=== PATIENT | female | born 1975 | race Caucasian/White ===

== ENCOUNTER → 2016-06-20 | Outpatient (CLI) | payer OTHER ==
[~2016-06-20] MED LIST: ASPI81TA28 PO; ATV/1 PO; CALC500C3 PO; CYCL5TAB PO; DICL75TA2 PO; DSY50 PO; FLUC150T PO; GABA-112 PO; IBUP-1050 PO; INSDGI SC; INSUINJ4 SQ; LEVO1TAB35 PO; LISI-729 PO; LPT/40 PO; METF1000 PO; NVLGI/PEN SQ; ONDA4TAB46 PO; OXYC-57 PO; PRLSR20 PO; PROM25TA16 PO; RANI300T2 PO; RIZA10TA18 PO; SERT25TA PO; TRAM-10 PO
[2016-06-20 12:23] LABS: BASO ABS # 0.09 K/uL (0-0.2); COMPLETE YES; EOS % 3.9 %; HEMATOCRIT 41.2 % (37-47); IG% 0.8 %; LYMPH % 35.3 %; LYMPH ABS # 3.16 K/uL (1.2-3.4); MEAN CELL VOLUME 90.5 fL (80-100); MEAN CORPUSCULAR HEMOGLOBIN 32.1 pg (25-34); MEAN CORPUSCULAR HGB CONC 35.4 g/dl (32-36); MEAN PLATELET VOLUME 10.2 fL (7.4-10.4); MONO % 6.9 %; NEUT % 52.1 %; PLATELET COUNT 310 K/uL (130-400); RED BLOOD COUNT 4.55 M/uL (4.2-5.4); WHITE BLOOD COUNT 8.94 K/uL (4.8-10.8)
[2016-06-20 12:56] LABS: BLOOD UREA NITROGEN 16 mg/dl (7-18); BUN/CREATININE RATIO 22.1 (10-20); CALCIUM 8.7 mg/dl (8.5-10.1); CARBON DIOXIDE 22 mmol/L (21-32); CHLORIDE 106 mmol/L (98-107); CREATININE 0.73 mg/dl (0.60-1.20); GLUCOSE 194 mg/dl (70-99); POTASSIUM 3.9 mmol/L (3.5-5.1); SODIUM 139 mmol/L (136-145)
== END | disposition home or self-care (01) ==
LOC: C.LAB 11:06
PROVIDERS: ATTEND Orthopaedic Surgery
DX: Z01.810 Encounter for preprocedural cardiovascular examination (principal); Z01.812 Encounter for preprocedural laboratory examination; M25.512 Pain in left shoulder

== ENCOUNTER 2016-10-12 16:57 | Emergency (ER) | payer OTHER ==
[~2016-10-12] VITALS: Ht 167.6 cm; Wt 124.5 kg
[~2016-10-12 16:57] MED LIST changes: -CALC500C3 PO; -FLUC150T PO; -IBUP-1050 PO; -INSDGI SC; -LEVO1TAB35 PO; -ONDA4TAB46 PO; -OXYC-57 PO
[2016-10-12] MEDS ORDERED: FENTANYL CITRATE INJ 50 MCG/1 ML 2 ML VIAL IV STA (17:19)
[2016-10-12 17:20] VITALS: TEMP 36.8; Ht 167.6 cm; Wt 124.5 kg
[2016-10-12 17:25] LABS: BASO % 0.5 %; BASO ABS # 0.05 K/uL (0-0.2); COMPLETE YES; HEMATOCRIT 40.4 % (37-47); IG% 0.5 %; LYMPH % 37.1 %; LYMPH ABS # 3.42 K/uL (1.2-3.4); MEAN CELL VOLUME 89.4 fL (80-100); MEAN CORPUSCULAR HEMOGLOBIN 32.3 pg (25-34); MEAN CORPUSCULAR HGB CONC 36.1 g/dl (32-36); MEAN PLATELET VOLUME 10.1 fL (7.4-10.4); MONO % 6.5 %; NEUT % 52.4 %; PLATELET COUNT 271 K/uL (130-400); RED BLOOD COUNT 4.52 M/uL (4.2-5.4); WHITE BLOOD COUNT 9.22 K/uL (4.8-10.8)
[2016-10-12] MEDS ORDERED: ONDANSETRON 8 MG/54 ML D5W IV ONE (17:30)
[2016-10-12 17:46] LABS: BUN/CREATININE RATIO 17.8 (10-20); CALCIUM 8.4 mg/dl (8.5-10.1); CREATININE 0.58 mg/dl (0.60-1.20); POTASSIUM 3.5 mmol/L (3.5-5.1)
[2016-10-12 17:51] LABS: CKMB/CK RATIO 1.5 (0-3.0)
[2016-10-12 17:57] VITALS: O2SAT 95
[2016-10-12] MEDS ORDERED: FLUC150T PO (18:06)
[2016-10-12] MEDS ORDERED: ONDA4TAB46 PO (18:06)
[2016-10-12] MEDS ORDERED: INSDGI SC (18:06)
[2016-10-12] MEDS ORDERED: CALC500C3 PO (18:07)
[2016-10-12] MEDS ORDERED: IBUP-1050 PO (18:07)
--- NOTE | 2016-10-12 18:08 | DIAGNOSTIC IMAGING REPORT ---
CHEST ONE VIEW PORTABLE HISTORY: Short of breath. Atypical CHEST PAIN COMPARISON: Chest 10/04/2013. FINDINGS: The lungs are clear. Cardiac silhouette is normal in size. No pleural effusions. No pneumothorax. IMPRESSION: No acute process. Electronically signed by: Yared Redman M.D. 10/12/2016 6:06 PM Dictated Date/Time: 10/12/2016 6:05 PM
[2016-10-12] MEDS ORDERED: ACETAMINOPHEN 500 MG TAB PO STA (18:42)
[2016-10-12] MEDS ORDERED: KETOROLAC TROMETHAMINE 30 MG/ML VIAL IV STA (20:05)
[2016-10-12] MEDS ORDERED: ALBUT/IPRATROP 3MG/0.5MG NEB 3 ML VIAL INH STA (20:05)
[2016-10-12] MEDS ORDERED: GI COCKTAIL PO STA (20:05)
[2016-10-12] MEDS ORDERED: ALUMINUM/MAGNESIUM SUSP 30 ML UDC ONE (20:14)
[2016-10-12] MEDS ORDERED: LIDOCAINE HCL 2% VISC SOLN 20 ML UDC ONE (20:14)
[2016-10-12] MEDS ORDERED: ALBUTEROL HFA 8 GM INHALER INH ONE (21:15)
[2016-10-12] MEDS ORDERED: PROMETHAZINE HCL 25 MG TAB PO ONE (21:15)
[2016-10-12] MEDS ORDERED: PHENERGAN 25MG HOMEPACK PO ONE (21:15)
--- NOTE | 2016-10-12 21:25 | EMERGENCY ROOM VISIT NOTE ---
History Report prepared by Александр: Minal Reyse Under the Supervision of: Dr. Maurilio Eduardo M.D. First contact with patient: 17:13 Stated Complaint: CHEST PAIN, SOB History of Present Illness The patient is a 41 year old female who presents to the Emergency Room with complaints of constant chest pain beginning last night. The patient states that the chest pains are stabbing in the center of her chest and radiate into her left arm. She reports that she has had chest pain in the past but it was not as severe as it is today. She notes a history of acid reflux and states that she has not had any reflux today. The patient complains of shortness of breath, lightheadedness, and nausea. She notes that she took a baby aspirin this morning and in the ambulance she recieved 3 nitroglycerin. She states that the second nitroglycerin relieved some of her chest pressure but it has returned back to its initial severity. Pt denies LOC, headache, fevers, chills, diaphoresis, visual changes, neck pain, tearing pain radiating to the back, personal history or family history of aneurysm or pulmonary embolism, uncontrolled hypertension, leg swelling, coagulation abnormalities, prolonged travel, recent surgery or immobilization, vomiting, abdominal pain, melena, hematochezia, urinary symptoms, numbness, weakness, lymphadenopathy, rash, or other complaints. She rates her pain as an 8/10 in severity. She reports a history of diabetes and Prothrombin mutation. The patient states that moving around and exertion worsen her chest pain and shortness of breath. Source of History: patient Onset: last night Position: chest Quality: pressure, stabbing Timing: constant Modifying Factors (Worsening): exertion, movement Review of Systems See HPI for pertinent positives and negatives. A total of ten systems were reviewed and were otherwise negative. Past Medical & Surgical Medical Problems: (1) DM (diabetes mellitus), type 2, uncontrolled (2) Dyslipidemia (3) Migraine (4) Necrobiosis diabeticorum (5) Prothrombin gene mutation (6) Tobacco use Surgical Problems: (1) Status post arthroscopic knee surgery Family History Diabetes mellitus FHx: prothrombin gene mutation Seizures Social History Smoking Status: Current Every Day Smoker Alcohol Use: occasionally Drug Use: none Marital Status: other Housing Status: lives with family Occupation Status: employed Current/Historical Medications Scheduled Aspirin (Aspirin Ec), 81 MG PO DAILY Atorvastatin (Lipitor), 40 MG PO DAILY Diclofenac Sodium (Voltaren), 75 MG PO BID Gabapentin (Neurontin), 200 MG PO TID Insulin Aspart (Novolog Flexpen), 60 UNITS SQ WM Insulin Glargine (Lantus), 70 UNITS SC DAILY Lisinopril (Zestril), 5 MG PO DAILY Metformin Hcl (Glucophage), 1,000 MG PO BIDM Omeprazole (Prilosec), 40 MG PO BID Ranitidine Hcl (Zantac), 300 MG PO HS Sertraline (Zoloft), 10 MG PO DAILY Scheduled PRN Calcium Carbonate (Tums), 500 MG PO UD PRN for PRN Fluconazole (Diflucan), 150 MG PO DAILY PRN for YEAST INFECTION Ibuprofen (Advil), 200-600 MG PO Q4H PRN for Pain Lorazepam (Ativan), 1 MG PO TID PRN for Anxiety Ondansetron Hcl (Zofran), 1 TAB PO UD PRN for Nausea Rizatriptan Benzoate (Maxalt), 10 MG PO UD PRN for Migraine Tramadol (Ultram), 50 MG PO Q6 PRN for Pain Allergies Coded Allergies: Meperidine (Verified Allergy, Mild, ITCHY, 12/23/15) Amoxicillin (Verified Allergy, Unknown, 0, 12/23/15) Bupropion (Verified Allergy, Unknown, PSYCHOTIC, 12/23/15) Oxycodone (Verified Allergy, Unknown, ITCHY, 12/23/15) Morphine (Verified Adverse Reaction, Intermediate, "GETS REALLY SICK", ) Uncoded Allergies: MUSCLE RELAXER (Allergy, Unknown, itching, n/v, 12/23/15) not flexeril Physical Exam Vital Signs Date Time Temp Pulse Resp B/P (MAP) Pulse Ox O2 Delivery O2 Flow Rate FiO2 10/12/16 20:15 74 115/81 97 Room Air 10/12/16 19:45 78 10/12/16 18:45 71 94 10/12/16 18:13 78 16 107/70 94 Nasal Cannula 2.0 10/12/16 17:57 95 Nasal Cannula 2.0 10/12/16 17:56 79 Room Air 10/12/16 17:20 96 Room Air 10/12/16 17:20 36.8 86 20 117/84 96 Room Air 10/12/16 17:20 96 Room Air 10/12/16 17:12 86 Physical Exam GENERAL: Awake, alert, well-appearing, in no distress HENT: Normocephalic, atraumatic. Oropharynx unremarkable. EYES: Normal conjunctiva. Sclera non-icteric. NECK: Supple. No nuchal rigidity. FROM. No JVD. RESPIRATORY: Clear to auscultation. CARDIAC: Regular rate, normal rhythm. Extremities warm and well perfused. Pulses equal. ABDOMEN: Soft, non-distended. No tenderness to palpation. No rebound or guarding. No masses. RECTAL: Deferred. MUSCULOSKELETAL: Sternal tenderness. The back is symmetrical on inspection without obvious abnormality. There is no CVA tenderness to palpation. No joint edema. LOWER EXTREMITIES: Calves are equal size bilaterally and non-tender. No edema. No discoloration. NEURO: Normal sensorium. No sensory or motor deficits noted. SKIN: No rash or jaundice noted. Medical Decision & Procedures ER Provider Diagnostic Interpretation: X-ray: Per my interpretation, radiologist review. CHEST ONE VIEW PORTABLE FINDINGS: The lungs are clear. Cardiac silhouette is normal in size. No pleural effusions. No pneumothorax. IMPRESSION: No acute process. Electronically signed by: Yared Redman M.D. 10/12/2016 6:06 PM Dictated Date/Time: 10/12/2016 6:05 PM Laboratory Results 10/12/16 17:10 Red Blood Count 4.52, Mean Corpuscular Volume 89.4, Mean Corpuscular Hemoglobin 32.3, Mean Corpuscular Hemoglobin Concent 36.1, Mean Platelet Volume 10.1, Neutrophils (%) (Auto) 52.4, Lymphocytes (%) (Auto) 37.1, Monocytes (%) (Auto) 6.5, Eosinophils (%) (Auto) 3.0, Basophils (%) (Auto) 0.5, Neutrophils # (Auto) 4.82, Lymphocytes # (Auto) 3.42, Monocytes # (Auto) 0.60, Eosinophils # (Auto) 0.28, Basophils # (Auto) 0.05 10/12/16 17:10 Test 10/12/16 17:10 10/12/16 17:36 10/12/16 20:29 White Blood Count 9.22 K/uL (4.8-10.8) Red Blood Count 4.52 M/uL (4.2-5.4) Hemoglobin 14.6 g/dL (12.0-16.0) Hematocrit 40.4 % (37-47) Mean Corpuscular Volume 89.4 fL (80-100) Mean Corpuscular Hemoglobin 32.3 pg (25-34) Mean Corpuscular Hemoglobin Concent 36.1 g/dl (32-36) Platelet Count 271 K/uL (130-400) Mean Platelet Volume 10.1 fL (7.4-10.4) Neutrophils (%) (Auto) 52.4 % Lymphocytes (%) (Auto) 37.1 % Monocytes (%) (Auto) 6.5 % Eosinophils (%) (Auto) 3.0 % Basophils (%) (Auto) 0.5 % Neutrophils # (Auto) 4.82 K/uL (1.4-6.5) Lymphocytes # (Auto) 3.42 K/uL (1.2-3.4) Monocytes # (Auto) 0.60 K/uL (0.11-0.59) Eosinophils # (Auto) 0.28 K/uL (0-0.5) Basophils # (Auto) 0.05 K/uL (0-0.2) RDW Standard Deviation 40.9 fL (36.4-46.3) RDW Coefficient of Variation 12.6 % (11.5-14.5) Immature Granulocyte % (Auto) 0.5 % Immature Granulocyte # (Auto) 0.05 K/uL (0.00-0.02) Anion Gap 7.0 mmol/L (3-11) Est Creatinine Clear Calc Drug Dose 173.7 ml/min Estimated GFR () 133.6 Estimated GFR (Non- 115.3 BUN/Creatinine Ratio 17.8 (10-20) Calcium Level 8.4 mg/dl (8.5-10.1) Total Bilirubin 0.6 mg/dl (0.2-1) Direct Bilirubin 0.1 mg/dl (0-0.2) Aspartate Amino Transf (AST/SGOT) 11 U/L (15-37) Alanine Aminotransferase (ALT/SGPT) 27 U/L (12-78) Alkaline Phosphatase 83 U/L (45-117) Total Creatine Kinase 176 U/L (26-192) Creatine Kinase MB 2.6 ng/ml (0.5-3.6) Creatine Kinase MB Ratio 1.5 (0-3.0) Total Protein 6.8 gm/dl (6.4-8.2) Albumin 3.4 gm/dl (3.4-5.0) Lipase 82 U/L (73-393) Bedside D-Dimer 225 ng/mlFEU (0-450) Bedside Troponin I 0.000 ng/ml (0-0.045) Bedside Glucose 129 mg/dl (70-90) Laboratory results reviewed by me Medications Administered Medications (Trade) Dose Ordered Sig/John Route Start Time Stop Time Status Last Admin Dose Admin Fentanyl Citrate (Fentanyl Inj) 100 mcg NOW STAT IV 10/12/16 17:19 10/12/16 17:21 DC 10/12/16 17:41 100 MCG Ondansetron HCl (Zofran 8mg Iv) 8 mg NOW ONCE IV 10/12/16 17:30 10/12/16 17:31 DC 10/12/16 17:42 8 MG Acetaminophen (Tylenol Tab) 1,000 mg NOW STAT PO 10/12/16 18:42 10/12/16 18:43 DC 10/12/16 19:00 1,000 MG Albuterol/ Ipratropium (Duoneb) 3 ml NOW STAT INH 10/12/16 20:05 10/12/16 20:07 DC 10/12/16 20:19 3 ML Ketorolac Tromethamine (Toradol Inj) 30 mg NOW STAT IV 10/12/16 20:05 10/12/16 20:07 DC 10/12/16 20:19 30 MG Lidocaine HCl (Viscous Lidocaine 2% Soln) 20 ml STK-MED ONCE .ROUTE 10/12/16 20:14 10/12/16 20:15 DC 10/12/16 20:20 20 ML Al Hydroxide/Mg Hydroxide (Maalox Susp) 30 ml STK-MED ONCE .ROUTE 10/12/16 20:14 10/12/16 20:15 DC 10/12/16 20:20 30 ML ECG Indication: chest pain Rate (beats per minute): 76 Rhythm: normal sinus Findings: nonspecific-ST abn, no acute ischemic change, no ectopy ED Course 1713: The patient was evaluated in room C11B. A complete history and physical exam was performed. 1718: Fentanyl Inj 100mcg IV. 1729: Zofran 8mg IV. 1839: I reevaluated the patient and she still has a slight headache from the nitroglycerin. 1841: Tylenol Tab 1000mg PO. 2004: GI Cocktail 24ml PO, Toradol Inj 30mg IV, Duoneb 3ml INH. 2007: I reevaluated the patient. She has a slight headache and feels like her food is getting stuck when it goes down. 2113: I reevaluated the patient. She is feeling a bit nauseated. She notes that the GI cocktail and breathing treatment have helped. 2114: Albuterol 2 puffs INH, Phenergan Tab 25mg PO, Promethazine HCl 1 homepack PO. 2123: I reevaluated the patient. Discussed results and discharge instructions: She verbalized understanding and agreement. The patient is ready for discharge. Medical Decision Medication Reconciliation: I attest that I have personally reviewed the patient' s current medication list Blood pressure screening: Patient was found to have normal blood pressure on screening and does not require follow-up. Triage Nursing notes reviewed. The patient's presentation and history were concerning for chest pain. Etiologies such as cardiac ischemia, aortic dissection, pulmonary embolism, pneumonia, pneumothorax, musculoskeletal, infections, gastrointestinal, as well as others were entertained. The patient had recurrence of chest pain since yesterday. Blood work was obtained. ECG did not reveal any acute ischemic change. She had an unremarkable chest x-ray. Her CBC, chemistry panel, LFTs, lipase and cardiac markers were unremarkable except for hypoglycemia. This was rechecked and verified. The patient was given orange juice and her hypoglycemia corrected. She was also given a diet. The patient received fentanyl and Zofran. The patient had a headache after receiving nitroglycerin. She was given Tylenol. She was observed. Given the fact that her pain has been present since yesterday a single set of cardiac markers were done and these were negative. A d-dimer was done and this was negative as well. The patient did have tenderness in her chest wall on examination. This seems to be most consistent with a musculoskeletal source or maybe esophageal. The patient still had some headache after the Tylenol. She felt a headache after the nitroglycerin. She was given a DuoNeb because her oxygen was slightly low. She was also given Toradol. The patient is a long-time smoker. After those medications in addition to a GI cocktail the patient felt much better. She was observed. Her sugar was corrected. She has some slight nausea prior to discharge and was given a dose of Phenergan. I will give her a Phenergan home pack. She will follow-up closely in the office. Conservative management was discussed. I gave my usual and customary discussion regarding this issue. By the evaluation outlined above other emergent etiologies such as those listed in the differential, as well as others, were deemed relatively unlikely. The patient was educated about the findings as listed above. All questions were answered and the patient was pleased with the treatment. Return instructions were outlined and the patient was discharged in stable condition. The patient was referred to her PCP for follow-up for a recheck of the current condition. Impression Primary Impression: Left sided chest pain Scribe Attestation The scribe's documentation has been prepared under my direction and personally reviewed by me in its entirety. I confirm that the note above accurately reflects all work, treatment, procedures, and medical decision making performed by me. Departure Information Referrals Brandi Dunne DO (PCP) Additional Instructions CHEST PAIN INSTRUCTIONS: DO NOT drive, drink alcohol, operate machinery, or perform dangerous activities today. You were given medications in the ER that can affect your ability to safely function or operate a vehicle. Phenergan 25mg tabs, one every six hours for nausea. Ibuprofen(Motrin, Advil) may be used for fever or pain. Use 600mg every six hours as needed. Take with food. Avoid using more than 2400mg in a 24 hour period. Do not use 2400mg per day for more than three consecutive days without physician direction. Prolonged inappropriate use can lead to stomach upset or ulcers. (AND/OR) Acetaminophen(Tylenol) may be used for fever or pain. Use 1000mg every six hours as needed. Avoid using more than 4000mg in a 24 hour period. Albuterol inhaler: Two puffs 4 times daily for seven days to improve breathing , then 2 puffs every 4-6 hours as needed. Rest and drink plenty of fluids as tolerated. Continue current medications. Avoid strenuous activities and anything that worsens your pain. Resume normal activities once your symptoms resolve. Return to the ER immediately for worsening or persistent chest pain, abdominal pain, vomiting, fevers, chest pains, difficulty breathing, worsening of your condition, or as needed. Follow up with your primary physician in 2-3 days for a recheck of your current condition.
[2016-10-12 21:29] VITALS: BP 128/86; PULSE 71; O2SAT 98
== END 2016-10-12 21:31 | disposition home or self-care (01) ==
LOC: EDBD 16:57 → C.EDC 17:02
DX: R07.9 Chest pain, unspecified (principal); E11.9 Type 2 diabetes mellitus without complications; E78.5 Hyperlipidemia, unspecified; R68.89 Other general symptoms and signs; Z83.3 Family history of diabetes mellitus; Z82.0 Family history of epilepsy and other diseases of the nervous system; F17.200 Nicotine dependence, unspecified, uncomplicated; Z79.82 Long term (current) use of aspirin; Z79.4 Long term (current) use of insulin

== ENCOUNTER 2016-11-14 23:27 | Emergency (ER) | payer OTHER ==
[~2016-11-14] VITALS: Ht 177.8 cm; Wt 123.0 kg
[~2016-11-14 23:27] MED LIST changes: +CALC500C3 PO; -CYCL5TAB PO; -DSY50 PO; +FLUC150T PO; +IBUP-1050 PO; +INSDGI SC; -INSUINJ4 SQ; +ONDA4TAB46 PO; -PROM25TA16 PO
[2016-11-14 23:30] VITALS: TEMP 37.1; Ht 177.8 cm; Wt 123.0 kg
[2016-11-14] MEDS ORDERED: SODIUM CHLORIDE 0.9% 1000ML 1,000 ML IV STA (23:52)
[2016-11-14] MEDS ORDERED: ALBUT/IPRATROP 3MG/0.5MG NEB 3 ML VIAL INH STA (23:59)
[2016-11-15] MEDS ORDERED: HYDROCODONE/HOMATROPINE SYRUP 5MG/1.5MG 5ML UDP PO STA (00:02)
--- NOTE | 2016-11-15 00:04 | EMERGENCY ROOM VISIT NOTE ---
History Report prepared by Александр: Avila Rodarte Under the Supervision of: Dr. Edi Sargent M.D. First contact with patient: 23:40 Chief Complaint: ILLNESS Stated Complaint: CAN'T BREATHE,TIGHT CHEST,COUGH,FEVER,DIZZY History of Present Illness The patient is a 41 year old female who presents to the Emergency Room with complaints of worsening shortness of breath that began 2 weeks ago. At this time , she began having productive cough. 1 week ago, it became a dry cough. Because of this, she has a sore throat as well. Earlier today, a nurse took her temperature, and it was 104.9 F, which was taken twice. She took Tylenol PO 5 hours ago. She experiences pain with breathing. She states that she has a clotting disorder. Secondary to this, she takes Aspirin 81 mg PO everyday. She has never had a blood clot before. She has a past medical history of diabetes. She denies any abdominal pain. She has had pneumonia twice in the past. She notes that she did a lot of traveling this weekend. Source of History: patient Onset: 2 weeks ago Position: other (Respiratory System) Symptom Intensity: moderate Quality: other (Shortness of breath) Timing: worsening Modifying Factors (Worsening): breathing (pain associated with) Associated Symptoms: + fevers, + sorethroat, + cough, No abdominal pain Review of Systems See HPI for pertinent positives & negatives. A total of 10 systems reviewed and were otherwise negative. Past Medical & Surgical Medical Problems: (1) DM (diabetes mellitus), type 2, uncontrolled (2) Dyslipidemia (3) Migraine (4) Necrobiosis diabeticorum (5) Prothrombin gene mutation (6) Tobacco use Surgical Problems: (1) Status post arthroscopic knee surgery Family History Diabetes mellitus FHx: prothrombin gene mutation Seizures Social History Smoking Status: Current Every Day Smoker Alcohol Use: occasionally Drug Use: none Marital Status: other Housing Status: lives with family Occupation Status: employed Current/Historical Medications Scheduled Aspirin (Aspirin Ec), 81 MG PO DAILY Atorvastatin (Lipitor), 40 MG PO DAILY Diclofenac Sodium (Voltaren), 75 MG PO BID Gabapentin (Neurontin), 200 MG PO TID Insulin Aspart (Novolog Flexpen), 60 UNITS SQ WM Insulin Glargine (Lantus), 70 UNITS SC DAILY Levofloxacin (Levaquin), 750 MG PO QD@08 Lisinopril (Zestril), 5 MG PO DAILY Metformin Hcl (Glucophage), 1,000 MG PO BIDM Omeprazole (Prilosec), 40 MG PO BID Ranitidine Hcl (Zantac), 300 MG PO HS Sertraline (Zoloft), 10 MG PO DAILY Scheduled PRN Calcium Carbonate (Tums), 500 MG PO UD PRN for PRN Fluconazole (Diflucan), 150 MG PO DAILY PRN for YEAST INFECTION Ibuprofen (Advil), 200-600 MG PO Q4H PRN for Pain Lorazepam (Ativan), 1 MG PO TID PRN for Anxiety Ondansetron Hcl (Zofran), 1 TAB PO UD PRN for Nausea Rizatriptan Benzoate (Maxalt), 10 MG PO UD PRN for Migraine Tramadol (Ultram), 50 MG PO Q6 PRN for Pain Allergies Coded Allergies: Meperidine (Verified Allergy, Mild, ITCHY, 10/29/16) Amoxicillin (Verified Allergy, Unknown, 0, 10/29/16) Bupropion (Verified Allergy, Unknown, PSYCHOTIC, 10/29/16) Oxycodone (Verified Allergy, Unknown, ITCHY, 10/29/16) Morphine (Verified Adverse Reaction, Intermediate, "GETS REALLY SICK", ) Uncoded Allergies: MUSCLE RELAXER (Allergy, Unknown, itching, n/v, 12/23/15) not flexeril Physical Exam Vital Signs Date Time Temp Pulse Resp B/P (MAP) Pulse Ox O2 Delivery O2 Flow Rate FiO2 11/15/16 02:19 92 16 118/70 93 Room Air 11/15/16 01:23 98 16 129/93 94 Room Air 11/15/16 00:11 105 24 100/82 95 Room Air 11/14/16 23:30 37.1 119 18 140/88 96 Room Air Physical Exam GENERAL: Patient is uncomfortable appearing and in mild acute distress. Diaphoretic. HEENT: No acute trauma, normocephalic atraumatic, mucous membranes dry, no nasal congestion, no scleral icterus. NECK: No stridor, no adenopathy, no meningismus, trachea is midline. LUNGS: Persistent hacking cough. Crackles bilaterally in lower lobes. HEART: Tachycardic rate and regular rhythm. No murmurs, rubs, gallops appreciated. ABDOMEN: Soft, nontender, bowel sounds positive, no masses appreciated, no peritonitis. BACK: No midline tenderness, no CVA tenderness EXTREMITIES: Normal motion all extremities, no cyanosis, no edema. NEUROLOGIC: Alert and oriented, no acute motor or sensory deficits, no focal weakness, cranial nerves grossly intact. SKIN: No rash, no jaundice, no diaphoresis. Medical Decision & Procedures ER Provider Diagnostic Interpretation: Radiology results and stated below per my review and radiologist interpretation: CTA CHEST: Compared with 10/04/2013 No acute pulmonary embolism. No thoracic aortic aneurysm or dissection. Low lung volumes with hypoventilatory changes. No acute parenchymal lung disease. No pleural or pericardial effusions. No pathologic adenopathy within the chest. Radiologist: Francois Rodney M.D. 1 VIEW CHEST X-RAY: No definitive infiltrate. Some scattered patchy densities of uncertain etiologies. No enlarged heart. No effusion. No pneumothorax. Per me. Laboratory Results 11/15/16 00:10 Red Blood Count 5.00, Mean Corpuscular Volume 88.2, Mean Corpuscular Hemoglobin 31.6, Mean Corpuscular Hemoglobin Concent 35.8, Mean Platelet Volume 9.8 11/15/16 00:10 Test 11/15/16 00:10 11/15/16 00:16 White Blood Count 14.88 K/uL (4.8-10.8) Red Blood Count 5.00 M/uL (4.2-5.4) Hemoglobin 15.8 g/dL (12.0-16.0) Hematocrit 44.1 % (37-47) Mean Corpuscular Volume 88.2 fL (80-100) Mean Corpuscular Hemoglobin 31.6 pg (25-34) Mean Corpuscular Hemoglobin Concent 35.8 g/dl (32-36) Platelet Count 313 K/uL (130-400) Mean Platelet Volume 9.8 fL (7.4-10.4) RDW Standard Deviation 40.0 fL (36.4-46.3) RDW Coefficient of Variation 12.6 % (11.5-14.5) Neutrophils % (Manual) 73.2 % Lymphocytes % (Manual) 22.3 % Monocytes % (Manual) 1.8 % Eosinophils % (Manual) 2.7 % Neutrophils # (Manual) 10.89 K/uL (1.4-6.5) Total Absolute Neutrophils 10.89 K/uL (1.4-6.5) Lymphocytes # (Manual) 3.32 K/uL (1.2-3.4) Total Absolute Lymphocytes 3.32 K/uL (1.2-3.4) Monocytes # (Manual) 0.27 K/uL (0.11-0.59) Eosinophils # (Manual) 0.40 K/uL (0-0.5) Red Blood Cell Morphology Unremarkable Anion Gap 8.0 mmol/L (3-11) Est Creatinine Clear Calc Drug Dose 106.6 ml/min Estimated GFR () 81.6 Estimated GFR (Non- 70.4 BUN/Creatinine Ratio 11.6 (10-20) Calcium Level 9.6 mg/dl (8.5-10.1) Total Creatine Kinase 155 U/L (26-192) Creatine Kinase MB 1.8 ng/ml (0.5-3.6) Creatine Kinase MB Ratio 1.2 (0-3.0) Troponin I < 0.015 ng/ml (0-0.045) Bedside Lactic Acid Venous 1.92 mmol/L (0.90-1.70) Laboratory results as reviewed by me. Medications Administered Medications (Trade) Dose Ordered Sig/John Route Start Time Stop Time Status Last Admin Dose Admin Sodium Chloride 1,000 ml @ 999 mls/hr Q1H1M STAT IV 11/14/16 23:52 11/15/16 00:52 DC 11/15/16 00:18 999 MLS/HR Albuterol/ Ipratropium (Duoneb) 3 ml NOW STAT INH 11/14/16 23:59 11/15/16 00:01 DC 11/15/16 00:18 3 ML Hydrocodone Bit/ Homatropine Methylb (Hycodan Syrup) 5 ml NOW STAT PO 11/15/16 00:02 11/15/16 00:03 DC 11/15/16 00:18 5 ML Sodium Chloride 1,000 ml @ 999 mls/hr Q1H1M STAT IV 11/15/16 00:30 11/15/16 01:30 DC 11/15/16 00:30 999 MLS/HR Ondansetron HCl (Zofran Inj) 4 mg NOW STAT IV 11/15/16 01:01 11/15/16 01:02 DC 11/15/16 01:47 4 MG Diphenhydramine HCl (Benadryl Inj) 25 mg NOW STAT IV 11/15/16 01:01 11/15/16 01:02 DC 11/15/16 01:46 25 MG Hydrocodone Bit/ Homatropine Methylb (Hycodan Elix Homepack 5/1.5MG/ 5ML) 1 homepack UD ONCE PO 11/15/16 02:30 11/15/16 02:31 DC 11/15/16 02:32 1 HOMEPACK Levofloxacin (Levaquin Tab) 750 mg NOW STAT PO 11/15/16 02:18 11/15/16 02:20 DC 11/15/16 02:33 750 MG ECG Indication: SOB/dyspnea Rate (beats per minute): 110 Rhythm: sinus tachycardia Findings: no acute ischemic change, no ectopy ED Course 2340: The patient was evaluated in room A2. A complete history and physical exam was performed. 2352: Ordered Sodium Chloride 1000 ml @ 999 mls/hr IV 2359: Ordered DuoNeb 3 ml INH 0002: Ordered Hycodan Syrup 5 ml PO 0030: Ordered Sodium Chloride 1000 ml @ 999 mls/hr IV 0101: Ordered Benadryl Inj 25 mg IV, Zofran Inj 4 mg IV 0218: Ordered Levofloxacin 750 mg PO 0230: Ordered Hydrocodone Bit/ Homatropine Methylb 1 homepack PO 0240: Reevaluated the patient. Discussed results and discharge instructions: She verbalized understanding and agreement. The patient is ready for discharge. Medical Decision Differential: Infectious, Reactive Airway Disease, Pneumonia, Pneumothorax, COPD , CHF, ACS, Pulmonary Embolism, MSK, GI, Dissection, amongst other etiologies entertained. Medication Reconciliation: I attest that I have personally reviewed the patient 's current medication list. Blood Pressure Screening: Patient was found to have a slightly elevated blood pressure due to circumstances. I do not believe that the patient requires hypertension monitoring. 41 yr old diabetic female with hacking cough, fevers, and fatigue. Bilateral lower lobe crackles. Moderate risk PE and thus with non-specific CXR I feel that dimer not indicated but rather straight to CT. Fortunately no PE. Bilateral atelectasis though I suspect this is infectious with her dehydration. Fluid resus with cough meds and she is feeling vastly improved. O2, HR, and BP improved. She is happy and in no distress. Seems reasonable treating with abx. She is diabetic and doesn't monitor sugars at home thus I feel steroids contraindicated. Reviewed symptoms requiring return. Stressed PCP follow up. Impression Primary Impression: Pneumonia of both lower lobes Scribe Attestation The scribe's documentation has been prepared under my direction and personally reviewed by me in its entirety. I confirm that the note above accurately reflects all work, treatment, procedures, and medical decision making performed by me. Departure Information Dispostion Home / Self-Care Prescriptions Levofloxacin (Levaquin) 750 Mg Tab 750 MG PO QD@08, #5 TAB Prov: Edi Sargent M.D. 11/15/16 Referrals Brandi Dunne, (PCP) Forms HOME CARE DOCUMENTATION FORM, IMPORTANT VISIT INFORMATION, WORK / SCHOOL INSTRUCTIONS Patient Instructions ED Pneumonia Adult, My [facility] Additional Instructions You must follow up with your primary care provider in the next few days for recheck. You have received a narcotic cough medication. These medications may cause drowsiness and should not be used with other sedative medications. Do not drive , drink alcohol, perform dangerous activities, nor make important decisions after taking these medications. assisted use or inappropriate use may lead to addiction.
[2016-11-15 00:30] LABS: HEMATOCRIT 44.1 % (37-47); MEAN CELL VOLUME 88.2 fL (80-100); MEAN CORPUSCULAR HEMOGLOBIN 31.6 pg (25-34); MEAN CORPUSCULAR HGB CONC 35.8 g/dl (32-36); MEAN PLATELET VOLUME 9.8 fL (7.4-10.4); PLATELET COUNT 313 K/uL (130-400); WHITE BLOOD COUNT 14.88 K/uL (4.8-10.8)
[2016-11-15] MEDS ORDERED: SODIUM CHLORIDE 0.9% 1000ML 1,000 ML IV STA (00:30)
[2016-11-15] MEDS ORDERED: DiphenhydrAMINE HCL 50 MG/ML VIAL IV STA (01:01)
[2016-11-15] MEDS ORDERED: ONDANSETRON INJ 2 MG/ML 2 ML VIAL IV STA (01:01)
[2016-11-15 01:05] LABS: BLOOD UREA NITROGEN 12 mg/dl (7-18); BUN/CREATININE RATIO 11.6 (10-20); CALCIUM 9.6 mg/dl (8.5-10.1); CARBON DIOXIDE 29 mmol/L (21-32); CHLORIDE 103 mmol/L (98-107); GLUCOSE 127 mg/dl (70-99)
[2016-11-15] MEDS ORDERED: OPTIRAY 320 IV PRN (01:15)
[2016-11-15 01:23] LABS: COMPLETE YES; EOSINOPHIL % 2.7 %; LYMPH ABS # 3.32 K/uL (1.2-3.4); LYMPHOCYTE % 22.3 %; NEUTROPHILS % 73.2 %
[2016-11-15 01:27] LABS: SODIUM 140 mmol/L (136-145)
[2016-11-15 01:32] LABS: CKMB/CK RATIO 1.2 (0-3.0)
[2016-11-15] MEDS ORDERED: LEVOFLOXACIN 250 MG TAB PO STA (02:18)
[2016-11-15 02:19] VITALS: BP 118/70; PULSE 92; O2SAT 93
[2016-11-15] MEDS ORDERED: LEVO1TAB35 PO (02:21)
[2016-11-15] MEDS ORDERED: HYCODAN 60ML BOTTLE HOMEPACK PO ONE (02:30)
--- NOTE | 2016-11-15 07:35 | DIAGNOSTIC IMAGING REPORT ---
CT ANGIOGRAM OF THE CHEST CLINICAL HISTORY: Atypical chest pain. COMPARISON STUDY: 10/04/2013 TECHNIQUE: Following the IV administration of 76 mL of Optiray-320, CT angiogram of the thorax was performed from the thoracic inlet to the lung bases utilizing the pulmonary embolus protocol. Images are reviewed in the axial, sagittal, and coronal planes. IV contrast was administered without complication. MIP imaging was performed. CT DOSE: 667.38 mGy.cm FINDINGS: There are mildly enlarged prevascular paratracheal and subcarinal lymph nodes. Hilar lymph nodes are the upper limits of normal in size. There is no pathologic axillary lymphadenopathy. There was no evidence of thoracic aortic dilatation. There were no pulmonary artery filling defects to indicate acute pulmonary embolism. No pleural effusions are visualized. There are low lung volumes. There are dependent airspace opacities. Also evident are scattered groundglass opacities within the upper lobes and right middle lobe. These are likely on a hypoventilatory basis. An infectious/inflammatory etiology however cannot be excluded with certainty. IMPRESSION: 1. No CT evidence of acute pulmonary embolism 2. Mild mediastinal lymphadenopathy 3. Bilateral dependent airspace opacities, and subtle groundglass upper lobe and right lower lobe airspace opacities. Although an infectious/inflammatory etiology cannot be excluded, a hypoventilatory atelectatic etiology is favored. Clinical follow-up is recommended. If the patient has signs or symptoms of pneumonia, then radiographic follow-up should also be considered Electronically signed by: Garret Pollock M.D. 11/15/2016 7:33 AM Dictated Date/Time: 11/15/2016 7:28 AM
--- NOTE | 2016-11-15 08:03 | DIAGNOSTIC IMAGING REPORT ---
CHEST ONE VIEW PORTABLE CLINICAL HISTORY: Difficult chest pain. Difficulty breathing. Cough, fever, dizziness. COMPARISON STUDY: 10/12/2016 FINDINGS: The cardiac and mediastinal contours are normal. There is no evidence of focal pulmonary consolidation. There is no evidence of failure. No pleural effusions are visualized.[ IMPRESSION: No active disease in the chest. Electronically signed by: Garret Pollock M.D. 11/15/2016 8:02 AM Dictated Date/Time: 11/15/2016 8:01 AM
== END 2016-11-15 02:44 | disposition home or self-care (01) ==
LOC: C.EDB 23:27 → C.EDA 11-15 02:44
DX: J18.1 Lobar pneumonia, unspecified organism (principal); E11.9 Type 2 diabetes mellitus without complications; E78.5 Hyperlipidemia, unspecified; G43.909 Migraine, unspecified, not intractable, without status migrainosus; D68.52 Prothrombin gene mutation; Z83.3 Family history of diabetes mellitus; F17.210 Nicotine dependence, cigarettes, uncomplicated; Z79.82 Long term (current) use of aspirin; Z79.4 Long term (current) use of insulin; Z79.899 Other long term (current) drug therapy

== ENCOUNTER 2017-04-16 08:49 | Emergency (ER) | payer OTHER ==
[~2017-04-16] VITALS: Ht 177.8 cm; Wt 123.0 kg
[2017-04-16 08:54] VITALS: Ht 177.8 cm; Wt 123.0 kg
[2017-04-16] MEDS ORDERED: LORA-741 PO (09:08)
--- NOTE | 2017-04-16 10:19 | EMERGENCY ROOM VISIT NOTE ---
History First contact with patient: 09:35 Chief Complaint: COUGH Stated Complaint: BRONCHITIS OR PNX Nursing Triage Summary: c/o productive cough over last week. History of Present Illness The patient is a 42 year old female who presents to the Emergency Room with complaints of worsening cough, congestion, chills, with wheezing and short of breath. She states that her symptoms started as more of a sinus infection, and this spread to her chest about 4 days ago. She states the cough is productive of brown mucus, she denies coughing up any blood. She has been wheezing more today, and states that she feels short of breath with coughing fits and exertion. She denies any chest pain, but states that her chest has been feeling tight since she started to have wheezing. She is a smoker. She reports pneumonia over the summer, states she had an albuterol inhaler for her wheezing but she thinks this is . She reports a history of a prothrombin gene mutation that makes her prone to blood clots, but states she has never had a blood clot and is not on blood thinners. She denies headache, vision changes, neck pain or stiffness, abdominal pain, vomiting, diarrhea, urinary symptoms, or rash. Review of Systems A complete 10 point review of systems was reviewed with the patient with pertinent positives and negatives as per history of present illness. All else were negative. Past Medical/Surgical History Medical Problems: (1) DM (diabetes mellitus), type 2, uncontrolled (2) Dyslipidemia (3) Migraine (4) Necrobiosis diabeticorum (5) Prothrombin gene mutation (6) Tobacco use Surgical Problems: (1) Status post arthroscopic knee surgery Family History Diabetes mellitus FHx: prothrombin gene mutation Seizures Social History Smoking Status: Current Every Day Smoker Alcohol Use: occasionally Drug Use: none Marital Status: other Housing Status: lives with family Occupation Status: employed Current/Historical Medications Scheduled Aspirin (Aspirin Ec), 81 MG PO DAILY Atorvastatin (Lipitor), 40 MG PO DAILY Azithromycin (Zithromax Z-Zachariah), 1 PKT PO UD Diclofenac Sodium (Voltaren), 75 MG PO BID Gabapentin (Neurontin), 200 MG PO TID Insulin Aspart (Novolog Flexpen), UNITS SQ WM Insulin Glargine (Lantus), 80 UNITS SC DAILY Lisinopril (Zestril), 5 MG PO DAILY Lorazepam (Ativan), 0.5 MG PO HS Metformin Hcl (Glucophage), 1,000 MG PO BIDM Omeprazole (Prilosec), 40 MG PO BID Ranitidine Hcl (Zantac), 300 MG PO HS Sertraline (Zoloft), 10 MG PO DAILY Scheduled PRN Calcium Carbonate (Tums), 500 MG PO UD PRN for PRN Fluconazole (Diflucan), 150 MG PO DAILY PRN for YEAST INFECTION Ibuprofen (Advil), 200-600 MG PO Q4H PRN for Pain Ondansetron Hcl (Zofran), 1 TAB PO UD PRN for Nausea Rizatriptan Benzoate (Maxalt), 10 MG PO UD PRN for Migraine Tramadol (Ultram), 50 MG PO Q6 PRN for Pain Physical Exam Vital Signs Date Time Temp Pulse Resp B/P (MAP) Pulse Ox O2 Delivery O2 Flow Rate FiO2 04/16/17 13:07 36.9 71 18 132/57 96 04/16/17 12:44 71 18 132/57 96 Room Air 04/16/17 10:56 78 04/16/17 10:52 94 Room Air 04/16/17 10:51 36.9 75 18 106/49 95 Room Air 04/16/17 09:03 98 Room Air 04/16/17 08:54 36.7 84 17 128/81 95 Room Air Physical Exam CONSTITUTIONAL: No acute distress, but appears uncomfortable. Mildly dehydrated. Alert and oriented X 4 with normal affect. HEENT: Normocephalic, atraumatic. Pupils equal, round and reactive to light, EOMI. TMs normal. Pharynx normal. Tacky mucous membranes. NECK: Supple, full active range of motion without discomfort. No cervical adenopathy. RESPIRATORY: Diminished bilaterally with diffuse expiratory wheezing, no crackles, rhonchi or stridor. Equal expansion bilaterally. CARDIOVASCULAR: Regular rate and rhythm with no murmurs, rubs or gallops. Normal peripheral perfusion. No edema. GASTROINTESTINAL: Soft, nontender, nondistended, obese. Bowel sounds present in all quadrants. MUSCULOSKELETAL: Full range of motion of all joints without discomfort. No calf tenderness or swelling. INTEGUMENTARY: No rash or other significant dermatologic conditions noted. NEUROLOGIC: Cranial nerves II-XII grossly intact. No focal neurologic deficits noted. Medical Decision & Procedures ER Provider Diagnostic Interpretation: CHEST 2 VIEWS ROUTINE CLINICAL HISTORY: Respiratory distress. COMPARISON STUDY: 11/15/2016 FINDINGS: The cardiac and mediastinal contours are normal. There is no evidence of focal pulmonary consolidation. There is no evidence of failure. No pleural effusions are visualized. IMPRESSION: No active disease in the chest. Laboratory Results 04/16/17 10:40 Red Blood Count 4.13, Mean Corpuscular Volume 91.0, Mean Corpuscular Hemoglobin 31.2, Mean Corpuscular Hemoglobin Concent 34.3, Mean Platelet Volume 10.2, Neutrophils (%) (Auto) 65.5, Lymphocytes (%) (Auto) 23.5, Monocytes (%) (Auto) 7.1, Eosinophils (%) (Auto) 3.1, Basophils (%) (Auto) 0.5, Neutrophils # (Auto) 6.19, Lymphocytes # (Auto) 2.22, Monocytes # (Auto) 0.67, Eosinophils # (Auto) 0.29, Basophils # (Auto) 0.05 04/16/17 10:40 Test 04/16/17 10:40 04/16/17 10:46 04/16/17 10:54 White Blood Count 9.45 K/uL (4.8-10.8) Red Blood Count 4.13 M/uL (4.2-5.4) Hemoglobin 12.9 g/dL (12.0-16.0) Hematocrit 37.6 % (37-47) Mean Corpuscular Volume 91.0 fL (80-100) Mean Corpuscular Hemoglobin 31.2 pg (25-34) Mean Corpuscular Hemoglobin Concent 34.3 g/dl (32-36) Platelet Count 256 K/uL (130-400) Mean Platelet Volume 10.2 fL (7.4-10.4) Neutrophils (%) (Auto) 65.5 % Lymphocytes (%) (Auto) 23.5 % Monocytes (%) (Auto) 7.1 % Eosinophils (%) (Auto) 3.1 % Basophils (%) (Auto) 0.5 % Neutrophils # (Auto) 6.19 K/uL (1.4-6.5) Lymphocytes # (Auto) 2.22 K/uL (1.2-3.4) Monocytes # (Auto) 0.67 K/uL (0.11-0.59) Eosinophils # (Auto) 0.29 K/uL (0-0.5) Basophils # (Auto) 0.05 K/uL (0-0.2) RDW Standard Deviation 42.5 fL (36.4-46.3) RDW Coefficient of Variation 12.8 % (11.5-14.5) Immature Granulocyte % (Auto) 0.3 % Immature Granulocyte # (Auto) 0.03 K/uL (0.00-0.02) Prothrombin Time 10.5 SECONDS (9.0-12.0) Prothromb Time International Ratio 1.0 (0.9-1.1) Activated Partial Thromboplast Time 27.0 SECONDS (21.0-31.0) Partial Thromboplastin Ratio 1.0 D-Dimer 240 ug/L FEU (0-500) Anion Gap 7.0 mmol/L (3-11) Est Creatinine Clear Calc Drug Dose 117.3 ml/min Estimated GFR () 92.0 Estimated GFR (Non- 79.4 BUN/Creatinine Ratio 10.5 (10-20) Calcium Level 8.3 mg/dl (8.5-10.1) Total Bilirubin 0.7 mg/dl (0.2-1) Aspartate Amino Transf (AST/SGOT) 12 U/L (15-37) Alanine Aminotransferase (ALT/SGPT) 25 U/L (12-78) Alkaline Phosphatase 78 U/L (45-117) Total Protein 7.0 gm/dl (6.4-8.2) Albumin 3.4 gm/dl (3.4-5.0) Globulin 3.6 gm/dl (2.5-4.0) Albumin/Globulin Ratio 0.9 (0.9-2) Beta-Hydroxybutyric Acid 1.03 mg/dL (0.2-2.81) Bedside Glucose 397 mg/dl (70-90) Urine Color YELLOW Urine Appearance CLEAR (CLEAR) Urine pH 5.0 (4.5-7.5) Urine Specific [place] 1.032 (1.000-1.030) Urine Protein NEG (NEG) Urine Glucose (UA) 3+ (NEG) Urine Ketones NEG (NEG) Urine Occult Blood NEG (NEG) Urine Nitrite NEG (NEG) Urine Bilirubin NEG (NEG) Urine Urobilinogen NEG (NEG) Urine Leukocyte Esterase NEG (NEG) Urine Test NEG (NEG) Medications Administered Medications (Trade) Dose Ordered Sig/John Route Start Time Stop Time Status Last Admin Dose Admin Albuterol/ Ipratropium (Duoneb) 3 ml NOW STAT INH 04/16/17 10:26 04/16/17 10:29 DC 04/16/17 11:05 3 ML Sodium Chloride 1,000 ml @ 999 mls/hr Q1H1M STAT IV 04/16/17 10:26 04/16/17 11:26 DC 04/16/17 11:05 999 MLS/HR Albuterol (Ventolin Hfa Inhaler) 2 puffs NOW ONCE INH 04/16/17 12:30 04/16/17 12:31 DC 04/16/17 12:30 2 PUFFS ECG Indication: SOB/dyspnea Rate (beats per minute): 74 Rhythm: normal sinus Findings: no acute ischemic change, no ectopy Change: no significant change (when compared to EKG from 11/15/16, rate is decreased, no other significant changes) Medical Decision CC: Patient presenting with complaint of cough, congestion, wheezing Interpretation of Labs: No leukocytosis, no anemia, hyperglycemia, no other significant electrolyte abnormalities, normal renal function, normal liver enzymes. Serum acetones negative. Negative d-dimer. UA shows glucosuria, no ketones and no infection. Differential Diagnosis: Includes, but not limited to viral URI, bronchitis, pneumonia, asthma exacerbation/COPD, PE, dehydration, electrolyte abnormality, among others. Medication Reconciliation: I attest that I have personally reviewed the patient' s current medication list. Vital signs review: I reviewed the patient's vital signs and interpret them as follows: T: Afebrile; BP: Normotensive; HR: Within normal limits; RR: Within normal limits; Pulse Ox: Within normal limits on room air. Blood pressure screening: The patient was found to have normal blood pressure on screening and does not require follow-up for repeat blood pressure check. Summary: Patient was evaluated at bedside, history and physical exam performed. Patient is alert and oriented, no acute distress, resting calmly in the stretcher. Patient smells strongly of cigarette smoke. Patient does have diminished bases with diffuse expiratory wheezing. No tachypnea, hypoxia, accessory muscle use, or other evidence of increased work of breathing. She does appear dehydrated with tacky mucous membranes, and states she has not been drinking well. She has no calf tenderness or swelling. She reports she has never had a blood clot. She does not take estrogen products. Patient's symptoms and exam seem consistent with bronchitis. Check a chest x- ray to evaluate for pneumonia. Given her history of a potential clotting disorder, will check a d-dimer to rule out PE. Orders were placed at bedside for labs, UA, IV fluids for hydration, EKG, DuoNeb. Patient discussed with Dr. Mantilla, who agrees with my assessment and plan. Labs reviewed as above, no significant abnormalities. D-dimer is negative. Patient was noted to be hyperglycemic, she states that she did not take her insulin last night or today. Serum ketones are negative. Patient states she will take her insulin when she gets home. EKG shows normal sinus rhythm with no acute ischemic changes. Chest x-ray does not show any evidence of pneumonia. Patient reassessed multiple times throughout ED stay, patient states she is feeling better after fluids and nebulizer treatments. On reassessment of her lungs, wheezing is improved and she is moving better air. Given her smoking status, will treat with antibiotics, Z-Zachariah prescribed. Patient was encouraged to quit smoking. Patient was also provided with an albuterol inhaler for use at home, instructed in proper use. Patient was updated on all results and plan for discharge, she was encouraged to follow closely with her PCP. Patient was also given strict return precautions should her symptoms worsen, she verbalized understanding. The patient was discharged home in stable condition and ambulatory. Head Trauma GCS Score: 15 Medication Reconcilliation Current Medication List: was personally reviewed by me Blood Pressure Screening Patient's blood pressure: Normal blood pressure Impression Primary Impression: Bronchitis Additional Impression: Hyperglycemia Departure Information Dispostion Home / Self-Care Condition GOOD Prescriptions Azithromycin (ZITHROMAX Z-ZACHARIAH) 250 Mg Tab 1 PKT PO UD for 5 Days, #6 TAB Prov: Hansa Castro CRNP 04/16/17 Referrals Brandi Dunne DO (PCP) Patient Instructions ED Bronchitis Asthmatic, ED Smoking Cessation, ED URI Viral, [facility] Additional Instructions You have been evaluated in the emergency department for your cough and chest pain. There is no evidence of pneumonia on your chest x-ray. You are being placed on antibiotics because you are a smoker and at higher risk for infection. You have been prescribed a Z-Zachariah, which is an antibiotic to be taken for the next 5 days, take as directed on the packaging. All antibiotics have the potential to cause diarrhea. Stop this medication and contact a medical provider if you were to develop any significant adverse side effects including: wheezing, shortness of breath, passing out, vomiting, or a diffuse rash. Always take antibiotics as directed and COMPLETE the ENTIRE course regardless of the improvement of your symptoms. Use the albuterol inhaler TWO puffs every 4 hours as needed for cough, wheezing , chest tightness. You should also use this before bed to help prevent coughing so that you can sleep better at night. For fevers or pain, you can use the following [id number] medicines (if > 12 yo): - Regular strength (325mg/tab) Tylenol (acetaminophen) 2 tabs every 4-6 hours as needed. Do not exceed 10 tablets in a 24 hour period. Avoid taking more than 3000 mg of Tylenol per day. This includes any other sources of acetaminophen you may take on a regular basis. - Regular strength (200 mg/tab) Advil (ibuprofen) 3 tabs every 6-8 hours as needed. Do not exceed a dose of 2400 mg per day. - For best results, alternate dosing of Tylenol and Advil. Drink plenty of fluids to stay well hydrated. Please follow-up with your PCP or at an urgent care in the next few days to be rechecked if your symptoms are not getting any better. Please return to the emergency department if your symptoms worsen over the next 2-3 days despite treatment course outlined above. Return to the emergency department if you develop the following symptoms of: inability to swallow solids , liquids, or drool; excessive wheezing or inability to catch your breath; chest pain, coughing up blood, severe dizziness or passing out; fever or pain that becomes unmanageable with [id number] medications; or any other concerns. Work Instructions Return To Work: 1 day Problem Qualifiers
[2017-04-16] MEDS ORDERED: ALBUT/IPRATROP 3MG/0.5MG NEB 3 ML VIAL INH STA (10:26)
[2017-04-16] MEDS ORDERED: SODIUM CHLORIDE 0.9% 1000ML 1,000 ML IV STA (10:26)
[2017-04-16 10:52] VITALS: O2SAT 94
[2017-04-16 11:07] LABS: URINE APPEARANCE CLEAR (CLEAR); URINE BILIRUBIN NEG (NEG); URINE COLOR YELLOW; URINE NITRITE NEG (NEG); URINE SPECIFIC GRAVITY 1.032 (1.000-1.030); UROBILINOGEN NEG (NEG)
[2017-04-16 11:08] LABS: BASO % 0.5 %; BASO ABS # 0.05 K/uL (0-0.2); COMPLETE YES; EOS % 3.1 %; HEMATOCRIT 37.6 % (37-47); IG% 0.3 %; LYMPH % 23.5 %; LYMPH ABS # 2.22 K/uL (1.2-3.4); MEAN CORPUSCULAR HEMOGLOBIN 31.2 pg (25-34); MEAN CORPUSCULAR HGB CONC 34.3 g/dl (32-36); MEAN PLATELET VOLUME 10.2 fL (7.4-10.4); MONO % 7.1 %; NEUT % 65.5 %; PLATELET COUNT 256 K/uL (130-400); RED BLOOD COUNT 4.13 M/uL (4.2-5.4); WHITE BLOOD COUNT 9.45 K/uL (4.8-10.8)
[2017-04-16 11:10] LABS: MANUAL MICROSCOPIC REQUIRED? NO; REVIEW REQ? NO
[2017-04-16 11:16] LABS: PROTHROMBIN TIME (PATIENT) 10.5 SECONDS (9.0-12.0)
[2017-04-16 11:33] LABS: ALB/GLOB RATIO 0.9 (0.9-2); BUN/CREATININE RATIO 10.5 (10-20); CALCIUM 8.3 mg/dl (8.5-10.1); CREATININE 0.9 mg/dl (0.60-1.20)
--- NOTE | 2017-04-16 11:33 | DIAGNOSTIC IMAGING REPORT ---
CHEST 2 VIEWS ROUTINE CLINICAL HISTORY: Respiratory distress. COMPARISON STUDY: 11/15/2016 FINDINGS: The cardiac and mediastinal contours are normal. There is no evidence of focal pulmonary consolidation. There is no evidence of failure. No pleural effusions are visualized.[ IMPRESSION: No active disease in the chest. Electronically signed by: Garret Pollock M.D. 04/16/2017 11:31 AM Dictated Date/Time: 04/16/2017 11:31 AM
[2017-04-16 11:47] LABS: BETA-HYDROXYBUTYRATE 1.03 mg/dL (0.2-2.81)
[2017-04-16] MEDS ORDERED: ALBUTEROL HFA 8 GM INHALER INH ONE (12:30)
[2017-04-16] MEDS ORDERED: AZITTAB PO (12:39)
[2017-04-16 13:07] VITALS: BP 132/57; PULSE 71; TEMP 36.9; O2SAT 96
== END 2017-04-16 13:08 | disposition home or self-care (01) ==
LOC: C.EDB 08:50
DX: J40 Bronchitis, not specified as acute or chronic (principal); R73.9 Hyperglycemia, unspecified; E11.9 Type 2 diabetes mellitus without complications; E78.5 Hyperlipidemia, unspecified; Z83.3 Family history of diabetes mellitus; Z82.0 Family history of epilepsy and other diseases of the nervous system; F17.200 Nicotine dependence, unspecified, uncomplicated; Z79.82 Long term (current) use of aspirin; Z79.4 Long term (current) use of insulin

== ENCOUNTER 2017-07-19 19:39 | Emergency (ER) | payer OTHER ==
[~2017-07-19] VITALS: Ht 177.8 cm; Wt 127.1 kg
[~2017-07-19 19:39] MED LIST changes: -ATV/1 PO; +LORA-741 PO
[2017-07-19 19:44] VITALS: TEMP 36.9; Ht 177.8 cm; Wt 127.1 kg
[2017-07-19] MEDS ORDERED: ONDANSETRON INJ 2 MG/ML 2 ML VIAL IV STA (20:10)
[2017-07-19] MEDS ORDERED: KETOROLAC TROMETHAMINE 30 MG/ML VIAL IV STA (20:10)
[2017-07-19] MEDS ORDERED: SODIUM CHLORIDE 0.9% 1000ML 1,000 ML IV STA (20:10)
[2017-07-19] MEDS ORDERED: DiphenhydrAMINE HCL 50 MG/ML VIAL IV STA (20:10)
[2017-07-19] MEDS ORDERED: PROCHLORPERAZINE 5 MG/ML 2 ML VIAL IV STA (20:10)
[2017-07-19] MEDS ORDERED: DEXAMETHASONE **PF** INJ 10 MG/ML VIAL IV ONE (20:15)
--- NOTE | 2017-07-19 21:09 | DIAGNOSTIC IMAGING REPORT ---
CT HEAD WITHOUT CONTRAST (CT) CLINICAL HISTORY: ATYPICAL MIGRAINE COMPARISON STUDY: 03/06/2015 TECHNIQUE: Axial CT of the brain is performed from the vertex to the skull base. IV contrast was not administered for this examination. A dose lowering technique was utilized adhering to the principles of ALARA. CT DOSE: 655.73 mGy.cm FINDINGS: No intra or extra-axial mass lesions are visualized. There is no CT evidence of acute cortical infarction. There is no evidence of midline shift. There is no acute hemorrhage. No calvarial fractures are visualized. There is no evidence of pathologic ventricular dilatation. There is no evidence of acute sinusitis IMPRESSION: No acute intracranial findings Electronically signed by: Garret Pollock M.D. 07/19/2017 9:07 PM Dictated Date/Time: 07/19/2017 9:06 PM
--- NOTE | 2017-07-19 21:57 | EMERGENCY ROOM VISIT NOTE ---
ED Visit Note First contact with patient: 19:46 CHIEF COMPLAINT: Migraine headache 6 days HISTORY OF PRESENT ILLNESS: Patient is a 42-year-old white female with past medical history significant for migraines, chronic low back pain, insulin requiring diabetes, dyslipidemia, GERD, depression and anxiety, among other medical problems, who presents emergency department for evaluation of a migraine that she has had since last Thursday. She states that the migraine was gradual in onset, and has been waxing and waning throughout the week. She relates that her typical migraine is felt on the top of her head that she gets an associated "stress migraine" in the occipital region. With this headache she has also had a sharp, stabbing, right retro-orbital pain. She notes the headache is throbbing in nature with associated blurry vision, photophobia and nausea. She has tried multiple medications including Aleve, Maxalt, Zofran, tramadol and an ice pack. She is on gabapentin prophylactically. She is under the care of neurology. She relates that this is not the worst headache of her life, but is 1 of the more severe. She rates her pain a 9/10. She has had prior imaging studies which have been normal. She is concerned however because she has a clotting disorder and the presentation of the duration of her headaches are atypical for her. She reports a prothrombin gene mutation, takes a baby aspirin daily, and has never actually had a clot. She denies any recent cold or upper respiratory symptoms, fever or chills. No posterior neck pain or stiffness. She has not vomited, but admits to poor oral intake. She denies any numbness, tingling or weakness in the extremities. No difficulty with balance, speech or coordination. She has been working with the [employer] this week. No recent trauma to the head. REVIEW OF SYSTEMS: Review of systems as per HPI. All other systems reviewed were negative. 10 systems reviewed. PMH: Electronic medical records are reviewed and summarized as above/below. See Problem List. SOCIAL HISTORY: Patient lives at home with her family. 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 Smoker. PHYSICAL EXAM: Vital Signs: Reviewed Nurse's notes. General Appearance: Patient is a morbidly obese 42-year-old female who is awake and alert and seated on the gurney in the darkened exam room wearing sunglasses in no acute distress. Eyes: Pupils equal round reactive to light extraocular muscles are intact, no proptosis, mild photophobia ENT: Oropharynx is clear, mucous membranes are moist, tympanic membranes are clear bilaterally, no sinus or dental tenderness Neck: Supple, no cervical lymphadenopathy, no meningismus Heart: Regular rate and rhythm, S1 and S2 Lungs: Clear to auscultation bilaterally, no wheezes Rales or rhonchi, no increased work of breathing Abdomen: Soft nontender nondistended. Normal active bowel sounds. No rebound. No guarding. Back: No midline tenderness to palpation. : No CVA tenderness to palpation. Skin: Warm, no diaphoresis, no rashes. Extremities: No cyanosis, clubbing, or edema Neurologic: Patient is awake alert, and oriented x 3. Cranial nerves 2-12 are grossly intact. Motor 5 out of 5 strength bilateral upper extremities and lower extremities. No gross sensory deficits. Reflexes are 2+ throughout. Negative Romberg and pronator drift. Normal gait. Finger to nose and finger to finger testing is within normal limits. Mini-Mental status exam is unremarkable. EMERGENCY DEPARTMENT COURSE: The patient was seen and assessed as above. Her old records were reviewed. Her last visit for a migraine was in the spring 2015. She has a long-standing history of migraines and while she states that this headache is somewhat like her normal migraine phenomenon, it has lasted her almost a week and has some features that are concerning to her. Treatment regimen was discussed with her. She prefers IV therapy as she reports that intramuscular therapy does not work for her. She would like to pursue CT scan today, head CT was performed and was unremarkable. IV lock was initiated. Patient was given a liter bolus of normal saline solution. She was medicated with Toradol 30 mg IV, Decadron 10 mg IV, Compazine 10 mg IV, Zofran 4 mg IV and Benadryl 50 mg IV. She was reassessed when she returned from head CT and made aware of the results of her imaging. She was sleeping comfortably and snoring in the darkened room. Her IV fluids were partway completed. She rated her headache a 6/10. She was reassessed again after her IV fluids were complete. She was again snoring and sleeping comfortably. Given this, it was not felt that any additional medications were needed. She previously had mentioned that Dilaudid works well for her migraines, however given her present state of sedation and apparent level of comfort, will hold on narcotics at this time. Supportive care measures were discussed. She was given a tramadol home pack to use for breakthrough. She was advised to follow-up with her primary care provider or her neurologist for recheck later this week. Differential includes: acute intracranial bleed, meningitis, encephalitis, mass or mass effect, sinusitis, infection, migraine, tumor, headache, temporal arteritis and carbon monoxide exposure. Medication reconciliation: I attest that I have personally reviewed the patient' s current medication list. Blood pressure screening : Patient was found to have normal blood pressure on screening and does not require follow-up. Patient was reviewed in the [facility] Prescription Drug Monitoring Program, she receives regular lorazepam and tramadol prescriptions from her primary care provider. DIAGNOSTIC IMAGING: CT HEAD WITHOUT CONTRAST (CT) CLINICAL HISTORY: ATYPICAL MIGRAINE COMPARISON STUDY: 03/06/2015 TECHNIQUE: Axial CT of the brain is performed from the vertex to the skull base. IV contrast was not administered for this examination. A dose lowering technique was utilized adhering to the principles of ALARA. CT DOSE: 655.73 mGy.cm FINDINGS: No intra or extra-axial mass lesions are visualized. There is no CT evidence of acute cortical infarction. There is no evidence of midline shift. There is no acute hemorrhage. No calvarial fractures are visualized. There is no evidence of pathologic ventricular dilatation. There is no evidence of acute sinusitis IMPRESSION: No acute intracranial findings Problem List Medical Problems: (1) Acute bronchitis Status: Resolved (2) Anxiety and depression Status: Chronic (3) Bronchitis Status: Resolved (4) Chest pain Status: Resolved (5) Chest pain Status: Resolved (6) Chronic back pain Status: Chronic (7) Closed head injury Status: Resolved (8) Concussion Status: Resolved (9) DM (diabetes mellitus), type 2, uncontrolled Status: Chronic (10) Dyslipidemia Status: Chronic (11) Fall Status: Resolved (12) Flank pain Status: Resolved (13) GERD (gastroesophageal reflux disease) Status: Chronic (14) Headache Status: Resolved (15) Headache Status: Resolved (16) Hyperglycemia Status: Resolved (17) Hypoglycemia Status: Resolved (18) Left sided chest pain Status: Resolved (19) Low back pain Status: Resolved (20) Migraine Status: Chronic (21) Migraine Status: Resolved (22) Necrobiosis diabeticorum Status: Chronic (23) Ovarian cyst Status: Resolved (24) Pneumonia of both lower lobes Status: Resolved (25) Prothrombin gene mutation Permanent Comment: heterozygous Status: Chronic (26) Symptoms of urinary tract infection Status: Resolved (27) Tobacco use Status: Chronic (28) Wheezing Status: Resolved Surgical Problems: (1) Status post arthroscopic knee surgery Status: Resolved Current/Historical Medications Scheduled Aspirin (Aspirin Ec), 81 MG PO DAILY Atorvastatin (Lipitor), 40 MG PO DAILY Diclofenac Sodium (Voltaren), 75 MG PO BID Gabapentin (Neurontin), 200 MG PO TID Insulin Aspart (Novolog Flexpen), UNITS SQ WM Insulin Glargine (Lantus), 80 UNITS SC DAILY Lisinopril (Zestril), 5 MG PO DAILY Lorazepam (Ativan), 0.5 MG PO HS Metformin Hcl (Glucophage), 1,000 MG PO BIDM Omeprazole (Prilosec), 40 MG PO BID Ranitidine Hcl (Zantac), 300 MG PO HS Sertraline (Zoloft), 10 MG PO DAILY Scheduled PRN Calcium Carbonate (Tums), 500 MG PO UD PRN for PRN Fluconazole (Diflucan), 150 MG PO DAILY PRN for YEAST INFECTION Ibuprofen (Advil), 200-600 MG PO Q4H PRN for Pain Ondansetron Hcl (Zofran), 1 TAB PO UD PRN for Nausea Rizatriptan Benzoate (Maxalt), 10 MG PO UD PRN for Migraine Tramadol (Ultram), 50 MG PO Q6 PRN for Pain Allergies Coded Allergies: Meperidine (Verified Allergy, Mild, ITCHY, 04/16/17) Amoxicillin (Verified Allergy, Unknown, 0, 04/16/17) Bupropion (Verified Allergy, Unknown, PSYCHOTIC, 04/16/17) Oxycodone (Verified Allergy, Unknown, ITCHY, 04/16/17) Morphine (Verified Adverse Reaction, Intermediate, "GETS REALLY SICK", 04/16/17) Uncoded Allergies: MUSCLE RELAXER (Allergy, Unknown, itching, n/v, 12/23/15) not flexeril Vital Signs Date Time Temp Pulse Resp B/P (MAP) Pulse Ox O2 Delivery O2 Flow Rate FiO2 07/19/17 19:44 36.9 84 18 121/70 95 Room Air Medications Administered Medications (Trade) Dose Ordered Sig/John Route Start Time Stop Time Status Last Admin Dose Admin Sodium Chloride 1,000 ml @ 999 mls/hr Q1H1M STAT IV 07/19/17 20:10 07/19/17 21:10 DC 07/19/17 20:39 999 MLS/HR Ketorolac Tromethamine (Toradol Inj) 30 mg NOW STAT IV 07/19/17 20:10 07/19/17 20:13 DC 07/19/17 20:40 30 MG Dexamethasone Sodium Phosphate (Dexamethasone Inj Pf) 10 mg NOW ONCE IV 07/19/17 20:15 07/19/17 20:16 DC 07/19/17 20:41 10 MG Prochlorperazine Edisylate (Compazine Inj) 10 mg NOW STAT IV 07/19/17 20:10 07/19/17 20:13 DC 07/19/17 20:40 10 MG Ondansetron HCl (Zofran Inj) 4 mg NOW STAT IV 07/19/17 20:10 07/19/17 20:13 DC 07/19/17 20:39 4 MG Diphenhydramine HCl (Benadryl Inj) 50 mg NOW STAT IV 07/19/17 20:10 07/19/17 20:13 DC 07/19/17 20:41 50 MG Departure Information Impression Primary Impression: Migraine Referrals Brandi Dunne DO (PCP) Patient Instructions My [facility] Additional Instructions DO NOT drive, drink alcohol, operate machinery, or perform dangerous activities today. You were given medications in the ER that can affect your ability to safely function or operate a vehicle. Rest today in a quiet, peaceful, dark environment and get a full 8-10 hrs of sleep tonight. Avoid loud noises, smoke/smoking, alcohol, bright lights, stress, or physical exertion today to minimize the chance the headache may return. Continue current medications. Monitor your blood sugars more frequently, and correct accordingly, as you received IV steroids as part of your treatment today. Follow up with your primary physician/neurologist this week for a recheck of your current condition.
[2017-07-19] MEDS ORDERED: TRAMADOL HCL 50 MG HOME PACK PO ONE (22:00)
[2017-07-19 22:20] VITALS: BP 118/62; PULSE 70; O2SAT 96
== END 2017-07-19 22:20 | disposition home or self-care (01) ==
LOC: C.EDB 19:39
DX: G43.909 Migraine, unspecified, not intractable, without status migrainosus (principal); E11.65 Type 2 diabetes mellitus with hyperglycemia; E11.649 Type 2 diabetes mellitus with hypoglycemia without coma; D68.52 Prothrombin gene mutation; E78.5 Hyperlipidemia, unspecified; F41.8 Other specified anxiety disorders; F17.200 Nicotine dependence, unspecified, uncomplicated; E66.01 Morbid (severe) obesity due to excess calories; K21.9 Gastro-esophageal reflux disease without esophagitis; G89.29 Other chronic pain; Z79.4 Long term (current) use of insulin; Z79.82 Long term (current) use of aspirin; Z98.890 Other specified postprocedural states; Z87.828 Personal history of other (healed) physical injury and trauma; Z87.01 Personal history of pneumonia (recurrent); Z91.81 History of falling; Z88.6 Allergy status to analgesic agent; Z88.1 Allergy status to other antibiotic agents; Z88.8 Allergy status to other drugs, medicaments and biological substances

== ENCOUNTER 2017-07-22 17:02 | Emergency (ER) | payer OTHER ==
[~2017-07-22] VITALS: Ht 177.8 cm; Wt 129.1 kg
[2017-07-22 17:33] VITALS: TEMP 36.8; Ht 177.8 cm; Wt 129.1 kg
[2017-07-22] MEDS ORDERED: PROCHLORPERAZINE 5 MG/ML 2 ML VIAL IV STA (18:43)
[2017-07-22] MEDS ORDERED: SODIUM CHLORIDE 0.9% 1000ML 1,000 ML IV STA (18:43)
[2017-07-22] MEDS ORDERED: KETOROLAC TROMETHAMINE 30 MG/ML VIAL IV STA (18:43)
[2017-07-22] MEDS ORDERED: DiphenhydrAMINE HCL 50 MG/ML VIAL IV STA (18:43)
[2017-07-22] MEDS ORDERED: DEXAMETHASONE INJ 10 MG in SYRINGE 0 ML IV SCH (18:45)
[2017-07-22] MEDS ORDERED: GABA-113 PO (19:34)
[2017-07-22 20:38] LABS: BASO % 0.6 %; BASO ABS # 0.07 K/uL (0-0.2); EOS % 2.1 %; EOS ABS # 0.23 K/uL (0-0.5); HEMATOCRIT 39.8 % (37-47); HEMOGLOBIN 13.4 g/dL (12.0-16.0); IG# 0.05 K/uL (0.00-0.02); LYMPH % 33.7 %; LYMPH ABS # 3.64 K/uL (1.2-3.4); MEAN CELL VOLUME 92.1 fL (80-100); MEAN CORPUSCULAR HGB CONC 33.7 g/dl (32-36); MEAN PLATELET VOLUME 9.8 fL (7.4-10.4); MONO % 6.4 %; MONO ABS # 0.69 K/uL (0.11-0.59); NEUT % 56.7 %; NEUT ABS # 6.12 K/uL (1.4-6.5); PLATELET COUNT 241 K/uL (130-400); RED CELL DISTRIBUTION WIDTH CV 13.3 % (11.5-14.5); RED CELL DISTRIBUTION WIDTH SD 44.8 fL (36.4-46.3)
[2017-07-22 20:53] LABS: CALCIUM 7.9 mg/dl (8.5-10.1); CREATININE 0.66 mg/dl (0.60-1.20); POTASSIUM 3.5 mmol/L (3.5-5.1)
[2017-07-22 21:40] VITALS: BP 130/72; PULSE 82; O2SAT 94
--- NOTE | 2017-07-23 00:23 | EMERGENCY ROOM VISIT NOTE ---
History Report prepared by Александр: Luís Wolff Under the Supervision of: Dr. Robert Bullard D.O. First contact with patient: 18:34 Chief Complaint: HEADACHE Stated Complaint: MIGRAINE History of Present Illness The patient is a 42 year old female who presents to the Emergency Room with complaints of a constant headache starting 0400 this morning, though she states that she has been having intermittent headaches for the past week. The patient states that this headache is similar to her usual migraines except that it has been recurring for the past week, and she no0tes that the headache came on gradually and got worse. She reports that she has been nauseous and vomiting, and she states that the light and sound make the headache worse. She denies any fever or weakness and numbness in her arms and legs. The patient states that she has a history of migraines since she was 14, and she states that she is now getting them 1-2 times per month. The patient notes that she takes gabapentin for her headaches. The patient was recently in the ED on the for a headache , and she had a negative CT of her head. Source of History: patient Onset: 0400 Position: head Quality: other (migraine) Timing: constant Modifying Factors (Worsening): other (light and sound) Associated Symptoms: + nausea, + vomiting, No weakness, No numbness Review of Systems See HPI for pertinent positives & negatives. A total of 10 systems reviewed and were otherwise negative. Past Medical & Surgical Medical Problems: (1) Acute bronchitis (2) Anxiety and depression (3) Bronchitis (4) Chest pain (5) Chest pain (6) Chronic back pain (7) Closed head injury (8) Concussion (9) DM (diabetes mellitus), type 2, uncontrolled (10) Dyslipidemia (11) Fall (12) Flank pain (13) GERD (gastroesophageal reflux disease) (14) Headache (15) Headache (16) Hyperglycemia (17) Hypoglycemia (18) Left sided chest pain (19) Low back pain (20) Migraine (21) Migraine (22) Necrobiosis diabeticorum (23) Ovarian cyst (24) Pneumonia of both lower lobes (25) Prothrombin gene mutation (26) Symptoms of urinary tract infection (27) Tobacco use (28) Wheezing Surgical Problems: (1) Status post arthroscopic knee surgery Family History Diabetes mellitus FHx: prothrombin gene mutation Seizures Social History Smoking Status: Current Every Day Smoker Alcohol Use: occasionally Drug Use: none Marital Status: other Housing Status: lives with family Occupation Status: employed Current/Historical Medications Scheduled Aspirin (Aspirin Ec), 81 MG PO DAILY Atorvastatin (Lipitor), 40 MG PO DAILY Diclofenac Sodium (Voltaren), 75 MG PO BID Gabapentin (Neurontin), 300 MG PO TID Insulin Aspart (Novolog Flexpen), UNITS SQ WM Insulin Glargine (Lantus), 80 UNITS SC DAILY Lisinopril (Zestril), 5 MG PO DAILY Lorazepam (Ativan), 0.5 MG PO HS Metformin Hcl (Glucophage), 1,000 MG PO BIDM Omeprazole (Prilosec), 40 MG PO BID Ranitidine Hcl (Zantac), 300 MG PO HS Sertraline (Zoloft), 1 TAB PO DAILY Scheduled PRN Calcium Carbonate (Tums), 500 MG PO UD PRN for PRN Fluconazole (Diflucan), 150 MG PO DAILY PRN for YEAST INFECTION Ibuprofen (Advil), 200-600 MG PO Q4H PRN for Pain Ondansetron Hcl (Zofran), 1 TAB PO UD PRN for Nausea Rizatriptan Benzoate (Maxalt), 10 MG PO UD PRN for Migraine Tramadol (Ultram), 50 MG PO Q6 PRN for Pain Allergies Coded Allergies: Meperidine (Verified Allergy, Mild, ITCHY, 04/16/17) Amoxicillin (Verified Allergy, Unknown, 0, 04/16/17) Bupropion (Verified Allergy, Unknown, PSYCHOTIC, 04/16/17) Oxycodone (Verified Allergy, Unknown, ITCHY, 04/16/17) Morphine (Verified Adverse Reaction, Intermediate, "GETS REALLY SICK", 04/16/17) Uncoded Allergies: MUSCLE RELAXER (Allergy, Unknown, itching, n/v, 12/23/15) not flexeril Physical Exam Vital Signs Date Time Temp Pulse Resp B/P (MAP) Pulse Ox O2 Delivery O2 Flow Rate FiO2 07/22/17 21:40 82 18 130/72 94 07/22/17 17:33 36.8 71 18 128/74 92 Room Air Physical Exam GENERAL: Sitting up in bed, alert, well appearing, well nourished, no distress, non-toxic EYE EXAM: normal conjunctiva. PERRL and EOM's intact. OROPHARYNX: no exudate, no erythema, lips, buccal mucosa, and tongue normal and mucous membranes are moist NECK: supple, no nuchal rigidity, no adenopathy, non-tender LUNGS: Clear to auscultation. Normal chest wall mechanics HEART: no murmurs, S1 normal and S2 normal ABDOMEN: abdomen soft, non-tender, normo-active bowel sounds, no masses, no rebound or guarding. BACK: Back is symmetrical on inspection and there is no deformity, no midline tenderness, no CVA tenderness. SKIN: no rashes and no bruising UPPER EXTREMITIES: upper extremities are grossly normal. LOWER EXTREMITIES: No pitting edema. NEURO EXAM: Normal sensorium, cranial nerves II-XII intact, normal speech, no weakness of arms, no weakness of legs. No drift. Finger to nose intact. Gross sensation intact. Rapid alternating movements of the upper extremities are intact. Normal ambulation throughout the ER. Medical Decision & Procedures Laboratory Results 07/22/17 20:20 Red Blood Count 4.32, Mean Corpuscular Volume 92.1, Mean Corpuscular Hemoglobin 31.0, Mean Corpuscular Hemoglobin Concent 33.7, Mean Platelet Volume 9.8, Neutrophils (%) (Auto) 56.7, Lymphocytes (%) (Auto) 33.7, Monocytes (%) (Auto) 6.4, Eosinophils (%) (Auto) 2.1, Basophils (%) (Auto) 0.6, Neutrophils # (Auto) 6.12, Lymphocytes # (Auto) 3.64, Monocytes # (Auto) 0.69, Eosinophils # (Auto) 0.23, Basophils # (Auto) 0.07 07/22/17 20:20 Test 07/22/17 20:20 White Blood Count 10.80 K/uL (4.8-10.8) Red Blood Count 4.32 M/uL (4.2-5.4) Hemoglobin 13.4 g/dL (12.0-16.0) Hematocrit 39.8 % (37-47) Mean Corpuscular Volume 92.1 fL (80-100) Mean Corpuscular Hemoglobin 31.0 pg (25-34) Mean Corpuscular Hemoglobin Concent 33.7 g/dl (32-36) Platelet Count 241 K/uL (130-400) Mean Platelet Volume 9.8 fL (7.4-10.4) Neutrophils (%) (Auto) 56.7 % Lymphocytes (%) (Auto) 33.7 % Monocytes (%) (Auto) 6.4 % Eosinophils (%) (Auto) 2.1 % Basophils (%) (Auto) 0.6 % Neutrophils # (Auto) 6.12 K/uL (1.4-6.5) Lymphocytes # (Auto) 3.64 K/uL (1.2-3.4) Monocytes # (Auto) 0.69 K/uL (0.11-0.59) Eosinophils # (Auto) 0.23 K/uL (0-0.5) Basophils # (Auto) 0.07 K/uL (0-0.2) RDW Standard Deviation 44.8 fL (36.4-46.3) RDW Coefficient of Variation 13.3 % (11.5-14.5) Immature Granulocyte % (Auto) 0.5 % Immature Granulocyte # (Auto) 0.05 K/uL (0.00-0.02) Anion Gap 6.0 mmol/L (3-11) Est Creatinine Clear Calc Drug Dose 164.2 ml/min Estimated GFR () 127.2 Estimated GFR (Non- 109.7 BUN/Creatinine Ratio 25.3 (10-20) Calcium Level 7.9 mg/dl (8.5-10.1) Laboratory results per my review. Medications Administered Medications (Trade) Dose Ordered Sig/John Route Start Time Stop Time Status Last Admin Dose Admin Ketorolac Tromethamine (Toradol Inj) 30 mg NOW STAT IV 07/22/17 18:43 07/22/17 18:45 DC 07/22/17 19:30 30 MG Diphenhydramine HCl (Benadryl Inj) 50 mg NOW STAT IV 07/22/17 18:43 07/22/17 18:46 DC 07/22/17 19:30 50 MG Prochlorperazine Edisylate (Compazine Inj) 10 mg NOW STAT IV 07/22/17 18:43 07/22/17 18:46 DC 07/22/17 19:30 10 MG Sodium Chloride 1,000 ml @ 999 mls/hr Q1H1M STAT IV 07/22/17 18:43 3/14/18 19:43 DC 07/22/17 19:31 999 MLS/HR ED Course ED COURSE: Vital signs were reviewed and showed normal vitals The patients medical record was reviewed The above diagnostic studies were performed and reviewed. ED treatments and interventions as stated above. 183: The patient was evaluated in room A3. A complete history and physical examination was performed. 1842: Sodium Chloride 1000 ml @ 999 mls/hr IV, Compazine 10mg IV, Benadryl 50mg IV, Toradol 30mg IV 1844: Dexamethasone Sodium Phosphate 10mg/ Syringe 2.5ml @ 1mls/min IV 2116: Upon reevaluation, the patient is sleeping, and I woke her up. Her headache has improved but is still slightly there. I discussed my findings with the patient and she understands and agrees with the treatment plan. Based on the patients age, coexisting illnesses, exam and lab findings the decision to treat as an outpatient was made. The patient remained stable while under my care. The patient appeared well at the time of discharge. Medical Decision Differential Diagnosis includes but is not limited to headache, tension headache , cluster headache, migraine, subarachnoid hemorrhage, meningitis, mass, central venous thrombus, concussion, trauma and epidural/subdural hemorrhage. Patient is a 42-year-old female who presents to ER for headache. Patient notes that this has been off and on for the past several days. Her migraine started this morning at 4 AM. Came on gradually gradually worsened. Does feel like her typical headache. Unchanged in any way with the exception that she has had several for the past couple days. Recent CT head for the same complaint was negative this week. CBC along with BMP was unremarkable. Patient was given IV Toradol, Benadryl and Compazine. She had significant improvement of her headache. She is discharged follow-up with PCP. Discussed with Pt concerning signs and symptoms to watch out for. Pt was instructed to follow up with their PCP and discussed with the patient their option to return to the ED at anytime for persistent or worsening symptoms. The appropriate anticipatory guidance and out-patient management, including indications for return to the emergency department, were explained at length to the patient and understood. Medication Reconcilliation Current Medication List: was personally reviewed by me Blood Pressure Screening Patient's blood pressure: Elevated blood pressure Blood pressure disposition: Elevated BP felt to be situational Impression Primary Impression: Headache Scribe Attestation The scribe's documentation has been prepared under my direction and personally reviewed by me in its entirety. I confirm that the note above accurately reflects all work, treatment, procedures, and medical decision making performed by me. Departure Information Dispostion Home / Self-Care Referrals Brandi Dunne DO (PCP) Forms HOME CARE DOCUMENTATION FORM, IMPORTANT VISIT INFORMATION Patient Instructions Headache Pain, My [facility] Additional Instructions Please follow up with your primary care doctor with in the next 24 hours. Any worsening of your symptoms, please return to the ED immediately. This includes any fevers greater than 100.4, worsening pain, chest pain, shortness breath, persistent nausea, vomiting, unable to eat or drink, or any other concerning signs or symptoms from your standpoint. You were given medications during this visit that will inhibit your ability to drive, operate machinery and work. Please do NOT drive, operate machinery, drink alcohol or work for the next 12hrs. Problem Qualifiers Primary Impression: Headache Headache type: unspecified Headache chronicity pattern: unspecified pattern Intractability: not intractable Qualified Codes: R51 - Headache
== END 2017-07-22 21:41 | disposition home or self-care (01) ==
LOC: C.EDB 17:03 → C.EDA 21:41
DX: R51 Headache (principal); R11.2 Nausea with vomiting, unspecified; E11.9 Type 2 diabetes mellitus without complications; F17.210 Nicotine dependence, cigarettes, uncomplicated; Z83.2 Family history of diseases of the blood and blood-forming organs and certain disorders involving the immune mechanism; Z79.899 Other long term (current) drug therapy

== ENCOUNTER 2017-12-08 21:16 | Emergency (ER) | payer OTHER ==
[~2017-12-08] VITALS: Ht 177.8 cm; Wt 125.4 kg
[~2017-12-08 21:16] MED LIST changes: -GABA-112 PO; +GABA-113 PO; +SULF800T23 PO; +TOPI50TA16 PO
[2017-12-08 21:38] VITALS: TEMP 36.9; Ht 177.8 cm; Wt 125.4 kg
[2017-12-08] MEDS ORDERED: HYDROmorphone INJ 1 MG/ML SYR IM STA (21:48)
--- NOTE | 2017-12-08 22:33 | EMERGENCY ROOM VISIT NOTE ---
History First contact with patient: 21:41 (Markie Garcias PA-C) First contact with patient: 21:41 (Otf Chaudhary M.D.) Chief Complaint: BACK PAIN Stated Complaint: BACK SPASMS History of Present Illness The patient is a 42 year old female who presents to the Emergency Room via private vehicle accompanied by male with complaints of "back spasms". The patient states that earlier today, about 1 hour prior to arrival she was at home helping bathe her [id number]. She states that while they were in the shower, the [id number] began to fall therefore the patient tried to catch her from falling and notes that she bent over. This subsequently caused pain in her right mid back region. She states she believes she pulled a muscle. Her pain is an 8/10. She denies taking any for the pain thus far. She notes that the pain is worse with movement and a deep breath. She notes that she did not strike the ground. No falls. (Markie Garcias PA-C) Review of Systems A complete 6-point Review of Systems was discussed with the patient, with pertinent positives and negatives listed in the History of Present Illness. All remaining Review of Systems questions can be considered negative unless otherwise specified. 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 (23) Ovarian cyst (24) Pneumonia of both lower lobes (25) Prothrombin gene mutation (26) Symptoms of urinary tract infection (27) Tobacco use (28) Wheezing Surgical Problems: (1) Status post arthroscopic knee surgery (Otf Chaudhary M.D.) Family History Diabetes mellitus FHx: prothrombin gene mutation Seizures (Markie Garcias PA-C) Diabetes mellitus FHx: prothrombin gene mutation Seizures (Otf Chaudhary M.D.) Social History Smoking Status: Current Every Day Smoker Alcohol Use: occasionally Drug Use: none Marital Status: other Housing Status: lives with family Occupation Status: employed (Markie Garcias, VALERY) Current/Historical Medications Scheduled Aspirin (Aspirin Ec), 81 MG PO DAILY Atorvastatin (Lipitor), 40 MG PO DAILY Diclofenac Sodium (Voltaren), 75 MG PO BID Gabapentin (Neurontin), 300 MG PO TID Insulin Aspart (Novolog Flexpen), UNITS SQ WM Insulin Glargine (Lantus), 80 UNITS SC DAILY Lisinopril (Zestril), 5 MG PO DAILY Lorazepam (Ativan), 0.5 MG PO HS Metformin Hcl (Glucophage), 1,000 MG PO BIDM Omeprazole (Prilosec), 40 MG PO BID Ranitidine Hcl (Zantac), 300 MG PO HS Sertraline (Zoloft), 1 TAB PO DAILY Sulfa/Trimethoprim (Bactrim Ds 800MG/160MG), 1 TAB PO BID Topiramate (Topamax), Unknown Dose PO DIRECTED Scheduled PRN Calcium Carbonate (Tums), 500 MG PO UD PRN for PRN Fluconazole (Diflucan), 150 MG PO DAILY PRN for YEAST INFECTION Ibuprofen (Advil), 200-600 MG PO Q4H PRN for Pain Ondansetron Hcl (Zofran), 1 TAB PO UD PRN for Nausea Rizatriptan Benzoate (Maxalt), 10 MG PO UD PRN for Migraine Tramadol (Ultram), 50 MG PO Q6 PRN for Pain Physical Exam Vital Signs Date Time Temp Pulse Resp B/P (MAP) Pulse Ox O2 Delivery O2 Flow Rate FiO2 12/08/17 22:41 69 18 160/94 94 12/08/17 21:38 36.9 77 20 151/80 95 Room Air (Otf Chaudhary M.D.) Physical Exam VITAL SIGNS - Vital signs and nursing notes were reviewed. Stable. Afebrile. GENERAL -42-year-old male appearing her stated age who is in no acute distress. Communicates well with provider and answers questions appropriately. SKIN - Without rashes. No meningeal or petechial rash. Skin overlying the back is unremarkable. HEAD - NC/AT. NECK - Neck with FROM. No C-spine tenderness. MUSCULOSKELETAL: There is no thoracic or lumbar spinous processes tenderness. There is tenderness in the paraspinous musculature of the thoracic region. It is reproducible and appears to be in spasm. No direct bony tenderness. LUNGS - Chest wall symmetric without accessory muscle use, intercostals retractions, or central cyanosis. Normal vesicular breath sounds CTA B/L. No wheezes, rales, or rhonchi appreciated. CARDIAC - RRR with S1/S2. No murmur, rubs, or gallops appreciated. EXTREMITIES -excellent shrimp header strength of the upper extremities. +5/5 strength noted in UE/LE bilaterally. NEUROLOGIC - Cranial nerves II through XII grossly intact. Sensory intact to light touch throughout. PSYCH - A&O, and cooperates fully with examiner. Pt is very pleasant and interacts well with examiner. (Markie Garcias, VALERY) Medical Decision & Procedures Medications Administered Medications (Trade) Dose Ordered Sig/John Route Start Time Stop Time Status Last Admin Dose Admin Hydromorphone HCl (Dilaudid Inj) 1 mg NOW STAT IM 12/08/17 21:48 12/08/17 21:51 DC 12/08/17 22:03 1 MG (Otf Chaudhary M.D.) Medical Decision Patient was seen and evaluated as above in room D4. Review was performed of nursing notes and vital signs. After obtaining a thorough history and physical examination the above work up was performed. She presents to us today with what appears to be a strain of the thoracic region. There is no bony tenderness. I do not believe that this time any imaging is warranted as there has been no trauma or fall. Again this is reproducible in the musculature of the right thoracic spinous region. I discussed benefit versus risk of imaging with the patient at this time we do not believe that this will yield any benefit. She was medicated here with IM Dilaudid. This provided secondary to allergies. She was reevaluated and feeling better. I believe she is stable to be discharged. Furthermore in regard to pain management at home, the [place] drug monitoring system yields that she has current prescription for tramadol and lorazepam. I believe this will be adequate in the management of her pain today. Patient is to call her family doctor tomorrow schedule follow-up or return with worsening. Patient seemed happy with plan of care. She verbalized understanding. The patient was educated upon management, had questions answered prior to discharge, and was discharged home in good condition. It is important note that patient's history nor physical examination is suggestive of any emergent process to include but not limited to AL, PE, dissection. History and physical were most consistent with that of musculoskeletal strain. In the evaluation and treatment of this patient the following differential diagnoses were entertained: Fracture, dislocation, strain, sprain, AL, PE, among others. (Markie Garcias, PAEliC) Impression Primary Impression: Strain of thoracic region Departure Information Dispostion Home / Self-Care Condition GOOD Referrals Brandi Dunne, (PCP) Patient Instructions My [facility] Additional Instructions You have been treated in the Emergency Department for Back Pain. You have received pain medicine in the emergency department which impairs your ability to operate a vehicle. It is illegal for you to drive after receiving these medicines. You may take your previously prescribed medication. If this is an acute injury, ice can be applied to the area of pain for the first 3 days to help decrease pain and inflammation. After the first 3 days, a heating pad can be used over the area for continued soothing relief. You should schedule a follow-up appointment in 2-3 days with your Primary Care Provider for further evaluation and treatment of your back pain. Return to the Emergency Department if your current symptoms worsen despite treatment course outlined above, or if you develop any of the following symptoms : intractable pain despite aforementioned treatment course, loss of control of your bowel or bladder, numbness or tingling in your groin, or development of a fever.
[2017-12-08 22:41] VITALS: BP 160/94; PULSE 69; O2SAT 94
== END 2017-12-08 22:42 | disposition home or self-care (01) ==
LOC: C.EDB 21:17 → C.EDD 22:42
DX: S29.012A Strain of muscle and tendon of back wall of thorax, initial encounter (principal); X50.0XXA Overexertion from strenuous movement or load, initial encounter; F41.8 Other specified anxiety disorders; E11.65 Type 2 diabetes mellitus with hyperglycemia; K21.9 Gastro-esophageal reflux disease without esophagitis; E78.5 Hyperlipidemia, unspecified; Z79.82 Long term (current) use of aspirin; Z79.4 Long term (current) use of insulin; Z79.84 Long term (current) use of oral hypoglycemic drugs; Z79.899 Other long term (current) drug therapy

== ENCOUNTER 2022-09-07 20:01 | Inpatient (IN) ==
[2022-09-07] MEDS ORDERED: VANCOMYCIN HCL 2,000 MG in SODIUM CHLORIDE 0.9% 500 ML IV ONE (20:18)
[2022-09-07] MEDS ORDERED: PIPERACILLIN/TAZOBACTAM 4.5 GM/120 ML BAG IV ONE ×2 (20:18→20:49)
[2022-09-07] MEDS ORDERED: VANCOMYCIN CONSULT ACTIVE PRN (20:18)
[2022-09-07] MEDS ORDERED: SODIUM CHLORIDE 0.9% 1000ML 1,000 ML IV SCH (20:30)
--- NOTE | 2022-09-07 20:34 | Emergency Department Note ---
Impression & Plan Infection of right foot, Failure of outpatient treatment ED Provider Note Name: DASHAWN MACK Age: 47 Sex: F Arrives Via: Walk-In Informant: Patient ED Provider: Edi Sargent MD Chief Complaint: foot infection Impression: As per impressions above Medical Decision Makin-year-old female with diabetes arrives for evaluation of right foot infection. She has an infection of the right great toe as well as the lateral right foot. She is having fevers and chills at home and is just completed a course of clindamycin with worsening infection regardless. She has some drainage at home though no current tract image or evidence of necrotizing fasciitis. X-rays are without clear evidence of osteomyelitis and labs actually quite well. Unfortunately she has failed outpatient management and reviewing her chart history it does seem that we will be reasonable to give a round of IV antibiotics and monitor in hospital. I discussed with the hospitalist and will bring her in for further management. At time of hospitalization patient is not septic. Prior Medical Record and Triage/Nursing Notes reviewed by Me External chart reviewed by me Differentials:Cellulitis, abscess, necrotizing fasciitis, osteomyelitis, sepsis amongst other pathologies considered Vital Signs: reviewed and remarkable for no significant abnormalities Interventions: Zosyn IV, vancomycin IV, normal saline bolus, Dilaudid IV Labs:Reviewed and remarkable for mildly elevated CRP elevated glucose, normal procalcitonin Imaging:Three-view right foot x-rays as per my interpretation no evidence of fracture, foreign body or osteomyelitis. There is some edema around the lateral and anterior foot. 1 view chest x-ray as per my interpretation. No infiltrate, effusion pneumothorax or other concerning findings at this time Cons[facility] for hospitalization Plan: Disposition:Hospitalization. Condition: Good History of Present Illness:47-year-old female arrives for evaluation of right foot pain. Patient with about 2 weeks of increasing pain in the great toe and lateral right foot. Associated with swelling, draining, oozing. Having fevers chills and sweats at home. Notes some erythema expanding over the bottom and top of foot. She does have a history of similar. She has been on clindamycin for the last 10 days without improvement. Previous hospitalizations for the same thing. Admits a history of diabetes but believes her sugars have been okay recently. Past History:See Below Home Medications:See Below Allergies:See Below Vitals:Blood Pressure: 137/79, Pulse 92, RR 20, T 36.7C, O2 94% on RA Physical Exam: GENERAL: Patient is unwell appearing and in moderate distress. EYES: No scleral icterus, unremarkable pupils. ENT: Mucous membranes moist, no nasal congestion. NECK: No masses appreciated, nomeningismus, trachea is midline. RESPIRATORY: No dyspnea. Clear to auscultation and equal bilaterally. No wheeze, no rhonchi. CARDIOVASCULAR: Regular rate and rhythm.No murmurs, rubs, gallops appreciated. GASTROINTESTINAL: Abdomen soft, non-tender, no peritonitis. EXTREMITIES: Patient with swelling of the right foot and edema of the right great toe and lateral right foot there are abrasions over the anterior great toe and lateral distal foot. Significant tenderness palpation entire foot. Erythema expanding over top of foot and throughout the bottom of the foot. NEUROLOGIC: Alert and oriented, no focal neurologic deficit appreciated SKIN: No rash, no jaundice, no diaphoresis. PSYCH: Appropriate GCS: 15 Edi Sargent MD Past Med/Surg History Medical History Degenerative disc disease Depression Diabetes IDDM Gastroparesis GERD (gastroesophageal reflux disease) History of gastric ulcer History of migraine with aura Osteoarthritis Prothrombin [id number] mutation Surgical History History of ankle surgery Rt History of colonoscopy History of esophagogastroduodenoscopy (EGD) History of knee surgery BL History of shoulder surgery Lt History of tonsillectomy History of tooth extraction History of tubal ligation Status post hysteroscopic ablation of endometrium Family History Mother Diabetes Denies family history of Colon cancer Ovarian cancer Breast cancer Social History Smoking Status: Never smoker Cigarettes Per Day: 1/2 ppd; Second Hand Exposure: Yes; Do You Dip or Chew Tobacco: No; Hx Alcohol Use: Yes Hx Substance Use: No Preferred Language: Greek Communication Ability: Effective Fruit Bar Maker Required: No Beliefs That Will Affect Care: None marital status: Current Living Situation: Significant Other Current Living Situation Comment: mathieu Feels Safe at Home: Yes Assistive Devices: None Allergies Allergies Allergy/AdvReac Type Severity Reaction Status Date / Time baclofen Allergy Intermediate ITCHING, Verified 09/07/22 23:28 NAUSEA/VOMITING cyclobenzaprine Allergy Intermediate itching Verified 09/07/22 23:28 [From Flexeril] amoxicillin AdvReac Intermediate Vomiting Verified 09/07/22 23:28 bupropion AdvReac Intermediate PSYCHOTIC-P Verified 09/07/22 23:28 ARANOID morphine AdvReac Intermediate "GETS Verified 09/07/22 23:28 REALLY SICK" zolpidem [From Ambien] AdvReac Intermediate NIGHTMARES Verified 09/07/22 23:28 meperidine AdvReac Mild ITCHY Verified 09/07/22 23:28 Home Meds Home Medications Medication Instructions Recorded Confirmed albuterol sulfate 90 mcg/actuation 2 puff inhalation QID PRN 03/29/19 09/07/22 aerosol inhaler Shortness Of Breath Or Wheezing atorvastatin 40 mg tablet 40 mg PO HS 03/29/19 09/07/22 lisinopril 5 mg tablet 5 mg PO HS 03/29/19 09/07/22 rizatriptan 10 mg tablet 10 mg PO DIRECTED PRN Migraine 03/29/19 09/07/22 Headache trazodone 50 mg tablet 50 mg PO HS 03/29/19 09/07/22 aspirin 81 mg tablet,delayed 81 mg PO HS 05/25/19 09/07/22 release insulin glargine 100 unit/mL (3 80 unit subcut HS 05/25/19 09/07/22 mL) subcutaneous pen (Lantus Solostar U-100 Insulin) insulin aspart U-100 100 unit/mL 1 sliding scale dose subcut 06/15/20 09/07/22 subcutaneous cartridge (Novolog USEASDIRECTD PenFill U-100 Insulin aspart) pantoprazole 40 mg tablet,delayed 40 mg PO HS 06/15/20 09/07/22 release dulaglutide 1.5 mg/0.5 mL 1.5 mg subcut WK 06/22/22 09/07/22 subcutaneous pen injector (Trulicity) empagliflozin 25 mg tablet 25 mg PO HS 06/22/22 09/07/22 (Jardiance) famotidine 20 mg tablet 20 mg PO HS 06/22/22 09/07/22 fexofenadine 180 mg tablet 180 mg PO DAILY PRN 06/22/22 09/07/22 CONGESTION/ALLERGIES lidocaine 5 % topical patch 1 patch topical DAILY PRN Pain 06/22/22 09/07/22 metformin 500 mg tablet,extended 2,000 mg PO HS 06/22/22 09/07/22 release 24 hr sertraline 100 mg tablet 100 mg PO HS 06/22/22 09/07/22 Results & Data (ED) Vital Signs Vital Signs - 24 hr 09/07/22 20:05 09/07/22 21:10 09/07/22 21:30 Temperature 36.7 C Temperature Source Temporal Artery Scan Pulse Rate 92 H 75 Pulse Rate [Apical] 77 Pulse Rhythm [Apical] Regular Respiratory Rate 20 18 Respiratory Effort / Characteristics Non-Labored Spontaneous Respiratory Depth Normal Respiratory Pattern Regular Blood Pressure 137/79 Blood Pressure [Right Arm] 134/68 Blood Pressure Mean 98 Blood Pressure Mean [Right Arm] 90 Blood Pressure Position [Right Arm] Lying Pulse Oximetry 94 93 Oxygen Delivery Method Room Air Room Air Sepsis Recent Fever Within 48 Hours No Sepsis New/Unexplained Change in Mental Status N/A Sepsis Action Taken by Nursing No Action Required Laboratory Data 09/07/22 20:52 09/07/22 20:52 Lab Results 09/07/22 09/07/22 09/07/22 Range/Units 20:52 20:52 20:52 WBC 11.38 H (4.8-10.8) K/ul RBC 4.86 (4.20-5.40) M/uL Hgb 15.0 (12.0-16.0) g/dl Hct 43.2 (37.0-47.0) % MCV 88.9 (80.0-100.0) fL MCH 30.9 (25.0-34.0) pg MCHC 34.7 (32.0-36.0) g/dL RDW Std Deviation 42.1 (36.4-46.3) fL RDW Coeff of Shira 12.9 (11.5-14.5) % Plt Count 331 (130-400) K/uL MPV 10.1 (9.4-12.4) fL Immature Gran % (Auto) 0.4 % Neut % (Auto) 61.0 % Lymph % (Auto) 29.3 % Sierra % (Auto) 6.6 % Eos % (Auto) 1.8 % Baso % (Auto) 0.9 % Neut # (Auto) 6.95 H (1.40-6.50) K/uL Lymph # (Auto) 3.33 (1.2-3.4) K/uL Sierra # (Auto) 0.75 H (0.11-0.59) K/uL Eos # (Auto) 0.21 (0-0.50) K/uL Baso # (Auto) 0.10 (0-0.2) K/uL Immature Gran # (Auto) 0.04 (0.01-0.20) K/uL Sodium 137 (136-145) mmol/L Potassium 4.1 (3.5-5.1) mmol/L Chloride 102 (98-107) mmol/L Carbon Dioxide 28 (21-32) mmol/L Anion Gap 7 (3-11) BUN 16 (6-23) mg/dl Creatinine 0.78 (0.6-1.2) mg/dl Est Cr Clr Drug Dosing 124.3 ml/min Est GFR ( Amer) 105.7 ml/min Est GFR (Non-Af Amer) 91.2 ml/min BUN/Creatinine Ratio 20.5 H (10-20) Glucose 214 H (70-99(Fasting)) mg/dl Lactate 1.4 (0.4-2.0) mmol/L Calcium 9.5 (8.6-10.3) mg/dl Magnesium 1.9 (1.7-2.4) mg/dl Total Bilirubin 0.7 (0.2-1.0) mg/dl Direct Bilirubin 0.1 (0-0.2) mg/dl AST 13 (13-39) U/L ALT 15 (7-52) U/L Alkaline Phosphatase 72 (34-104) U/L Troponin I High Sens 5.6 (0-14) pg/ml C-Reactive Protein 0.86 H (0-0.5) mg/dl Total Protein 7.3 (6.0-8.3) gm/dl Albumin 4.0 (3.4-5.0) gm/dl Procalcitonin (0-0.5) ng/ml Urine Color Urine Appearance (Clear) Urine pH (4.5-7.5) Ur Specific Parlier (1.000-1.030) Urine Protein (Negative) Urine Glucose (UA) (Negative) Urine Ketones (Negative) Urine Blood (Negative) Urine Nitrite (Negative) Urine Bilirubin (Negative) Urine Urobilinogen (Negative) Ur Leukocyte Esterase (Negative) SARS-CoV-2, RNA, NAAT (NEGATIVE) 09/07/22 09/07/22 09/07/22 Range/Units 20:52 21:03 21:05 WBC (4.8-10.8) K/ul RBC (4.20-5.40) M/uL Hgb (12.0-16.0) g/dl Hct (37.0-47.0) % MCV (80.0-100.0) fL MCH (25.0-34.0) pg MCHC (32.0-36.0) g/dL RDW Std Deviation (36.4-46.3) fL RDW Coeff of Shira (11.5-14.5) % Plt Count (130-400) K/uL MPV (9.4-12.4) fL Immature Gran % (Auto) % Neut % (Auto) % Lymph % (Auto) % Sierra % (Auto) % Eos % (Auto) % Baso % (Auto) % Neut # (Auto) (1.40-6.50) K/uL Lymph # (Auto) (1.2-3.4) K/uL Sierra # (Auto) (0.11-0.59) K/uL Eos # (Auto) (0-0.50) K/uL Baso # (Auto) (0-0.2) K/uL Immature Gran # (Auto) (0.01-0.20) K/uL Sodium (136-145) mmol/L Potassium (3.5-5.1) mmol/L Chloride (98-107) mmol/L Carbon Dioxide (21-32) mmol/L Anion Gap (3-11) BUN (6-23) mg/dl Creatinine (0.6-1.2) mg/dl Est Cr Clr Drug Dosing ml/min Est GFR ( Amer) ml/min Est GFR (Non-Af Amer) ml/min BUN/Creatinine Ratio (10-20) Glucose (70-99(Fasting)) mg/dl Lactate (0.4-2.0) mmol/L Calcium (8.6-10.3) mg/dl Magnesium (1.7-2.4) mg/dl Total Bilirubin (0.2-1.0) mg/dl Direct Bilirubin (0-0.2) mg/dl AST (13-39) U/L ALT (7-52) U/L Alkaline Phosphatase (34-104) U/L Troponin I High Sens (0-14) pg/ml C-Reactive Protein (0-0.5) mg/dl Total Protein (6.0-8.3) gm/dl Albumin (3.4-5.0) gm/dl Procalcitonin < 0.05 (0-0.5) ng/ml Urine Color Yellow Urine Appearance Clear (Clear) Urine pH 7.0 (4.5-7.5) Ur Specific Par[place] 1.040 H (1.000-1.030) Urine Protein Negative (Negative) Urine Glucose (UA) 3+ H (Negative) Urine Ketones Negative (Negative) Urine Blood Negative (Negative) Urine Nitrite Negative (Negative) Urine Bilirubin Negative (Negative) Urine Urobilinogen Negative (Negative) Ur Leukocyte Esterase Negative (Negative) SARS-CoV-2, RNA, NAAT NEGATIVE (NEGATIVE) Administered Medications Nicotine (Nicotine 14 Mg/24 Hr Patch) 14 mg TD DAILY ZACK Stop: 10/07/22 23:09 Last Admin: 09/07/22 23:27 Dose: 14 mg Documented By: REENA Discontinued Medications Hydromorphone HCl (Hydromorphone Inj 1 Mg/Ml Syringe) 1 mg IV NOW STA Stop: 09/07/22 21:42 Last Admin: 09/07/22 21:52 Dose: 1 mg Documented By: GUERA Piperacillin Sod/Tazobactam Sod (Zosyn) 4.5 gm in 120 mls @ 240 mls/hr IV NOW ONE Stop: 09/07/22 20:47 Last Infusion: 09/07/22 21:18 Dose: 0 mls/hr Documented By: Admin: 09/07/22 20:45 Dose: 240 mls/hr Documented By: GUERA Vancomycin HCl 2,000 mg/ (Sodium Chloride) 540 mls @ 200 mls/hr IV NOW ONE Stop: 09/07/22 22:59 Last Admin: 09/07/22 21:38 Dose: 200 mls/hr Documented By: GUERA Sodium Chloride (Nss 1000ml) 1,000 mls @ 999 mls/hr IV .Q1H1M ZACK Stop: 09/07/22 21:30 Last Infusion: 09/07/22 21:55 Dose: 0 mls/hr Documented By: Admin: 09/07/22 20:44 Dose: 999 mls/hr Documented By: GUERA Cefepime HCl (Maxipime) 2,000 mg in 20 mls @ 5 mls/min IV NOW STA Stop: 09/07/22 20:50 Last Admin: 09/07/22 21:20 Dose: Not Given Documented By: GUERA Piperacillin Sod/Tazobactam Sod (Zosyn) 4.5 gm in 120 mls @ 240 mls/hr IV NOW ONE Stop: 09/07/22 21:18 Last Admin: 09/07/22 20:57 Dose: Not Given Documented By: GUERA Oxycodone HCl (Oxycodone Hcl Ir 5 Mg Tab (Immediate Release)) Confirm Administered Dose 5 mg .ROUTE .STK-MED ONE Stop: 09/07/22 23:27 Last Admin: 09/07/22 23:28 Dose: 5 mg Documented By: REENA Discharge Plan Visit Data Chief Complaint: Infection Stated Complaint: 2 INFECTIONS IN FOOT,FEVER,CHILLS,NAUSEA,PAIN ED Provider: Edi Sargent Discharge Problem: Infection of right foot, Failure of outpatient treatment Forms Stand Alone Forms: [facility] Prescriptions Prescriptions: No Action pantoprazole 40 mg Tablet,Delayed Release (Dr/Ec) 40 mg PO HS insulin aspart U-100 [Novolog PenFill U-100 Insulin] 100 unit/mL Cartridge 1 sliding scale dose SUBCUT USEASDIRECTD Rx Instructions: PER GMG 50-60 UNITS WITH MEALS. atorvastatin 40 mg Tablet 40 mg PO HS trazodone 50 mg Tablet 50 mg PO HS rizatriptan 10 mg Tablet 10 mg PO DIRECTED PRN (Reason: Migraine Headache) Rx Instructions: TAKE AT ONSET OF SIMPSON, MAY REPEAT IN 2 HRS IF NEEDED. lisinopril 5 mg Tablet 5 mg PO HS albuterol sulfate 90 mcg/actuation Hfa Aerosol Inhaler 2 puff INHALATION QID PRN (Reason: Shortness Of Breath Or Wheezing) aspirin 81 mg Tablet,Delayed Release (Dr/Ec) 81 mg PO HS insulin glargine [Lantus Solostar U-100 Insulin] 100 unit/mL (3 mL) insulin pen 80 unit SUBCUT HS sertraline 100 mg tablet 100 mg PO HS fexofenadine [[place]] 180 mg Tablet 180 mg PO DAILY PRN (Reason: CONGESTION/ALLERGIES) famotidine 20 mg Tablet 20 mg PO HS lidocaine 5 % Adhesive Patch,Medicated 1 patch TOPICAL DAILY PRN (Reason: Pain) Rx Instructions: leave on most painful area for up to 12 hrs metformin 500 mg tablet extended release 24 hr 2,000 mg PO HS Jardiance 25 mg tablet 25 mg PO HS Trulicity 1.5 mg/0.5 mL pen injector 1.5 mg SUBCUT WK Rx Instructions: MONDAYS Referrals Referrals: Brandi Dunne DO [Primary Care Provider] -
[2022-09-07] MEDS ORDERED: CEFEPIME 2,000 MG/20 ML VIAL IV STA (20:47)
[2022-09-07 21:20] LABS: Appearance Urine Clear (Clear); Bilirubin Urine Negative (Negative); Blood Urine Negative (Negative); Color Urine Yellow; Glucose Urine UA 3+ (Negative); Ketones Urine Negative (Negative); Leukocyte Esterase Urine Negative (Negative); Nitrite Urine Negative (Negative); Protein Urine Negative (Negative); Urobilinogen Urine Negative (Negative)
[2022-09-07 21:37] LABS: Basophils % (auto) 0.9 %; Eosinophils # (auto) 0.21 K/uL (0-0.50); Eosinophils % (auto) 1.8 %; Hematocrit (blood only) 43.2 % (37.0-47.0); Immature Granulocytes # (auto) 0.04 K/uL (0.01-0.20); Immature Granulocytes % (auto) 0.4 %; Lymphocytes # (auto) 3.33 K/uL (1.2-3.4); Lymphocytes % (auto) 29.3 %; Mean Corpuscular Hemoglobin 30.9 pg (25.0-34.0); Mean Corpuscular Hgb Conc 34.7 g/dL (32.0-36.0); Mean Corpuscular Volume 88.9 fL (80.0-100.0); Mean Platelet Volume 10.1 fL (9.4-12.4); Monocytes # (auto) 0.75 K/uL (0.11-0.59); Monocytes % (auto) 6.6 %; Neutrophils # (auto) 6.95 K/uL (1.40-6.50); Platelet Count 331 K/uL (130-400); RDW Coefficient of Variation 12.9 % (11.5-14.5); RDW Standard Deviation 42.1 fL (36.4-46.3); Red Blood Count 4.86 M/uL (4.20-5.40); White Blood Count 11.38 K/ul (4.8-10.8)
[2022-09-07 21:39] LABS: BUN Creatinine Ratio 20.5 (10-20); Bilirubin Direct 0.1 mg/dl (0-0.2); Bilirubin,Total 0.7 mg/dl (0.2-1.0); C Reactive Protein 0.86 mg/dl (0-0.5); Calcium 9.5 mg/dl (8.6-10.3); Creatinine Clr Calc Pharmacy 124.3 ml/min; Est GFR (African American) 105.7 ml/min; Est GFR (Non-African American) 91.2 ml/min; Magnesium 1.9 mg/dl (1.7-2.4); Potassium 4.1 mmol/L (3.5-5.1); Total Protein 7.3 gm/dl (6.0-8.3)
[2022-09-07] MEDS ORDERED: HYDROmorphone INJ 1 MG/ML SYRINGE IV STA (21:41)
[2022-09-07 21:44] LABS: Troponin I High Sensitivity 5.6 pg/ml (0-14)
[2022-09-07] MEDS ORDERED: oxyCODONE HCL IR 5 MG TAB (IMMEDIATE RELEASE) ONE (23:26)
[2022-09-07] MEDS: NICOTINE 14 MG/24 HR PATCH TD SCH (23:27)
[2022-09-08] MEDS ORDERED: SODIUM CHLORIDE 0.9% 1000ML 1,000 ML IV SCH (00:36)
[2022-09-08] MEDS ORDERED: FEXOFENADINE HCL 180 MG TAB PO PRN (00:36)
[2022-09-08] MEDS ORDERED: GLUCOSE 10 TAB/TUBE PO PRN (00:36)
[2022-09-08] MEDS ORDERED: GLUCAGON FOR INJ 1 MG VIAL SQ PRN (00:36)
[2022-09-08] MEDS ORDERED: RIZATRIPTAN BENZOATE 10 MG TAB PO PRN (00:36)
[2022-09-08] MEDS ORDERED: POLYETHYLENE (MIRALAX) 17 GM PACK PO PRN (00:36)
[2022-09-08] MEDS ORDERED: GLUCOSE 40% GEL 15 GM TUBE PO PRN (00:36)
[2022-09-08] MEDS ORDERED: DEXTROSE 50% 50 ML SYRINGE IV PRN (00:36)
[2022-09-08] MEDS ORDERED: PHARMACY GLYCEMIC MGMT CONSULT PRN (00:36)
[2022-09-08] MEDS ORDERED: ALBUTEROL HFA 8 GM INHALER INH PRN (00:36)
[2022-09-08] MEDS ORDERED: CARBOHYDRATES FOR HYPOGLYCEMIA PO PRN (00:36)
[2022-09-08] MEDS ORDERED: LIDOCAINE 5% 1 PATCH TD PRN (00:36)
[2022-09-08] MEDS ORDERED: oxyCODONE HCL IR 5 MG TAB (IMMEDIATE RELEASE) PO PRN (00:36)
[2022-09-08] MEDS ORDERED: LANTUS PER UNIT CHARGE SQ SCH ×2 (02:00→21:00)
[2022-09-08] MEDS: INSULIN ASPART PER UNIT CHARGE SC SCH ×5 (03:06→20:52)
--- NOTE | 2022-09-08 04:42 | History and Physical Report ---
DATE OF ADMISSION: 09/07/2022. CHIEF COMPLAINT: Right foot infection. HISTORY OF PRESENT ILLNESS: A 47-year-old female with past medical history significant for type 2 diabetes, hyperlipidemia, chronic kidney disease stage III, nocturnal hypoxemia, hypertension, reflux esophagitis, irritable bowel syndrome, urinary incontinence, nocturnal enuresis, history of necrobiosis lipoidica diabeticorum, degenerative disk disease, history of plantar warts, chronic bilateral low back pain, osteoarthritis, migraine, cervicalgia, prothrombin gene mutation -heterozygote, depression with anxiety, presents with right foot infection. The patient says right great toe was infected for the past 2-1/2 weeks, and she does not know how it started and about a week ago she also noticed wound in the left lateral aspect of the right foot from her shoes. She was treated with clindamycin for the last 10 days, was not getting better, has a lot of pain in the foot, has had fevers and chills at home. Currently, denies any chest pain, no shortness of breath, has cough from smoking, smokes half pack of cigarettes daily. No nausea, no vomiting, no abdominal pain. Normal bowel and bladder movements. No rash. No headache, no blurred visions, no earache, no runny nose, no sore throat. Currently, resting comfortably and hemodynamically stable. ALLERGIES: TO BACLOFEN, CYCLOBENZAPRINE, AMOXICILLIN, BUPROPION, MORPHINE, AMBIEN, MEPERIDINE. PAST MEDICAL HISTORY: As mentioned above. PAST SURGICAL HISTORY: Positive for knee surgeries bilateral knees, colonoscopy with EGD, endometrial thermal ablation, IUD placement, ligation of oviducts, tumors removed from back, which were benign, tonsillectomy, left side resection and transplant of the long tendon of biceps, left shoulder arthroscopy. MEDICATIONS: The patient is on albuterol 2 puffs inhalation q.i.d. p.r.n., aspirin 81 mg p.o. at bedtime, atorvastatin 40 mg p.o. at bedtime, Trulicity 1.5 mg subcutaneous weekly, Jardiance 25 mg p.o. at bedtime, famotidine 20 mg p.o. at bedtime, Edda 180 mg p.o. daily p.r.n., NovoLog sliding scale, insulin glargine 8 units subcutaneous at bedtime, lidocaine patch daily, lisinopril 5 mg p.o. at bedtime, metformin 2000 mg p.o. at bedtime, Protonix 40 mg p.o. at bedtime, rizatriptan 10 mg p.r.n., sertraline 100 mg p.o. at bedtime, trazodone 50 mg p.o. at bedtime. FAMILY HISTORY: Significant for mother has allergies, prothrombin gene, breast cancer, daughter has muscular dystrophy, son has muscular dystrophy. Aunt has diabetes; paternal grandfather had diabetes. SOCIAL HISTORY: Smokes half pack a day. Alcohol occasional. No drug use. REVIEW OF SYSTEMS: As per HPI. Rest of review of systems is negative. PHYSICAL EXAMINATION: GENERAL: The patient is obese, not in acute distress. VITAL SIGNS: Temperature 36.7, pulse 75, respiratory rate 18, blood pressure 134/68, oxygen 93% on room air. HEENT: Pupils equal, round and reactive to light. Oral mucosa moist. NECK: No JVD, no neck masses. CARDIOVASCULAR: S1 and S2 heard. Regular rate and rhythm. No murmur, no gallop. RESPIRATORY SYSTEM: Normal AP diameter. No accessory muscle use. No wheezing, no crackles. ABDOMEN: Soft, bowel sounds present, nontender, no distention. CENTRAL NERVOUS SYSTEM: Alert and oriented. Speech is clear. No facial droop. Obeys simple commands. Moves extremities. EXTREMITIES: Wound seen on the right great toe and also lateral aspect of the left foot, which is tender to palpation. No obvious drainage seen. LABORATORY DATA: WBC 11.3, hemoglobin 15, hematocrit 43.2, platelets 331. Sodium 137, potassium 4.1, chloride 102, bicarbonate 28, BUN 16, creatinine 0.7, serum glucose 214. Lactate 1.4, calcium 9.5, magnesium 1.9, total bilirubin 0.7, direct bilirubin 0.1, AST 13, ALT 15, alkaline phosphatase 72. Troponin I high sensitivity 5.6. C-reactive protein 0.8. Procalcitonin less than 0.05. Urinalysis negative. SARS-CoV-2 rapid test negative. IMAGING DATA: Chest x-ray, no acute findings. ASSESSMENT AND PLAN: This 47-year-old female with history of diabetes, obesity, presents with nonhealing diabetic foot ulcers. 1. Nonhealing diabetic foot ulcers: Failed outpatient treatment with clindamycin. Empirically started on meropenem and vancomycin. Follow the response. Wound care and podiatry consult. Monitor in the hospital. 2. Diabetes: Continue home Lantus insulin sliding scale. Glycemic pharmacy consult home. Hold metformin, Jardiance and Trulicity. Follow the blood sugars, follow HbA1c levels. 3. Hyperlipidemia: Continue statin. 4. Hypertension: Continue lisinopril. We will monitor the blood pressure. 5. Gastroesophageal reflux disease: Continue Protonix. 6. Migraine: Continue rizatriptan p.r.n. 7. Depression: Continue Zoloft and trazodone. 8. Deep venous thrombosis prophylaxis: Lovenox. DISPOSITION: Closely monitor in the medical floor. PT, OT prior to discharge. Social service to help with discharge planning. Expect to discharge home and follow with family doctor. Job ID: [id number]
[2022-09-08] MEDS: VANCOMYCIN HCL 1,500 MG in SODIUM CHLORIDE 0.9% 500 ML IV SCH ×2 (05:47→17:23)
[2022-09-08 06:39] LABS: BUN Creatinine Ratio 16.9 (10-20); Basophils # (auto) 0.07 K/uL (0-0.2); Basophils % (auto) 0.8 %; Calcium 8.3 mg/dl (8.6-10.3); Creatinine Clr Calc Pharmacy 133.8 ml/min; Eosinophils # (auto) 0.24 K/uL (0-0.50); Eosinophils % (auto) 2.6 %; Est GFR (African American) 118.4 ml/min; Est GFR (Non-African American) 102.1 ml/min; Hematocrit (blood only) 41.5 % (37.0-47.0); Hemoglobin 13.5 g/dl (12.0-16.0); Immature Granulocytes # (auto) 0.05 K/uL (0.01-0.20); Immature Granulocytes % (auto) 0.5 %; Lymphocytes # (auto) 3.03 K/uL (1.2-3.4); Lymphocytes % (auto) 32.6 %; Mean Corpuscular Hgb Conc 32.5 g/dL (32.0-36.0); Mean Corpuscular Volume 92.2 fL (80.0-100.0); Mean Platelet Volume 9.8 fL (9.4-12.4); Monocytes # (auto) 0.85 K/uL (0.11-0.59); Monocytes % (auto) 9.1 %; Neutrophils # (auto) 5.05 K/uL (1.40-6.50); Neutrophils % (auto) 54.4 %; Platelet Count 264 K/uL (130-400); RDW Coefficient of Variation 12.8 % (11.5-14.5); RDW Standard Deviation 43.7 fL (36.4-46.3); White Blood Count 9.29 K/ul (4.8-10.8)
--- NOTE | 2022-09-08 07:09 | XRay Report ---
RIGHT FOOT 3 VIEWS CLINICAL HISTORY: First toe infection. FINDINGS: 3 views of the right foot are compared to study dated 10/26/2017. The skeletal structures ar e well mineralized. No fracture is seen. There is no bony erosion or periostitis. The joint spaces of the foot are maintained. There are small dorsal and plantar calcaneal enthesophytes. Soft tissue swe lling is noted in the first toe and overlying the fifth metatarsophalangeal joint. No soft tissue gas or radiodense foreign body is seen. IMPRESSION: Foci of soft tissue swelling with no acute bony abnormality identified. Electronically signed by: Juan David Veras M.D. 09/08/2022 7:07 AM
[2022-09-08 07:38] LABS: Estimated Average Glucose 200 mg/dl; Hemoglobin A1C 8.6 % (4.5-5.6)
--- NOTE | 2022-09-08 07:38 | XRay Report ---
SINGLE VIEW CHEST CLINICAL HISTORY: Sepsis. FINDINGS: An AP, portable, upright chest radiograph is compared to study dated 06/22/2022 and correlat ed with chest CT dated 06/23/2022. The heart is top normal for projection. The lungs and pleural space s are clear noting dependent atelectasis. No pneumothorax is seen. The bony thorax is grossly intact. IMPRESSION: No active disease in the chest. ACT 112: Negative or not required by law. Electronically signed by: Juan David Veras M.D. 09/08/2022 7:37 AM
[2022-09-08] MEDS: ENOXAPARIN INJ 40 MG/0.4 ML SYR SQ SCH (08:51)
[2022-09-08] MEDS: ACETAMINOPHEN 325 MG TAB PO PRN (08:59)
[2022-09-08] MEDS: MEROPENEM 500 MG in SYRINGE 0 ML IV SCH ×3 (08:59→20:00)
--- NOTE | 2022-09-08 09:59 | Pharmacy Report ---
Pharmacy Glycemic Short Note 2 - Date of Service September 08, 2022 - Glycemic Short BSG Results (Last 24 hours): 09/07/22 09/08/22 09/08/22 20:52 02:04 05:37 Glucose 214 H 149 H POC Glucose 184 H 09/08/22 08:04 Glucose POC Glucose 122 H OUTPATIENT ANTIDIABETIC REGIMEN: * Jardiance 25 mg PO daily * Metformin ER 2000 mg PO HS * Lantus 80 units SC HS * Novolog SSI SC AC (50-60 units w/ meals) * HbA1c: 8.6% (09/08/22) ASSESSMENT: * 47 yo F admitted on 09/08/22 secondary to right foot infection. Pharmacy has been consulted to assist with inpatient glycemic management. Patient is an uncontrolled Type 2 diabetic as an outpatient. Please refer to outpatient regimen and most recent HbA1c above. * BSG in ED was 214 mg/dL. Upon transfer to the floor, BSG was 184 mg/dL. Patient was ordered 80 units of Lantus (home dose) which was given around 0200. Fasting BSG this AM is 122 mg/dL. * Currently ordered and tolerating a T2DM diet. On vancomycin and meropenem for right foot infection. * Will empirically loosen Lantus dose this evening by ~20% given home diet is likely different than inpatient diet. Will also empirically tighten correction factor and carb ratio given large mealtime doses patient receives at home. PLAN FOR INPATIENT GLYCEMIC CONTROL: * Hold outpatient oral diabetes medications * Basal insulin * Lantus 65 units SC HS * Bolus insulin * NovoLog per scale ACHS or Q6hrs while NPO * Goal Range: Low 110 mg/dL - High 140 mg/dL * Correction Factor: 15 mg/dL/unit * Nutritional / Prandial insulin per carb ratio of 1 unit per 5 grams CHO consumed
--- NOTE | 2022-09-08 10:22 | Pharmacy Report ---
Pharmacy PK ABX Note - Date of Service September 08, 2022 - Assessment and Plan Assessment 47 year old F receiving Vancomycin and Meropenem for treatment of right foot infection. * Day #1 of antimicrobial therapy. * PMHx significant for T2DM and current everyday smoker. * HPI: Patient reports R great toe infection for last 2.5 weeks and now noticed a wound in her R foot. Failed outpatient clindamycin. * Labs/Vitals: Afebrile. Hemodynamically stable. Mild leukocytosis of 11.4k upon admission, down to 9.3k today. Renal fxn stable with CrCl > 120 mL/min. Lactate 1.4 and procalcitonin < 0.05. * Imaging: R foot XR shows: "Foci of soft tissue swelling with no acute bony abnormality identified" per radiologist read. * Micro: Blood cultures pending. * Recommendations: Do not believe this patient requires ESBL coverage with a carbapenem. Amoxicillin "allergy" listed is vomiting which is an adverse effect, not a true allergy. Patient has tolerated Keflex in our facility as well as a dose of Zosyn in the ED last evening. Therefore, recommended to hospitalist (Dr. Blevins), that Meropenem be discontinued and patient be started on either Zosyn or Cefepime+Flagyl. Dr. Blevins to review. Plan Vancomycin * Loading dose: 2000 mg IV x 1 * Maintenance dose: 1500 mg IV every 12 hours * Regimen is predicted to achieve target AUC/LAILA of 400-600 mg/L.hr * Random level ordered for: 09/09/22 Pharmacy will continue to follow and will adjust dose/frequency as necessary. Thank you. Pharmacy has transitioned to AUC monitoring for vancomycin. AUC/LAILA is the preferred PK/PD target and is associated with decreased risk of nephrotoxicity compared to traditional trough targets.
[2022-09-08] MEDS: NICOTINE 14 MG/24 HR PATCH TD SCH (10:40)
--- NOTE | 2022-09-08 11:22 | Hospitalist Progress Note ---
Date of Service September 08, 2022 Assessment & Plan (1) Infection of right foot: (2) Failure of outpatient treatment: Plan: This 47-year-old female with history of diabetes, obesity, presents with nonhealing diabetic foot ulcers. 1. Nonhealing diabetic foot ulcers: Failed outpatient treatment with clindamycin. Foot XR obtained Foci of soft tissue swelling with no acute bony abnormality identified. Empirically started on meropenem and vancomycin. Follow the response.Pt reports erythema and pain improved. Wound care and podiatry consult. Monitor in the hospital. 2. Diabetes: Continue home Lantus insulin sliding scale. Glycemic pharmacy consulted Hold metformin, Jardiance and Trulicity. Follow the blood sugars, follow HbA1c levels. 3. Hyperlipidemia: Continue statin. 4. Hypertension: Continue lisinopril. We will monitor the blood pressure. 5. Gastroesophageal reflux disease: Continue Protonix. 6. Migraine: Continue rizatriptan p.r.n. 7. Depression: Continue Zoloft and trazodone. DVT ppx Lovenox on hold pending podiatry eval. Admission and Anticipated Discharge Date Admission Date: September 07, 2022 Subjective Pt seen in follow up of foot infection Currently laying in bed, in no acute distress Says she has been having foot infection problem for some time, and she also has history of MRSA infection of right foot Most recently she was treated as outpatient, however without success She reports pus from right toe/toenail, chills Says that since she came to the hospital, erythema of her right toe has improved and she feels a lot better, less pain No chest pain or shortness of breath, no abdominal pain Podiatry also consulted Review of Systems Review of Systems: All systems reviewed & are unremarkable except as noted in Subjective Physical Exam Physical Exam: GENERAL: obese F, not in acute distress. HEENT: NC/AT. EOMI. Pupils equal, round and reactive to light. Oral mucosa moist. NECK: No JVD, no neck masses. CARDIOVASCULAR: S1 and S2 heard. Regular rate and rhythm. No murmur, no gallop. RESPIRATORY: Normal AP diameter. No accessory muscle use. No wheezing, no crackles. ABDOMEN: Soft, bowel sounds present, nontender, no distention. NEURO: Alert and oriented. Speech is clear. No facial droop. Obeys simple commands. Moves extremities. EXTREMITIES: Wound seen on the right great toe and also lateral aspect of the foot, which is tender to palpation. No obvious drainage seen. Results & Data Results & Data Vital Signs (Past 12 Hours) Vital Signs Temp Pulse Resp BP Pulse Ox O2 Del Method 09/08/22 07:56 36.6 C 72 16 113/69 91 Room Air 09/08/22 00:30 36.0 C L 80 18 122/78 95 Room Air Laboratory Results 09/08/22 09/08/22 09/08/22 Range/Units 08:04 05:37 05:37 WBC (4.8-10.8) K/ul RBC (4.20-5.40) M/uL Hgb (12.0-16.0) g/dl Hct (37.0-47.0) % MCV (80.0-100.0) fL MCH (25.0-34.0) pg MCHC (32.0-36.0) g/dL RDW Std Deviation (36.4-46.3) fL RDW Coeff of Shira (11.5-14.5) % Plt Count (130-400) K/uL MPV (9.4-12.4) fL Immature Gran % (Auto) % Neut % (Auto) % Lymph % (Auto) % [place] % (Auto) % Eos % (Auto) % Baso % (Auto) % Neut # (Auto) (1.40-6.50) K/uL Lymph # (Auto) (1.2-3.4) K/uL [place] # (Auto) (0.11-0.59) K/uL Eos # (Auto) (0-0.50) K/uL Baso # (Auto) (0-0.2) K/uL Immature Gran # (Auto) (0.01-0.20) K/uL Sodium 140 (136-145) mmol/L Potassium 4.0 (3.5-5.1) mmol/L Chloride 106 (98-107) mmol/L Carbon Dioxide 29 (21-32) mmol/L Anion Gap 5 (3-11) BUN 12 (6-23) mg/dl Creatinine 0.71 (0.6-1.2) mg/dl Est Cr Clr Drug Dosing 133.8 ml/min Est GFR ( Amer) 118.4 ml/min Est GFR (Non-Af Amer) 102.1 ml/min BUN/Creatinine Ratio 16.9 (10-20) Glucose 149 H (70-99(Fasting)) mg/dl POC Glucose 122 H (70-99) mg/dl Estimat Average Glucose 200 mg/dl Hemoglobin A1c 8.6 H (4.5-5.6) % Lactate (0.4-2.0) mmol/L Calcium 8.3 L (8.6-10.3) mg/dl Magnesium 2.0 (1.7-2.4) mg/dl Total Bilirubin (0.2-1.0) mg/dl Direct Bilirubin (0-0.2) mg/dl AST (13-39) U/L ALT (7-52) U/L Alkaline Phosphatase (34-104) U/L Troponin I High Sens (0-14) pg/ml C-Reactive Protein (0-0.5) mg/dl Total Protein (6.0-8.3) gm/dl Albumin (3.4-5.0) gm/dl Procalcitonin (0-0.5) ng/ml Urine Color Urine Appearance (Clear) Urine pH (4.5-7.5) Ur Specific Campus (1.000-1.030) Urine Protein (Negative) Urine Glucose (UA) (Negative) Urine Ketones (Negative) Urine Blood (Negative) Urine Nitrite (Negative) Urine Bilirubin (Negative) Urine Urobilinogen (Negative) Ur Leukocyte Esterase (Negative) SARS-CoV-2, RNA, NAAT (NEGATIVE) 09/08/22 09/08/22 09/07/22 Range/Units 05:37 02:04 21:05 WBC 9.29 (4.8-10.8) K/ul RBC 4.50 (4.20-5.40) M/uL Hgb 13.5 (12.0-16.0) g/dl Hct 41.5 (37.0-47.0) % MCV 92.2 (80.0-100.0) fL MCH 30.0 (25.0-34.0) pg MCHC 32.5 (32.0-36.0) g/dL RDW Std Deviation 43.7 (36.4-46.3) fL RDW Coeff of Shira 12.8 (11.5-14.5) % Plt Count 264 (130-400) K/uL MPV 9.8 (9.4-12.4) fL Immature Gran % (Auto) 0.5 % Neut % (Auto) 54.4 % Lymph % (Auto) 32.6 % [place] % (Auto) 9.1 % Eos % (Auto) 2.6 % Baso % (Auto) 0.8 % Neut # (Auto) 5.05 (1.40-6.50) K/uL Lymph # (Auto) 3.03 (1.2-3.4) K/uL [place] # (Auto) 0.85 H (0.11-0.59) K/uL Eos # (Auto) 0.24 (0-0.50) K/uL Baso # (Auto) 0.07 (0-0.2) K/uL Immature Gran # (Auto) 0.05 (0.01-0.20) K/uL Sodium (136-145) mmol/L Potassium (3.5-5.1) mmol/L Chloride (98-107) mmol/L Carbon Dioxide (21-32) mmol/L Anion Gap (3-11) BUN (6-23) mg/dl Creatinine (0.6-1.2) mg/dl Est Cr Clr Drug Dosing ml/min Est GFR ( Amer) ml/min Est GFR (Non-Af Amer) ml/min BUN/Creatinine Ratio (10-20) Glucose (70-99(Fasting)) mg/dl POC Glucose 184 H (70-99) mg/dl Estimat Average Glucose mg/dl Hemoglobin A1c (4.5-5.6) % Lactate (0.4-2.0) mmol/L Calcium (8.6-10.3) mg/dl Magnesium (1.7-2.4) mg/dl Total Bilirubin (0.2-1.0) mg/dl Direct Bilirubin (0-0.2) mg/dl AST (13-39) U/L ALT (7-52) U/L Alkaline Phosphatase (34-104) U/L Troponin I High Sens (0-14) pg/ml C-Reactive Protein (0-0.5) mg/dl Total Protein (6.0-8.3) gm/dl Albumin (3.4-5.0) gm/dl Procalcitonin (0-0.5) ng/ml Urine Color Urine Appearance (Clear) Urine pH (4.5-7.5) Ur Specific Campus (1.000-1.030) Urine Protein (Negative) Urine Glucose (UA) (Negative) Urine Ketones (Negative) Urine Blood (Negative) Urine Nitrite (Negative) Urine Bilirubin (Negative) Urine Urobilinogen (Negative) Ur Leukocyte Esterase (Negative) SARS-CoV-2, RNA, NAAT NEGATIVE (NEGATIVE) 09/07/22 09/07/22 09/07/22 Range/Units 21:03 20:52 20:52 WBC (4.8-10.8) K/ul RBC (4.20-5.40) M/uL Hgb (12.0-16.0) g/dl Hct (37.0-47.0) % MCV (80.0-100.0) fL MCH (25.0-34.0) pg MCHC (32.0-36.0) g/dL RDW Std Deviation (36.4-46.3) fL RDW Coeff of Shira (11.5-14.5) % Plt Count (130-400) K/uL MPV (9.4-12.4) fL Immature Gran % (Auto) % Neut % (Auto) % Lymph % (Auto) % [place] % (Auto) % Eos % (Auto) % Baso % (Auto) % Neut # (Auto) (1.40-6.50) K/uL Lymph # (Auto) (1.2-3.4) K/uL [place] # (Auto) (0.11-0.59) K/uL Eos # (Auto) (0-0.50) K/uL Baso # (Auto) (0-0.2) K/uL Immature Gran # (Auto) (0.01-0.20) K/uL Sodium (136-145) mmol/L Potassium (3.5-5.1) mmol/L Chloride (98-107) mmol/L Carbon Dioxide (21-32) mmol/L Anion Gap (3-11) BUN (6-23) mg/dl Creatinine (0.6-1.2) mg/dl Est Cr Clr Drug Dosing ml/min Est GFR ( Amer) ml/min Est GFR (Non-Af Amer) ml/min BUN/Creatinine Ratio (10-20) Glucose (70-99(Fasting)) mg/dl POC Glucose (70-99) mg/dl Estimat Average Glucose mg/dl Hemoglobin A1c (4.5-5.6) % Lactate 1.4 (0.4-2.0) mmol/L Calcium (8.6-10.3) mg/dl Magnesium (1.7-2.4) mg/dl Total Bilirubin (0.2-1.0) mg/dl Direct Bilirubin (0-0.2) mg/dl AST (13-39) U/L ALT (7-52) U/L Alkaline Phosphatase (34-104) U/L Troponin I High Sens (0-14) pg/ml C-Reactive Protein (0-0.5) mg/dl Total Protein (6.0-8.3) gm/dl Albumin (3.4-5.0) gm/dl Procalcitonin < 0.05 (0-0.5) ng/ml Urine Color Yellow Urine Appearance Clear (Clear) Urine pH 7.0 (4.5-7.5) Ur Specific Campus 1.040 H (1.000-1.030) Urine Protein Negative (Negative) Urine Glucose (UA) 3+ H (Negative) Urine Ketones Negative (Negative) Urine Blood Negative (Negative) Urine Nitrite Negative (Negative) Urine Bilirubin Negative (Negative) Urine Urobilinogen Negative (Negative) Ur Leukocyte Esterase Negative (Negative) SARS-CoV-2, RNA, NAAT (NEGATIVE) 09/07/22 09/07/22 Range/Units 20:52 20:52 WBC 11.38 H (4.8-10.8) K/ul RBC 4.86 (4.20-5.40) M/uL Hgb 15.0 (12.0-16.0) g/dl Hct 43.2 (37.0-47.0) % MCV 88.9 (80.0-100.0) fL MCH 30.9 (25.0-34.0) pg MCHC 34.7 (32.0-36.0) g/dL RDW Std Deviation 42.1 (36.4-46.3) fL RDW Coeff of Shira 12.9 (11.5-14.5) % Plt Count 331 (130-400) K/uL MPV 10.1 (9.4-12.4) fL Immature Gran % (Auto) 0.4 % Neut % (Auto) 61.0 % Lymph % (Auto) 29.3 % [place] % (Auto) 6.6 % Eos % (Auto) 1.8 % Baso % (Auto) 0.9 % Neut # (Auto) 6.95 H (1.40-6.50) K/uL Lymph # (Auto) 3.33 (1.2-3.4) K/uL [place] # (Auto) 0.75 H (0.11-0.59) K/uL Eos # (Auto) 0.21 (0-0.50) K/uL Baso # (Auto) 0.10 (0-0.2) K/uL Immature Gran # (Auto) 0.04 (0.01-0.20) K/uL Sodium 137 (136-145) mmol/L Potassium 4.1 (3.5-5.1) mmol/L Chloride 102 (98-107) mmol/L Carbon Dioxide 28 (21-32) mmol/L Anion Gap 7 (3-11) BUN 16 (6-23) mg/dl Creatinine 0.78 (0.6-1.2) mg/dl Est Cr Clr Drug Dosing 124.3 ml/min Est GFR ( Amer) 105.7 ml/min Est GFR (Non-Af Amer) 91.2 ml/min BUN/Creatinine Ratio 20.5 H (10-20) Glucose 214 H (70-99(Fasting)) mg/dl POC Glucose (70-99) mg/dl Estimat Average Glucose mg/dl Hemoglobin A1c (4.5-5.6) % Lactate (0.4-2.0) mmol/L Calcium 9.5 (8.6-10.3) mg/dl Magnesium 1.9 (1.7-2.4) mg/dl Total Bilirubin 0.7 (0.2-1.0) mg/dl Direct Bilirubin 0.1 (0-0.2) mg/dl AST 13 (13-39) U/L ALT 15 (7-52) U/L Alkaline Phosphatase 72 (34-104) U/L Troponin I High Sens 5.6 (0-14) pg/ml C-Reactive Protein 0.86 H (0-0.5) mg/dl Total Protein 7.3 (6.0-8.3) gm/dl Albumin 4.0 (3.4-5.0) gm/dl Procalcitonin (0-0.5) ng/ml Urine Color Urine Appearance (Clear) Urine pH (4.5-7.5) Ur Specific Campus (1.000-1.030) Urine Protein (Negative) Urine Glucose (UA) (Negative) Urine Ketones (Negative) Urine Blood (Negative) Urine Nitrite (Negative) Urine Bilirubin (Negative) Urine Urobilinogen (Negative) Ur Leukocyte Esterase (Negative) SARS-CoV-2, RNA, NAAT (NEGATIVE) Medications Administered Current Inpatient Medications Acetaminophen (Acetaminophen 325 Mg Tab) 650 mg PO Q4H PRN PRN Reason: pain/fever Stop: 10/08/22 00:35 Last Admin: 09/08/22 08:59 Dose: 650 mg Albuterol (Albuterol Hfa 8 Gm Inhaler) 2 puffs INH QID PRN PRN Reason: Shortness Of Breath Or Wheezin Stop: 10/08/22 00:35 Aspirin (Aspirin 81 Mg Ectab) 81 mg PO HS ZACK Stop: 10/08/22 20:59 Atorvastatin Calcium (Atorvastatin 40 Mg Tab) 40 mg PO HS ZACK Stop: 10/08/22 20:59 Dextrose (Dextrose 50% 50 Ml Syringe) 25 - 50 ml IV UD PRN; Protocol PRN Reason: Hypoglycemia Protocol Stop: 10/08/22 00:35 Enoxaparin Sodium (Enoxaparin Inj 40 Mg/0.4 Ml Syr) 40 mg SQ Q24H ZACK Stop: 10/08/22 08:59 Last Admin: 09/08/22 08:51 Dose: Not Given Famotidine (Famotidine 20 Mg Tab) 20 mg PO HS ZACK Stop: 10/08/22 20:59 Fexofenadine HCl (Fexofenadine Hcl 180 Mg Tab) 180 mg PO DAILY PRN PRN Reason: CONGESTION/ALLERGIES Stop: 10/08/22 00:35 Glucagon (Glucagon For Inj 1 Mg Vial) 1 mg SQ UD PRN; Protocol PRN Reason: Hypoglycemia Protocol Stop: 10/08/22 00:35 Glucose (Glucose 10 Tab/Tube) 4 - 8 tab PO UD PRN; Protocol PRN Reason: Hypoglycemia Treatment Stop: 10/08/22 00:35 Glucose (Glucose 40% Gel 15 Gm Tube) 15 - 30 gm PO UD PRN; Protocol PRN Reason: Hypoglycemia Protocol Stop: 10/08/22 00:35 Meropenem 500 mg/ Syringe 10 mls @ 2 mls/min IV Q6H [facility]; Protocol Stop: 09/15/22 07:59 Last Admin: 09/08/22 08:59 Dose: 2 mls/min Sodium Chloride (Nss 1000ml) 1,000 mls @ 80 mls/hr IV .[id number] [facility] Stop: 09/08/22 13:05 Last Admin: 09/08/22 02:06 Dose: 80 mls/hr Vancomycin HCl 1,500 mg/ (Sodium Chloride) 530 mls @ 200 mls/hr IV Q12H [facility]; Protocol Stop: 09/15/22 05:59 Last Infusion: 09/08/22 09:15 Dose: Infused Insulin Aspart (Insulin Aspart Per Unit Charge) 0 units SC [facility]; Protocol Stop: 10/08/22 02:59 Last Admin: 09/08/22 08:58 Dose: 7 units Insulin Glargine (Lantus Per Unit Charge) 65 units SQ [facility]; Protocol Stop: 10/08/22 01:59 Lidocaine (Lidocaine 5% 1 Patch) 1 patch TD DAILY PRN PRN Reason: Pain Stop: 10/08/22 00:35 Lisinopril (Lisinopril 5 Mg Tab) 5 mg PO [facility] Stop: 10/08/22 20:59 Miscellaneous (Remove Nicoderm Patch) 1 each N/A DAILY@0859 [facility] Stop: 10/08/22 08:58 Last Admin: 09/08/22 08:59 Dose: 1 each Miscellaneous (Carbohydrates For Hypoglycemia ) 15 - 30 gm PO UD PRN PRN Reason: Hypoglycemia Protocol Stop: 10/08/22 00:35 Miscellaneous (Remove Lidoderm Patch) 1 each N/A DAILY@2100 [facility] Stop: 10/08/22 20:59 Miscellaneous Information (Vancomycin Consult Active) 1 each N/A UD PRN PRN Reason: Consult Stop: 10/07/22 20:17 Miscellaneous Information (Pharmacy Glycemic Mgmt Consult) 1 each N/A UD PRN PRN Reason: Consult Stop: 10/08/22 00:35 Nicotine (Nicotine 14 Mg/24 Hr Patch) 14 mg TD DAILY [facility]ACK Stop: 10/07/22 23:09 Last Admin: 09/08/22 10:40 Dose: 14 mg Oxycodone HCl (Oxycodone Hcl Ir 5 Mg Tab (Immediate Release)) 5 mg PO Q6H PRN PRN Reason: Pain Stop: 09/22/22 00:35 Last Admin: 09/08/22 05:50 Dose: 5 mg Pantoprazole Sodium (Pantoprazole 40 Mg Tab) 40 mg PO HS ZACK Stop: 10/08/22 20:59 Polyethylene Glycol (Polyethylene (Miralax) 17 Gm Pack) 17 gm PO DAILY PRN PRN Reason: Constipation Stop: 10/08/22 00:35 Rizatriptan Benzoate (Rizatriptan Benzoate 10 Mg Tab) 10 mg PO DAILY PRN PRN Reason: Migraine Headache Stop: 10/08/22 00:35 Sertraline HCl (Sertraline Hcl 100 Mg Tablet) 100 mg PO HS ZACK Stop: 10/08/22 20:59 Tramadol HCl (Tramadol Hcl 50 Mg Tablet) 25 mg PO Q4H PRN PRN Reason: Pain Stop: 10/08/22 11:17 Trazodone HCl (Trazodone Hcl 50 Mg Tab) 50 mg PO HS ZACK Stop: 10/08/22 20:59
--- NOTE | 2022-09-08 15:19 | Orthopedic Consultation ---
Date of Consultation September 08, 2022 Assessment & Plan (1) Infection of right foot: Patient seen, evaluated, and treated. Reviewed x-rays and x-ray findings. I examined the patient for diabetic foot wounds that have been resistant to healing. We discussed underlying characteristics that may impede healing. A thorough evaluation of the wound was done in detail. Patient responding well to IV abx therapy. Manners in which pressure reduction could be achieved were investigated and initiated. Off-loading is a critical part of this patient's management. Factors which likely contribute to non-healing include: lack of adequate off- loading when supine, inadequately controlled infection, lack of adequate off- loading when ambulating, continued use of tobacco products, lack of adherence to diabetic footwear. To offload or remove pressure to the wound is essential. Patient will follow up on use of Diabetic shoes with CMOs upon discharge. Thank you for allowing me to participate in the care of this Patient. Will continue to follow while house. (2) Failure of outpatient treatment: History of Present Illness Attending Physician: Zackary Blevins MD History of Present Illness Patient is a type II diabetic, 47-year-old female who is seen at bedside resting comfortably. Patient seen for right foot diabetic foot infection. Patient has a past medical history significant for type 2 diabetes, hyperlipidemia, chronic kidney disease stage III, nocturnal hypoxemia, hypertension, reflux esophagitis, irritable bowel syndrome, urinary incontinence, nocturnal enuresis, history of necrobiosis lipoidica diabeticorum, degenerative disk disease, history of plantar warts, chronic bilateral low back pain, osteoarthritis, migraine, cervicalgia, prothrombin gene mutation -heterozygote, and depression with anxiety.Patient smokes half pack of cigarettes daily. Patient has a history of diabetic foot ulcers and has been treated in past at [facility] wound healing center. Patient has not utilized diabetic shoes or custom molded off loading orthotics in past. Patient was treated with out patient oral clindamycin for 10 days but did not see reduction in symptoms.. She notes wound and infection was not getting better. She presented to [facility] ED on 09/07/22 complaining of pain in the foot, fevers and chills at home. Allergies Allergy/AdvReac Type Severity Reaction Status Date / Time baclofen Allergy Intermediate ITCHING, Verified 09/07/22 23:28 NAUSEA/VOMITING cyclobenzaprine Allergy Intermediate itching Verified 09/07/22 23:28 [From Flexeril] amoxicillin AdvReac Intermediate Vomiting Verified 09/07/22 23:28 bupropion AdvReac Intermediate PSYCHOTIC-P Verified 09/07/22 23:28 ARANOID morphine AdvReac Intermediate "GETS Verified 09/07/22 23:28 REALLY SICK" zolpidem [From Ambien] AdvReac Intermediate NIGHTMARES Verified 09/07/22 23:28 meperidine AdvReac Mild ITCHY Verified 09/07/22 23:28 lactose AdvReac Verified 09/08/22 12:57 Home Medications Medication Instructions Recorded Confirmed Type albuterol sulfate 90 mcg/actuation 2 puff inhalation QID PRN 03/29/19 09/07/22 History aerosol inhaler Shortness Of Breath Or Wheezing atorvastatin 40 mg tablet 40 mg PO HS 03/29/19 09/07/22 History lisinopril 5 mg tablet 5 mg PO HS 03/29/19 09/07/22 History rizatriptan 10 mg tablet 10 mg PO DIRECTED PRN Migraine 03/29/19 09/07/22 History Headache trazodone 50 mg tablet 50 mg PO HS 03/29/19 09/07/22 History aspirin 81 mg tablet,delayed 81 mg PO HS 05/25/19 09/07/22 History release insulin glargine 100 unit/mL (3 80 unit subcut HS 05/25/19 09/07/22 History mL) subcutaneous pen (Lantus Solostar U-100 Insulin) insulin aspart U-100 100 unit/mL 1 sliding scale dose subcut 06/15/20 09/07/22 History subcutaneous cartridge (Novolog USEASDIRECTD PenFill U-100 Insulin aspart) pantoprazole 40 mg tablet,delayed 40 mg PO HS 06/15/20 09/07/22 History release dulaglutide 1.5 mg/0.5 mL 1.5 mg subcut WK 06/22/22 09/07/22 History subcutaneous pen injector (Trulicity) empagliflozin 25 mg tablet 25 mg PO HS 06/22/22 09/07/22 History (Jardiance) famotidine 20 mg tablet 20 mg PO HS 06/22/22 09/07/22 History fexofenadine 180 mg tablet 180 mg PO DAILY PRN 06/22/22 09/07/22 History CONGESTION/ALLERGIES lidocaine 5 % topical patch 1 patch topical DAILY PRN Pain 06/22/22 09/07/22 History metformin 500 mg tablet,extended 2,000 mg PO HS 06/22/22 09/07/22 History release 24 hr sertraline 100 mg tablet 100 mg PO HS 06/22/22 09/07/22 History Patient History Medical History Degenerative disc disease Depression Diabetes IDDM Gastroparesis GERD (gastroesophageal reflux disease) History of gastric ulcer History of migraine with aura Osteoarthritis Prothrombin [id number] mutation Surgical History History of ankle surgery Rt History of colonoscopy History of esophagogastroduodenoscopy (EGD) History of knee surgery BL History of shoulder surgery Lt History of tonsillectomy History of tooth extraction History of tubal ligation Status post hysteroscopic ablation of endometrium Family History Mother Diabetes Denies family history of Colon cancer Ovarian cancer Breast cancer Social History Smoking Status: Current every day smoker Cigarettes Per Day: 1/2 ppd; Second Hand Exposure: Yes; Do You Dip or Chew Tobacco: No; Hx Alcohol Use: Yes Hx Substance Use: No Preferred Language: Slovenian Communication Ability: Effective 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 Required: No Beliefs That Will Affect Care: None marital status: Current Living Situation: Significant Other Current Living Situation Comment: fiance Feels Safe at Home: Yes Safety Concerns: Feels Safe At This Time Assistive Devices: None Review of Systems Review of Systems: All systems reviewed & are unremarkable except as noted in HPI & below Physical Exam Constitutional: cooperative and comfortable Eyes: normal visual hirsch by confrontation Neck: trachea midline Respiratory: normal respiratory effort Cardiovascular: Rate/Rhythm: regular rate and regular rhythm Pedal pulses palpable Skin: Minimal erythema expanding over top of foot and throughout the bottom of the foot.Lateral fifth metatarsal partial thickness wound. Nails are thickened, hypertrophic. Mild edema of the right great toe and lateral right foot. Neurologic: Absent epicritic sensation. Psychiatric: Orientation: alert and oriented x 3 Results & Data Vital Signs (Past 12 Hours) Vital Signs Temp Pulse Resp BP Pulse Ox O2 Del Method 09/08/22 07:56 36.6 C 72 16 113/69 91 Room Air Diagnostic Findings RIGHT FOOT 3 VIEWS CLINICAL HISTORY: First toe infection. FINDINGS: 3 views of the right foot are compared to study dated 10/26/2017. The skeletal structures are well mineralized. No fracture is seen. There is no bony erosion or periostitis. The joint spaces of the foot are maintained. There are small dorsal and plantar calcaneal enthesophytes. Soft tissue swelling is noted in the first toe and overlying the fifth metatarsophalangeal joint. No soft tis massiel gas or radiodense foreign body is seen. IMPRESSION: Foci of soft tissue swelling with no acute bony abnormality identified. Electronically signed by: Juan David Veras M.D. 09/08/2022 7:07 AM
[2022-09-08] MEDS: ASPIRIN 81 MG ECTAB PO SCH (20:00)
[2022-09-08] MEDS: ATORVASTATIN 40 MG TAB PO SCH (20:01)
[2022-09-08] MEDS: SERTRALINE HCL 100 MG TABLET PO SCH (20:01)
[2022-09-08] MEDS: PANTOprazole 40 MG TAB PO SCH (20:01)
[2022-09-08] MEDS: FAMOTIDINE 20 MG TAB PO SCH (20:01)
[2022-09-08] MEDS: lisinopril 5 MG TAB PO SCH (20:03)
[2022-09-09] MEDS: traZODone HCL 50 MG TAB PO SCH ×2 (00:43→21:09)
[2022-09-09] MEDS: MEROPENEM 500 MG in SYRINGE 0 ML IV SCH ×2 (02:06→09:17)
[2022-09-09] MEDS ORDERED: VANCOMYCIN LEVEL ONE (05:30)
[2022-09-09] MEDS: VANCOMYCIN HCL 1,500 MG in SODIUM CHLORIDE 0.9% 500 ML IV SCH (05:57)
[2022-09-09 06:08] LABS: Calcium 8.7 mg/dl (8.6-10.3); Creatinine Clr Calc Pharmacy 139.7 ml/min; Est GFR (African American) 121.6 ml/min; Est GFR (Non-African American) 104.9 ml/min; Magnesium 1.9 mg/dl (1.7-2.4); Phosphorus 3.1 mg/dl (2.5-4.9); Potassium 4.4 mmol/L (3.5-5.1)
[2022-09-09 06:26] LABS: Basophils % (auto) 0.9 %; Eosinophils # (auto) 0.26 K/uL (0-0.50); Eosinophils % (auto) 2.3 %; Hematocrit (blood only) 43.4 % (37.0-47.0); Hemoglobin 14.6 g/dl (12.0-16.0); Immature Granulocytes # (auto) 0.05 K/uL (0.01-0.20); Immature Granulocytes % (auto) 0.4 %; Lymphocytes # (auto) 2.65 K/uL (1.2-3.4); Lymphocytes % (auto) 23.1 %; Mean Corpuscular Hemoglobin 30.4 pg (25.0-34.0); Mean Corpuscular Hgb Conc 33.6 g/dL (32.0-36.0); Mean Corpuscular Volume 90.4 fL (80.0-100.0); Mean Platelet Volume 9.8 fL (9.4-12.4); Monocytes # (auto) 0.75 K/uL (0.11-0.59); Monocytes % (auto) 6.5 %; Neutrophils # (auto) 7.66 K/uL (1.40-6.50); Neutrophils % (auto) 66.8 %; Platelet Count 299 K/uL (130-400); RDW Coefficient of Variation 12.5 % (11.5-14.5); RDW Standard Deviation 41.7 fL (36.4-46.3); White Blood Count 11.47 K/ul (4.8-10.8)
--- NOTE | 2022-09-09 07:59 | Pharmacy Report ---
Pharmacy PK ABX Note - Date of Service September 09, 2022 - Assessment and Plan Assessment 47 year old F receiving Vancomycin and Meropenem for treatment of right foot infection. 09/09: * Day #2 of antimicrobial therapy. * Slight increase in WBC to 11.5k today. Renal fxn stable. Remains afebrile and hemodynamically stable. * Podiatry consulted and appears medical management with abx is the plan of action per their note. No surgery for now. * Blood cultures with no growth to date. 09/08: * Day #1 of antimicrobial therapy. * PMHx significant for T2DM and current everyday smoker. * HPI: Patient reports R great toe infection for last 2.5 weeks and now noticed a wound in her R foot. Failed outpatient clindamycin. * Labs/Vitals: Afebrile. Hemodynamically stable. Mild leukocytosis of 11.4k upon admission, down to 9.3k today. Renal fxn stable with CrCl > 120 mL/min. Lactate 1.4 and procalcitonin < 0.05. * Imaging: R foot XR shows: "Foci of soft tissue swelling with no acute bony abnormality identified" per radiologist read. * Micro: Blood cultures pending. * Recommendations: Do not believe this patient requires ESBL coverage with a carbapenem. Amoxicillin "allergy" listed is vomiting which is an adverse effect, not a true allergy. Patient has tolerated Keflex in our facility as well as a dose of Zosyn in the ED last evening. Therefore, recommended to hospitalist (Dr. Blevins), that Meropenem be discontinued and patient be started on either Zosyn or Cefepime+Flagyl. Dr. Blevins to review. Plan Vancomycin * Current regimen: 1500 mg IV every 12 hours * Trough level obtained 09/09/22 resulted as 8.8 mcg/mL. This is subtherapeutic. * Change to 1250 mg IV every 8 hours. Predicted AUC at steady state: 527 mg/L.hr * Repeat trough level ordered for: 09/10/22 Pharmacy will continue to follow and will adjust dose/frequency as necessary. Thank you. Pharmacy has transitioned to AUC monitoring for vancomycin. AUC/LAILA is the preferred PK/PD target and is associated with decreased risk of nephrotoxicity compared to traditional trough targets.
[2022-09-09] MEDS: INSULIN ASPART PER UNIT CHARGE SC SCH ×4 (09:00→21:25)
[2022-09-09] MEDS ORDERED: LANTUS PER UNIT CHARGE SC SCH ×2 (09:00→21:00)
[2022-09-09] MEDS: NICOTINE 14 MG/24 HR PATCH TD SCH (09:09)
--- NOTE | 2022-09-09 11:20 | Hospitalist Progress Note ---
Date of Service September 09, 2022 Assessment & Plan (1) Infection of right foot: (2) Failure of outpatient treatment: (3) Diabetes mellitus: Plan This is a 47-year-old female who has significant past medical history of insulin-dependent T2DM, HTN, HLD, nocturnal hypoxemia, GERD, necrobiosis lipifica diabeticorum, migraine, prothrombin gene mutation heterozygote, depression with anxiety and insomnia who presented to ER secondary to worsening redness to right foot with right diabetic foot wound who failed outpatient clindamycin therapy. Right diabetic foot ulcer to base and lateral aspect of fifth toe Cellulitis History of MRSA Symptoms improving currently on IV vancomycin and meropenem Failed clindamycin therapy Discussed with pharmacy will de-escalate to vancomycin and Zosyn today We will continue antibiotics for additional 24 hours Discharge plan is for cefuroxime 500 mg twice daily, Flagyl 500 mg 3 times daily and Bactrim DS 1 tab twice daily at discharge She was seen and evaluated by podiatry who does not feel any further imaging is warranted She will need outpatient establishment with podiatry She will need to inspect feet daily Currently Optifoam placed over wound, and will need proper offloading diabetic footwear and need to avoid barefoot walking and proper footwear at all time Consult orthotics for evaluation for temporary footwear - will need to see medical supply for appropriate footwear, PCP can help with this IDDM T2 uncontrolled, a1c 8.6 Home regimen of Trulicity, Jardiance, metformin, Lantus/NovoLog Optimal blood sugar control is important for wound healing Discussed with patient Seen by dyno technician, glucose 227 and 208 Glycemic pharmacy on board HTN Continue lisinopril HLD Continue statin Morbid obesity, BMI 35.2 Diet and lifestyle modification Tobacco abuse nicotine patch encourage cessation DVT ppx: Lovenox currently on hold Dispo: med/surg, likely d/c tomorrow after another day of IV antibiotics on oral regimen, will need PCP, podiatry referral PCP: Uzair FULL CODE A total of 55 minutes was spent with greater than 50% of that time personally viewing all current laboratory work and diagnostic imaging studies obtained in the ED. Additionally, I was able to view the patients past medication reconciliation and history with direct visualization in the patients chart. Included in the time above, a portion of that time was spent assessing the patient while discussing and collaborating with specialists, if necessary, and making medical decision making on treatment plan. All of the above was collaborated with Dr. Blevins. Please see addendum for further details. Admission and Anticipated Discharge Date Admission Date: September 07, 2022 Supervising Physician Co-Signing Physician Notes Pt seen and examined by me, care coordinated w/B. VALERY Burciaga, pls refer to her note above for further detail. Patient is improving on current antibiotic treatment. Erythema improved, pain also improved. Patient is awake alert oriented answering questions appropriately. Lungs are clear to auscultation. Heart sounds regular. Abdomen soft nontender nondistended. She was seen by business architect last evening, recommend to cont. antibiotic treatment, no further imaging necessary at this time. She will need podiatry referral as outpatient, diabetic foot wear. MD Felicity Subjective Patient was seen and examined in room 305-1. F/U diabetic foot infection. Feels redness significantly improved. Continues to have pain around wound site. Denies f/c/s, chest pain, sob, n/v/d, abd pain. Tolerating diet. Review of Systems Review of Systems: All systems reviewed & are unremarkable except as noted in HPI & below Physical Exam Physical Exam: Gen: WD/WN, F, obese, NAD, A&O x3 HEENT: Normocephalic, atraumatic, conjunctivae moist, sclerae anicteric, mucous membranes moist. Lung: Clear to Auscultation bilaterally, no wheezes/rales/rhonchi Heart: Regular rate, regular rhythm, no murmurs, rubs, or gallops Abdomen: Soft, NT, ND +BS x 4 obese abd Extremities: No edema, Wound to base of R 5th toe, mild surround erythema, R big toe with minimal erythema, pain to palp on lateral aspect of R foot Skin: Warm, no rash, negative turgor. Results & Data Results & Data Vital Signs (Past 12 Hours) Vital Signs Temp Pulse Resp BP Pulse Ox O2 Del Method 09/09/22 07:30 36.4 C L 63 16 117/65 95 Room Air Medications Administered Current Inpatient Medications Acetaminophen (Acetaminophen 325 Mg Tab) 650 mg PO Q4H PRN PRN Reason: pain/fever Stop: 10/08/22 00:35 Last Admin: 09/08/22 08:59 Dose: 650 mg Albuterol (Albuterol Hfa 8 Gm Inhaler) 2 puffs INH QID PRN PRN Reason: Shortness Of Breath Or Wheezin Stop: 10/08/22 00:35 Aspirin (Aspirin 81 Mg Ectab) 81 mg PO HS [facility] Stop: 10/08/22 20:59 Last Admin: 09/08/22 20:00 Dose: 81 mg Atorvastatin Calcium (Atorvastatin 40 Mg Tab) 40 mg PO HS [facility] Stop: 10/08/22 20:59 Last Admin: 09/08/22 20:01 Dose: 40 mg Dextrose (Dextrose 50% 50 Ml Syringe) 25 - 50 ml IV UD PRN; Protocol PRN Reason: Hypoglycemia Protocol Stop: 10/08/22 00:35 Enoxaparin Sodium (Enoxaparin Inj 40 Mg/0.4 Ml Syr) 40 mg SQ Q24H [facility] Stop: 10/08/22 08:59 Last Admin: 09/08/22 08:51 Dose: Not Given Famotidine (Famotidine 20 Mg Tab) 20 mg PO [facility] Stop: 10/08/22 20:59 Last Admin: 09/08/22 20:01 Dose: 20 mg Fexofenadine HCl (Fexofenadine Hcl 180 Mg Tab) 180 mg PO DAILY PRN PRN Reason: CONGESTION/ALLERGIES Stop: 10/08/22 00:35 Glucagon (Glucagon For Inj 1 Mg Vial) 1 mg SQ UD PRN; Protocol PRN Reason: Hypoglycemia Protocol Stop: 10/08/22 00:35 Glucose (Glucose 10 Tab/Tube) 4 - 8 tab PO UD PRN; Protocol PRN Reason: Hypoglycemia Treatment Stop: 10/08/22 00:35 Glucose (Glucose 40% Gel 15 Gm Tube) 15 - 30 gm PO UD PRN; Protocol PRN Reason: Hypoglycemia Protocol Stop: 10/08/22 00:35 Vancomycin HCl 1,250 mg/ (Sodium Chloride) 275 mls @ 200 mls/hr IV Q8H [facility]; Protocol Stop: 09/16/22 13:59 Piperacillin Sod/Tazobactam (Sod 4.5 gm/ Dextrose) 120 mls @ 30 mls/hr IV Q8H [facility]; Protocol Stop: 09/16/22 13:59 Insulin Aspart (Insulin Aspart Per Unit Charge) 0 units SC ACHS [facility]; Protocol Stop: 10/08/22 02:59 Last Admin: 09/09/22 09:00 Dose: 20 units Insulin Glargine (Lantus Per Unit Charge) 45 units SC DAILY [facility]; Protocol Stop: 10/09/22 08:59 Last Admin: 09/09/22 09:00 Dose: 45 units Lidocaine (Lidocaine 5% 1 Patch) 1 patch TD DAILY PRN PRN Reason: Pain Stop: 10/08/22 00:35 Lisinopril (Lisinopril 5 Mg Tab) 5 mg PO HS [facility] Stop: 10/08/22 20:59 Last Admin: 09/08/22 20:03 Dose: 5 mg Miscellaneous (Remove Nicoderm Patch) 1 each N/A DAILY@0859 [facility] Stop: 10/08/22 08:58 Last Admin: 09/09/22 09:02 Dose: 1 each Miscellaneous (Carbohydrates For Hypoglycemia ) 15 - 30 gm PO UD PRN PRN Reason: Hypoglycemia Protocol Stop: 10/08/22 00:35 Miscellaneous (Remove Lidoderm Patch) 1 each N/A DAILY@2100 [facility] Stop: 10/08/22 20:59 Last Admin: 09/08/22 20:04 Dose: Not Given Miscellaneous Information (Vancomycin Consult Active) 1 each N/A UD PRN PRN Reason: Consult Stop: 10/07/22 20:17 Miscellaneous Information (Pharmacy Glycemic Mgmt Consult) 1 each N/A UD PRN PRN Reason: Consult Stop: 10/08/22 00:35 Nicotine (Nicotine 14 Mg/24 Hr Patch) 14 mg TD DAILY [facility] Stop: 10/07/22 23:09 Last Admin: 09/09/22 09:09 Dose: 14 mg Oxycodone HCl (Oxycodone Hcl Ir 5 Mg Tab (Immediate Release)) 5 mg PO Q6H PRN PRN Reason: Pain Stop: 09/22/22 00:35 Last Admin: 09/08/22 05:50 Dose: 5 mg Pantoprazole Sodium (Pantoprazole 40 Mg Tab) 40 mg PO HS [facility] Stop: 10/08/22 20:59 Last Admin: 09/08/22 20:01 Dose: 40 mg Polyethylene Glycol (Polyethylene (Miralax) 17 Gm Pack) 17 gm PO DAILY PRN PRN Reason: Constipation Stop: 10/08/22 00:35 Rizatriptan Benzoate (Rizatriptan Benzoate 10 Mg Tab) 10 mg PO DAILY PRN PRN Reason: Migraine Headache Stop: 10/08/22 00:35 Sertraline HCl (Sertraline Hcl 100 Mg Tablet) 100 mg PO HS [facility] Stop: 10/08/22 20:59 Last Admin: 09/08/22 20:01 Dose: 100 mg Tramadol HCl (Tramadol Hcl 50 Mg Tablet) 25 mg PO Q4H PRN PRN Reason: Pain Stop: 10/08/22 11:17 Trazodone HCl (Trazodone Hcl 50 Mg Tab) 50 mg PO HS [facility] Stop: 10/08/22 20:59 Last Admin: 09/09/22 00:43 Dose: Not Given COVID-19 Results Results COVID-19 Adm Lab Results: RBC 4.80 M/uL (4.20-5.40) 09/09/22 WBC 11.47 K/ul (4.8-10.8) H 09/09/22 Hgb 14.6 g/dl (12.0-16.0) 09/09/22 Hct 43.4 % (37.0-47.0) 09/09/22 Plt Count 299 K/uL (130-400) 09/09/22 Neutrophils (%) (Auto) 66.8 % 09/09/22 Lymphocytes (%) (Auto) 23.1 % 09/09/22 Monocytes # (Auto) 0.75 K/uL (0.11-0.59) H 09/09/22 Eosinophils # (Auto) 0.26 K/uL (0-0.50) 09/09/22 Immature Granulocyte % (Auto) 0.4 % 09/09/22 Neutrophils # (Auto) 7.66 K/uL (1.40-6.50) H 09/09/22 Lymphocytes # (Auto) 2.65 K/uL (1.2-3.4) 09/09/22 Monocytes # (Auto) 0.75 K/uL (0.11-0.59) H 09/09/22 Eosinophils # (Auto) 0.26 K/uL (0-0.50) 09/09/22 Basophils # (Auto) 0.10 K/uL (0-0.2) 09/09/22 Immature Granulocyte # (Auto) 0.05 K/uL (0.01-0.20) 3 Na 134 mmol/L (136-145) L 09/09/22 K 4.4 mmol/L (3.5-5.1) 09/09/22 Cl 106 mmol/L (98-107) 09/09/22 CO2 24 mmol/L (21-32) 09/09/22 Anion Gap 4 (3-11) 09/09/22 BUN 17 mg/dl (6-23) 09/09/22 Creatinine 0.68 mg/dl (0.6-1.2) 09/09/22 BUN/Creatinine Ratio 25.0 (10-20) H 09/09/22 Glucose Level 234 mg/dl (70-99(Fasting)) H 09/09/22 Ca 8.7 mg/dl (8.6-10.3) 09/09/22 Phosphorus Level 3.1 mg/dl (2.5-4.9) 09/09/22 Total Bilirubin 0.7 mg/dl (0.2-1.0) 09/07/22 Direct Bilirubin 0.1 mg/dl (0-0.2) 09/07/22 AST/SGOT 13 U/L (13-39) 09/07/22 ALT/SGPT 15 U/L (7-52) 09/07/22 Alkaline Phosphatase 72 U/L (34-104) 09/07/22 Total Protein 7.3 gm/dl (6.0-8.3) 09/07/22 Albumin 4.0 gm/dl (3.4-5.0) 09/07/22 CRP 0.86 mg/dl (0-0.5) H 09/07/22 Procalcitonin < 0.05 ng/ml (0-0.5) 09/07/22 SARS-CoV-2, RNA, NAAT NEGATIVE (NEGATIVE) 09/07/22 Chest X-Ray 09/07/22
[2022-09-09] MEDS: VANCOMYCIN HCL 1,250 MG in SODIUM CHLORIDE 0.9% 250 ML IV SCH ×2 (13:09→21:12)
--- NOTE | 2022-09-09 13:41 | Pharmacy Report ---
Pharmacy Glycemic Short Note 2 - Date of Service September 09, 2022 - Glycemic Short BSG Results (Last 24 hours): 09/08/22 09/08/22 09/09/22 17:00 20:43 05:33 Glucose 234 H POC Glucose 219 H 208 H 09/09/22 09/09/22 07:54 11:50 Glucose POC Glucose 227 H 126 H OUTPATIENT ANTIDIABETIC REGIMEN: * Jardiance 25 mg PO daily * Metformin ER 2000 mg PO HS * Lantus 80 units SC HS * Novolog SSI SC AC (50-60 units w/ meals) * HbA1c: 8.6% (09/08/22) ASSESSMENT: 09/09: * Ynes received 101 units of insulin yesterday, 65 units basal + 36 units bolus. BSGs were: [phone] mg/dL. * Fasting BSG this AM was significantly elevated at 227 mg/dL. RN states patient did not have any snacks/eat anything prior to AM BSG check to her knowledge. 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 * Believe patient requires more than 80 units of basal per day based on outpatient A1c and inpatient trends so far. Therefore, will split basal into BID dosing. AM dose will be set at 45 units while PM dose will be a scale to provide a total daily dose anywhere from 65-85 units. * Initially had tightened bolus regimen based on postprandial hyperglycemia yesterday evening. However, given lunch BSG today, will return bolus regimen to previously ordered parameters. Want to avoid hypoglycemia while titrating up basal insulin. 09/08: * 47 yo F admitted on 09/08/22 secondary to right foot infection. Pharmacy has been consulted to assist with inpatient glycemic management. Patient is an uncontrolled Type 2 diabetic as an outpatient. Please refer to outpatient regimen and most recent HbA1c above. * BSG in ED was 214 mg/dL. Upon transfer to the floor, BSG was 184 mg/dL. Patient was ordered 80 units of Lantus (home dose) which was given around 0 200. Fasting BSG this AM is 122 mg/dL. * Currently ordered and tolerating a T2DM diet. On vancomycin and meropenem for right foot infection. * Will empirically loosen Lantus dose this evening by ~20% given home diet is likely different than inpatient diet. Will also empirically tighten correction factor and carb ratio given large mealtime doses patient receives at home. PLAN FOR INPATIENT GLYCEMIC CONTROL: * Hold outpatient oral diabetes medications * Basal insulin * Lantus 45 units SC AM * Lantus 20-40 units SC PM (see eMAR for more details) * Bolus insulin * NovoLog per scale ACHS or Q6hrs while NPO * Goal Range: Low 110 mg/dL - High 140 mg/dL * Correction Factor: 15 mg/dL/unit * Nutritional / Prandial insulin per carb ratio of 1 unit per 5 grams CHO consumed
[2022-09-09] MEDS: PIPERACILLIN/TAZOBACTAM 4.5 GM CI (over 4 hours) IV SCH ×2 (14:38→22:54)
[2022-09-09] MEDS: ASPIRIN 81 MG ECTAB PO SCH (21:09)
[2022-09-09] MEDS: SERTRALINE HCL 100 MG TABLET PO SCH (21:10)
[2022-09-09] MEDS: ATORVASTATIN 40 MG TAB PO SCH (21:10)
[2022-09-09] MEDS: PANTOprazole 40 MG TAB PO SCH (21:11)
[2022-09-09] MEDS: FAMOTIDINE 20 MG TAB PO SCH (21:11)
[2022-09-09] MEDS: lisinopril 5 MG TAB PO SCH (21:11)
--- NOTE | 2022-09-09 22:43 | Orthopedic Progress Note ---
Date of Service September 09, 2022 Assessment & Plan (1) Infection of right foot: Plan: Patient seen, evaluated, and treated. Reviewed continued pain and swelling. MRI ordered right foot rule out abscess. A thorough evaluation of the wound was done in detail. After evaluation it decided wound would be debrided. See note below. To offload or remove pressure to the wound is essential. Patient will follow up on use of Diabetic shoes with CMOs upon discharge. Thank you for allowing me to participate in the care of this Patient. Will continue to follow while house. Today's procedure is an excisional debridement of deep tissue. There is a minimal amount of serosanguineous exudate draining from the fifth lateral right foot ulcer. The ulcer base is described as containing has pink granulation. Necrotic or devitalized tissue is estimated to be present in approximately 60% of the pressure ulcer bed. The ulcer has been exposed full-thickness tissue. I have informed the patient of the risks and benefit of this procedure and they have had the opportunity to ask questions. Appropriate consent has been obtained. The patient refused site marking. The area was prepped and draped in usual aseptic manner. The procedure was performed and a clean field. I d ebrided the wound sharply with a sterile #15 blade and necrotic tissue was excised down to and including subcutaneous tissue . Bleeding was minimal and hemostasis was achieved using pressure. The patient tolerated procedure and anesthesia well. Postprocedure no increased pain. (2) Failure of outpatient treatment: Admission and Anticipated Discharge Date Admission Date: September 07, 2022 Subjective Patient seen at bedside. She does note continued pain at diabetic foot wound. Patient has no other complaints. Review of Systems Review of Systems: All systems reviewed & are unremarkable except as noted in Subjective Physical Exam Constitutional: cooperative and comfortable Eyes: normal visual hirsch by confrontation Neck: trachea midline Respiratory: normal respiratory effort Cardiovascular: Rate/Rhythm: regular rate and regular rhythm Skin: Nails are thickened dystrophic, hypertrophic bilateral. Mild erythema over right fifth lateral metatarsal with some fluctuance and pain on palpation. Focused Exam: Wound location: Right lateral fifth metatarsal head Wound base color and depth: full thickness into subcutaneous tissue Wound size (cm): 0.5 x 0.6 x 0.3cm Odor: No malodor Drainage: mild serous Undermining: none Borders: necrotic Neurologic: moves all extremities Absent epicritic sensation. Psychiatric: Orientation: alert and oriented x 3 Results & Data Vital Signs (Past 12 Hours) Vital Signs Temp Pulse Resp BP Pulse Ox O2 Del Method 09/09/22 19:43 36.6 C 68 18 146/85 H 98 Room Air 09/09/22 15:35 36.7 C 70 16 123/81 96 Room Air
[2022-09-10] MEDS ORDERED: GADOBUTROL 65ML VIAL IV ONE (00:43)
--- NOTE | 2022-09-10 01:00 | Magnetic Resonance Report ---
Exam(s): MRI RIGHT FOOT W/WO Contrast IV Amt: 10cc gadavist EXAM: MR Right Lower Extremity Without and With Intravenous Contrast, Foot CLINICAL HISTORY: Reason for exam: diabetic foot ulcer. TECHNIQUE: Multiplanar magnetic resonance images of the right foot without and with intravenous contrast. CONTRAST: Patient received 10cc gadavist of IV contrast COMPARISON: No relevant prior studies available. FINDINGS: LIGAMENTS: Medial collateral: Unremarkable. Lateral collateral: Unremarkable. Lisfranc: Unremarkable. TENDONS: Flexor: Unremarkable. Extensor: Unremarkable. Peroneal: Unremarkable. Tibialis anterior: Unremarkable. Tibialis posterior: Unremarkable. Muscles: Unremarkable. Fluid: Unremarkable. No joint effusion. Sinus tarsi: Unremarkable as visualized. Tarsal tunnel: Unremarkable. Plantar fascia: Unremarkable. Cartilage: Unremarkable. Bones/joints: There is increased T2 first distal phalanx with overlying skin irregularity. Findings are concerning for underlying osteomyelitis. There is degenerative change of the tarsus. Soft tissues: There is mild soft tissue edema about the foot. IMPRESSION: Findings concerning for osteomyelitis of the first distal phalanx. Electronically signed by: Ady Kaminski MD 09/10/22 01:00 AM
[2022-09-10] MEDS ORDERED: VANCOMYCIN LEVEL ONE (05:30)
[2022-09-10] MEDS ORDERED: Nursing to Pharmacy Communication SCH ×2 (05:45→22:45)
[2022-09-10 05:59] LABS: Basophils # (auto) 0.12 K/uL (0-0.2); Basophils % (auto) 1.3 %; Eosinophils # (auto) 0.28 K/uL (0-0.50); Eosinophils % (auto) 3.1 %; Hematocrit (blood only) 41.9 % (37.0-47.0); Hemoglobin 14.1 g/dl (12.0-16.0); Immature Granulocytes # (auto) 0.04 K/uL (0.01-0.20); Immature Granulocytes % (auto) 0.4 %; Lymphocytes # (auto) 2.68 K/uL (1.2-3.4); Lymphocytes % (auto) 29.4 %; Mean Corpuscular Hemoglobin 30.3 pg (25.0-34.0); Mean Corpuscular Hgb Conc 33.7 g/dL (32.0-36.0); Mean Corpuscular Volume 89.9 fL (80.0-100.0); Mean Platelet Volume 9.7 fL (9.4-12.4); Monocytes # (auto) 0.76 K/uL (0.11-0.59); Monocytes % (auto) 8.3 %; Neutrophils # (auto) 5.23 K/uL (1.40-6.50); Neutrophils % (auto) 57.5 %; Platelet Count 285 K/uL (130-400); RDW Coefficient of Variation 12.5 % (11.5-14.5); RDW Standard Deviation 41.1 fL (36.4-46.3); Red Blood Count 4.66 M/uL (4.20-5.40); White Blood Count 9.11 K/ul (4.8-10.8)
[2022-09-10] MEDS: PIPERACILLIN/TAZOBACTAM 4.5 GM CI (over 4 hours) IV SCH ×3 (06:00→22:43)
[2022-09-10] MEDS: VANCOMYCIN HCL 1,250 MG in SODIUM CHLORIDE 0.9% 250 ML IV SCH ×3 (06:00→21:41)
[2022-09-10 06:05] LABS: Anion Gap 7 (3-11); BUN Creatinine Ratio 22.1 (10-20); Blood Urea Nitrogen 19 mg/dl (6-23); Calcium 8.5 mg/dl (8.6-10.3); Carbon Dioxide 25 mmol/L (21-32); Chloride 106 mmol/L (98-107); Creatinine Clr Calc Pharmacy 110.5 ml/min; Est GFR (African American) 93.9 ml/min; Glucose 245 mg/dl (70-99(Fasting)); Magnesium 1.8 mg/dl (1.7-2.4); Phosphorus 2.9 mg/dl (2.5-4.9); Potassium 4.3 mmol/L (3.5-5.1); Sodium 138 mmol/L (136-145)
[2022-09-10 07:48] LABS: C Reactive Protein < 0.50 mg/dl (0-0.5)
[2022-09-10] MEDS: LANTUS PER UNIT CHARGE SC SCH ×2 (08:27→21:40)
[2022-09-10] MEDS: INSULIN ASPART PER UNIT CHARGE SC SCH ×4 (08:27→21:39)
[2022-09-10] MEDS: NICOTINE 14 MG/24 HR PATCH TD SCH (08:27)
[2022-09-10] MEDS ORDERED: LANTUS PER UNIT CHARGE SC ONE (09:00)
--- NOTE | 2022-09-10 09:55 | Pharmacy Report ---
Pharmacy PK ABX Note - Date of Service September 10, 2022 - Assessment and Plan Assessment 47 year old F receiving Vancomycin and Zosyn for treatment of right foot infection. 09/10: * Day #3 of antimicrobial therapy. Meropenem was discontinued yesterday and changed to Zosyn. * Patient underwent excisional debridement of infected tissue yesterday. MRI of R foot obtained, concerning for osteomyelitis. * Blood cultures show no growth. 09/09: * Day #2 of antimicrobial therapy. * Slight increase in WBC to 11.5k today. Renal fxn stable. Remains afebrile and hemodynamically stable. * Podiatry consulted and appears medical management with abx is the plan of action per their note. No surgery for now. * Blood cultures with no growth to date. 09/08: * Day #1 of antimicrobial therapy. * PMHx significant for T2DM and current everyday smoker. * HPI: Patient reports R great toe infection for last 2.5 weeks and now noticed a wound in her R foot. Failed outpatient clindamycin. * Labs/Vitals: Afebrile. Hemodynamically stable. Mild leukocytosis of 11.4k upon admission, down to 9.3k today. Renal fxn stable with CrCl > 120 mL/min. Lactate 1.4 and procalcitonin < 0.05. * Imaging: R foot XR shows: "Foci of soft tissue swelling with no acute bony abnormality identified" per radiologist read. * Micro: Blood cultures pending. * Recommendations: Do not believe this patient requires ESBL coverage with a carbapenem. Amoxicillin "allergy" listed is vomiting which is an adverse effect, not a true allergy. Patient has tolerated Keflex in our facility as well as a dose of Zosyn in the ED last evening. Therefore, recommended to hospitalist (Dr. Blevins), that Meropenem be discontinued and patient be started on either Zosyn or Cefepime+Flagyl. Dr. Blevins to review. Plan Vancomycin * Current regimen: 1250 mg IV every 8 hours * A trough Vancomycin level was obtained this morning. Vanco trough @ 05:29 = 12.1 mcg/ml. At steady state, Vanco trough = 14.6 mcg/ml. * Predicted AUC at steady state: 504 mg/L.hr. * Continued Vancomycin at same dosing. * Re-check Vanco trough tomorrow morning @05:30 am to ensure adequate dosing Pharmacy will continue to follow and will adjust dose/frequency as necessary. Thank you. Pharmacy has transitioned to AUC monitoring for vancomycin. AUC/LAILA is the preferred PK/PD target and is associated with decreased risk of nephrotoxicity compared to traditional trough targets.
--- NOTE | 2022-09-10 10:22 | Hospitalist Progress Note ---
Date of Service September 10, 2022 Assessment & Plan (1) Infection of right foot: (2) Failure of outpatient treatment: (3) Diabetes mellitus: Plan This is a 47-year-old female who has significant past medical history of insulin-dependent T2DM, HTN, HLD, nocturnal hypoxemia, GERD, necrobiosis lipifica diabeticorum, migraine, prothrombin gene mutation heterozygote, depression with anxiety and insomnia who presented to ER secondary to worsening redness to right foot with right diabetic foot wound who failed outpatient clindamycin therapy. Right diabetic foot ulcer to base and lateral aspect of fifth toe Cellulitis History of MRSA Symptoms improving, antibiotics de escalated a bit to IV Vanco and zosyn Failed outpatient clindamycin therapy Seen again late last night by podiatry, R lateral 5th toe wound debrided Podiatry opted to order MRI to r/o abscess and revealed distal R 1st phalanx osteomyelitis ESR 23, CRP normal Discussed with Dr. Jaramillo - pt will need bone biopsy, will make NPO after midnight She will need outpatient establishment with podiatry She will need to inspect feet daily Currently Optifoam placed over wound, and will need proper offloading diabetic footwear and need to avoid barefoot walking and proper footwear at all time Consult orthotics for evaluation for temporary footwear -surgical shoe, she will need to get proper footwear as outpatient IDDM T2 uncontrolled, a1c 8.6 Home regimen of Trulicity, Jardiance, metformin, Lantus/NovoLog Optimal blood sugar control is important for wound healing Discussed with patient Seen by drivability technician, glucose 158, 223 Glycemic pharmacy on board, appreciate their management discussed with pt regarding strict blood sugar control for infection management, discussed referral to [place] pharmacy HTN Continue lisinopril HLD Continue statin Morbid obesity, BMI 35.2 Diet and lifestyle modification Tobacco abuse nicotine patch discussed smoking cessation DVT ppx: Lovenox currently on hold due to possible bone bx Dispo: med/surg, will need to remain admitted, Podiatry to re eval patient for likely bone biopsy, will then need to await culture results, likely to remain hospitalized another couple days, unsure of needs at this time, Will need ID at some point PCP: [facility] FULL CODE A total of 60 minutes was spent with greater than 50% of that time personally viewing all current laboratory work and diagnostic imaging studies obtained in the ED. Additionally, I was able to view the patients past medication reconciliation and history with direct visualization in the patients chart. Included in the time above, a portion of that time was spent assessing the patient while discussing and collaborating with specialists, if necessary, and making medical decision making on treatment plan. All of the above was collaborated with Dr. Blevins. Please see addendum for further details. Admission and Anticipated Discharge Date Admission Date: September 07, 2022 Supervising Physician Co-Signing Physician Notes Pt seen and examined by me, care coordinated with Jessica Burciaga PA-C, please refer to her note above for full detail. Patient is currently resting, in no acute distress. She is awake alert oriented answering appropriately. No fevers chills chest pain shortness of breath, no abdominal pain. Foot erythema much improved, pain also improved. lungs are clear to auscultation, heart sounds regular, abdomen soft nontender nondistended. Last evening underwent debridement by Dr. Jaramillo, and MRI of foot obtained this morning, concerning for possible first distal phalanx o steomyelitis. Plan for bone biopsy tomorrow, n.p.o. at midnight. Patient aware of the plan, continue IV antibiotics. MD Felicity Subjective Patient was seen and examined in room 305. Follow-up right great toe distal phalanx osteomyelitis. She states she has little bit increased drainage from that right lateral wound. Dr. Jaramillo was in late last night and it debride it. She feels big toe is less swollen today. She feels redness is significantly improved and is hoping to be discharged home. She denies fever, chills, sweats, lightheadedness, dizziness, chest pain, shortness of breath, nausea, vomiting, abdominal pain. Review of Systems Review of Systems: All systems reviewed & are unremarkable except as noted in HPI & below Physical Exam Physical Exam: Gen: WD/WN, F, obese, NAD, A&O x3, sitting at bedside HEENT: Normocephalic, atraumatic, conjunctivae moist, sclerae anicteric, mucous membranes moist. Lung: Clear to Auscultation bilaterally, no wheezes/rales/rhonchi Heart: Regular rate, regular rhythm, no murmurs, rubs, or gallops Abdomen: Soft, NT, ND +BS x 4 obese abd Extremities: No edema, Wound to base of R lateral 5th toe, no surrounding erythema, minimal drainage, R big toe with minimal erythema +edematous great toe, no drainage appreciated, pain to palp on lateral aspect of R foot, poor toenail care Skin: Warm, no rash, negative turgor. Results & Data Results & Data Vital Signs (Past 12 Hours) Vital Signs Temp Pulse Resp BP Pulse Ox O2 Del Method 09/10/22 08:15 36.7 C 60 16 123/76 97 Room Air Laboratory Results Short CBC 09/10/22 Range/Units 05:29 WBC 9.11 (4.8-10.8) K/ul Hgb 14.1 (12.0-16.0) g/dl Hct 41.9 (37.0-47.0) % Plt Count 285 (130-400) K/uL BMP 09/10/22 05:29 Sodium 138 Potassium 4.3 Chloride 106 Carbon Dioxide 25 BUN 19 Creatinine 0.86 Glucose 245 H Calcium 8.5 L Diagnostic Findings Foot MRI 09/10/22 00:09 Exam(s): MRI RIGHT FOOT W/WO Contrast IV Amt: 10cc gadavist EXAM: MR Right Lower Extremity Without and With Intravenous Contrast, Foot CLINICAL HISTORY: Reason for exam: diabetic foot ulcer. TECHNIQUE: Multiplanar magnetic resonance images of the right foot without and with intravenous contrast. CONTRAST: Patient received 10cc gadavist of IV contrast COMPARISON: No relevant prior studies available. FINDINGS: LIGAMENTS: Medial collateral: Unremarkable. Lateral collateral: Unremarkable. Lisfranc: Unremarkable. TENDONS: Flexor: Unremarkable. Extensor: Unremarkable. Peroneal: Unremarkable. Tibialis anterior: Unremarkable. Tibialis posterior: Unremarkable. Muscles: Unremarkable. Fluid: Unremarkable. No joint effusion. Sinus tarsi: Unremarkable as visualized. Tarsal tunnel: Unremarkable. Plantar fascia: Unremarkable. Cartilage: Unremarkable. Bones/joints: There is increased T2 first distal phalanx with overlying skin irregularity. Findings are concerning for underlying osteomyelitis. There is degenerative change of the tarsus. Soft tissues: There is mild soft tissue edema about the foot. IMPRESSION: Findings concerning for osteomyelitis of the first distal phalanx. Electronically signed by: Ady Kaminski MD 09/10/22 01:00 AM Medications Administered Current Inpatient Medications Acetaminophen (Acetaminophen 325 Mg Tab) 650 mg PO Q4H PRN PRN Reason: pain/fever Stop: 10/08/22 00:35 Last Admin: 09/08/22 08:59 Dose: 650 mg Albuterol (Albuterol Hfa 8 Gm Inhaler) 2 puffs INH QID PRN PRN Reason: Shortness Of Breath Or Wheezin Stop: 10/08/22 00:35 Aspirin (Aspirin 81 Mg Ectab) 81 mg PO HS ZACK Stop: 10/08/22 20:59 Last Admin: 09/09/22 21:09 Dose: 81 mg Atorvastatin Calcium (Atorvastatin 40 Mg Tab) 40 mg PO HS ZACK Stop: 10/08/22 20:59 Last Admin: 09/09/22 21:10 Dose: 40 mg Dextrose (Dextrose 50% 50 Ml Syringe) 25 - 50 ml IV UD PRN; Protocol PRN Reason: Hypoglycemia Protocol Stop: 10/08/22 00:35 Enoxaparin Sodium (Enoxaparin Inj 40 Mg/0.4 Ml Syr) 40 mg SQ Q24H ZACK Stop: 10/08/22 08:59 Last Admin: 09/08/22 08:51 Dose: Not Given Famotidine (Famotidine 20 Mg Tab) 20 mg PO ZACK Stop: 10/08/22 20:59 Last Admin: 09/09/22 21:11 Dose: 20 mg Fexofenadine HCl (Fexofenadine Hcl 180 Mg Tab) 180 mg PO DAILY PRN PRN Reason: CONGESTION/ALLERGIES Stop: 10/08/22 00:35 Glucagon (Glucagon For Inj 1 Mg Vial) 1 mg SQ UD PRN; Protocol PRN Reason: Hypoglycemia Protocol Stop: 10/08/22 00:35 Glucose (Glucose 10 Tab/Tube) 4 - 8 tab PO UD PRN; Protocol PRN Reason: Hypoglycemia Treatment Stop: 10/08/22 00:35 Glucose (Glucose 40% Gel 15 Gm Tube) 15 - 30 gm PO UD PRN; Protocol PRN Reason: Hypoglycemia Protocol Stop: 10/08/22 00:35 Vancomycin HCl 1,250 mg/ (Sodium Chloride) 275 mls @ 200 mls/hr IV Q8H ZACK; Protocol Stop: 09/16/22 13:59 Last Infusion: 09/10/22 07:37 Dose: Infused Piperacillin Sod/Tazobactam (Sod 4.5 gm/ Dextrose) 120 mls @ 30 mls/hr IV Q8H ZACK; Protocol Stop: 09/16/22 13:59 Last Infusion: 09/10/22 10:01 Dose: Infused Insulin Aspart (Insulin Aspart Per Unit Charge) 0 units SC ACHS [facility]; Protocol Stop: 10/08/22 02:59 Last Admin: 09/10/22 08:27 Dose: 14 units Insulin Glargine (Lantus Per Unit Charge) 45 units SC BID [facility]; Protocol Stop: 10/10/22 08:59 Last Admin: 09/10/22 08:27 Dose: 45 units Lidocaine (Lidocaine 5% 1 Patch) 1 patch TD DAILY PRN PRN Reason: Pain Stop: 10/08/22 00:35 Lisinopril (Lisinopril 5 Mg Tab) 5 mg PO [facility] Stop: 10/08/22 20:59 Last Admin: 09/09/22 21:11 Dose: 5 mg Miscellaneous (Remove Nicoderm Patch) 1 each N/A DAILY@0859 [facility] Stop: 10/08/22 08:58 Last Admin: 09/10/22 08:27 Dose: 1 each Miscellaneous (Carbohydrates For Hypoglycemia ) 15 - 30 gm PO UD PRN PRN Reason: Hypoglycemia Protocol Stop: 10/08/22 00:35 Miscellaneous (Remove Lidoderm Patch) 1 each N/A DAILY@2100 [facility] Stop: 10/08/22 20:59 Last Admin: 09/09/22 21:12 Dose: 1 each Miscellaneous Information (Vancomycin Consult Active) 1 each N/A UD PRN PRN Reason: Consult Stop: 10/07/22 20:17 Miscellaneous Information (Pharmacy Glycemic Mgmt Consult) 1 each N/A UD PRN PRN Reason: Consult Stop: 10/08/22 00:35 Nicotine (Nicotine 14 Mg/24 Hr Patch) 14 mg TD DAILY [facility] Stop: 10/07/22 23:09 Last Admin: 09/10/22 08:27 Dose: 14 mg Oxycodone HCl (Oxycodone Hcl Ir 5 Mg Tab (Immediate Release)) 5 mg PO Q6H PRN PRN Reason: Pain Stop: 09/22/22 00:35 Last Admin: 09/08/22 05:50 Dose: 5 mg Pantoprazole Sodium (Pantoprazole 40 Mg Tab) 40 mg PO HS [facility] Stop: 10/08/22 20:59 Last Admin: 09/09/22 21:11 Dose: 40 mg Polyethylene Glycol (Polyethylene (Miralax) 17 Gm Pack) 17 gm PO DAILY PRN PRN Reason: Constipation Stop: 10/08/22 00:35 Rizatriptan Benzoate (Rizatriptan Benzoate 10 Mg Tab) 10 mg PO DAILY PRN PRN Reason: Migraine Headache Stop: 10/08/22 00:35 Sertraline HCl (Sertraline Hcl 100 Mg Tablet) 100 mg PO HS ZACK Stop: 10/08/22 20:59 Last Admin: 09/09/22 21:10 Dose: 100 mg Tramadol HCl (Tramadol Hcl 50 Mg Tablet) 25 mg PO Q4H PRN PRN Reason: Pain Stop: 10/08/22 11:17 Trazodone HCl (Trazodone Hcl 50 Mg Tab) 50 mg PO HS ZACK Stop: 10/08/22 20:59 Last Admin: 09/09/22 21:09 Dose: 50 mg
--- NOTE | 2022-09-10 10:51 | Pharmacy Report ---
Pharmacy Glycemic Short Note 2 - Date of Service September 10, 2022 - Glycemic Short BSG Results (Last 24 hours): 09/09/22 09/09/22 09/09/22 11:50 17:15 20:46 Glucose POC Glucose 126 H 221 H 158 H 09/10/22 09/10/22 05:29 07:52 Glucose 245 H POC Glucose 223 H OUTPATIENT ANTIDIABETIC REGIMEN: * Jardiance 25 mg PO daily * Metformin ER 2000 mg PO HS * Lantus 80 units SC HS * Novolog SSI SC AC (50-60 units w/ meals) * HbA1c: 8.6% (09/08/22) ASSESSMENT: 09/10: * Total 122 units of insulin received yesterday: 75 units basal + 47 units bolus. * BSGs yesterday were [phone] mg/dl. Fasting BSG today was 223 mg/dl. * To improve fasting BSG, total basal dose increased by 20% today; dosing is equally split between AM and HS. Also patient may need higher dose of basal insulin than her current home dose of 80 units once daily. The insulin pen can only give a max dose of 80 units per shot. * Novolog parameters tightened this AM. Since pre-lunch BSG trended down to 116, loosened carb ratio at lunch. 09/09: * Ynes received 101 units of insulin yesterday, 65 units basal + 36 units bolus. BSGs were: [phone] mg/dL. * Fasting BSG this AM was significantly elevated at 227 mg/dL. RN states patient did not have any snacks/eat anything prior to AM BSG check to her knowledge. Does report overnight RN saying patient had uncovered [place] last night which is unlikely to have led to this fasting BSG. * Believe patient requires more than 80 units of basal per day based on outpatient A1c and inpatient trends so far. Therefore, will split basal into BID dosing. AM dose will be set at 45 units while PM dose will be a scale to provide a total daily dose anywhere from 65-85 units. * Initially had tightened bolus regimen based on postprandial hyperglycemia yesterday evening. However, given lunch BSG today, will return bolus regimen to previously ordered parameters. Want to avoid hypoglycemia while titrating up basal insulin. 09/08: * 47 yo F admitted on 09/08/22 secondary to right foot infection. Pharmacy has been consulted to assist with inpatient glycemic management. Patient is an uncontrolled Type 2 diabetic as an outpatient. Please refer to outpatient regimen and most recent HbA1c above. * BSG in ED was 214 mg/dL. Upon transfer to the floor, BSG was 184 mg/dL. Patient was ordered 80 units of Lantus (home dose) which was given around 0200. Fasting BSG this AM is 122 mg/dL. * Currently ordered and tolerating a T2DM diet. On vancomycin and meropenem for right foot infection. * Will empirically loosen Lantus dose this evening by ~20% given home diet is likely different than inpatient diet. Will also empirically tighten correction factor and carb ratio given large mealtime doses patient receives at home. PLAN FOR INPATIENT GLYCEMIC CONTROL: * Hold outpatient oral diabetes medications * Basal insulin * Lantus 45 units SC BID * Bolus insulin * NovoLog per scale ACHS or Q6hrs while NPO * Goal Range: Low 110 mg/dL - High 140 mg/dL * Correction Factor: 12 mg/dL/unit * Nutritional / Prandial insulin per carb ratio of 1 unit per 5 grams CHO consumed
[2022-09-10] MEDS: ACETAMINOPHEN 325 MG TAB PO PRN (17:35)
[2022-09-10] MEDS ORDERED: LANTUS PER UNIT CHARGE SC SCH (21:00)
[2022-09-10] MEDS: traMADol HCL 50 MG TABLET PO PRN (21:43)
[2022-09-10] MEDS: FAMOTIDINE 20 MG TAB PO SCH (21:44)
[2022-09-10] MEDS: traZODone HCL 50 MG TAB PO SCH (21:44)
[2022-09-10] MEDS: SERTRALINE HCL 100 MG TABLET PO SCH (21:45)
[2022-09-10] MEDS: PANTOprazole 40 MG TAB PO SCH (21:45)
[2022-09-10] MEDS: ASPIRIN 81 MG ECTAB PO SCH (21:45)
[2022-09-10] MEDS: ATORVASTATIN 40 MG TAB PO SCH (21:45)
[2022-09-10] MEDS: lisinopril 5 MG TAB PO SCH (21:46)
[2022-09-11] MEDS ORDERED: VANCOMYCIN LEVEL SCH (05:30)
[2022-09-11] MEDS: PIPERACILLIN/TAZOBACTAM 4.5 GM CI (over 4 hours) IV SCH ×3 (05:52→21:13)
[2022-09-11] MEDS: VANCOMYCIN HCL 1,250 MG in SODIUM CHLORIDE 0.9% 250 ML IV SCH (05:53)
[2022-09-11] MEDS: INSULIN ASPART PER UNIT CHARGE SC SCH ×4 (05:58→21:04)
--- NOTE | 2022-09-11 08:59 | Pharmacy Report ---
Pharmacy PK ABX Note - Date of Service September 11, 2022 - Assessment and Plan Assessment 47 year old F receiving Vancomycin and Zosyn for treatment of right foot infection. 09/11: * Day 4 of antimicrobial therapy for right foot infection, osteo. * s/p surgical debridement on 09/09. Scheduled for bone biopsy today. * Current regimen produced an AUC of 472, which is slightly lower than what would be preferred based on source of infection. Will increase vanco dose. 09/10: * Day #3 of antimicrobial therapy. Meropenem was discontinued yesterday and changed to Zosyn. * Patient underwent excisional debridement of infected tissue yesterday. MRI of R foot obtained, concerning for osteomyelitis. * Blood cultures show no growth. 09/09: * Day #2 of antimicrobial therapy. * Slight increase in WBC to 11.5k today. Renal fxn stable. Remains afebrile and hemodynamically stable. * Podiatry consulted and appears medical management with abx is the plan of action per their note. No surgery for now. * Blood cultures with no growth to date. 09/08: * Day #1 of antimicrobial therapy. * PMHx significant for T2DM and current everyday smoker. * HPI: Patient reports R great toe infection for last 2.5 weeks and now noticed a wound in her R foot. Failed outpatient clindamycin. * Labs/Vitals: Afebrile. Hemodynamically stable. Mild leukocytosis of 11.4k upon admission, down to 9.3k today. Renal fxn stable with CrCl > 120 mL/min. Lactate 1.4 and procalcitonin < 0.05. * Imaging: R foot XR shows: "Foci of soft tissue swelling with no acute bony abnormality identified" per radiologist read. * Micro: Blood cultures pending. * Recommendations: Do not believe this patient requires ESBL coverage with a carbapenem. Amoxicillin "allergy" listed is vomiting which is an adverse effect, not a true allergy. Patient has tolerated Keflex in our facility as well as a dose of Zosyn in the ED last evening. Therefore, recommended to hospitalist (Dr. Blevins), that Meropenem be discontinued and patient be started on either Zosyn or Cefepime+Flagyl. Dr. Blevins to review. Plan Vancomycin * Current regimen: 1250 mg IV every 8 hours * Trough level of 10.4 mcg/mL obtained this morning, AUC = 472 * Increase to vanco 1500 mg IV q8h * Predicted AUC at steady state: 566 mg/L.hr, trough: 16.4 mcg/mL * Re-check vanco level in the next 48 hours Pharmacy will continue to follow and will adjust dose/frequency as necessary. Thank you.
[2022-09-11] MEDS: NICOTINE 14 MG/24 HR PATCH TD SCH (09:11)
[2022-09-11] MEDS: LANTUS PER UNIT CHARGE SC SCH ×2 (09:22→21:11)
--- NOTE | 2022-09-11 09:43 | Pharmacy Report ---
Pharmacy Glycemic Short Note 2 - Date of Service September 11, 2022 - Glycemic Short BSG Results (Last 24 hours): 09/10/22 09/10/22 09/10/22 12:09 16:58 20:59 POC Glucose 116 H 214 H 234 H 09/11/22 05:54 POC Glucose 270 H OUTPATIENT ANTIDIABETIC REGIMEN: * Jardiance 25 mg PO daily * Metformin ER 2000 mg PO HS * Lantus 80 units SC HS * Novolog SSI SC AC (50-60 units w/ meals) * HbA1c: 8.6% (09/08/22) ASSESSMENT: 09/11: * Ynes received 143 units of insulin yesterday * 90 units basal + 53 units bolus * BSGs: 223, 116, 214, 234 mg/dL * Fasting BSG of 270 mg/dL. Fasting did not improve despite increase in basal insulin last evening. Will slightly increase again today. * Dinner and HS BSGs are elevated. Will tighten carb coverage. * Patient NPO for bone biopsy today. 09/10: * Total 122 units of insulin received yesterday: 75 units basal + 47 units bolus. * BSGs yesterday were [phone] mg/dl. Fasting BSG today was 223 mg/dl. * To improve fasting BSG, total basal dose increased by 20% today; dosing is equally split between AM and HS. Also patient may need higher dose of basal insulin than her current home dose of 80 units once daily. The insulin pen can only give a max dose of 80 units per shot. * Novolog parameters tightened this AM. Since pre-lunch BSG trended down to 116, loosened carb ratio at lunch. 09/09: * Ynes received 101 units of insulin yesterday, 65 units basal + 36 units bolus. BSGs were: [phone] mg/dL. * Fasting BSG this AM was significantly elevated at 227 mg/dL. RN states patient did not have any snacks/eat anything prior to AM BSG check to her knowledge. 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 * Believe patient requires more than 80 units of basal per day based on outpatient A1c and inpatient trends so far. Therefore, will split basal into BID dosing. AM dose will be set at 45 units while PM dose will be a scale to provide a total daily dose anywhere from 65-85 units. * Initially had tightened bolus regimen based on postprandial hyperglycemia yesterday evening. However, given lunch BSG today, will return bolus regimen to previously ordered parameters. Want to avoid hypoglycemia while titrating up basal insulin. 09/08: * 47 yo F admitted on 09/08/22 secondary to right foot infection. Pharmacy has been consulted to assist with inpatient glycemic management. Patient is an uncontrolled Type 2 diabetic as an outpatient. Please refer to outpatient regimen and most recent HbA1c above. * BSG in ED was 214 mg/dL. Upon transfer to the floor, BSG was 184 mg/dL. Patient was ordered 80 units of Lantus (home dose) which was given around 0200. Fasting BSG this AM is 122 mg/dL. * Currently ordered and tolerating a T2DM diet. On vancomycin and meropenem for right foot infection. * Will empirically loosen Lantus dose this evening by ~20% given home diet is likely different than inpatient diet. Will also empirically tighten correction factor and carb ratio given large mealtime doses patient receives at home. PLAN FOR INPATIENT GLYCEMIC CONTROL: * Hold outpatient oral diabetes medications * Basal insulin * Lantus 50 units SC BID * Bolus insulin * NovoLog per scale ACHS or Q6hrs while NPO * Goal Range: Low 110 mg/dL - High 140 mg/dL * Correction Factor: 15 mg/dL/unit * Nutritional / Prandial insulin per carb ratio of 1 unit per 4 grams CHO consumed
--- NOTE | 2022-09-11 10:20 | Hospitalist Progress Note ---
Date of Service September 11, 2022 Assessment & Plan (1) Osteomyelitis of foot: (2) Failure of outpatient treatment: (3) Diabetes mellitus: Plan This is a 47-year-old female who has significant past medical history of insulin-dependent T2DM, HTN, HLD, nocturnal hypoxemia, GERD, necrobiosis lipifica diabeticorum, migraine, prothrombin gene mutation heterozygote, depression with anxiety and insomnia who presented to ER secondary to worsening redness to right foot with right diabetic foot wound who failed outpatient clindamycin therapy. Right diabetic foot ulcer to base and lateral aspect of fifth toe Cellulitis History of MRSA Improving on Vancomycin and Zosyn Failed outpatient clindamycin therapy Seen again late last night by podiatry, R lateral 5th toe wound debrided MRI reveals evidence of osteomyelitis. Per Dr. Jaramillo will need bone biopsy, She will need outpatient establishment with podiatry She will need to inspect feet daily Currently Optifoam placed over wound, and will need proper offloading diabetic footwear and need to avoid barefoot walking and proper footwear at all time Consult orthotics for evaluation for temporary footwear -surgical shoe, she will need to get proper footwear as outpatient IDDM T2 uncontrolled, a1c 8.6 Home regimen of Trulicity, Jardiance, metformin, Lantus/NovoLog Optimal blood sugar control is important for wound healing Patient states that this infection has caused her A1C to recently rise. cont basal bolus insulin HTN chronic, stable. Continue lisinopril HLD chronic, stable. Continue statin Morbid obesity, BMI 35.2 Diet and lifestyle modification Tobacco abuse nicotine patch strict smoking cessation encouraged. DVT ppx: SCDs/ambulation Dispo: to home after workup. PCP: Uzair FULL CODE DO Jessica Yeboah Hospitalist Admission and Anticipated Discharge Date Admission Date: September 07, 2022 Subjective 47 yo F admitted with right foot pain MRI revealed osteomyelitis She is s/p debridement and just back from procedure today she is mentating well and pain is well managed. Review of Systems Review of Systems: All systems were reviewed and negative except as indicated on HPI above. Physical Exam Physical Exam: CONSTITUTIONAL: obese, vitals as above, generally well-appearing, NAD EYES: normal conjunctivae, no scleral icterus, ENT: external ear and nose normal, MMM NECK: trachea midline, MMM RESPIRATORY: clear to auscultation bilaterally, no crackles, rales or wheezes, normal respiratory effort CARDIOVASCULAR: regular rate and rhythm, S1 and 2 heard without murmurs, gallops or rubs, no JVD, no peripheral edema CHEST: inspection of chest was normal GASTROINTESTINAL: soft, nontender, ND, no guarding MUSCULOSKELETAL: strength 5/5 throughout, head is normocephalic and atraumatic, SKIN: warm and dry, NEUROLOGIC: CN 2-12 grossly intact, no sensory deficit, normal cognition, normal speech, no tremor PSYCHIATRIC: alert cooperative and oriented to person, place and time. Euthymic mood, makes good eye contact, language grossly intact, recent and remote memory grossly intact. Results & Data Results & Data Vital Signs (Past 12 Hours) Vital Signs Temp Pulse Resp BP Pulse Ox O2 Del Method 09/11/22 07:53 36.4 C L 57 L 20 122/67 97 Room Air Medications Administered Current Inpatient Medications Acetaminophen (Acetaminophen 325 Mg Tab) 650 mg PO Q4H PRN PRN Reason: pain/fever Stop: 10/08/22 00:35 Last Admin: 09/10/22 17:35 Dose: 650 mg Albuterol (Albuterol Hfa 8 Gm Inhaler) 2 puffs INH QID PRN PRN Reason: Shortness Of Breath Or Wheezin Stop: 10/08/22 00:35 Aspirin (Aspirin 81 Mg Ectab) 81 mg PO HS ZACK Stop: 10/08/22 20:59 Last Admin: 09/10/22 21:45 Dose: 81 mg Atorvastatin Calcium (Atorvastatin 40 Mg Tab) 40 mg PO HS ZACK Stop: 10/08/22 20:59 Last Admin: 09/10/22 21:45 Dose: 40 mg Dextrose (Dextrose 50% 50 Ml Syringe) 25 - 50 ml IV UD PRN; Protocol PRN Reason: Hypoglycemia Protocol Stop: 10/08/22 00:35 Enoxaparin Sodium (Enoxaparin Inj 40 Mg/0.4 Ml Syr) 40 mg SQ Q24H ZACK Stop: 10/08/22 08:59 Last Admin: 09/08/22 08:51 Dose: Not Given Famotidine (Famotidine 20 Mg Tab) 20 mg PO HS ZACK Stop: 10/08/22 20:59 Last Admin: 09/10/22 21:44 Dose: 20 mg Fexofenadine HCl (Fexofenadine Hcl 180 Mg Tab) 180 mg PO DAILY PRN PRN Reason: CONGESTION/ALLERGIES Stop: 10/08/22 00:35 Glucagon (Glucagon For Inj 1 Mg Vial) 1 mg SQ UD PRN; Protocol PRN Reason: Hypoglycemia Protocol Stop: 10/08/22 00:35 Glucose (Glucose 10 Tab/Tube) 4 - 8 tab PO UD PRN; Protocol PRN Reason: Hypoglycemia Treatment Stop: 10/08/22 00:35 Glucose (Glucose 40% Gel 15 Gm Tube) 15 - 30 gm PO UD PRN; Protocol PRN Reason: Hypoglycemia Protocol Stop: 10/08/22 00:35 Piperacillin Sod/Tazobactam (Sod 4.5 gm/ Dextrose) 120 mls @ 30 mls/hr IV Q8H ZACK; Protocol Stop: 09/16/22 13:59 Last Admin: 09/11/22 05:52 Dose: 30 mls/hr Vancomycin HCl 1,500 mg/ (Sodium Chloride) 530 mls @ 200 mls/hr IV Q8H ZACK; Protocol Stop: 09/16/22 13:59 Insulin Aspart (Insulin Aspart Per Unit Charge) 0 units SC Q6 ZACK; Protocol Stop: 10/11/22 05:59 Last Admin: 09/11/22 05:58 Dose: 11 units Insulin Glargine (Lantus Per Unit Charge) 50 units SC BID ZACK; Protocol Stop: 10/11/22 08:59 Last Admin: 09/11/22 09:22 Dose: 50 units Lidocaine (Lidocaine 5% 1 Patch) 1 patch TD DAILY PRN PRN Reason: Pain Stop: 10/08/22 00:35 Last Admin: 09/10/22 21:46 Dose: 1 patch Lisinopril (Lisinopril 5 Mg Tab) 5 mg PO HS [facility] Stop: 10/08/22 20:59 Last Admin: 09/10/22 21:46 Dose: 5 mg Miscellaneous (Remove Nicoderm Patch) 1 each N/A DAILY@0859 [facility] Stop: 10/08/22 08:58 Last Admin: 09/11/22 09:11 Dose: 1 each Miscellaneous (Carbohydrates For Hypoglycemia ) 15 - 30 gm PO UD PRN PRN Reason: Hypoglycemia Protocol Stop: 10/08/22 00:35 Miscellaneous (Remove Lidoderm Patch) 1 each N/A DAILY@2100 [facility] Stop: 10/08/22 20:59 Last Admin: 09/10/22 21:46 Dose: 1 each Miscellaneous Information (Vancomycin Consult Active) 1 each N/A UD PRN PRN Reason: Consult Stop: 10/07/22 20:17 Miscellaneous Information (Pharmacy Glycemic Mgmt Consult) 1 each N/A UD PRN PRN Reason: Consult Stop: 10/08/22 00:35 Nicotine (Nicotine 14 Mg/24 Hr Patch) 14 mg TD DAILY ZACK Stop: 10/07/22 23:09 Last Admin: 09/11/22 09:11 Dose: 14 mg Oxycodone HCl (Oxycodone Hcl Ir 5 Mg Tab (Immediate Release)) 5 mg PO Q6H PRN PRN Reason: Pain Stop: 09/22/22 00:35 Last Admin: 09/08/22 05:50 Dose: 5 mg Pantoprazole Sodium (Pantoprazole 40 Mg Tab) 40 mg PO HS ZACK Stop: 10/08/22 20:59 Last Admin: 09/10/22 21:45 Dose: 40 mg Polyethylene Glycol (Polyethylene (Miralax) 17 Gm Pack) 17 gm PO DAILY PRN PRN Reason: Constipation Stop: 10/08/22 00:35 Rizatriptan Benzoate (Rizatriptan Benzoate 10 Mg Tab) 10 mg PO DAILY PRN PRN Reason: Migraine Headache Stop: 10/08/22 00:35 Sertraline HCl (Sertraline Hcl 100 Mg Tablet) 100 mg PO HS ZACK Stop: 10/08/22 20:59 Last Admin: 09/10/22 21:45 Dose: 100 mg Tramadol HCl (Tramadol Hcl 50 Mg Tablet) 25 mg PO Q4H PRN PRN Reason: Pain Stop: 10/08/22 11:17 Last Admin: 09/10/22 21:43 Dose: 25 mg Trazodone HCl (Trazodone Hcl 50 Mg Tab) 50 mg PO HS ZACK Stop: 10/08/22 20:59 Last Admin: 09/10/22 21:44 Dose: 50 mg
[2022-09-11] MEDS: VANCOMYCIN HCL 1,500 MG in SODIUM CHLORIDE 0.9% 500 ML IV SCH ×2 (13:44→21:14)
--- NOTE | 2022-09-11 14:09 | Orthopedic Progress Note ---
Date of Service September 11, 2022 Assessment & Plan (1) Infection of right foot: Plan: Patient seen, evaluated, and treated. Reviewed MRI images and findings. We discussed bone biopsy for culture and sensitivities of great toe. Patient scheduled for today 4pm. I reviewed procedure in detail as well as postoperative recovery. I discussed expectations and patient's current weightbearing status. All questions answered. I have discussed procedure in detail as well as postoperative recovery. All potential risks, benefits, complications, alternatives, rehab, potential for incomplete relief of symptoms, need for further surgery, DVT, PE, , persistent pain, swelling, scarring, weakness, neurovascular, wound complications and potential for amputations were discussed with patient. Patient has decided to proceed with procedure as indicated. (2) Failure of outpatient treatment: Admission and Anticipated Discharge Date Admission Date: September 07, 2022 Subjective Patient seen at bedside. She is aware of MRI results showing right great toe distal phalanx osteomyelitis and would like to discuss options. Review of Systems Review of Systems: All systems reviewed & are unremarkable except as noted in HPI & below Physical Exam Constitutional: cooperative and comfortable Eyes: normal visual hirsch by confrontation Neck: trachea midline Respiratory: normal respiratory effort Cardiovascular: Rate/Rhythm: regular rate and regular rhythm Skin: Nails are thickened dystrophic, hypertrophic bilateral. Mild erythema over right fifth lateral metatarsal with some fluctuance and pain on palpation. Focused Exam: Wound location: Right lateral fifth metatarsal head Wound base color and depth: full thickness into subcutaneous tissue Wound size (cm): 0.5 x 0.6 x 0.3cm Odor: No malodor Drainage: mild serous Undermining: none Borders: necrotic Neurologic: moves all extremities Psychiatric: Orientation: alert and oriented x 3 Results & Data Vital Signs (Past 12 Hours) Vital Signs Temp Pulse Resp BP Pulse Ox O2 Del Method 09/11/22 07:53 36.4 C L 57 L 20 122/67 97 Room Air Diagnostic Findings TECHNIQUE: Multiplanar magnetic resonance images of the right foot without and with intravenous contrast. CONTRAST: Patient received 10cc gadavist of IV contrast COMPARISON: No relevant prior studies available. FINDINGS: LIGAMENTS: Medial collateral: Unremarkable. Lateral collateral: Unremarkable. Lisfranc: Unremarkable. TENDONS: Flexor: Unremarkable. Extensor: Unremarkable. Peroneal: Unremarkable. Tibialis anterior: Unremarkable. Tibialis posterior: Unremarkable. Muscles: Unremarkable. Fluid: Unremarkable. No joint effusion. Sinus tarsi: Unremarkable as visualized. Tarsal tunnel: Unremarkable. Plantar fascia: Unremarkable. Cartilage: Unremarkable. Bones/joints: There is increased T2 first distal phalanx with overlying skin irregularity. Findings are concerning for underlying osteomyelitis. There is degenerative change of the tarsus. Soft tissues: There is mild soft tissue edema about the foot. IMPRESSION: Findings concerning for osteomyelitis of the first distal phalanx. Electronically signed by: Ady Kaminski MD 09/10/22 01:00 AM
[2022-09-11] MEDS ORDERED: PROPOFOL IV EMULSION 10 MG/ML 20 ML VIAL IV ONE ×2 (16:11→16:12)
[2022-09-11] MEDS ORDERED: LIDOCAINE 2% 2 ML VIAL/AMP(20MG/ML) INFIL ONE (16:11)
[2022-09-11] MEDS ORDERED: fentaNYL citrate PF 100 MCG/2 ML VIAL ONE (16:12)
[2022-09-11] MEDS ORDERED: MIDAZOLAM HCL 1 MG/ML 2ML VIAL ONE (16:12)
[2022-09-11] MEDS ORDERED: ePHEDrine sulfate 50 MG/ML AMP IV PRN (16:34)
[2022-09-11] MEDS ORDERED: ATROPINE SULFATE 0.1 MG/ML 10ML SYR IV PRN (16:34)
[2022-09-11] MEDS ORDERED: ONDANSETRON INJ 2 MG/ML 2 ML VIAL IV PRN (16:34)
[2022-09-11] MEDS ORDERED: fentaNYL citrate PF 100 MCG/2 ML VIAL IV PRN (16:34)
--- NOTE | 2022-09-11 16:34 | Anesthesiology Consultation ---
Date of Service September 11, 2022 Assessment & Plan Chart Review Chart Review: Acceptable Risk for Surgery and Patient NOT seen in Pre Admission Testing Consults Requested none ASA ASA3 Proposed Anesthesia Anesthesia Type: MAC Risk / Benefits Reviewed With: PT / POA / Parent / Guardian, Accepts Plan and Informed Consent Obtained History Surgery Operation Date: 09/11/22 12:15 Proposed Procedures p Bone Biopsy Foot Right - Maurilio Jaramillo, DPM, MS Height/Weight Height: 5 ft 10 in Weight: 111.3 kg Allergies Allergy/AdvReac Type Severity Reaction Status Date / Time baclofen Allergy Intermediate ITCHING, Verified 09/07/22 23:28 NAUSEA/VOMITING cyclobenzaprine Allergy Intermediate itching Verified 09/07/22 23:28 [From Flexeril] amoxicillin AdvReac Intermediate Vomiting Verified 09/07/22 23:28 bupropion AdvReac Intermediate PSYCHOTIC-P Verified 09/07/22 23:28 ARANOID morphine AdvReac Intermediate "GETS Verified 09/07/22 23:28 REALLY SICK" zolpidem [From Ambien] AdvReac Intermediate NIGHTMARES Verified 09/07/22 23:28 meperidine AdvReac Mild ITCHY Verified 09/07/22 23:28 lactose AdvReac Verified 09/08/22 12:57 Medications Home Medications Medication Instructions Recorded Confirmed Last Taken albuterol sulfate 90 mcg/actuation 2 puff inhalation QID PRN 03/29/19 09/07/22 Unknown aerosol inhaler Shortness Of Breath Or Wheezing atorvastatin 40 mg tablet 40 mg PO HS 03/29/19 09/07/22 06/21/22 lisinopril 5 mg tablet 5 mg PO HS 03/29/19 09/07/22 06/21/22 rizatriptan 10 mg tablet 10 mg PO DIRECTED PRN Migraine 03/29/19 09/07/22 Unknown Headache trazodone 50 mg tablet 50 mg PO HS 03/29/19 09/07/22 06/21/22 aspirin 81 mg tablet,delayed 81 mg PO HS 05/25/19 09/07/22 06/21/22 release insulin glargine 100 unit/mL (3 80 unit subcut HS 05/25/19 09/07/22 09/06/22 21:00 mL) subcutaneous pen (Lantus Solostar U-100 Insulin) insulin aspart U-100 100 unit/mL 1 sliding scale dose subcut 06/15/20 09/07/22 09/07/22 12:00 subcutaneous cartridge (Novolog USEASDIRECTD PenFill U-100 Insulin aspart) pantoprazole 40 mg tablet,delayed 40 mg PO HS 06/15/20 09/07/22 06/21/22 release dulaglutide 1.5 mg/0.5 mL 1.5 mg subcut WK 06/22/22 09/07/22 06/16/22 subcutaneous pen injector (Trulicity) empagliflozin 25 mg tablet 25 mg PO HS 06/22/22 09/07/22 06/21/22 (Jardiance) famotidine 20 mg tablet 20 mg PO HS 06/22/22 09/07/22 06/21/22 fexofenadine 180 mg tablet 180 mg PO DAILY PRN 06/22/22 09/07/22 Unknown CONGESTION/ALLERGIES lidocaine 5 % topical patch 1 patch topical DAILY PRN Pain 06/22/22 09/07/22 Unknown metformin 500 mg tablet,extended 2,000 mg PO HS 06/22/22 09/07/22 06/21/22 release 24 hr sertraline 100 mg tablet 100 mg PO HS 06/22/22 09/07/22 06/21/22 Active Medications Generic Name Dose Route Start Last Admin Trade Name Dawn PRN Reason Stop Dose Admin Acetaminophen 650 mg 09/08/22 00:36 09/10/22 17:35 Acetaminophen 325 Mg Tab PO 10/08/22 00:35 650 mg Q4H PRN Administration pain/fever Aspirin 81 mg 09/08/22 21:00 09/10/22 21:45 Aspirin 81 Mg Ectab PO 10/08/22 20:59 81 mg HS ZACK Administration Atorvastatin Calcium 40 mg 09/08/22 21:00 09/10/22 21:45 Atorvastatin 40 Mg Tab PO 10/08/22 20:59 40 mg HS ZACK Administration Enoxaparin Sodium 40 mg 09/08/22 09:00 09/08/22 08:51 Enoxaparin Inj 40 Mg/0.4 Ml Syr SQ 10/08/22 08:59 Not Given Q24H ZACK Famotidine 20 mg 09/08/22 21:00 09/10/22 21:44 Famotidine 20 Mg Tab PO 10/08/22 20:59 20 mg HS ZACK Administration Piperacillin Sod/Tazobactam 120 mls @ 30 mls/hr 09/09/22 14:00 09/11/22 13:45 Sod 4.5 gm/ Dextrose IV 09/16/22 13:59 30 mls/hr Q8H ZACK Administration Protocol Vancomycin HCl 1,500 mg/ 530 mls @ 200 mls/hr 09/11/22 14:00 09/11/22 13:44 Sodium Chloride IV 09/16/22 13:59 200 mls/hr Q8H ZACK Administration Protocol Insulin Aspart 0 units 09/11/22 06:00 09/11/22 12:36 Insulin Aspart Per Unit Charge SC 10/11/22 05:59 Not Given Q6 ZACK Protocol Insulin Glargine 50 units 09/11/22 09:00 09/11/22 09:22 Lantus Per Unit Charge SC 10/11/22 08:59 50 units BID ZACK Administration Protocol Lidocaine 1 patch 09/08/22 00:36 09/10/22 21:46 Lidocaine 5% 1 Patch TD 10/08/22 00:35 1 patch DAILY PRN Administration Pain Lisinopril 5 mg 09/08/22 21:00 09/10/22 21:46 Lisinopril 5 Mg Tab PO 10/08/22 20:59 5 mg HS ZACK Administration Miscellaneous 1 each 09/08/22 08:59 09/11/22 09:11 Remove Nicoderm Patch N/A 10/08/22 08:58 1 each DAILY@0859 ZACK Administration Miscellaneous 1 each 09/08/22 21:00 09/10/22 21:46 Remove Lidoderm Patch N/A 10/08/22 20:59 1 each DAILY@2100 ZACK Administration Nicotine 14 mg 09/07/22 23:10 09/11/22 09:11 Nicotine 14 Mg/24 Hr Patch TD 10/07/22 23:09 14 mg DAILY ZACK Administration Oxycodone HCl 5 mg 09/08/22 00:36 09/08/22 05:50 Oxycodone Hcl Ir 5 Mg Tab (Immediate Release) PO 09/22/22 00:35 5 mg Q6H PRN Administration Pain Pantoprazole Sodium 40 mg 09/08/22 21:00 09/10/22 21:45 Pantoprazole 40 Mg Tab PO 10/08/22 20:59 40 mg HS ZACK Administration Sertraline HCl 100 mg 09/08/22 21:00 09/10/22 21:45 Sertraline Hcl 100 Mg Tablet PO 10/08/22 20:59 100 mg HS ZACK Administration Tramadol HCl 25 mg 09/08/22 11:18 09/10/22 21:43 Tramadol Hcl 50 Mg Tablet PO 10/08/22 11:17 25 mg Q4H PRN Administration Pain Trazodone HCl 50 mg 09/08/22 21:00 09/10/22 21:44 Trazodone Hcl 50 Mg Tab PO 10/08/22 20:59 50 mg HS ZACK Administration NPO Date Last Intake of Fluids: 09/10/22 Time Last Intake of Fluids: 23:00 Date Last Intake of Solids: 09/10/22 Time Last Intake of Solids: 23:00 Past Medical History Medical History Degenerative disc disease Depression Diabetes IDDM Gastroparesis GERD (gastroesophageal reflux disease) History of gastric ulcer History of migraine with aura Osteoarthritis Prothrombin [id number] mutation Exercise / Class Metabolic Activity II 4-5 Yardwork/Stairs/Walk up hill Past Family History Family History Mother Diabetes Denies family history of Colon cancer Ovarian cancer Breast cancer Past Surgical History Surgical History History of ankle surgery Rt History of colonoscopy History of esophagogastroduodenoscopy (EGD) History of knee surgery BL History of shoulder surgery Lt History of tonsillectomy History of tooth extraction History of tubal ligation Status post hysteroscopic ablation of endometrium Past Anesthesia History No Hx of Anesthesia Complications and No Family Hx of Anesthesia Complications History of PONV No Hx of PONV and No Hx of Motion Sickness Social History Smoking Status: Current every day smoker tobacco type: cigarettes Smoking cigarettes per day: 1/2 ppd Do You Dip or Chew Tobacco: No Hx Alcohol Use: Yes alcohol intake frequency: holidays/special occasions only Hx Substance Use: No substance use type: does not use Physical Exam Vital Signs Last Vital Signs Temp 36.9 C 09/11/22 16:20 Pulse 61 09/11/22 16:20 Resp 16 09/11/22 16:20 BP 123/85 09/11/22 16:20 Pulse Ox 98 09/11/22 16:20 O2 Del Method Room Air 09/11/22 16:20 ENMT Mouth: no dentition abnormality Thyromental Distance: > or= 3.5 Finger Breadths Mallampati Class: II Neck normal visual inspection Respiratory normal respiratory effort Auscultation: lungs clear to auscultation bilaterally Cardiovascular Rate/Rhythm: regular rate and regular rhythm Psychiatric Orientation: alert Testing Laboratory Results 09/10/22 05:29 09/10/22 05:29 Hemoglobin A1c 8.6 % (4.5-5.6) H 09/08/22 05:37 Urine Color Yellow 09/07/22 21:03 Urine Appearance Clear (Clear) 09/07/22 21:03 Urine pH 7.0 (4.5-7.5) 09/07/22 21:03 Ur Specific [place] 1.040 (1.000-1.030) H 09/07/22 21:03 Urine Protein Negative (Negative) 09/07/22 21:03 Urine Glucose (UA) 3+ (Negative) H 09/07/22 21:03 Urine Ketones Negative (Negative) 09/07/22 21:03 Urine Nitrite Negative (Negative) 09/07/22 21:03 Ur Leukocyte Esterase Negative (Negative) 09/07/22 21:03 09/07/22 20:52 Aerobic Blood Culture - Preliminary Blood No growth in Aerobic bottle after 48 hours. Anaerobic Blood Culture - Preliminary No growth in Anaerobic bottle after 48 hours. 09/07/22 20:52 Aerobic Blood Culture - Preliminary Blood No growth in Aerobic bottle after 48 hours. Anaerobic Blood Culture - Preliminary No growth in Anaerobic bottle after 48 hours. 09/11/22 09/11/22 12:02 05:54 POC Glucose 110 H 270 H
--- NOTE | 2022-09-11 16:47 | History & Physical Bridge Note ---
Date of Service September 11, 2022 History & Physical Bridge Note I have examined the patient, reviewed the History & Physical and in the interval since the performance of the History & Physical I have noted the following changes of clinical significance: no changes noted
[2022-09-11] MEDS ORDERED: BUPIVACAINE 0.5 % 5 MG/1 ML MPF 30ML VIAL ONE (16:51)
--- NOTE | 2022-09-11 17:38 | Post Operative Brief Note ---
Immediate Post Op Note v1 Date of Surgery September 11, 2022 Pre & Post Diagnosis Operation Date: 09/11/22 12:15 Pre-Op Diagnosis: RIGHT FOOT INFECTION I identified the patient and participated in the time-out.: Yes Procedure Operation Date: 09/11/22 12:15 Actual Procedures p Bone Biopsy Foot Right(Right) - Maurilio Jaramillo DPM, MS Surgeon Maurilio Jaramillo DPM, MS [employer] Impregnating Range Tender none Estimated Blood Loss 0 Findings Consistent with Post-Op Diagnosis none
[2022-09-11] MEDS: ATORVASTATIN 40 MG TAB PO SCH (21:03)
[2022-09-11] MEDS: ASPIRIN 81 MG ECTAB PO SCH (21:03)
[2022-09-11] MEDS: lisinopril 5 MG TAB PO SCH (21:04)
[2022-09-11] MEDS: FAMOTIDINE 20 MG TAB PO SCH (21:04)
[2022-09-11] MEDS: PANTOprazole 40 MG TAB PO SCH (21:05)
[2022-09-11] MEDS: SERTRALINE HCL 100 MG TABLET PO SCH (21:05)
[2022-09-11] MEDS: traZODone HCL 50 MG TAB PO SCH (21:05)
[2022-09-11] MEDS: traMADol HCL 50 MG TABLET PO PRN (21:12)
--- NOTE | 2022-09-11 21:14 | Operative Report ---
Post Operative Report Pre & Post Diagnosis Operation Date: 09/11/22 12:15 Pre-Op Diagnosis: Infection of right foot Post-Op Diagnosis: Infection of right foot I identified the patient and participated in the time-out.: Yes Procedure Operation Date: 09/11/22 12:15 Actual Procedures p Bone biospy Distal Phalanx right great toe, (Right) - Maurilio Jaramillo DPM, MS Surgeon Maurilio Jaramillo DPM, MS All Purpose Clerk none Estimated Blood Loss 0 Findings Consistent with Post-Op Diagnosis None Specimens Right hallux distal phalanx bone Microbiology Description of Procedure History of present illness: Patient is a type II diabetic, 47 year old female who is seen for treatment of right foot infection. Patient related purulence from underneath great toe nail. Patient recent MRI showed first distal phalanx osteomyelitis. She is seen for bone biopsy first distal phalanx. Patient relates minimal discomfort. All questions answered. Discussed procedure in detail and postoperative recovery. All potential risks, benefits, complications, alternatives, rehab, potential for incomplete relief of symptoms, need for furth er surgery, DVT, PE, , persistent pain, swelling, scarring, weakness, neurovascular, wound complications and potential for amputations were discussed with patient. Unwanted outcomes such as, but not limited to were reviewed including under correction, overcorrection, return of deformity, infection. All questions were answered. Patient has decided to proceed with procedure as indicated. Preoperative diagnosis: 1.) Diabetic right foot ulcer 2.) Possible osteomyelitis right first distal phalanx 3.) Dystrophic, hypertrophic, mycotic right hallux nail Postoperative diagnosis: same Name of operation: 1.) Right diabetic wound debridement 2.) Right hallux total nail avulsion 3.) Right foot bone biopsy first distal phalanx Surgeon Dr. Jaramillo All Purpose Clerk: None Anesthesia: local with monitored anesthesia care Hemostasis: None Estimated blood loss: None Procedure in detail: Under mild sedation the patient was brought in the operating room placed on the operating table in supine position. Following IV sedation local anesthesia was obtained about the right first ray utilizing 10 cc of 1% lidocaine plain. The foot was then prepped scrubbed and draped in usual aseptic manner. Attention was then directed to a nonhealing diabetic ulcer on the right foot over the fifth metatarsal head. The diabetic foot ulcer measures roughly 1cm x 1cm x 0.2cm and probes to subcutaneous tissue. Utilizing a sharp, sterile, #15 blade devitalized tissue from wound bed is removed down to subcutaneous tissue. Post debridement measurements of the wound are roughly 1cm x 1cm x 0.2cm. Attention was then directed to the great toe of the right foot. A freer nail elevator was slid under the cuticle to separate the great toe nail plate from the overlying proximal nail fold. The nail plate was then gently pulled free with a hemostat. At this time attention was directed to the distal right great toe. Utilizing a biopsy bone needle, bone from the first distal phalanx is harvested. The first distal phalanx harvested bone is labeled and sent to microbiology for cultures and sensitivities. Copious amounts of normal saline were utilized to flush the wound. Upon completion of the procedure the incision was dressed with sterile compressive dressing consisting of 4 x 4's Charli Kerlix. The Patient tolerated the procedure and anesthesia well. He was transferred to recovery room vital signs stable and vascular status intact all toes of the right foot following. Postoperative monitoring the patient will be re-admitted to the floor resuming all pre operative orders. I attest to the content of the Intraoperative Record and any orders documented therein. Any exceptions are noted below.
[2022-09-12] MEDS: VANCOMYCIN HCL 1,500 MG in SODIUM CHLORIDE 0.9% 500 ML IV SCH ×3 (05:55→21:49)
[2022-09-12] MEDS: PIPERACILLIN/TAZOBACTAM 4.5 GM CI (over 4 hours) IV SCH ×3 (05:55→21:49)
[2022-09-12] MEDS: traMADol HCL 50 MG TABLET PO PRN ×2 (06:04→20:19)
[2022-09-12 06:38] LABS: Creatinine Clr Calc Pharmacy 135.7 ml/min; Est GFR (African American) 120.4 ml/min; Est GFR (Non-African American) 103.9 ml/min
[2022-09-12] MEDS: INSULIN ASPART PER UNIT CHARGE SC SCH ×4 (08:23→20:56)
[2022-09-12] MEDS: LANTUS PER UNIT CHARGE SC SCH ×2 (08:25→20:57)
[2022-09-12] MEDS: NICOTINE 14 MG/24 HR PATCH TD SCH (08:26)
[2022-09-12] MEDS: ENOXAPARIN INJ 40 MG/0.4 ML SYR SQ SCH (08:33)
--- NOTE | 2022-09-12 14:52 | Orthopedic Progress Note ---
Date of Service September 12, 2022 Assessment & Plan (1) Infection of right foot: Plan: Patient seen, evaluated, and treated. Awaiting bone culture results. Patient is weight bearing as tolerated. (2) Failure of outpatient treatment: Admission and Anticipated Discharge Date Admission Date: September 07, 2022 Subjective Patient seen at bedside status post day #1 bone biopsy of distal phalanx of right great toe. Patient is resting comfortably with no complaints. Physical Exam Constitutional: cooperative and comfortable Eyes: normal visual hirsch by confrontation Neck: trachea midline Respiratory: normal respiratory effort Cardiovascular: Rate/Rhythm: regular rate and regular rhythm Neurologic: moves all extremities Psychiatric: Orientation: alert and oriented x 3 Results & Data Vital Signs (Past 12 Hours) Vital Signs Temp Pulse Resp BP Pulse Ox O2 Del Method 09/12/22 07:26 36.4 C L 55 L 16 106/72 96 Room Air
--- NOTE | 2022-09-12 18:02 | Hospitalist Progress Note ---
Date of Service September 12, 2022 Assessment & Plan (1) Osteomyelitis of foot: (2) Failure of outpatient treatment: (3) Diabetes mellitus: (4) Morbid obesity: (5) Smoker: Plan This is a 47-year-old female who has significant past medical history of insulin-dependent T2DM, HTN, HLD, nocturnal hypoxemia, GERD, necrobiosis lipifica diabeticorum, migraine, prothrombin gene mutation heterozygote, depression with anxiety and insomnia who presented to ER secondary to worsening redness to right foot with right diabetic foot wound who failed outpatient clindamycin therapy. Right diabetic foot ulcer to base and lateral aspect of fifth toe Cellulitis History of MRSA Symptoms improving, antibiotics de escalated a bit to IV Vanco and zosyn Failed outpatient clindamycin therapy Seen again late last night by podiatry, R lateral 5th toe wound debrided She will need outpatient establishment with podiatry She will need to inspect feet daily Currently Optifoam placed over wound, and will need proper offloading diabetic footwear and need to avoid barefoot walking and proper footwear at all time Consult orthotics for evaluation for temporary footwear -surgical shoe, she will need to get proper footwear as outpatient Bone biopsy pending Per ID recs will cont vancomycin x 6 weeks with followup in 4 weeks PICC line placed today. IDDM T2 uncontrolled, a1c 8.6 Home regimen of Trulicity, Jardiance, metformin, Lantus/NovoLog cont basal /bolus insulin HTN chronic, stable. Continue lisinopril HLD chronic, stable. Continue statin Morbid obesity, BMI 35.2 Diet and lifestyle modification Tobacco abuse nicotine patch smoking cessation recommended. DVT ppx: SCDs/ambulation Dispo:to home in am as long as home health can be set up. PCP: Uzair FULL CODE DO [facility] Hospitalist Admission and Anticipated Discharge Date Admission Date: September 07, 2022 Subjective 47 yo F admitted with right foot pain pain well managed and she is ambulating with Darco shoe ID consult recommends vancomycin PICC today Trying to set up home health and get her home later today tolerating PO and afebrile. Review of Systems Review of Systems: All systems were reviewed and negative except as indicated on HPI above. Physical Exam Physical Exam: CONSTITUTIONAL: obese, vitals as above, generally well-appearing, NAD EYES: normal conjunctivae, no scleral icterus, ENT: external ear and nose normal, MMM NECK: trachea midline, MMM RESPIRATORY: clear to auscultation bilaterally, no crackles, rales or wheezes, normal respiratory effort CARDIOVASCULAR: regular rate and rhythm, S1 and 2 heard without murmurs, gallops or rubs, no JVD, no peripheral edema CHEST: inspection of chest was normal GASTROINTESTINAL: soft, nontender, ND, no guarding MUSCULOSKELETAL: strength 5/5 throughout, head is normocephalic and atraumatic, SKIN: warm and dry,right foot was wrapped up around the great toe. NEUROLOGIC: CN 2-12 grossly intact, no sensory deficit, normal cognition, normal speech, no tremor PSYCHIATRIC: alert cooperative and oriented to person, place and time. Euthymic mood, makes good eye contact, language grossly intact, recent and remote memory grossly intact. Results & Data Results & Data Vital Signs (Past 12 Hours) Vital Signs Temp Pulse Resp BP Pulse Ox O2 Del Method 09/12/22 16:14 36.8 C 61 16 129/81 98 Room Air 09/12/22 07:26 36.4 C L 55 L 16 106/72 96 Room Air Laboratory Results BMP 09/12/22 05:45 Creatinine 0.70 Medications Administered Current Inpatient Medications Acetaminophen (Acetaminophen 325 Mg Tab) 650 mg PO Q4H PRN PRN Reason: pain/fever Stop: 10/08/22 00:35 Last Admin: 09/10/22 17:35 Dose: 650 mg Albuterol (Albuterol Hfa 8 Gm Inhaler) 2 puffs INH QID PRN PRN Reason: Shortness Of Breath Or Wheezin Stop: 10/08/22 00:35 Aspirin (Aspirin 81 Mg Ectab) 81 mg PO HS ZACK Stop: 10/08/22 20:59 Last Admin: 09/11/22 21:03 Dose: 81 mg Atorvastatin Calcium (Atorvastatin 40 Mg Tab) 40 mg PO HS ZACK Stop: 10/08/22 20:59 Last Admin: 09/11/22 21:03 Dose: 40 mg Dextrose (Dextrose 50% 50 Ml Syringe) 25 - 50 ml IV UD PRN; Protocol PRN Reason: Hypoglycemia Protocol Stop: 10/08/22 00:35 Enoxaparin Sodium (Enoxaparin Inj 40 Mg/0.4 Ml Syr) 40 mg SQ Q24H ZACK Stop: 10/08/22 08:59 Last Admin: 09/12/22 08:33 Dose: Not Given Famotidine (Famotidine 20 Mg Tab) 20 mg PO HS [facility] Stop: 10/08/22 20:59 Last Admin: 09/11/22 21:04 Dose: 20 mg Fexofenadine HCl (Fexofenadine Hcl 180 Mg Tab) 180 mg PO DAILY PRN PRN Reason: CONGESTION/ALLERGIES Stop: 10/08/22 00:35 Glucagon (Glucagon For Inj 1 Mg Vial) 1 mg SQ UD PRN; Protocol PRN Reason: Hypoglycemia Protocol Stop: 10/08/22 00:35 Glucose (Glucose 10 Tab/Tube) 4 - 8 tab PO UD PRN; Protocol PRN Reason: Hypoglycemia Treatment Stop: 10/08/22 00:35 Glucose (Glucose 40% Gel 15 Gm Tube) 15 - 30 gm PO UD PRN; Protocol PRN Reason: Hypoglycemia Protocol Stop: 10/08/22 00:35 Heparin Sodium (Beef Lung) (Heparin 10 Unit/Ml 5 Ml Flush) 5 ml FLUSH PRN PRN PRN Reason: Flush Stop: 10/12/22 15:45 Piperacillin Sod/Tazobactam (Sod 4.5 gm/ Dextrose) 120 mls @ 30 mls/hr IV Q8H [facility]; Protocol Stop: 09/16/22 13:59 Last Infusion: 09/12/22 17:58 Dose: Infused Vancomycin HCl 1,500 mg/ (Sodium Chloride) 530 mls @ 200 mls/hr IV Q8H [facility]; Protocol Stop: 09/16/22 13:59 Last Infusion: 09/12/22 16:34 Dose: Infused Insulin Aspart (Insulin Aspart Per Unit Charge) 0 units SC ACHS [facility]; Protocol Stop: 10/11/22 20:59 Last Admin: 09/12/22 17:17 Dose: 17 units Insulin Glargine (Lantus Per Unit Charge) 50 units SC BID [facility]; Protocol Stop: 10/11/22 08:59 Last Admin: 09/12/22 08:25 Dose: 50 units Lidocaine (Lidocaine 5% 1 Patch) 1 patch TD DAILY PRN PRN Reason: Pain Stop: 10/08/22 00:35 Last Admin: 09/10/22 21:46 Dose: 1 patch Lisinopril (Lisinopril 5 Mg Tab) 5 mg PO HS [facility] Stop: 10/08/22 20:59 Last Admin: 09/11/22 21:04 Dose: 5 mg Miscellaneous (Remove Nicoderm Patch) 1 each N/A DAILY@0859 [facility] Stop: 10/08/22 08:58 Last Admin: 09/12/22 08:26 Dose: 1 each Miscellaneous (Carbohydrates For Hypoglycemia ) 15 - 30 gm PO UD PRN PRN Reason: Hypoglycemia Protocol Stop: 10/08/22 00:35 Miscellaneous (Remove Lidoderm Patch) 1 each N/A DAILY@2100 [facility] Stop: 10/08/22 20:59 Last Admin: 09/11/22 21:05 Dose: 1 each Miscellaneous Information (Vancomycin Consult Active) 1 each N/A UD PRN PRN Reason: Consult Stop: 10/07/22 20:17 Miscellaneous Information (Pharmacy Glycemic Mgmt Consult) 1 each N/A UD PRN PRN Reason: Consult Stop: 10/08/22 00:35 Nicotine (Nicotine 14 Mg/24 Hr Patch) 14 mg TD DAILY [facility] Stop: 10/07/22 23:09 Last Admin: 09/12/22 08:26 Dose: 14 mg Oxycodone HCl (Oxycodone Hcl Ir 5 Mg Tab (Immediate Release)) 5 mg PO Q6H PRN PRN Reason: Pain Stop: 09/22/22 00:35 Last Admin: 09/08/22 05:50 Dose: 5 mg Pantoprazole Sodium (Pantoprazole 40 Mg Tab) 40 mg PO [facility] Stop: 10/08/22 20:59 Last Admin: 09/11/22 21:05 Dose: 40 mg Polyethylene Glycol (Polyethylene (Miralax) 17 Gm Pack) 17 gm PO DAILY PRN PRN Reason: Constipation Stop: 10/08/22 00:35 Rizatriptan Benzoate (Rizatriptan Benzoate 10 Mg Tab) 10 mg PO DAILY PRN PRN Reason: Migraine Headache Stop: 10/08/22 00:35 Sertraline HCl (Sertraline Hcl 100 Mg Tablet) 100 mg PO [facility] Stop: 10/08/22 20:59 Last Admin: 09/11/22 21:05 Dose: 100 mg Tramadol HCl (Tramadol Hcl 50 Mg Tablet) 25 mg PO Q4H PRN PRN Reason: Pain Stop: 10/08/22 11:17 Last Admin: 09/12/22 06:04 Dose: 25 mg Trazodone HCl (Trazodone Hcl 50 Mg Tab) 50 mg PO [facility] Stop: 10/08/22 20:59 Last Admin: 09/11/22 21:05 Dose: 50 mg
[2022-09-12] MEDS: ASPIRIN 81 MG ECTAB PO SCH (19:55)
[2022-09-12] MEDS: FAMOTIDINE 20 MG TAB PO SCH (19:56)
[2022-09-12] MEDS: PANTOprazole 40 MG TAB PO SCH (19:57)
[2022-09-12] MEDS: lisinopril 5 MG TAB PO SCH (19:57)
[2022-09-12] MEDS: SERTRALINE HCL 100 MG TABLET PO SCH (19:59)
[2022-09-12] MEDS: traZODone HCL 50 MG TAB PO SCH (20:00)
[2022-09-12] MEDS: ATORVASTATIN 40 MG TAB PO SCH (20:57)
[2022-09-13] MEDS ORDERED: VANCOMYCIN LEVEL SCH (05:00)
[2022-09-13] MEDS: PIPERACILLIN/TAZOBACTAM 4.5 GM CI (over 4 hours) IV SCH (06:10)
[2022-09-13] MEDS: VANCOMYCIN HCL 1,500 MG in SODIUM CHLORIDE 0.9% 500 ML IV SCH (06:10)
[2022-09-13 06:23] LABS: Creatinine Clr Calc Pharmacy 130.2 ml/min; Est GFR (African American) 114.5 ml/min; Est GFR (Non-African American) 98.8 ml/min
[2022-09-13] MEDS: ENOXAPARIN INJ 40 MG/0.4 ML SYR SQ SCH (08:46)
[2022-09-13] MEDS: NICOTINE 14 MG/24 HR PATCH TD SCH (08:48)
[2022-09-13] MEDS: INSULIN ASPART PER UNIT CHARGE SC SCH (08:49)
[2022-09-13] MEDS: LANTUS PER UNIT CHARGE SC SCH (08:49)
--- NOTE | 2022-09-13 09:48 | Discharge Summary ---
Discharge Summary Date of Service September 13, 2022 Notes For Next Care Provider She continues on intravenous vancomycin x 6 weeks Please follow weekly labwork She needs to followup with podiatry, Dr. Jaramillo She needs follow-up wtih ID at [facility] who saw her in the hospital She was instructed to go to [facility]U for weekly dressing changes and labwork as home health could not be set up Please continue efforts for her to quit smoking, improve A1C, and lose weight Medication Changes From Visit Vanc 1.5gm IV q8h Admission HPI Per Admitting Provider A 47-year-old female with past medical history significant for type 2 diabetes, hyperlipidemia, chronic kidney disease stage III, nocturnal hypoxemia, hypertension, reflux esophagitis, irritable bowel syndrome, urinary incontinence, nocturnal enuresis, history of necrobiosis lipoidica diabeticorum, degenerative disk disease, history of plantar warts, chronic bilateral low back pain, osteoarthritis, migraine, cervicalgia, prothrombin gene mutation - heterozygote, depression with anxiety, presents with right foot infection. The patient says right great toe was infected for the past 2-1/2 weeks, and she does not know how it started and about a week ago she also noticed wound in the left lateral aspect of the right foot from her shoes. She was treated with clindamycin for the last 10 days, was not getting better, has a lot of pain in the foot, has had fevers and chills at home. Currently, denies any chest pain, no shortness of breath, has cough from smoking, smokes half pack of cigarettes daily. No nausea, no vomiting, no abdominal pain. Normal bowel and bladder movements. No rash. No headache, no blurred visions, no earache, no runny nose, no sore throat. Currently, resting comfortably and hemodynamically stable. Admission Exam Per Admitting Provider GENERAL: The patient is obese, not in acute distress. VITAL SIGNS: Temperature 36.7, pulse 75, respiratory rate 18, blood pressure 134/68, oxygen 93% on room air. HEENT: Pupils equal, round and reactive to light. Oral mucosa moist. NECK: No JVD, no neck masses. CARDIOVASCULAR: S1 and S2 heard. Regular rate and rhythm. No murmur, no gallop. RESPIRATORY SYSTEM: Normal AP diameter. No accessory muscle use. No wheezing, no crackles. ABDOMEN: Soft, bowel sounds present, nontender, no distention. CENTRAL NERVOUS SYSTEM: Alert and oriented. Speech is clear. No facial droop. Obeys simple commands. Moves extremities. EXTREMITIES: Wound seen on the right great toe and also lateral aspect of the left foot, which is tender to palpation. No obvious drainage seen. Principal Dx & Hospital Course #1 = Principal Diagnosis (1) Osteomyelitis of foot: (2) Failure of outpatient treatment: (3) Diabetes mellitus: (4) Morbid obesity: (5) Smoker: Plan This is a 47-year-old female who has significant past medical history of insulin-dependent T2DM, HTN, HLD, nocturnal hypoxemia, GERD, necrobiosis lipifica diabeticorum, migraine, prothrombin gene mutation heterozygote, depression with anxiety and insomnia who presented to ER secondary to worsening redness to right foot with right diabetic foot wound who failed outpatient clindamycin therapy. Right diabetic foot ulcer to base and lateral aspect of fifth toe Cellulitis History of MRSA Symptoms improving IV Vanco and zosyn Podiatry, R lateral 5th toe wound debrided on 09/10 and bone biopsy on 09/11 Currently Optifoam placed over wound, and will need proper offloading diabetic footwear and need to avoid barefoot walking and proper footwear at all time Ortho set her up with Darco shoe Bone biopsy pending Per ID recs will cont vancomycin x 6 weeks with followup in 4 weeks PICC line placed. [facility] for weekly dressing changes and labwork. IDDM T2 uncontrolled, a1c 8.6 Home regimen of Trulicity, Jardiance, metformin, Lantus/NovoLog cont basal /bolus insulin HTN chronic, stable. Continue lisinopril HLD chronic, stable. Continue statin Morbid obesity, BMI 35.2 Diet and lifestyle modification Tobacco abuse nicotine patch smoking cessation recommended. DVT ppx: SCDs/ambulation Dispo:to home in stable condition with close follow-up recommended. She was mentating and ambulating at baseline and tolerating PO Discharge Exam All systems were reviewed and negative except Updated Medication List Medication Instructions Recorded Confirmed Type albuterol sulfate 90 mcg/actuation 2 puff inhalation QID PRN 03/29/19 09/07/22 History aerosol inhaler Shortness Of Breath Or Wheezing atorvastatin 40 mg tablet 40 mg PO HS 03/29/19 09/07/22 History lisinopril 5 mg tablet 5 mg PO HS 03/29/19 09/07/22 History rizatriptan 10 mg tablet 10 mg PO DIRECTED PRN Migraine 03/29/19 09/07/22 History Headache trazodone 50 mg tablet 50 mg PO HS 03/29/19 09/07/22 History aspirin 81 mg tablet,delayed 81 mg PO HS 05/25/19 09/07/22 History release insulin glargine 100 unit/mL (3 80 unit subcut HS 05/25/19 09/07/22 History mL) subcutaneous pen (Lantus Solostar U-100 Insulin) insulin aspart U-100 100 unit/mL 1 sliding scale dose subcut 06/15/20 09/07/22 History subcutaneous cartridge (Novolog USEASDIRECTD PenFill U-100 Insulin aspart) pantoprazole 40 mg tablet,delayed 40 mg PO HS 06/15/20 09/07/22 History release dulaglutide 1.5 mg/0.5 mL 1.5 mg subcut WK 06/22/22 09/07/22 History subcutaneous pen injector (Trulicity) empagliflozin 25 mg tablet 25 mg PO HS 06/22/22 09/07/22 History (Jardiance) famotidine 20 mg tablet 20 mg PO HS 06/22/22 09/07/22 History fexofenadine 180 mg tablet 180 mg PO DAILY PRN 06/22/22 09/07/22 History CONGESTION/ALLERGIES lidocaine 5 % topical patch 1 patch topical DAILY PRN Pain 06/22/22 09/07/22 History metformin 500 mg tablet,extended 2,000 mg PO HS 06/22/22 09/07/22 History release 24 hr sertraline 100 mg tablet 100 mg PO HS 06/22/22 09/07/22 History vancomycin 1.5 gram intravenous 1 g IV Q8H #10 ea 09/13/22 Rx solution Hospital Stay Data Consultations 09/07/22 22:26 ED Decision to Admit Stat 09/08/22 08:00 Consult Podiatry Routine 09/11/22 10:19 Consult Infectious Diseases Routine Procedures Performed Operation Date: 09/11/22 12:15 Actual Procedures p Bone biospy Distal Phalanx right great toe, (Right) - Maurilio Jaramillo, KIRT, MS Diagnostic Imagining Performed 09/10/22 00:09 MR foot RT wo/w con Urgent Pending Results Patient Have Any Pending Studies at Discharge: No Discharge Instructions Given to Patient (Per Discharging Provider) Please take all medications as instructed on discharge list below. While on intravenous antibiotics, you will need weekly labwork and dressing changes. Please follow the instructions above to go to the MTU (medical treatment unit) at [facility] in [place] for this care. Please follow-up with your [facility] physician within a week of discharge from the hospital. Please follow-up with the Infectious Disease clinic at [facility] as scheduled above. Please followup with your workgroup leader, Dr. Jaramillo, and continue all post operative instructions for wound care. It was a pleasure taking care of you! Please call if you have any questions or problems. You can reach a [facility] hospitalist on duty at [facility] 24 hours a day by calling [phone]. Take care of yourself. Ashleigh Sandhu, DO [facility]
--- NOTE | 2022-09-13 11:54 | Pharmacy Report ---
Pharmacy PK ABX Note - Date of Service September 13, 2022 - Assessment and Plan Assessment 47 year old F receiving Vancomycin and Zosyn for treatment of right foot infection. 09/13: * Day #6 of antimicrobial therapy. Will be discharged today on 6 weeks of IV vancomycin. Zosyn has been discontinued. * Random level this AM was therapeutic. 09/11: * Day 4 of antimicrobial therapy for right foot infection, osteo. * s/p surgical debridement on 09/09. Scheduled for bone biopsy today. * Current regimen produced an AUC of 472, which is slightly lower than what would be preferred based on source of infection. Will increase vanco dose. 09/10: * Day #3 of antimicrobial therapy. Meropenem was discontinued yesterday and changed to Zosyn. * Patient underwent excisional debridement of infected tissue yesterday. MRI of R foot obtained, concerning for osteomyelitis. * Blood cultures show no growth. 09/09: * Day #2 of antimicrobial therapy. * Slight increase in WBC to 11.5k today. Renal fxn stable. Remains afebrile and hemodynamically stable. * Podiatry consulted and appears medical management with abx is the plan of action per their note. No surgery for now. * Blood cultures with no growth to date. 09/08: * Day #1 of antimicrobial therapy. * PMHx significant for T2DM and current everyday smoker. * HPI: Patient reports R great toe infection for last 2.5 weeks and now noticed a wound in her R foot. Failed outpatient clindamycin. * Labs/Vitals: Afebrile. Hemodynamically stable. Mild leukocytosis of 11.4k upon admission, down to 9.3k today. Renal fxn stable with CrCl > 120 mL/min. Lactate 1.4 and procalcitonin < 0.05. * Imaging: R foot XR shows: "Foci of soft tissue swelling with no acute bony abnormality identified" per radiologist read. * Micro: Blood cultures pending. * Recommendations: Do not believe this patient requires ESBL coverage with a carbapenem. Amoxicillin "allergy" listed is vomiting which is an adverse effect, not a true allergy. Patient has tolerated Keflex in our facility as well as a dose of Zosyn in the ED last evening. Therefore, recommended to ho spitalist (Dr. Blevins), that Meropenem be discontinued and patient be started on either Zosyn or Cefepime+Flagyl. Dr. Blevins to review. Plan Vancomycin * Current regimen: 1500 mg IV every 8 hours * Trough level of 14.7 mcg/mL obtained this morning is therapeutic * Continue Vanco 1500 mg IV q8h * Predicted AUC at steady state: 532 mg/L.hr, trough: 14.9 mcg/mL * Re-check vanco level in the next 48 hours if patient still admitted Pharmacy will continue to follow and will adjust dose/frequency as necessary. Thank you.
[2022-09-15] MEDS ORDERED: VANCOMYCIN LEVEL ONE (05:30)
== END 2022-09-13 11:58 | disposition home or self-care (01) | DRG 623 ==
LOC: ED 20:01 → 3E 23:13 → SUATTDRO 23:13 → 3E 09-08 00:08

== ENCOUNTER 2024-07-10 | Inpatient (IN) ==
--- OUTSIDE RECORDS SUMMARY | 2024-07-10 00:06 | External Medical Summary | Summary of Care ---
Author Name Unknown Organization [facility] Address [address] [place] [address] Phone [phone] Care Team Providers Care Wrapper Sorter Name Role Phone Brandi Dunne Primary Care Provider Reason for Visit * Reason Comments Swollen Finger * Auth/Cert Specialty Diagnoses / Procedures Referred By Darrel gilliland Referred To Contact [facility] [address] [place] [address] Phone: tel:[phone] [facility]) Emergency Department ([facility]) [address] [place] [address] Phone: tel: fax: Referral ID Status Reason Start Date Expiration Date Visits Re quested Visits Authorized [id number] Encounter Details Date Type Department Care Team (Late st Contact Info) Description 07/07/2024 9:26 PM EST - 07/07/2024 11:29 PM EST Emergency [facility]) Emergency Department (C) [address] [place] [address] Tye Pena MD [address] [place] [id number] Cellulitis of finger of right hand (Primary Dx); Diabetes mellitus type 2, insulin dependent (HCC); Chronic kidney disease, stage 3a (HCC); HTN, goal below 140/90 Discharge Disposition: Home - Self Care Allergies Active Allergy Reactions Criticality Noted Date Comments Amoxicillin Vomiting (amox capsule causes vomiting only, can take others in the same class) Baclofen 12/25/2015 Itchy, nausea, vomiting Meperidine Itching Low 09/18/2011 Morphine And Codeine 01/18/2005 nauseated Bupropion Hcl Neuro complications (Please comment) 07/15/2012 Very paranoid Zolpidem Tartrate Other (Please comment) 2011 nightmares documented as of this encounter (statuses as of 07/08/2024) Medications Aspirin 81 MG Tablet Take 1 Tablet by mouth in the morning. Active Albuterol Sulfate (ALBUTEROL HFA) 108 (90 BASE) MCG/ACT inhalerIndication s:Bronchitis, complicated Inhale 2 Puffs by mouth every 4 hours as needed for Wheezing. 18 g 11 11/22/19 20 Active nystatin (NYSTOP) 833947 UNIT/GM powderIndications :Skin yeast infection Apply topically to affected area 3 times a day. Apply to stomach/skin folds 30 g 2 11/22/19 20 Active OneTouch Verio w/Device KitIndications:Un controlled type 2 diabetes mellitus with hyperglycemia ([facility]) Use up to 4 times a day E11.9 1 Kit 07/03/19 21 Active Rizatriptan Benzoate 10 MG Oral Tablet 1 AT ONSET OF HEADACHE,REPE AT IN 2HRS IF NEEDED.NO MORE THAN 2/24HRS.NO MORE THAN 3DAYS/WEEK 16 Tab 07/05/19 21 Active OneTouch Jackie Lancets 33GIndications:Ty pe 2 diabetes mellitus with hemoglobin A1c goal of less than 8.0% ([facility]),Type 2 diabetes mellitus with stage 3 chronic kidney disease, with long-term current use of insulin ([facility]) Test blood sugars twice daily as directed 200 Each 3 11/16/19 21 Active OneTouch Verio In Vitro Strip (Glucose Blood)Indications :Type 2 diabetes mellitus with hemoglobin A1c goal of less than 8.0% ([facility]),Type 2 diabetes mellitus with stage 3 chronic kidney disease, with long-term current use of insulin ([facility]) Test blood sugars twice daily as directed 200 Strip 3 11/16/19 21 Active Multi Vitamin Daily Oral Tablet Take by mouth. Active Benzonatate 100 MG Oral Capsule Take 1 Capsule by mouth 3 times a day as needed for Cough. 30 Capsule 1 07/12/19 23 Active Lidocaine 5 % External Patch (Lidoderm)Indicat ions:Acute bilateral low back pain with left-sided sciatica APPLY ONE PATCH EXTERNALLY EVERY DAY 90 Patch 3 4 8:14 AM EDT 12/12/19 23 Active Fluconazole 150 MG Oral Tablet (Diflucan)Indicat ions:Subacute vaginitis One tablet by mouth one time, repeat every 72 hours as needed 3 Tablet 3 7:56 PM EDT 02/03/20 23 Active Dexcom G7 Actuarial Technician Device Use 1 Device as directed 1 Each 3 4 11:11 AM EDT 08/04/19 24 Active Famotidine 20 MG Oral Tablet (Pepcid) Take 1 Tablet by mouth in the morning and 1 Tablet before bedtime. 180 Tablet 3 4 2:04 PM EDT 08/04/19 24 Active Ondansetron 4 MG Oral Tablet Disintegrating (Zofran) Place 1 Tablet on tongue 2 times a day as needed for Nausea. dissolve on tongue. 180 Tablet 3 4 4:56 PM EDT 08/04/19 24 Active Dexcom G7 Actuarial Technician DeviceIndications :Type 2 diabetes mellitus with hemoglobin A1c goal of less than 8.0% ([facility]),Type 2 diabetes mellitus with stage 3a chronic kidney disease, with long-term current use of insulin ([facility]) Use 1 Each as directed once for 1 dose. 1 Each 08/25/19 24 Active Dexcom G7 SensorIndications :Type 2 diabetes mellitus with hemoglobin A1c goal of less than 8.0% ([facility]),Type 2 diabetes mellitus with stage 3a chronic kidney disease, with long-term current use of insulin ([facility]) Change every 10 days as directed 9 Each 3 4 1:42 PM EDT 08/25/19 24 Active Pantoprazole Sodium 40 MG Oral Tablet Delayed Release (Protonix) Take 1 Tablet by mouth daily in the morning. 90 Tablet 1 08/25/19 24 Active Trulicity 3 MG/0.5ML Subcutaneous Solution Pen-injector (Dulaglutide) Inject 3 mg under the skin once a week. 6 mL 1 4 1:42 PM EDT 10/15/19 24 Active traZODone HCl 100 MG Oral Tablet (Desyrel)Indicati ons:Persistent insomnia TAKE ONE TABLET BY MOUTH TWICE A DAY IN THE MORNING AND BEFORE BEDTIME 180 Tablet 1 4 6:21 AM EDT 10/21/19 24 2024 Active metFORMIN HCl ER 500 MG Oral Tablet Extended Release 24 Hour (Glucophage XR) TAKE ONE TABLET BY MOUTH FOUR TIMES A DAY 360 Tablet 1 4 6:03 PM EDT 10/21/19 24 Active Insulin Glargine Solostar 100 UNIT/ML Subcutaneous Solution Pen-injector (Lantus SoloStar)Indicati ons:Type 2 diabetes mellitus without complication, with long-term current use of insulin ([facility]) Inject 80 Units under the skin daily. 75 mL 1 4 8:37 AM EDT 10/21/19 24 Active Empagliflozin 25 MG Oral Tablet (Jardiance)Indica tions:Type 2 diabetes mellitus without complication, with long-term current use of insulin ([facility]) TAKE ONE TABLET BY MOUTH EVERY DAY 90 Tablet 3 4 6:03 PM EDT 10/20/19 24 2024 Active Atorvastatin Calcium 40 MG Oral Tablet (Lipitor)Indicati ons:Dyslipidemia, goal LDL below 100 TAKE ONE TABLET BY MOUTH DAILY. 90 Tablet 1 4 6:03 PM EDT 10/21/19 24 Active Sertraline HCl 100 MG Oral Tablet (Zoloft) TAKE ONE TABLET BY MOUTH EVERY MORNING 90 Tablet 1 4 6:03 PM EDT 10/21/19 24 Active Lisinopril 5 MG Oral Tablet (Prinivil)Indicat ions:HTN, goal below 140/90 Take 1 Tablet by mouth in the morning 90 Tablet 1 4 6:03 PM EDT 10/21/19 24 Active Insulin Aspart FlexPen 100 UNIT/ML Subcutaneous Solution Pen-injectorIndic ations:Type 2 diabetes mellitus without complication, with long-term current use of insulin ([facility]),Type 2 diabetes mellitus with hemoglobin A1c goal of less than 8.0% (HCC) INJECT 50-60 UNITS UNDER THE SKIN WITH MEALS 165 mL 1 10/21/19 24 Active Novofine Pen Needle 32G X 6 MM (NOVOFINE 32G PEN NEEDLE) USE WITH INSULIN FOUR TIMES A DAY 400 Each 3 4 11:45 AM EDT 10/30/19 24 2024 Active Bactrim DS 800-160 MG Oral Tablet Take 1 Tablet by mouth in the morning and 1 Tablet before bedtime. 28 Tablet 07/07/19 25 Active Sulfamethoxazole- Trimethoprim 800-160 MG Oral Tablet (Bactrim DS) Take 1 Tablet by mouth in the morning and 1 Tablet before bedtime. 30 Tablet 07/07/19 25 2024 Discontinued Bactrim DS 800-160 MG Oral Tablet Take 1 Tablet by mouth in the morning and 1 Tablet before bedtime. Do all this for 14 days. 28 Tablet 07/07/19 25 2024 Discontinued Bactrim DS 800-160 MG Oral Tablet Take 1 Tablet by mouth in the morning and 1 Tablet before bedtime. 28 Tablet 07/07/19 25 2024 Discontinued documented as of this encounter (statuses as of 07/08/2024) Active Problems Problem Noted Date Diagnosed Date Gastroparesis 02/02/2023 Osteomyelitis 09/19/2022 S/P PICC central line placement 09/19/2022 Chronic kidney disease, stage 3a 09/16/2022 Coagulation defect 09/16/2022 Diabetes mellitus type 2, insulin dependent 01/2023 Gastroesophageal reflux disease without esophagi tis 08/10/2020 Major depressive disorder, single episode, moder ate 08/10/2020 Major depressive disorder, single episode, unspe cified 08/10/2020 Chronic bilateral low back pain with left-sided sciatica 07/26/2018 Osteoarthritis of both knees 07/26/2018 Primary osteoarthritis of both shoulders 019 S/P shoulder surgery 07/26/2018 Inflammation of sacroiliac joint 01/21/2018 Type 2 diabetes mellitus wit h stage 3 chronic kidney disease, with long-term current use of insulin 01/21/2018 Bilateral carpal tunnel syndrome 01/04/2018 Cervicalgia 08/06/2017 Plantar warts 10/03/2016 DDD (degenerative disc disease), lumbosacral HTN, goal below 140/90 10/22/2015 Overview: Per HTN Protocol Nocturnal hypoxemia 09/25/2015 NLD (necrobiosis lipoidica diabeticorum) 016 IBS (irritable bowel syndrome) 05/22/2015 Depression with anxiety 05/22/2015 Insomnia 05/22/2015 Type 2 diabetes mellitus wit h hemoglobin A1c goal of less than 8.0% 09/28/2013 Overview (09/06/2015): ICD-10 update of inactive term Migraine 03/09/2012 Dyslipidemia, goal LDL below 100 04/26/2009 DM type 2 causing renal disease 03/08/2009 Overview (05/22/2009): Diagnosed 2000. Followed by endocrine in [place] Was on lisinopril just prior to for early renal disease. Has hx of lower extremity vasculopathy that causes ulcerations Last eye exam was normal and occurred just prior to New Years. 24 hr urine was completed per patient and was normal per records. Hgba1c 9.1 in early . Last hgba1c she thinks was 7.9 Recommend screening for hypothyroidism if not already done. 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 She saw Dr Garcia in 05/20/02 and he did not feel thromboprophylaxis was necessary at that time outside of . Recommend post lovenox or heparin prophylaxis for 6 weeks. documented as of this encounter (statuses as of 07/08/2024) Resolved Problems Problem Noted Date Diagnosed Date Resolved Date Urinary incontinence, nocturnal enuresis 08/10/2020 08/04/2023 Diabetic ulcer of right midf oot associated with type 2 diabetes mellitus, limited to breakdown of skin 12/01/2017 07/13/2018 Body mass index (BMI) of 40. 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 Lab was drawn at 8-9 weeks of there for no risk to this . 1/140 risk for downs by quad screen 05/22/2009 02/15/2013 Overview (05/22/2009): 1/140 risk for downs. Declined invasive testing ADVANCE DIRECTIVE INFORMATION 05/22/2009 10/03/2016 Overview (05/22/2009): No, Advance Directive brochure offered , patient declined. Type 2 diabetes mellitus wit h hemoglobin A1c goal of less than 7.0% 03/08/2009 05/22/2009 Overview (09/04/2015): Per Diabetes Taxonomy. ICD-10 update of inactive term DM type 2 causing renal disease 08/12/2007 03/08/2009 Overview (03/08/2009): Per Diabetes Taxonomy. Type 2 diabetes mellitus wit h hemoglobin A1c goal of less than 7.0% 01/28/2007 03/08/2009 Overview (09/04/2015): Per Diabetes Taxonomy. ICD-10 update of inactive term Dyslipidemia, goal to be determined 04/18/2004 04/26/2009 Overview (04/26/2009): Per Lipid Taxonomy. Tobacco use disorder 12/03/2001 010 VASCULAR DISORD OF SKIN 10/25/200105/11 DEGENERATIVE SKIN DISORD 10/14/200104/2010 Hemorrhoids, external without complications 11/16/2000 05/22/2009 Enthesopathy of knee 06/05/1998 010 COMMON MIGRAINE WITHOUT MENT ION OF INTRACTABLE MIGRAINE 12/20/1997 05/22/2009 Other specified disease of h air and hair follicles 12/20/1997 05/22/2009 Asthma with severity to be determined 06/03/2012 Overview (08/20/2015): ICD-10 update of inactive term OBESITY, UNSPECIFIED 010 Overview (08/06/2009): Per Obesity Taxonomy documented as of this encounter (statuses as of 07/08/2024) Immunizations Name Administration Dates Next Due COVID-19 mRNA, LNP-s, No Pre serve, 2-Dose Series ([employer]) 10/03/2020,09/12/2020 Hepatitis B, 20+ yrs 01/14/2022,11/22/2021 PPD 11/22/2021,,10/21/2018,10/20,09/28/2017,05/10/2012,04/30/2012 ,05/21/2011,11/11/2007 Pneumococcal Polysaccharide PPV23 (Pneumovax) 08/29/2005 Seasonal Influenza Vac., MDV , IM, 0.5 mL (Fluzone) 01/12/2014,02/15/2013,02/24/2012,03/13,03/07/2010,03/07/2008,03/23/2007 ,03/05/2006 Seasonal Influenza, PF, 6 M & above, IM , (FluLaval or Fluzone) 01/14/2022 Seasonal Influenza, Quadriva lent, No Preserve, IM 03/16/2015 TD, Preservative Free 07/13/2018,12/20/1997 TDAP, Age 7 and older, IM (Adacel) 01/25/2008 documented as of this encounter Social History Tobacco Use Types Packs/Day Years Used Date Smoking Tobacco: Every Day Cigarettes 0.5 17 Smokeless Tobacco: Never Alcohol Use Standard Drinks/Week Comments Yes 0 (1 standard drink = 0.6 oz pur e alcohol) occ PHQ-2 Answer Date Recorded PHQ Adult Total Score 0 08/25/2023 Hunger Vital Sign Answer Date Recorded Within the past 12 months, y ou worried that your food would run out before you got the money to buy more. Never true 08/25/19 24 Within the past 12 months, t he food you bought just didn't last and you didn't have money to get more. Never true 08/25/2023 Childcare Answer Date Recorded Do you feel overwhelmed with taking care of a child, family member or friend? No 08/25/2023 Does your family need help f inding childcare? (Household - for ages 0-17 years) Not on file 08/25/2023 Clothing Answer Date Recorded Have you been unable to get clothing when it was really needed? No 08/25/2023 Is your family able to get c lothes or diapers when needed? (Household - for ages 0-17 years) Not on file 08/25/2023 Personal Safety Answer Date Recorded Do you feel unsafe or have concerns for your saf ety? No 08/25/2023 Do you have concerns for you r family's safety? (Household - for ages 0-17 years) Not on file 08/25/2023 Utilities Answer Date Recorded Do you have trouble paying y our heating, water, or electric bill? No 08/25/2023 Is your family able to pay t he heat, water, or electric bill? (Household - for ages 0-17 years) Not on file 08/25/2023 Does your family have access to good internet? (Household - for ages 0-17 years) Not on file 08/25/2023 Employment Status Answer Date Recorded Are you unemployed or without regular income? No 08/25/2023 Does the household have a re gular source of income? (Household - for ages 0-17 years) Not on file 08/25/2023 Social Connections Answer Date Recorded How often do you feel lonely or isolated from th ose around you? Never 08/25/2023 Financial Resource Strain Answer Date R ecorded Do you have any trouble payi ng for your medications, or do you think you might in the future? No 08/25/2023 Does your family have troubl e paying for medicine? (Household - for ages 0-17 years) Not on file 08/25/2023 Transportation Needs Answer Date Record ed READ ONLY Do you have troubl e getting a ride to medical visits or work? Never True 08/25/2023 Does your family have a hard time getting a ride to doctors visits? (Household - for ages 0-17 years) Not on file 08/25/2023 Has lack of transportation k ept you from medical appointments, meetings, work, or from getting things needed for daily living? Check all that apply. (Adult - for ages 18 years and over) Not on file 08/25/2023 Do you (or your family) have trouble finding or paying for a ride (transportation)? (Household - for ages 0-17 years) Not on file 08/25/2023 Housing Stability Answer Date Recorded Do you currently live in a s helter or have no steady place to sleep at night? No 08/25/2023 READ ONLY Do you think you a re at risk of becoming homeless? No 08/25/2023 Does your family worry about paying for your home or becoming homeless? (Household - for ages 0-17 years) Not on file 0 08/25/2023 Are you homeless or worried that you might be in the future? (Adult - for ages 18 years and over) Not on file Are you (or your family) michelle eless or worried that you might be in the future? (Household - for ages 0-17 years) Not on file Food Insecurity Answer Date Recorded Do you need food for this week? No 08/25/2023 Are you able to get enough f ood for your family? (Household - for ages 0-17 years) Not on file 08/25/2023 Does your family need food t his week? (Household - for ages 0-17 years) Not on file 08/25/2023 Do you always have enough fo od for your family? (Household - for ages 0-17 years) Not on file 08/25/2023 Food Insecurity Answer Date Recorded Within the past 12 months, y ou worried that your food would run out before you got the money to buy more. Never true 08/25/19 24 Within the past 12 months, t he food you bought just didn't last and you didn't have money to get more. Never true 08/25/2023 Do you need food for this week? 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 Not on file Not on file documented as of this encounter Last Filed Vital Signs Vital Sign Reading Time Taken Comments Blood Pressure 143/83 07/07/2024 8:01 PM EST Pulse 88 07/07/2024 8:01 PM EST Temperature 36.6 C (97.9 F) 07/07/2024 8:01 PM ES T Respiratory Rate 18 07/07/2024 8:01 PM EST Oxygen Saturation 99% 07/07/2024 8:01 PM EST Inhaled Oxygen Concentration - - Weight 104.3 kg (230 lb) 07/07/2024 8:01 PM EST Height 177.8 cm (5' 10") 07/07/2024 8:01 PM EST Body Mass Index 33 07/07/2024 8:01 PM EST documented in this encounter Discharge Instructions * Discharge Instructions* Avila Rosado DO - 07/07/2024 11:11 PM EST You were seen in the emergency department today for swelling of your finger. Please start Bactrim twice daily for the next 14 days. Regarding your high blood sugar, if you run out of insulin, you can obtain insulin at [facility]. This does not require prescription. You can use NPH as a replacement for your long-acting insulin. You can give yourself 30 units twice a day once in the morning and once at night. You can use regular insulin as a replacement for your usual meal coverage. You can use 40 units after breakfast, lunch, and dinner. Please take Tylenol and ibuprofen as needed for pain. You can alternate between these 2 every 3 hours. Please return emergency department if you did not see any improvement of the finger in 48 hours, worsening pain, develop fevers, develop lightheadedness or dizziness, shortness of breath, or any other symptoms concerning to you. documented in this encounter ED Notes * Man Arenas RN - 07/07/2024 8:02 PM EST Pt reports to ED w/ swelling to R 3rd digit that began Thursday. Pt notes PMH of infections and osteothat wouldn't respond to oral abx. Pt denies any recent trauma. Swelling and redness noted to finger. Notes chills but no documented fevers. VSS in triage. documented in this encounter Plan of Treatment Scheduled Procedures Name Priority Associated Diagnoses Date/Ti me COLONOSCOPY FLEXIBLE PROXIMA L DIAGNOSTIC Recall Encounter for screening colonoscopy Health Maintenance Due Date Last Done Comments DISCUSS TOBACCO CESSATION (REFER TO SMARTSET #0712) 1976 HPV/Co-Test 02/12/2006 Pneumococcal Vaccine: Pediatrics (0 to 5 Years) and At-Risk Patients (6 to 18 Years and 19+ Years) (2 of 2 - PCV) 08/29/2006 08/29/2005 Cologuard 02/12/2021 Fecal Occult Blood Test 02/12/2021 06/09/2013 Sigmoidoscopy 02/12/2021 Diabetic Eye Exam 10/25/2021 10/25/2020, , 02/14/2020, Additional history exists Hepatitis B Vaccine (3 of 3 - 19+ 3-dose series) 05/25/2022 01/14/2022, 11/22/2021 CKD PHOS USE SMARTSET [id number] 11/05/2022 11/05/2021, 0 01/18/2019 Mammogram 11/22/2022 11/22/2021, 11/08, 07/21/2018 Diabetic Foot Exam 09/17/2023 09/16/2022, 0 11/13/2021, 11/22/2019, Additional history exists COVID-19 Vaccine ( - 2023- season) 2024 10/03/2020, 09/12/2020 Influenza Vaccine (FLU shot) (#1) 2024 01/14/2022, 03/16/2015, 01/12/2014, Additional history exists HbA1c 02/04/2024 08/04/2023, 05/0 05/2022, 11/05/2021, Additional history exists Albumin/Creatinine Ratio 08/03/2024 024, 11/05/2021, 07/03/2020, Additional history exists B-12 08/03/2024 08/04/2023, 11/08, 01/18/2019, Additional history exists Depression Monitoring 08/24/2024 08/25/2023 Cervical Cancer Screening 11/18/2024 Pap Smear 11/18/2024 11/18/2021, 12/10, 09/30/2011, Additional history exists GFR 01/04/2025 07/07/2024, 07/10, 10/07/2022, Additional history exists Colonoscopy 05/22/2025 05/22/2015, 05/22/2015 Colorectal Cancer Screening 05/22/2025 CKD HGB USE SMARTSET 11995 07/07/202507/07, 07/07/2024, 08/04/2023, Additional history exists DTap/Tdap Vaccines (3 - Td or Tdap) 07/13/2028 07/13/2018, 01/25/2008, 12/20/1997, Additional history exists Lipid Panel 08/03/2028 08/04/2023, 10/10, 07/03/2020, Additional history exists HPV (Gardasil) Vaccine Aged Out No lo nger eligible based on patient's age to complete this topic MENINGOCOCCAL (MENACTRA/MENVEO) Aged Out No longer eligible based on patient's age to complete this topic Meningitis B Vaccine (Bexsero/Trumemba) Aged Out No longer eligible based on patient's age to complete this topic documented as of this encounter Medical Devices Not on filedocumented as of this encounter Procedures Procedure Name Priority Date/Time Associated Diagnosis Comments XR FINGERS 2 OR MORE VIEWS STAT 07/07/2024 8:40 PM EST DIFFERENTIAL, AUTOMATED STAT 07/07/2024 8:30 PM EST CRP (INFLAMMATORY MARKER) STAT 07/07/2024 8:30 PM EST BASIC METABOLIC PANEL STAT 07/07/2024 8:30 PM EST CBC STAT 07/07/2024 8:30 PM EST ERYTHROCYTE SEDIMENTATION RATE (ESR) STAT 07/07/2024 8:30 PM EST CBC STAT 07/07/2024 8:30 PM EST documented in this encounter Results * XR FINGERS 2 OR MORE VIEWS (07/07/2024 8:40 PM EST) Anatomical Region Laterality Modality Upper Extremity Digital Radiogra phy 07/07/2024 9:30 PM EST Impressions 07/07/2024 9:28 PM EST IMPRESSION Focal soft tissue swelling in the distal 3rd finger without radiographic evidence of osteomyelitis. Narrative 07/07/2024 9:28 PM EST EXAM Right XR FINGERS 2 OR MORE VIEWS - 07/07/2024 8:40 pm HISTORY distal middle phalanx edema, redness COMPARISON None TECHNIQUE Right 3rd finger, three views FINDINGS Focal soft tissue swelling in the distal 3rd finger. No aggressive periosteal reaction or cortical osteolysis. No acute fracture or dislocation. Joint spaces are preserved. Normal mineralization. No radiopaque foreign body. Procedure Note Sadiq Jones DO - 07/07/2024 EXAM Right XR FINGERS 2 OR MORE VIEWS - 07/07/2024 8:40 pm HISTORY distal middle phalanx edema, redness COMPARISON None TECHNIQUE Right 3rd finger, three views FINDINGS Focal soft tissue swelling in the distal 3rd finger. No aggressiveperiosteal reaction or cortical osteolysis. No acute fracture ordislocation. Joint spaces are preserved. Normal mineralization. Noradiopaque foreign body. IMPRESSION IMPRESSION Focal soft tissue swelling in the distal 3rd finger without radiographicevidence of osteomyelitis. us Tye Pena MD RADIOLOGY ([facility]) Fin al Result * DIFFERENTIAL, AUTOMATED (07/07/2024 8:30 PM EST) WBC 9.12 4.00 - 10.80 K/uL 07/07/2024 8:46 PM EST [facility] Neutrophils % 63.4 40.0 - 75.0 % 07/07/2024 8:46 PM EST [facility] Lymphocytes % 23.1 18.0 - 42.0 % 07/07/2024 8:46 PM EST [facility] Monocytes % 8.7 1.0 - 11.0 % 07/07/2024 8:46 PM EST [facility] Eosinophils % 3.2 0.0 - 6.0 % 07/07/2024 8:46 PM EST [facility] Basophils % 1.1 0.0 - 2.0 % 07/07/2024 8:46 PM EST [facility] Immature Granulocytes % 0.5 0.0 - 2.0 % 07/07/2024 8:46 PM EST [facility] Absolute Neutrophils 5.78 1.80 - 7.70 K/uL 07/07/2024 8:46 PM EST [facility] Absolute Lymphocytes 2.11 1.00 - 4.80 K/ul 07/07/2024 8:46 PM EST [facility] Absolute Monocytes 0.79 0.00 - 1.10 K/uL 07/07/2024 8:46 PM EST [facility] Absolute Eosinophils 0.29 0.00 - 0.70 K/uL 07/07/2024 8:46 PM EST [facility] Absolute Basophils 0.10 0.00 - 0.20 K/uL 07/07/2024 8:46 PM EST [facility] Absolute Immature Granulocytes 0.05 0.00 - 0.20 K/uL 07/07/2024 8:46 PM EST [facility] Blood Venous blood specimen / Unknown Venipuncture / Unknown 07/07/2024 8:30 PM EST 07/07/2024 8:35 PM EST us Tye Pena MD LAB BLOOD ORDERABLES Final Result [facility] [address] [place] [address] * CBC (07/07/2024 8:30 PM EST) WBC 9.12 4.00 - 10.80 K/uL 07/07/2024 8:46 PM EST [facility] RBC 4.91 3.85 - 5.15 M/uL 07/07/2024 8:46 PM EST [facility] HGB 15.1 12.0 - 15.3 g/dL 07/07/2024 8:46 PM EST [facility] HCT 44.8 36.0 - 45.2 % 07/07/2024 8:46 PM EST [facility] MCV 91.2 81.5 - 97.5 fL 07/07/2024 8:46 PM EST [facility] MCH 30.8 27.0 - 34.0 pg 07/07/2024 8:46 PM EST [facility] MCHC 33.7 32.0 - 36.0 g/dL 07/07/2024 8:46 PM EST [facility] RDW 12.3 11.5 - 15.5 % 07/07/2024 8:46 PM EST [facility] PLT 221 140 - 400 K/uL 07/07/2024 8:46 PM EST [facility] MPV 10.5 6.6 - 11.1 fL 07/07/2024 8:46 PM EST [facility] nRBCs 0 <=0 /100 WBCs 07/07/2024 8:46 PM EST [facility] Blood Venous blood specimen / Unknown Venipuncture / Unknown 07/07/2024 8:30 PM EST 07/07/2024 8:35 PM EST us Tye Pena MD LAB BLOOD ORDERABLES Final Result [facility] [address] [place] [address] * (ABNORMAL) ERYTHROCYTE SEDIMENTATION RATE (ESR) (07/07/2024 8:30 PM EST) ESR 28(H) <20 mm/hour 07/07/2024 8:51 PM EST [facility] Blood Venous blood specimen / Unknown Venipuncture / Unknown 07/07/2024 8:30 PM EST 07/07/2024 8:35 PM EST Tye Pena MD LAB BLOOD ORDERABLES Final Result Performing Organization Address [facility]/ZIP Co de Phone Number LABORATORY [facility] [address] [place] [address] * (ABNORMAL) CRP (INFLAMMATORY MARKER) (07/07/2024 8:30 PM EST) [facility] CRP (Inflammatory Marker) 9(H) <=5 mg/L 07/07/2024 9:00 PM EST LABORATORY [facility] Blood Venous blood specimen / Unknown Venipuncture / Unknown 07/07/2024 8:30 PM EST 07/07/2024 8:35 PM EST Tye Pena MD LAB BLOOD ORDERABLES Final Result Performing Organization Address [facility] Phone Number LABORATORY [facility] [address] [place] [address] * (ABNORMAL) BASIC METABOLIC PANEL (07/07/2024 8:30 PM EST) [facility] BUN 20 6 - 20 mg/dL 07/07/2024 9:33 PM EST LABORATORY [facility] CREATININE 0.8 0.5 - 1.0 mg/dL 07/07/2024 9:33 PM EST LABORATORY GM EGFR 88 >=60 mL/min 07/07/2024 9:33 PM EST [facility] Comment:eGFR is calculated b ased on the CKD-EPI 2020 equation. SODIUM 130(L) 135 - 146 mmol/L 07/07/2024 9:33 PM EST [facility] POTASSIUM 4.7 3.5 - 5.1 mmol/L 07/07/2024 9:33 PM EST [facility] CHLORIDE 95(L) 98 - 107 mmol/L 07/07/2024 9:33 PM EST [facility] CO2 19(L) 22 - 32 mmol/L 07/07/2024 9:33 PM EST [facility] ANION GAP 16(H) 7 - 15 mmol/L 07/07/2024 9:33 PM EST [facility] GLUCOSE 645(HH) 70 - 120 mg/dL 07/07/2024 9:33 PM EST LABORATORY GM Comment:Results rechecked CALCIUM 8.9 8.4 - 10.2 mg/dL 07/07/2024 9:33 PM EST LABORATORY GM Blood Venous blood specimen / Unknown Venipuncture / Unknown 07/07/2024 8:30 PM EST 07/07/2024 8:35 PM EST Tye Pena MD LAB BLOOD ORDERABLES Final Result LABORATORY [facility] [address] [place] [address] documented in this encounter Visit Diagnoses Diagnosis Cellulitis of finger of right hand- Primary Cellulitis and abscess of finger, unspecified Diabetes mellitus type 2, insulin dependent (HCC) Type II or unspecified type diabetes mellitus without mention of complication, not stated as uncontrolled Chronic kidney disease, stage 3a (HCC) HTN, goal below 140/90 Unspecified essential hypertension documented in this encounter Administered Medications Inactive Administered Medications - up to 3 most recent administrations Medication Order MAR Action Action Date Dose Rate Site lidocaine 1 % inj 100 mg 100 mg (10 mL), Subcutaneous, ONCE, On Karine 07/07/24 at 2230, For 1 dose Given By 07/07/2024 11:00 PM EST 100 mg Hand Right Sulfamethoxazole-Trimethopr im DS (Bactrim DS) 800-160 MG 1 Tablet 1 Tablet, Oral, ONCE, On Karine 07/07/24 at 2345, For 1 dose Given 07/07/2024 11:20 PM EST 1 Tablet documented in this encounter Active and Recently Administered Medications Times are shown in EST. Scheduled Medication Order 07/05/2024 07/06/2024 07/07/2024 insulin aspart (NovoLOG) inj 50 Units 50 Units, Subcutaneous, ONCE, 1 dose, On Karine 07/07/24 at 2300 2225 (Not Given - Pr ovider: Nuha Valdez RN - Reason: Refused-Notify Provider - Comment: Dr. Rosado aware) lidocaine 1 % inj 100 mg (COMPLETED) 100 mg (10 mL), Subcutaneous, ONCE, On Karine 07/07/24 at 2230, For 1 dose 2300 (Given By - Pro vider: Nuha Valdez RN - Comment: Dr. Rosado) NSS 0.9% 1,000 mL bolus infusion Intravenous, at 1,000 mL/hr Administer over 60 Minutes, Administer entire volume within 60 minutes or less., ONCE, 1 dose, On Karine 07/07/24 at 2215 2226 (Not Given - Pr ovider: Nuha Valdez RN - Reason: Refused-Notify Provider - Comment: Dr. Rosado aware) Sulfamethoxazole-Trimethoprim DS (Bactrim DS) 800-160 MG 1 Tablet (COMPLETED) 1 Tablet, Oral, ONCE, On Karine 07/07/24 at 2345, For 1 dose 2320 (Given - Provid er: Nuha Valdez RN) documented in this encounter Advance Directives Healthcare Agents on File Name Relationship Healthcare Agent Relationshi p Communication Waldo Sherman Adult Child Health Care Repr esentative (appointed verbally by patient or by statute hierarchy) Care Teams Wrapper Sorter Relationship Specialty Start Date End Date Brandi Dunne DO [address] [address] PCP - General Family Medicine 11/18/16 documented as of this encounter
--- OUTSIDE RECORDS SUMMARY | 2024-07-10 00:06 | External Medical Summary | Summary of Care ---
Author Name Unknown Organization [facility] Address [address] [place] [address] Phone [phone] Care Team Providers Care Mutual Fund Analyst Name Role Phone Brandi Dunne Charito Primary Care Provider Reason for Referral * Evaluate & Treat - Unlimited Visits (Within 10 days (routine)) - Authorized Specialty Diagnoses / Procedures Referred By Contac t Referred To Contact Pharmacist / Pharmacy Diagnoses Type 2 diabetes mellitus with other diabetic kidney complication, with long-term current use of insulin (HCC) Type 2 diabetes mellitus with hemoglobin A1c goal of less than 8.0% (HCC) HTN, goal below 140/90 Type 2 diabetes mellitus with stage 3b chronic kidney disease, with long-term current use of insulin (HCC) Brennen Solis, [facility] [address] [place] [address] Phone: tel: fax: Referral ID Status Reason Start Date Expiration Date Visits Requested Visits Authorized [id number] Authorized Specialty Services Required 03/11/2024 09/07/2024 99 99 Question Answer Referral Priority Within 10 days (routine) Where should this appointment be scheduled? [facility] Referring Provider Role: Primary Care Reason for Referral: DM Target A1c: < 8 Comments Pharmacist Medication Therapy Management: Minimum frequency patient should be seen in person for medication management: as appropriate per clinical condition and patient status By my signature, I understand that my patient Ynes Sherman will have her medication therapy managed by the [facility] Medication Therapy Disease Management [facility] ([facility]) per established policies, procedures, and protocols. I also certify that this referral may serve as an initiation of service for the management of drug therapy in the above noted patient. [facility] providers will be responsible for scheduling patient visits, obtaining appropriate laboratory studies, and adjusting medication management therapy per patient's need, in addition to those roles spelled out in the clinic policy, procedures, and drug management protocols. I understand that the service provided by the [facility] is voluntary and have informed patient that they can refuse the service at their discretion. I am aware that the [facility] will provide me with a copy of the patient encounter via my [employer]. I authorize the [facility] to carry out these activities on my behalf. I consider this program to be a necessary part of the patient's medical care. Brennen Webster RPh Reason for Visit * Reason Onset Date Comments Pharmacy Questions 03/11/2024 Encounter Details Date Type Department Care Team (Late st Contact Info) Description 03/11/2024 Telephone Pharmacy, [facility] [address] [place] [address] Brennen Solis RPh [address] [place] [address] Pharmacy Questions Allergies Active Allergy Reactions Criticality Noted Date Comments Amoxicillin Vomiting (amox capsule causes vomiting only, can take others in the same class) Baclofen 12/25/2015 Itchy, nausea, vomiting Meperidine Itching Low 09/18/2011 Morphine And Codeine 01/18/2005 nauseated Bupropion Hcl Neuro complications (Please comment) 07/15/2012 Very paranoid Zolpidem Tartrate Other (Please comment) 2011 nightmares documented as of this encounter (statuses as of 04/06/2024) Medications Aspirin 81 MG Tablet Take 1 Tablet by mouth in the morning. Active Albuterol Sulfate (ALBUTEROL HFA) 108 (90 BASE) MCG/ACT inhalerIndications :Bronchitis, complicated Inhale 2 Puffs by mouth every 4 hours as needed for Wheezing. 18 g 11 0 Active nystatin (NYSTOP) 763676 UNIT/GM powderIndications: Skin yeast infection Apply topically to affected area 3 times a day. Apply to stomach/skin folds 30 g 2 0 Active OneTouch Verio w/Device KitIndications:Unc ontrolled type 2 diabetes mellitus with hyperglycemia (HCC) Use up to 4 times a day E11.9 1 Kit 1 Active Rizatriptan Benzoate 10 MG Oral Tablet 1 AT ONSET OF HEADACHE,REPEA T IN 2HRS IF NEEDED.NO MORE THAN 2/24HRS.NO MORE THAN 3DAYS/WEEK 16 Tab 1 Active OneTouch Delica Lancets 33GIndications:Typ e 2 diabetes mellitus with hemoglobin A1c goal of less than 8.0% ([facility]),Type 2 diabetes mellitus with stage 3 chronic kidney disease, with long-term current use of insulin ([facility]) Test blood sugars twice daily as directed 200 Each 3 1 Active OneTouch Verio In Vitro Strip (Glucose Blood)Indications: Type 2 diabetes mellitus with hemoglobin A1c goal of less than 8.0% ([facility]),Type 2 diabetes mellitus with stage 3 chronic kidney disease, with long-term current use of insulin ([facility]) Test blood sugars twice daily as directed 200 Strip 3 1 Active Multi Vitamin Daily Oral Tablet Take by mouth. Active Benzonatate 100 MG Oral Capsule Take 1 Capsule by mouth 3 times a day as needed for Cough. 30 Capsule 1 3 Active Lidocaine 5 % External Patch (Lidoderm)Indicati ons:Acute bilateral low back pain with left-sided sciatica APPLY ONE PATCH EXTERNALLY EVERY DAY 90 Patch 3 10/30/2023 8:14 AM EDT 3 Active Fluconazole 150 MG Oral Tablet (Diflucan)Indicati ons:Subacute vaginitis One tablet by mouth one time, repeat every 72 hours as needed 3 Tablet 02/05/2023 7:56 PM EDT 3 Active Dexcom G7 Critical Care Cns Device Use 1 Device as directed 1 Each 3 08/27/2023 11:11 AM EDT 4 Active Famotidine 20 MG Oral Tablet (Pepcid) Take 1 Tablet by mouth in the morning and 1 Tablet before bedtime. 180 Tablet 3 11/20/2023 2:04 PM EDT 4 Active Ondansetron 4 MG Oral Tablet Disintegrating (Zofran) Place 1 Tablet on tongue 2 times a day as needed for Nausea. dissolve on tongue. 180 Tablet 3 08/05/2023 4:56 PM EDT 4 Active Dexcom G7 Critical Care Cns DeviceIndications: Type 2 diabetes mellitus with hemoglobin A1c goal of less than 8.0% ([facility]),Type 2 diabetes mellitus with stage 3a chronic kidney disease, with long-term current use of insulin ([facility]) Use 1 Each as directed once for 1 dose. 1 Each 4 Active Dexcom G7 SensorIndications: Type 2 diabetes mellitus with hemoglobin A1c goal of less than 8.0% ([facility]),Type 2 diabetes mellitus with stage 3a chronic kidney disease, with long-term current use of insulin ([facility]) Change every 10 days as directed 9 Each 3 11/19/2023 1:42 PM EDT 4 Active Pantoprazole Sodium 40 MG Oral Tablet Delayed Release (Protonix) Take 1 Tablet by mouth daily in the morning. 90 Tablet 1 4 Active Trulicity 3 MG/0.5ML Subcutaneous Solution Pen-injector (Dulaglutide) Inject 3 mg under the skin once a week. 6 mL 1 10/20/2023 1:42 PM EDT 4 Active traZODone HCl 100 MG Oral Tablet (Desyrel)Indicatio ns:Persistent insomnia TAKE ONE TABLET BY MOUTH TWICE A DAY IN THE MORNING AND BEFORE BEDTIME 180 Tablet 1 10/26/2023 6:21 AM EDT 4 025 Active metFORMIN HCl ER 500 MG Oral Tablet Extended Release 24 Hour (Glucophage XR) TAKE ONE TABLET BY MOUTH FOUR TIMES A DAY 360 Tablet 1 10/23/2023 6:03 PM EDT 4 Active Insulin Glargine Solostar 100 UNIT/ML Subcutaneous Solution Pen-injector (Lantus SoloStar)Indicatio ns:Type 2 diabetes mellitus without complication, with long-term current use of insulin ([facility]) Inject 80 Units under the skin daily. 75 mL 1 10/23/2023 8:37 AM EDT 4 Active Empagliflozin 25 MG Oral Tablet (Jardiance)Indicat ions:Type 2 diabetes mellitus without complication, with long-term current use of insulin (HCC) TAKE ONE TABLET BY MOUTH EVERY DAY 90 Tablet 3 10/23/2023 6:03 PM EDT 4 025 Active Atorvastatin Calcium 40 MG Oral Tablet (Lipitor)Indicatio ns:Dyslipidemia, goal LDL below 100 TAKE ONE TABLET BY MOUTH DAILY. 90 Tablet 1 10/23/2023 6:03 PM EDT 4 Active Sertraline HCl 100 MG Oral Tablet (Zoloft) TAKE ONE TABLET BY MOUTH EVERY MORNING 90 Tablet 1 10/23/2023 6:03 PM EDT 4 Active Lisinopril 5 MG Oral Tablet (Prinivil)Indicati ons:HTN, goal below 140/90 Take 1 Tablet by mouth in the morning 90 Tablet 1 10/23/2023 6:03 PM EDT 4 Active Insulin Aspart FlexPen 100 UNIT/ML Subcutaneous Solution Pen-injectorIndica tions:Type 2 diabetes mellitus without complication, with long-term current use of insulin (HCC),Type 2 diabetes mellitus with hemoglobin A1c goal of less than 8.0% ([facility]) INJECT 50-60 UNITS UNDER THE SKIN WITH MEALS 165 mL 1 4 Active Novofine Pen Needle 32G X 6 MM (NOVOFINE 32G PEN NEEDLE) USE WITH INSULIN FOUR TIMES A DAY 400 Each 3 11/03/2023 11:45 AM EDT 4 025 Active documented as of this encounter (statuses as of 04/06/2024) Active Problems Problem Noted Date Diagnosed Date [...] (05/22/2009): Diagnosed 2000. Followed by endocrine in [place] Was on lisinopril just prior to for [...] as of this encounter (statuses as of 04/06/2024) Resolved Problems Problem Noted Date Diagnosed Date [...] 05/22/1901/04/2018 Overview (05/22/2009): 03/28/09 toxo lab to [facility] shows elevated IgG and IgM [...] as of this encounter (statuses as of 04/06/2024) Immunizations Name Administration Dates Next Due COVID-19 mRNA, LNP-s, No Pre serve, 2-Dose Series ([employer]) 10/03/2020,09/12/2020 Hepatitis B, 20+ yrs 01/14/2022,11/22/2021 PPD 11/22/2021, 2,10/21/2018,10/20,09/28/2017,05/10/2012,04/30/2012 ,05/21/2011,11/11/2007 Pneumococcal Polysaccharide PPV23 (Pneumovax) 08/29/2005 Seasonal [...] ages 0-17 years) Not on file 08/25/2023 Comments No Sex and Gender Information Value Date Recorded Sex Assigned at Not on file Legal Sex Female 7:17 AM EST Gender Identity Not on file Sexual Orientation Not on file 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 on file Not on file Not on file documented as of this encounter Miscellaneous Notes * Telephone Encounter - Brennen Solis RPh - 03/11/2024 3:24 PM EDT MTM DM referral pended Brennen Webster RPh, [facility] Clinical Pharmacist Medication Therapy Management Clinic 03/11/2024, 3:25 PM documented in this encounter Plan of Treatment Scheduled Procedures Name Priority Associated Diagnoses Date/Ti me COLONOSCOPY FLEXIBLE PROXIMA L DIAGNOSTIC Recall Encounter for screening colonoscopy Scheduled Referrals Name Type Priority Associated Diagnoses Orde r Schedule PHARMACIST MEDS THERAPY MGMT REFERRAL OP Referral Within 10 days (routine) Type 2 diabetes mellitus with other diabetic kidney complication, with long-term current use of insulin (HCC) Type 2 diabetes mellitus with hemoglobin A1c goal of less than 8.0% (HCC) HTN, goal below 140/90 Type 2 diabetes mellitus with stage 3b chronic kidney disease, with long-term current use of insulin (HCC) Ordered: 03/11/2024 Health Maintenance Due Date Last Done Comments DISCUSS TOBACCO CESSATION (REFER TO SMARTSET #9360) 1976 HPV/Co-Test 02/12/2006 Pneumococcal Vaccine: Pediatrics (0 to 5 Years) and At-Risk Patients (6 to 64 Years) (2 of 2 - PCV) 08/29/2006 08/29/2005 Cologuard 02/12/2021 Fecal Occult Blood Test 02/12/2021 06/09/2013 Sigmoidoscopy 02/12/2021 Diabetic Eye Exam 10/25/2021 10/25/2020, , 02/14/2020, Additional history exists Hepatitis B Vaccine (3 of 3 - 19+ 3-dose series) 05/25/2022 01/14/2022, 11/22/2021 CKD PHOS USE SMARTSET 14890 11/05/2022 11/05/2021, 0 01/18/2019 Mammogram 11/22/2022 11/22/2021, 0709/2021, 07/21/2018 Diabetic Foot Exam 09/17/2023 09/16/2022, 0 11/13/2021, 11/22/2019, Additional history exists COVID-19 Vaccine ( season) 2024 10/03/2020, 09/12/2020 Influenza Vaccine (FLU shot) (#1) 2024 01/14/2022, 03/16/2015, 01/12/2014, Additional history exists GFR 02/04/2024 08/04/2023, 09/10, 09/29/2022, Additional history exists HbA1c 02/04/2024 08/04/2023, 05/0 05/2022, 11/05/2021, Additional history exists Albumin/Creatinine Ratio 08/03/2024 024, 11/05/2021, 07/03/2020, Additional history exists B-12 08/03/2024 08/04/2023, 07, 01/18/2019, Additional history exists CKD HGB USE SMARTSET 48296 08/03/202408/03, 08/04/2023, 10/07/2022, Additional history exists Depression Monitoring 08/24/2024 08/25/2023 Cervical Cancer Screening 11/18/2024 Pap Smear 11/18/2024 11/18/2021, 08/2 08/2015, 09/30/2011, Additional history exists Colonoscopy 05/22/2025 05/22/2015, 05/22/2015 Colorectal Cancer Screening 05/22/2025 DTap/Tdap Vaccines (3 - Td or Tdap) [...] Not on filedocumented as of this encounter Visit Diagnoses Diagnosis Type 2 diabetes mellitus with hemoglobin A1c goal of less than 8.0% (HCC)- Primary Type 2 diabetes mellitus with other diabetic kidney complication, with long-term current use of insulin (HCC) HTN, goal below 140/90 Unspecified essential hypertension Type 2 diabetes mellitus with stage 3b chronic kidney disease, with long-term current use of insulin (HCC) documented in this encounter Advance Directives Healthcare Agents on File Name Relationship Healthcare Agent [facility] Communication Waldo Sherman Adult Child Health Care Repr esentative (appointed verbally by patient or by statute hierarchy) Care Teams Mutual Fund Analyst Relationship Specialty Start Date End Date Brandi uDnne DO [address] [place] [address] PCP - General Family Medicine 11/18/16 documented as of this encounter
--- OUTSIDE RECORDS SUMMARY | 2024-07-10 00:06 | External Medical Summary ---
Author Name Unknown Address Unknown Organization [id number]:LABORATORY [facility] - [facility] [place] [address] [facility] [address] Laboratory Report Ordering Provider Test Date Status RITTER GIRMA 07/07/2024 20:30:00 Final Observation Date Value Abnormality Reference (Units ) Status WBC, Total 07/07/2024 20:30:00 9.12 4.00-10.80 (K/uL) Final RBC 07/07/2024 20:30:00 4.91 3.85-5.15 (M/uL) Final Hemoglobin 07/07/2024 20:30:00 15.1 12.0-15.3 (g/dL) Final HCT 07/07/2024 20:30:00 44.8 36.0-45.2 (%) Final MCV 07/07/2024 20:30:00 91.2 81.5-97.5 (fL) Final MCH 07/07/2024 20:30:00 30.8 27.0-34.0 (pg) Final MCHC 07/07/2024 20:30:00 33.7 32.0-36.0 (g/dL) Final RDW 07/07/2024 20:30:00 12.3 11.5-15.5 (%) Final Platelets 07/07/2024 20:30:00 221 140-400 (K/uL) Final MPV 07/07/2024 20:30:00 10.5 6.6-11.1 (fL) Final Nucleated erythrocytes/100 leukocytes [Ratio] in Blood by Automated count 07/07/2024 20:30:00 0 <=0 (/100 WBCs) Final Performing Location LABORATORY [facility] - [address] [facility] [address]
--- OUTSIDE RECORDS SUMMARY | 2024-07-10 00:06 | External Medical Summary ---
Author Name Unknown Address Unknown Organization [id number]:LABORATORY [facility] - [facility] [address] [facility] [address] Laboratory Report Ordering Provider Test Date Status GIRMARITTER 07/07/2024 20:30:00 Final Observation Date Value Abnormality Reference (Units ) Status BUN 07/07/2024 20:30:00 20 6-20 (mg/dL) Final Creatinine 07/07/2024 20:30:00 0.8 0.5-1.0 (mg/dL) Final Glomerular filtration rate/1.73 sq M.predicted [Volume Rate/Area] in Serum, Plasma or Blood by Creatinine-based formula (CKD-EPI) 07/07/2024 20:30:00 88 >=60 (mL/min) Final eGFR is calculated based on the CKD-EPI 2020 equation. Sodium 07/07/2024 20:30:00 130 Below low normal 135 -146 (mmol/L) Final Potassium 07/07/2024 20:30:00 4.7 3.5-5.1 (m mol/L) Final Cl 07/07/2024 20:30:00 95 Below low normal 98- 107 (mmol/L) Final CO2 07/07/2024 20:30:00 19 Below low normal 22- 32 (mmol/L) Final Anion gap 07/07/2024 20:30:00 16 Above high normal 7- 15 (mmol/L) Final Glucose 07/07/2024 20:30:00 645 Above upper panic li mits 70-120 (mg/dL) Final Results rechecked Calcium 07/07/2024 20:30:00 8.9 8.4-10.2 ( mg/dL) Final Performing Location LABORATORY [facility] - [address] [facility] [address]
--- OUTSIDE RECORDS SUMMARY | 2024-07-10 00:06 | External Medical Summary ---
Author Name Unknown Address Unknown Organization [id number]:[facility]ORY [facility] [place] [address] [place] [address] Laboratory Report Ordering Provider Test Date Status RITTER GIRMA 07/07/2024 20:30:00 Final Observation Date Value Abnormality Reference (Units ) Status Erythrocyte sedimentation rate by Photometric method 07/07/2024 20:30:00 28 Above high normal <20 (mm/hour) Final Performing Location LAB[facility]ORY [facility] - [address] [place] [address]
--- OUTSIDE RECORDS SUMMARY | 2024-07-10 00:06 | External Medical Summary | Summary of Care ---
Author Name Unknown Organization [facility] Address [address] [place] [address] Phone [phone] Care Team Providers Care Dubbing Machine Operator Name Role Phone Brandi Dunne DO Primary Care Provider Reason for Visit * Reason Onset Date Comments Referral 03/23/2024 [facility] Diabetes Ma nagement Discharge Encounter Details Date Type Department Care Team (Late st Contact Info) Description 03/23/2024 Telephone [facility], Cecilia Goodson [address] [place] [address] JULIO Mckeon [address] Brandi Dunne DO [address] [facility] [address] [facility] ([facility] Diabetes Management Dischar... Allergies Active Allergy Reactions Criticality Noted Date Comments Amoxicillin Vomiting (amox capsule causes vomiting only, can take others in the same class) Baclofen 12/25/2015 Itchy, nausea, vomiting Meperidine Itching Low 09/18/2011 Morphine And Codeine 01/18/2005 nauseated Bupropion Hcl Neuro complications (Please comment) 07/15/2012 Very paranoid Zolpidem Tartrate Other (Please comment) 2011 nightmares documented as of this encounter (statuses as of 03/23/2024) Medications Aspirin 81 MG Tablet Take 1 Tablet by mouth in the morning. Active Albuterol Sulfate (ALBUTEROL HFA) 108 (90 BASE) MCG/ACT inhalerIndications :Bronchitis, complicated Inhale 2 Puffs by mouth every 4 hours as needed for Wheezing. 18 g 11 0 Active nystatin (NYSTOP) 824852 UNIT/GM powderIndications: Skin yeast infection Apply topically [...] hemoglobin A1c goal of less than 8.0% ([facility]),Type 2 diabetes mellitus with stage 3 chronic kidney disease, with long-term current use of insulin ([facility]) Test blood sugars twice daily as directed 200 Each 3 1 Active OneTouch Verio In Vitro Strip (Glucose Blood)Indications: Type 2 diabetes mellitus with hemoglobin A1c goal of less than 8.0% ([facility]),Type 2 diabetes mellitus with stage 3 chronic kidney disease, with long-term current use of insulin ([facility]) Test blood sugars twice daily as directed [...] 7:56 PM EDT 3 Active Dexcom G7 Drain Tiler Device Use 1 Device as directed 1 [...] 4:56 PM EDT 4 Active Dexcom G7 Drain Tiler DeviceIndications: Type 2 diabetes mellitus with hemoglobin A1c goal of less than 8.0% ([facility]),Type 2 diabetes mellitus with stage 3a chronic kidney disease, with long-term current use of insulin ([facility]) Use 1 Each as directed once for 1 dose. 1 Each 4 Active Dexcom G7 SensorIndications: Type 2 diabetes mellitus with hemoglobin A1c goal of less than 8.0% ([facility]),Type 2 diabetes mellitus with stage 3a chronic kidney disease, with long-term current use of insulin ([facility]) Change every 10 days as directed 9 [...] with long-term current use of insulin (HCC) Inject 80 Units under the skin daily. [...] hemoglobin A1c goal of less than 8.0% ([facility]) INJECT 50-60 UNITS UNDER THE SKIN WITH MEALS 165 mL 1 4 Active Novofine Pen Needle 32G X 6 MM (NOVOFINE 32G PEN NEEDLE) USE WITH INSULIN FOUR TIMES A DAY 400 Each 3 11/03/2023 11:45 AM EDT 4 025 Active documented as of this encounter (statuses as of 03/23/2024) Active Problems Problem Noted Date Diagnosed Date [...] (05/22/2009): Diagnosed 2000. Followed by endocrine in [place] Was on lisinopril just prior to for [...] as of this encounter (statuses as of 03/23/2024) Resolved Problems Problem Noted Date Diagnosed Date [...] 05/22/1901/04/2018 Overview (05/22/2009): 03/28/09 toxo lab to [facility] shows elevated IgG and IgM antibodies and [...] as of this encounter (statuses as of 03/23/2024) Immunizations Name Administration Dates Next Due COVID-19 mRNA, LNP-s, No Pre serve, 2-Dose Series ([employer]) 10/03/2020,09/12/2020 Hepatitis B, 20+ yrs 01/14/2022,11/22/2021 PPD [...] encounter Miscellaneous Notes * Telephone Encounter - Danya Cornell high pressure cleaner - 03/23/2024 1:24 PM EST Ynes has not contacted the clinic to schedule/reschedule an appointment for diabetes management per referral from PCP despite multiple attempts to do so by our team. Patient is discharged from [facility] services at this time. Danya Cornell Parking Analyst [facility] [address] [place] [address] [address] Julio Rodrigues [address] [id number] 03/23/2024,1:25 PM documented in this encounter Plan of Treatment Scheduled Procedures Name Priority Associated Diagnoses Date/Ti me COLONOSCOPY FLEXIBLE PROXIMA L DIAGNOSTIC Recall Encounter for screening colonoscopy Health Maintenance Due Date Last Done Comments DISCUSS TOBACCO CESSATION (REFER TO SMARTSET #4663) 1976 HPV/Co-Test 02/12/2006 Pneumococcal Vaccine: Pediatrics (0 to 5 Years) and At-Risk Patients (6 to 64 Years) (2 of 2 - PCV) 08/29/2006 08/29/2005 Cologuard 02/12/2021 Fecal Occult Blood Test 02/12/2021 06/09/2013 Sigmoidoscopy 02/12/2021 Diabetic Eye Exam 10/25/2021 10/25/2020, , 02/14/2020, Additional history exists Hepatitis B Vaccine (3 of 3 - 19+ 3-dose series) 05/25/2022 01/14/2022, 11/22/2021 CKD PHOS USE SMARTSET 32796 11/05/2022 11/05/2021, 0 01/18/2019 Mammogram 11/22/2022 11/22/2021, 0709/2021, 07/21/2018 Diabetic Foot Exam 09/17/2023 09/16/2022, 0 11/13/2021, 11/22/2019, Additional history exists COVID-19 Vaccine ( season) 2024 10/03/2020, 09/12/2020 Influenza Vaccine (FLU shot) (#1) 2024 01/14/2022, 03/16/2015, 01/12/2014, Additional history exists GFR 02/04/2024 08/04/2023, 053 , 09/29/2022, Additional history exists HbA1c 02/04/2024 08/04/2023, 05/0 05/2022, 11/05/2021, Additional history exists Albumin/Creatinine Ratio 08/03/2024 024, 11/05/2021, 07/03/2020, Additional history exists B-12 08/03/2024 08/04/2023, 07, 01/18/2019, Additional history exists CKD HGB USE SMARTSET 33357 08/03/202408/03, 08/04/2023, 10/07/2022, Additional history exists Depression Monitoring 08/24/2024 08/25/2023 Cervical Cancer Screening 11/18/2024 Pap Smear 11/18/2024 11/18/2021, 12/10, 09/30/2011, Additional history exists Colonoscopy 05/22/2025 05/22/2015, [...] Not on filedocumented as of this encounter Advance Directives Healthcare Agents on File Name Relationship Healthcare Agent Relationshi p Communication Waldo Sherman Adult Child Health Care Repr esentative (appointed verbally by patient or by statute hierarchy) Care Teams Dubbing Machine Operator Relationship Specialty Start Date End Date Brandi Dunne DO [address] [place] [address] PCP - General Family Medicine 11/18/16 documented as of this encounter
--- OUTSIDE RECORDS SUMMARY | 2024-07-10 00:06 | External Medical Summary ---
Author Name Unknown Address Unknown Organization K01:[facility]OR[facility] [place] - [address] [place] [address] Laboratory Report Ordering Provider Test Date Status RITTER GIRMA 07/07/2024 20:30:00 Final Observation Date Value Abnormality Reference (Units ) Status CRP, low-sensitivity 07/07/2024 20:30:00 9 Above high normal <=5 (mg/L) Final Performing Location LABORATORY C - [address] [place] [address]
--- OUTSIDE RECORDS SUMMARY | 2024-07-10 00:06 | External Medical Summary ---
Author Name Unknown Address Unknown Organization K01[place] [place] [address] [facility] [address] Laboratory Report Ordering Provider Test Date Status GIRMAMICHELETALYA 07/07/2024 20:30:00 Final Observation Date Value Abnormality Reference (Units ) Status SYNC LEUKOCYTES IN BLOOD BY AUTOMATED COUNT 07/07/2024 20:30:00 9.12 4.00-10.80 (K/uL) Final Segs 07/07/2024 20:30:00 63.4 40.0-75.0 (%) Final Lymphs % 07/07/2024 20:30:00 23.1 18.0-42.0 (%) Final Monos 07/07/2024 20:30:00 8.7 1.0-11.0 (%) Final Eosinophils 07/07/2024 20:30:00 3.2 0.0-6.0 (%) Final Basos 07/07/2024 20:30:00 1.1 0.0-2.0 (%) Final Immature Granulocyte, Percent 07/07/2024 20:30:00 0.5 0.0-2.0 (%) Final Absolute Segs 07/07/2024 20:30:00 5.78 1.80-7.70 (K/uL) Final Lymphs, absolute 07/07/2024 20:30:00 2.11 1.00-4.80 (K/ul) Final Monos, Abs 07/07/2024 20:30:00 0.79 0.00-1.10 (K/uL) Final Eos, Abs 07/07/2024 20:30:00 0.29 0.00-0.70 (K/uL) Final Basos, Abs 07/07/2024 20:30:00 0.10 0.00-0.20 (K/uL) Final Immature Granulocytes, Number 07/07/2024 20:30:00 0.05 0.00-0.20 (K/uL) Final Performing Location [facility] [place] [address] [facility] [address]
--- OUTSIDE RECORDS SUMMARY | 2024-07-10 00:06 | External Medical Summary | Summary of Care ---
Author Name Unknown Organization [facility] Address [address] [place] [address] Phone [phone] Care Team Providers Care Aeronautical Engineering Officer Name Role Phone Brandi Dnune Primary Care Provider Reason for Visit * Reason Comments Pain Right hand * Auth/Cert Specialty Diagnoses / Procedures Referred By Darrel gilliland Referred To Contact [facility] [address] [place] [address] Phone: tel:[phone] [facility]) Emergency Department ([facility]) [address] [place] [address] Phone: tel: fax: Referral ID Status Reason Start Date Expiration Date Visits Re quested Visits Authorized [id number] Encounter Details Date Type Department Care Team (Late st Contact Info) Description 07/08/2024 2:03 AM EST - 07/08/2024 4:36 AM EST Emergency [facility]) Emergency Department (C) [address] [place] [address] Gomez Adame MD [address] [place] [address] Karlee of finger (Primary Dx) Discharge Disposition: Home - Self Care Allergies [...] 18 g 11 0 Active nystatin (NYSTOP) 356064 UNIT/GM powderIndications: Skin yeast infection Apply topically [...] THAN 3DAYS/WEEK 16 Tab 1 Active OneTouch Jackie Lancets 33GIndications:Typ e 2 diabetes mellitus with hemoglobin A1c goal of less than 8.0% ([facility]),Type 2 diabetes mellitus with stage 3 chronic kidney disease, with long-term current use of insulin ([facility]) Test blood sugars twice daily as directed 200 Each 3 1 Active OneTouch Verio In Vitro Strip (Glucose Blood)Indications: Type 2 diabetes mellitus with hemoglobin A1c goal of less than 8.0% ([facility]),Type 2 diabetes mellitus with stage 3 chronic kidney disease, with long-term current use of insulin ([facility]) Test blood sugars twice daily as directed [...] 7:56 PM EDT 3 Active Dexcom G7 Chocolate Temperer Device Use 1 Device as directed 1 [...] 4:56 PM EDT 4 Active Dexcom G7 Chocolate Temperer DeviceIndications: Type 2 diabetes mellitus with hemoglobin A1c goal of less than 8.0% ([facility]),Type 2 diabetes mellitus with stage 3a chronic kidney disease, with long-term current use of insulin ([facility]) Use 1 Each as directed once for 1 dose. 1 Each 4 Active Dexcom G7 SensorIndications: Type 2 diabetes mellitus with hemoglobin A1c goal of less than 8.0% ([facility]),Type 2 diabetes mellitus with stage 3a chronic kidney disease, with long-term current use of insulin ([facility]) Change every 10 days as directed 9 [...] 11/03/2023 11:45 AM EDT 4 025 Active Bactrim DS 800-160 MG Oral Tablet Take 1 Tablet by mouth in the morning and 1 Tablet before bedtime. 28 Tablet 5 Active oxyCODONE HCl 5 MG Oral Capsule (Oxy IR) Take 1 Capsule by mouth every 4 hours as needed for Pain, Breakthrough. 6 Capsule 5 Active documented as of this encounter (statuses [...] (05/22/2009): Diagnosed 2000. Followed by endocrine in [place] Was on lisinopril just prior to for [...] inactive diagnosis Toxoplasmosis IgM antibody found in 05/22/19 10 01/04/2018 Overview (05/22/2009): 03/28/09 toxo lab to [facility] shows elevated IgG and IgM antibodies and [...] mRNA, LNP-s, No Pre serve, 2-Dose Series ([employer]) 10/03/2020,09/12/2020 Hepatitis B, 20+ yrs 01/14/2022,11/22/2021 PPD [...] No 08/25/2023 Does the household have a [facility] source of income? (Household - for ages [...] Sign Reading Time Taken Comments Blood Pressure 176/112 07/08/2024 2:00 AM EST Pulse 87 07/08/2024 2:00 AM EST Temperature 36 C (96.8 F) 07/08/2024 2:00 AM EST Respiratory Rate 18 07/08/2024 2:00 AM EST Oxygen Saturation 97% 07/08/2024 2:00 AM EST Inhaled Oxygen Concentration - - Weight 104.3 kg (230 lb) 07/08/2024 2:00 AM EST Height - - Body Mass Index 33 07/07/2024 8:01 PM EST documented in this encounter Nursing Notes * Rolando Tolentino RN - 07/08/2024 4:35 AM EST I have given oxycodone 5mg x [address] Rosado for dispensing to patient. documented in this encounter ED Notes * Gomez Adame MD - 07/08/2024 4:36 AM EST HISTORY OF PRESENT ILLNESS Ynes Sherman is a 49 year old female who presents to the ED for evaluation of Pain (Right hand). The patient was seen at 07/08/24 0208. Past medical history of type 2 diabetes, osteomyelitis presents with 5 days of right 3rd digit pain. Patient presents for 2nd ED visit in 3 hours regarding finger pain. Per previous note "Does not recall any injury. Notes that it is getting swollen and erythematous. Has been taking ibuprofen for pain which has helped some. Denies any fevers or chills. Recalls getting scratched by a cat on that finger about 3 weeks ago. Does have a healing wound on that finger. She denies any numbness or tingling. Coming in today for worsening pain." She states that she had pain immediately after the digital block wore off after drainage was attempted for felon. Took ibuprofen about an hour previous to coming to the emergency department. The patient's allergies, past history, and medications were reviewed. PHYSICAL EXAM Initial Vitals (see all): BP 176/112 | Pulse 87 | Resp 18 | Temp 96.8 | O2 97 %Weight 104.33 kg | Height 177.8 cm | BMI 33 kg/m2 Initial Pain Assessment (see all): 9 (severe pain)/10, Aching, location: right hand ([facility] Adult Scale 0-10 (18 years and older)) Physical Exam Vitals and nursing note reviewed. Constitutional: General: She is not in acute distress. Appearance: She is well-developed. HENT: Head: Normocephalic and atraumatic. Eyes: Conjunctiva/sclera: Conjunctivae normal. Cardiovascular: Rate and Rhythm: Normal rate and regular rhythm. Heart sounds: No murmur heard. Pulmonary: Effort: Pulmonary effort is normal. No respiratory distress. Breath sounds: Normal breath sounds. Abdominal: Palpations: Abdomen is soft. Tenderness: There is no abdominal tenderness. Musculoskeletal: General: Tenderness present. No swelling. Cervical back: Neck supple. Comments: Tenderness and erythema from the right 3rd digit. Incision present from felon drainage. Skin: General: Skin is warm and dry. Capillary Refill: Capillary refill takes less than 2 seconds. Findings: Erythema present. Neurological: Mental Status: She is alert. Psychiatric: Mood and Affect: Mood normal. PROCEDURES AND TREATMENTS ED Orders | ED Results MEDICAL DECISION MAKING Nursing notes and vital signs were reviewed. Differential Diagnoses Based on my history, physical exam, and evaluation, the differential includes, but is not limited, to the following diagnoses: felon. In summary this is a 49 year old year old female presenting for hand pain. Hemodynamically Stable on presentation. POCUS performed in the hand which showed normal loculations in the finger. Repeat incision and drainage was performed and pus was expressed. Patient was given oxycodone for pain management which did improve her pain. To go oxygen was given and I expressed to her that she will need tomanage her pain with Tylenol and ibuprofen and only use the oxycodone as needed for breakthrough pain. She agrees. Return precautions and home monitoring instruction provided per the AVS. All questions answered. Patient was appreciative of care received today. Risk Prescription drug management. Clinical Impressions Felon of finger Disposition Discharged. The patient's condition at disposition was: stable. Discharge Medications Disp Refills Start End oxyCODONE HCl 5 MG Oral Capsule (Oxy IR) 6 Capsule 0 07/08/2024 -- Sig - Route: Take 1 Capsule by mouth every 4 hours as needed for Pain, Breakthrough. - Oral Class: Site Administration Earliest Fill Date: 07/08/2024 Renewals Renewal requests to authorizing provider (Avila Rosado DO) <b>prohibited</b> I have personally dispensed to go medications to the patient for home use. These to go mediations are listed above with a class of site administration. These medications were labeled with the patient's name and instructions for use. Gomez Adame was the attending physician who supervised the care of this patient. Avila Rosado DO ATTENDING ATTESTATION I have seen and examined this patient at 07/08/2024 visit. I have discussed the patient's managementwith the provider listed above and agree with the note, findings, and plan of care. I personally made/approved the management plan and take responsibility for patient management. I was present for the herring part of drainage Gomez Adame MD documented in this encounter Miscellaneous Notes * Pt Handout (on AVS) - Avila Rosado DO - 07/08/2024 4:28 AM EST [id number] Finger Felon A felon is an infection of the fingertip. It?s usually caused by bacteria that get under the skin from an injury. This can happen from something like a splinter or if a tiny glass shard pokes the skin. It can cause pus to build up in the fingertip (abscess). A finger felon can cause severe, throbbing pain that starts suddenly. Your fingertip may be red andswollen. Your healthcare provider may drain the abscess. This is called an incision and drainage. It may also be treated with antibiotics and warm finger soaks. Your provider may also ask if your tetanus vaccine is up to date. It?s important to treat a felon injury early so the infection doesn?t godeeper. Home care If you are prescribed antibiotics, take them exactly as directed. Finish the entire course of the medicine, even if your finger feels better. Don?t skip doses. Care for your wound as directed by your healthcare provider. This may include washing the fingerwith clean, running water. Cover the wound with a non-stick bandage or loose gauze. Prop your hand up on pillows, several towels, or a cushion when possible to reduce swelling. You may use [id number]-dhl-[id number] pain relievers such as ibuprofen or acetaminophen unless your provider has prescribed a different pain reliever. Follow-up care Follow up with your healthcare provider, or as advised. When to get medical advice Call your healthcare provider right away if any of these occur: Your infection doesn?t improve with treatment within 7 days, or as directed by your provider. Red areas have spread Swelling or pain gets worse Fluid (pus) leaks from the skin Fever of 100.4F (38.0C) or higher after 2 days on antibiotics Last Reviewed Date: 2021 00:00:00 [id number] [employer]. All rights reserved. This information is not intended as a substitute for professional medical care. Always follow your healthcare professional's instructions. * ED Bone Char Kiln Tender Note - Khushboo Wang RN - 07/08/2024 2:02 AM EST Pt was discharged a few hours ago and discharged with cellulitis of the right middle finger. Statesmedications wore off and now right hand is very painful. documented in this encounter Plan of Treatment Scheduled Procedures Name Priority Associated Diagnoses Date/Ti me COLONOSCOPY FLEXIBLE PROXIMA L DIAGNOSTIC Recall Encounter for screening colonoscopy Health Maintenance Due Date Last Done Comments DISCUSS TOBACCO CESSATION (REFER TO SMARTSET #3291) 1976 HPV/Co-Test 02/12/2006 Pneumococcal Vaccine: Pediatrics (0 [...] 05/25/2022 01/14/2022, 11/22/2021 CKD PHOS USE SMARTSET 95077 11/05/2022 11/05/2021, 0 01/18/2019 Mammogram 11/22/2022 11/22/2021, [...] Cancer Screening 05/22/2025 CKD HGB USE SMARTSET 55881 07/07/202507/07, 07/07/2024, 08/04/2023, Additional history exists DTap/Tdap [...] as of this encounter Visit Diagnoses Diagnosis Felon of finger- Primary documented in this encounter Administered Medications Inactive Administered Medications - up to 3 most recent administrations Medication Order MAR Action Action Date Dose Rate Site oxyCODONE (Oxy IR) tab 5 mg 5 mg, Oral, ONCE, On Thu07/08/24 at 0245, For 1 dose Given 07/08/2024 2:12 AM EST 5 mg oxyCODONE (Oxy IR) tab 5 mg 5 mg, Oral, ONCE, On Thu07/08/24 at 0445, For 1 dose Given 07/08/2024 4:17 AM EST 5 mg documented in this encounter Active and Recently Administered Medications Times are shown in EST. Scheduled Medication Order 07/06/2024 07/07/2024 07/08/2024 oxyCODONE (Oxy IR) tab 5 mg (COMPLETED) 5 mg, Oral, ONCE, On Thu07/08/24 at 0245, For 1 dose 0212 (Given - Provid er: Rolando Tolentino RN) oxyCODONE (Oxy IR) tab 5 mg (COMPLETED) 5 mg, Oral, ONCE, On Thu07/08/24 at 0445, For 1 dose 0417 (Given - Provid er: Rolando Tolentino RN) documented in this encounter Advance Directives Healthcare Agents on File Name Relationship Healthcare Agent Relationshi p Communication Jdmarkel Sherman Adult Child Health Care Repr esentative (appointed verbally by patient or by statute hierarchy) Care Teams Aeronautical Engineering Officer Relationship Specialty Start Date End Date Brandi Dunne DO [address] [place] [address] PCP - General Family Medicine 11/18/16 documented as of this encounter
--- NOTE | 2024-07-10 00:47 | Emergency Department Note ---
History of Present Illness General Chief complaint: Finger Pain Stated complaint: FINGER INFECTION Time Seen by Provider: 07/10/24 00:10 History of Present Illness Maximum Pain Intensity: 9 This is a [id number] 49-year-old female that presents to the emergency department via private vehicle with complaints of "right third finger infection". The patient states that last Thursday she noted some redness and pain to the right third finger distally. No trauma. No injury. She does not bite the fingernails. She notes she tried ibuprofen and Tylenol with minimal relief. Then she notes that she was in [place] for a family member's surgery on and noted significant worsening of her pain and therefore presented to the [facility] emergency department. She states that area was drained and she was placed on antibiotics, specifically Bactrim. She then returned later that day/early Thursday morning and repeat I&D was performed via ultrasound and notes that since then she has had continued worsening of her symptoms. She has had 5 doses of Bactrim thus far with continued worsening of pain. She notes history of osteomyelitis of a toe and failed outpatient antibiotics previously. She denies any fevers or chills. No nausea or vomiting. Home Medications Medication Instructions Recorded Confirmed Type albuterol sulfate 90 mcg/actuation 2 puff inhalation QID PRN 03/29/19 09/07/22 History aerosol inhaler Shortness Of Breath Or Wheezing atorvastatin 40 mg tablet 40 mg PO HS 03/29/19 09/07/22 History lisinopril 5 mg tablet 5 mg PO HS 03/29/19 09/07/22 History rizatriptan 10 mg tablet 10 mg PO DIRECTED PRN Migraine 03/29/19 09/07/22 History Headache trazodone 50 mg tablet 50 mg PO HS 03/29/19 09/07/22 History aspirin 81 mg tablet,delayed 81 mg PO HS 05/25/19 09/07/22 History release insulin glargine 100 unit/mL (3 80 unit subcut HS 05/25/19 09/07/22 History mL) subcutaneous pen (Lantus Solostar U-100 Insulin) insulin aspart U-100 100 unit/mL 1 sliding scale dose subcut 06/15/20 09/07/22 History subcutaneous cartridge (Novolog USEASDIRECTD PenFill U-100 Insulin aspart) pantoprazole 40 mg tablet,delayed 40 mg PO HS 06/15/20 09/07/22 History release dulaglutide 1.5 mg/0.5 mL 1.5 mg subcut WK 06/22/22 09/07/22 History subcutaneous pen injector (Trulicity) empagliflozin 25 mg tablet 25 mg PO HS 06/22/22 09/07/22 History (Jardiance) famotidine 20 mg tablet 20 mg PO HS 06/22/22 09/07/22 History fexofenadine 180 mg tablet 180 mg PO DAILY PRN 06/22/22 09/07/22 History CONGESTION/ALLERGIES lidocaine 5 % topical patch 1 patch topical DAILY PRN Pain 06/22/22 09/07/22 History metformin 500 mg tablet,extended 2,000 mg PO HS 06/22/22 09/07/22 History release 24 hr sertraline 100 mg tablet 100 mg PO HS 06/22/22 09/07/22 History vancomycin 1.5 gram intravenous 1 g IV Q8H #10 ea 09/13/22 Rx solution oxycodone 5 mg capsule 5 mg PO Q8H PRN pain #14 caps 02/03/23 Rx Allergies Allergy/AdvReac Type Severity Reaction Status Date / Time baclofen Allergy Intermediate ITCHING, Verified 09/07/22 23:28 NAUSEA/VOMITING cyclobenzaprine Allergy Intermediate itching Verified 09/07/22 23:28 [From Flexeril] amoxicillin AdvReac Intermediate Vomiting Verified 09/07/22 23:28 bupropion AdvReac Intermediate PSYCHOTIC-P Verified 09/07/22 23:28 ARANOID morphine AdvReac Intermediate "GETS Verified 09/07/22 23:28 REALLY SICK" zolpidem [From Ambien] AdvReac Intermediate NIGHTMARES Verified 09/07/22 23:28 meperidine AdvReac Mild ITCHY Verified 09/07/22 23:28 lactose AdvReac Verified 09/08/22 12:57 Past Med/Surg History Problem List (Updated 07/10/24 @ 03:00 by Markie Garcias PA-C) Hyperglycemia (Acute) Pain of right middle finger (Acute) Failure of outpatient treatment (Acute) Felon of finger of right hand (Acute) Tendinitis of right rotator cuff Morbid obesity Osteomyelitis of foot Infection of right foot (Acute) Failure of outpatient treatment (Acute) Encounter for pre-operative examination Diabetic foot ulcer (Acute) Prothrombin gene mutation (Acute) Premenstrual dysphoric disorder (Acute) Obesity (Acute) Menorrhagia (Acute) Hypercholesterolemia (Acute) Diabetes mellitus (Acute) Cervical radiculopathy at C7 (Acute) Carpal tunnel syndrome, bilateral (Acute) Abnormal menses (Acute) Osteoarthritis of knees, bilateral Medical History Smoker Diabetes IDDM Osteoarthritis Depression Degenerative disc disease GERD (gastroesophageal reflux disease) Gastroparesis 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 mutation History of migraine with aura History of gastric ulcer Surgical History History of tubal ligation History of shoulder surgery Lt History of esophagogastroduodenoscopy (EGD) History of colonoscopy History of tonsillectomy History of tooth extraction History of knee surgery BL Status post hysteroscopic ablation of endometrium History of ankle surgery Rt Family History Mother Diabetes Denies family history of Colon cancer Ovarian cancer Breast cancer Social History Smoking Status: Current every day smoker Tobacco Type: Cigarettes Cigarettes Per Day: 1/2 ppd; Second Hand Exposure: Yes; Do You Dip or Chew Tobacco: No; Hx Alcohol Use: Yes Hx Substance Use: No Preferred Language: Mauritian Communication Ability: Effective Extruding Press Adjuster Required: No Beliefs That Will Affect Care: None marital status: Current Living Situation: Significant Other Current Living Situation Comment: [facility] Feels Safe at Home: Yes Assistive Devices: None Review of Systems A total of 10 systems reviewed and were otherwise negative Physical Exam Vital Signs Vital Signs - 24 hr 07/10/24 00:03 07/10/24 01:18 07/10/24 02:01 Temperature 36.7 C Temperature Source Oral Pulse Rate 87 80 Pulse Rate [Apical] 68 Respiratory Rate 16 18 Blood Pressure 175/78 H Blood Pressure [Right Arm] 151/75 H Blood Pressure Mean 110 Blood Pressure Mean [Right Arm] 100 Pulse Oximetry 96 97 Oxygen Delivery Method Room Air Oxygen Flow Rate Sepsis Recent Fever Within 48 Hours No Sepsis New/Unexplained Change in Mental Status No Sepsis Action Taken by Nursing No Action Required Oxygen Flow Rate - Titration Pulse Oximetry Post Tiitration 07/10/24 02:44 Temperature Temperature Source Pulse Rate Pulse Rate [Apical] Respiratory Rate Blood Pressure Blood Pressure [Right Arm] Blood Pressure Mean Blood Pressure Mean [Right Arm] Pulse Oximetry 84 L Oxygen Delivery Method Nasal Cannula Oxygen Flow Rate 0 Sepsis Recent Fever Within 48 Hours Sepsis New/Unexplained Change in Mental Status Sepsis Action Taken by Nursing Oxygen Flow Rate - Titration 2 Pulse Oximetry Post Tiitration 95 VITAL SIGNS - Vital signs and nursing notes were reviewed. Hypertensive, otherwise stable and afebrile. GENERAL -49-year-old female appearing her stated age who is in no acute distress. Communicates well with provider and answers questions appropriately. SKIN -circumferential edema noted to the right third digit most pronounced at the distal aspect. There is fingerpad edema, underlying yellow hue concerning for abscess formation. There is evidence of previous I&D site noting open wound to the lateral aspect of the right third finger. HEAD - NC/AT. LUNGS -clear to auscultation. CARDIAC - RRR EXTREMITIES - No clubbing or peripheral cyanosis. Skin as above. Diffuse tenderness throughout the entire right third digit, most pronounced overlying the flexor aspect of the right third finger. Patient will not actively flex at the DIP or PIP joint. She will flex actively at the MCP joint of the right third digit. Nail is intact. Fluctuance to the pulp noted. NEUROLOGIC -sensory intact to light touch throughout the right third digit without deficit. PSYCH -alert, oriented and pleasant on exam Course Administered Medications Vancomycin HCl 2,250 mg/ (Sodium Chloride) 545 mls @ 200 mls/hr IV NOW ONE Stop: 07/10/24 03:31 Last Admin: 07/10/24 02:06 Dose: 200 mls/hr Documented By: VIKY Discontinued Medications Hydromorphone HCl (Hydromorphone Inj 0.5 Mg/0.5 Ml Syr) 0.5 mg IV NOW STA Stop: 07/10/24 00:47 Last Admin: 07/10/24 01:16 Dose: 0.5 mg Documented By: VIKY Hydromorphone HCl (Hydromorphone Inj 1 Mg/Ml Syringe) 1 mg IV NOW STA Stop: 07/10/24 02:00 Last Admin: 07/10/24 02:01 Dose: 1 mg Documented By: VIKY Ceftriaxone Sodium (Rocephin) 2,000 mg in 50 mls @ 100 mls/hr IV NOW STA Stop: 07/10/24 01:17 Last Infusion: 07/10/24 02:10 Dose: Infused Documented By: Admin: 07/10/24 01:22 Dose: 100 mls/hr Documented By: VIKY Sodium Chloride (Nss) 1,000 mls @ 999 mls/hr IV .Q1H1M ONE Stop: 07/10/24 02:17 Last Infusion: 07/10/24 02:51 Dose: Infused Documented By: Admin: 07/10/24 01:26 Dose: 999 mls/hr Documented By: VIKY Insulin Human Regular (Novolin-R Insulin Per Unit Charge) 5 units IV NOW STA Stop: 07/10/24 01:50 Last Admin: 07/10/24 02:04 Dose: 5 units Documented By: VIKY Co-signed By: KATHI Ondansetron HCl (Ondansetron Inj 2 Mg/Ml 2 Ml Vial) 4 mg IV NOW STA Stop: 07/10/24 00:47 Last Admin: 07/10/24 01:18 Dose: 4 mg Documented By: VIKY Medical Decision Making Laboratory Data 07/10/24 01:00 07/10/24 01:00 Lab Results 07/10/24 07/10/24 Range/Units 01:00 01:02 WBC 8.63 (4.8-10.8) K/ul RBC 4.92 (4.20-5.40) M/uL Hgb 15.1 (12.0-16.0) g/dl Hct 44.5 (37.0-47.0) % MCV 90.4 (80.0-100.0) fL MCH 30.7 (25.0-34.0) pg MCHC 33.9 (32.0-36.0) g/dL RDW Std Deviation 41.6 (36.4-46.3) fL RDW Coeff of Shira 12.7 (11.5-14.5) % Plt Count 248 (130-400) K/uL MPV 10.6 (9.4-12.4) fL Immature Gran % (Auto) 1.0 % Neut % (Auto) 59.4 % Lymph % (Auto) 28.0 % [place] % (Auto) 7.8 % Eos % (Auto) 2.9 % Baso % (Auto) 0.9 % Neut # (Auto) 5.12 (1.40-6.50) K/uL Lymph # (Auto) 2.42 (1.20-3.40) K/uL [place] # (Auto) 0.67 H (0.11-0.59) K/uL Eos # (Auto) 0.25 (0.00-0.50) K/uL Baso # (Auto) 0.08 (0.00-0.20) K/uL Immature Gran # (Auto) 0.09 (0.01-0.20) K/uL Sodium 130 L (136-145) mmol/L Potassium 4.1 (3.5-5.1) mmol/L Chloride 95 L (98-107) mmol/L Carbon Dioxide 24 (21-32) mmol/L Anion Gap 11 (3-11) BUN 13 (6-23) mg/dl Creatinine 1.12 (0.6-1.2) mg/dl Est Cr Clr Drug Dosing 83.0 ml/min eGFR 60.66 BUN/Creatinine Ratio 11.6 (10-20) Glucose 518 H* (70-99(Fasting)) mg/dl Lactate 3.8 H* (0.4-2.0) mmol/L Calcium 9.2 (8.6-10.3) mg/dl Total Bilirubin 0.4 (0.2-1.0) mg/dl AST 13 (13-39) U/L ALT 11 (7-52) U/L Alkaline Phosphatase 141 H (34-104) U/L Total Protein 6.7 (6.0-8.3) gm/dl Albumin 3.8 (3.4-5.0) gm/dl Globulin 2.9 (2.5-4.0) gm/dl Albumin/Globulin Ratio 1.3 (0.9-2) Procalcitonin 0.02 (0-0.5) ng/ml Imaging Data Radiologist's Impression: Finger X-Ray 07/10/24 00:57 EXAM: XR finger(s) RT min 2V CLINICAL HISTORY: R 3rd digit felon, infection TECHNIQUE: X-ray images of the 3rd finger were obtained in AP, lateral, and oblique projections. COMPARISON: No prior studies available for comparison. FINDINGS: Bone Structure: Suspected focal osteopenia at the lateral aspect of the distal phalanx tip of the 3rd finger. Cortical irregularity with suspicion of incomplete radiolucent line noted at the distal phalanx. Noted in the lateral view only. Focal cortical thickening/smooth periosteal reaction is noted at the posterior part of the base of the middle phalanx of the third digit. Joint Spaces: Joint spaces are prreserved. No evidence of joint effusion or subluxation. Soft Tissues: Soft tissue thickening of the third digit is most conspicuous at the distal tuft. IMPRESSION: 1. Soft tissue thickening of the third finger, this most conspicuous at the distal part. 2. Suspected focal distal osteopenia, cortical irregularity, and linear lucency. Further evaluation by MRI may be considered. 3. Focal cortical thickening at the posterior mid phalanx of the third digit. Clinical correlation is advised. Disclaimer: A subtle bone abnormality or fracture may not be readily apparent on x-rays, thus clinical correlation and further imaging including follow up CT, MRI, or follow up x-rays are advised as needed. Electronically signed by Unique Mcdowell 07-10-2024 02:15 AM MDM Narrative Patient was seen and evaluated as above in room C06. Review was performed of triage nursing notes and vital signs. I did review pertinent previous visits and patient history. After obtaining a thorough history and physical examination the above work up was performed. Patient presents to us today for evaluation of worsening infection to the right third finger. Examination concerning for that of carmenbishop with progressive infection. She is quite tender overlying the flexor aspect of the right third digit diffusely and will not flex actively at the DIP or PIP joint. The patient will require further evaluation and management in the inpatient setting therefore I did discuss presentation early in the patient's stay with the hospitalist, Dr. Renner. IV access was established. Labs were drawn. Empiric IV antibiotics ordered to include vancomycin and ceftriaxone. Dilaudid for pain, Zofran for nausea. She requested lidocaine patch which was also added. I do believe that further evaluation and management the inpatient setting is warranted. No leukocytosis or concerning anemia. Pseudohyponatremia noted at 130 secondary to hyperglycemia at 518. Lactate 3.8, recheck pending but low suspicion of sepsis at this time. Pro-Lui normal. IV insulin ordered by hospitalist staff. I also obtain an x-ray and there is no fracture. Subtle lucency noted. Formal radiology report is as above. 1:40 AM-I spoke with Robert Hernandez PA-C with orthopedics. Plan will be IV antibiotics, wet-to-dry dressing on the digit, n.p.o. at this time and orthopedics will evaluate the patient later this morning. Patient was still experiencing severe pain despite the initial IV Dilaudid. Additional IV Dilaudid was added and we will carefully trend the patient's vitals. I went to bedside and verbal consent was obtained and I did cleanse the digit with sterile saline, and applied a wet-to-dry dressing. Patient tolerated the dressing change well. Patient noted improvement of pain, was much more relaxed. After some time it passed I did note the patient did fall asleep as she was resting comfortably, and there was brief episode of mild hypoxia into the 80s and was supplemented with some nasal cannula oxygen, then saturating in the 90s. Case discussed with the hospitalist service. Please refer to further documentation regarding her stay. GCS: 15 In the evaluation and treatment of this patient the following differential diagnoses were entertained: Flexor tenosynovitis, osteomyelitis, felon, among others. Impression & Plan Felon of finger of right hand, Failure of outpatient treatment, Pain of right middle finger, Hyperglycemia Discharge Plan Visit Data Chief Complaint: Finger Pain Stated Complaint: FINGER INFECTION ED Provider: Mitchell Perez ED Midlevel Provider: Markie Garcias Discharge Problem: Felon of finger of right hand, Failure of outpatient treatment, Pain of right middle finger, Hyperglycemia Patient Disposition: Admitted As Inpatient Condition: Good Forms Stand Alone Forms: My [facility] Prescriptions Prescriptions: No Action pantoprazole 40 mg Tablet,Delayed Release (Dr/Ec) 40 mg PO HS insulin aspart U-100 [Novolog PenFill U-100 Insulin] 100 unit/mL Cartridge 1 sliding scale dose SUBCUT USEASDIRECTD Rx Instructions: PER GMG 50-60 UNITS WITH MEALS. atorvastatin 40 mg Tablet 40 mg PO HS trazodone 50 mg Tablet 50 mg PO HS rizatriptan 10 mg Tablet 10 mg PO DIRECTED PRN (Reason: Migraine Headache) Rx Instructions: TAKE AT ONSET OF SIMPSON, MAY REPEAT IN 2 HRS IF NEEDED. lisinopril 5 mg Tablet 5 mg PO HS albuterol sulfate 90 mcg/actuation Hfa Aerosol Inhaler 2 puff INHALATION QID PRN (Reason: Shortness Of Breath Or Wheezing) aspirin 81 mg Tablet,Delayed Release (Dr/Ec) 81 mg PO HS insulin glargine [Lantus Solostar U-100 Insulin] 100 unit/mL (3 mL) insulin pen 80 unit SUBCUT HS sertraline 100 mg tablet 100 mg PO HS fexofenadine 180 mg Tablet 180 mg PO DAILY PRN (Reason: CONGESTION/ALLERGIES) famotidine 20 mg Tablet 20 mg PO HS lidocaine 5 % Adhesive Patch,Medicated 1 patch TOPICAL DAILY PRN (Reason: Pain) Rx Instructions: leave on most painful area for up to 12 hrs metformin 500 mg tablet extended release 24 hr 2,000 mg PO HS Jardiance 25 mg tablet 25 mg PO HS Trulicity 1.5 mg/0.5 mL pen injector 1.5 mg SUBCUT WK Rx Instructions: MONDAYS vancomycin 1.5 gram recon soln 1 g IV Q8H Qty: 10 0RF oxycodone 5 mg capsule 5 mg PO Q8H PRN (Reason: pain) Qty: 14 0RF Referrals Referrals: Brandi Dunne DO [Primary Care Provider] -
[2024-07-10] MEDS ORDERED: VANCOMYCIN CONSULT ACTIVE PRN (00:48)
[2024-07-10] MEDS: HYDROmorphone INJ 0.5 MG/0.5 ML SYR IV STA (01:16)
[2024-07-10] MEDS: ONDANSETRON INJ 2 MG/ML 2 ML VIAL IV STA (01:18)
[2024-07-10 01:20] LABS: Basophils # (auto) 0.08 K/uL (0.00-0.20); Basophils % (auto) 0.9 %; Eosinophils # (auto) 0.25 K/uL (0.00-0.50); Eosinophils % (auto) 2.9 %; Hematocrit (blood only) 44.5 % (37.0-47.0); Hemoglobin 15.1 g/dl (12.0-16.0); Immature Granulocytes # (auto) 0.09 K/uL (0.01-0.20); Lymphocytes # (auto) 2.42 K/uL (1.20-3.40); Mean Corpuscular Hemoglobin 30.7 pg (25.0-34.0); Mean Corpuscular Hgb Conc 33.9 g/dL (32.0-36.0); Mean Corpuscular Volume 90.4 fL (80.0-100.0); Mean Platelet Volume 10.6 fL (9.4-12.4); Monocytes # (auto) 0.67 K/uL (0.11-0.59); Monocytes % (auto) 7.8 %; Neutrophils # (auto) 5.12 K/uL (1.40-6.50); Neutrophils % (auto) 59.4 %; Platelet Count 248 K/uL (130-400); RDW Coefficient of Variation 12.7 % (11.5-14.5); RDW Standard Deviation 41.6 fL (36.4-46.3); Red Blood Count 4.92 M/uL (4.20-5.40); White Blood Count 8.63 K/ul (4.8-10.8)
[2024-07-10] MEDS: cefTRIAXone SODIUM 2,000 MG/50 ML BAG IV STA (01:22)
[2024-07-10] MEDS: SODIUM CHLORIDE 0.9% 1,000 ML IV ONE (01:26)
[2024-07-10 01:47] LABS: Albumin Globulin Ratio 1.3 (0.9-2); Albumin Level 3.8 gm/dl (3.4-5.0); BUN Creatinine Ratio 11.6 (10-20); Bilirubin,Total 0.4 mg/dl (0.2-1.0); Calcium 9.2 mg/dl (8.6-10.3); Globulin 2.9 gm/dl (2.5-4.0); Potassium 4.1 mmol/L (3.5-5.1); Total Protein 6.7 gm/dl (6.0-8.3)
[2024-07-10] MEDS ORDERED: Nursing to Pharmacy Communication SCH ×2 (02:00→11:00)
[2024-07-10] MEDS: HYDROmorphone INJ 1 MG/ML SYRINGE IV STA (02:01)
[2024-07-10] MEDS: NovoLIN-R INSULIN PER UNIT CHARGE IV STA (02:04)
[2024-07-10] MEDS: VANCOMYCIN HCL 2,250 MG in SODIUM CHLORIDE 0.9% 500 ML IV ONE (02:06)
--- NOTE | 2024-07-10 02:15 | XRay Report ---
EXAM: XR finger(s) RT min 2V CLINICAL HISTORY: R 3rd digit felon, infection TECHNIQUE: X-ray images of the 3rd finger were obtained in AP, lateral, and oblique projections. COMPARISON: No prior studies available for comparison. FINDINGS: Bone Structure: Suspected focal osteopenia at the lateral aspect of the distal phalanx tip of the 3rd finger. Cortical irregularity with suspicion of incomplete radiolucent line noted at the distal phalanx. Noted in the lateral view only. Focal cortical thickening/smooth periosteal reaction is noted at the posterior part of the base of the middle phalanx of the third digit. Joint Spaces: Joint spaces are prreserved. No evidence of joint effusion or subluxation. Soft Tissues: Soft tissue thickening of the third digit is most conspicuous at the distal tuft. IMPRESSION: 1. Soft tissue thickening of the third finger, this most conspicuous at the distal part. 2. Suspected focal distal osteopenia, cortical irregularity, and linear lucency. Further evaluation by MRI may be considered. 3. Focal cortical thickening at the posterior mid phalanx of the third digit. Clinical correlation is advised. Disclaimer: A subtle bone abnormality or fracture may not be readily apparent on x-rays, thus clinical correlation and further imaging including follow up CT, MRI, or follow up x-rays are advised as needed. Electronically signed by Unique Mcdowell 07-10-2024 02:15 AM
--- NOTE | 2024-07-10 03:30 | History & Physical Report ---
Date of Service July 10, 2024 Assessment & Plan (1) Finger infection: Plan: 49-year-old female with past medical history significant for type 2 diabetes, hyperlipidemia, chronic kidney disease stage III, nocturnal hypoxemia, hypertension, reflux esophagitis, irritable bowel syndrome, urinary incontinence, nocturnal enuresis, history of necrobiosis lipoidica diabeticorum, degenerative disk disease, history of plantar warts, chronic bilateral low back pain, osteoarthritis, migraine, cervicalgia, prothrombin gene mutation - heterozygote, depression with anxiety, history of osteomyelitis and infections of the lower extremities comes because of right third finger infection. She was in the ER in [place] on 07/07/2024 for right third finger infection and after digital nerve block drainage was attempted and was discharged on Bactrim. But went back to [place] ER because of severe pain after the nerve block weaned off and repeat incision and drainage was performed and some pus was expressed and was discharged on oxycodone. But her infection is not getting better. The finger is more swollen and erythematous. Feeling hot. So she came back here today. Hemodynamics are okay. Denies any headache. No runny nose or sore throat. Has smoker's cough. Appetite is okay. Denies chest pain or shortness of breath. No nausea. No abdominal pain. Normal bowel and bladder movements. Patient says she is in between jobs and she has no insurance currently. She will get insurance in 2 weeks. And most of her medications ran out. And insulin she is taking only half the dose to get through this.. And yesterday she had a big wedding meal and she forgot to take her insulin. Sugars running high in the ER today. Right third finger infection Failed outpatient treatment with Bactrim History of MRSA IV Vanco and IV cefepime for now N.p.o. IV fluids Pain control ER notified Ortho and plan for I&D Will follow cultures Follow hemodynamics Follow repeat lactic acid Hyperglycemia Diabetes Currently no insurance Ran out of her p.o. medications She is taking only half the dose of her insulin. Says she is going to get insurance in 2 weeks Gave a dose of IV insulin 5 units Ordered 1 dose Lantus 20 units as she did not take her insulin yesterday Placed on Lantus 40 units daily as she is currently n.p.o. Sliding scale Glycemic pharmacy consult Close monitor sugars Follow HbA1c levels CKD stage III Presents with creatinine of 1.1 Will follow labs Hyperlipidemia On statin Hypertension on lisinopril Will monitor GERD On Protonix Depression with anxiety On Zoloft and trazodone DVT prophylaxis SCDs for now Disposition Medical floor Full code. History of Present Illness Chief Complaint: right third finger infection Primary Care Provider: Branid Dunne DO 49-year-old female with past medical history significant for type 2 diabetes, hyperlipidemia, chronic kidney disease stage III, nocturnal hypoxemia, hypertension, reflux esophagitis, irritable bowel syndrome, urinary incontinence, nocturnal enuresis, history of necrobiosis lipoidica diabeticorum, degenerative disk disease, history of plantar warts, chronic bilateral low back pain, osteoarthritis, migraine, cervicalgia, prothrombin gene mutation - heterozygote, depression with anxiety, history of osteomyelitis and infections of the lower extremities comes because of right third finger infection. She was in the ER in [place] on 07/07/2024 for right third finger infection and after digital nerve block drainage was attempted and was discharged on Bactrim. But went back to [place] ER because of severe pain after the nerve block weaned off and repeat incision and drainage was performed and some pus was expressed and was discharged on oxycodone. But her infection is not getting better. The finger is more swollen and erythematous. Feeling hot. So she came back here today. Hemodynamics are okay. Denies any headache. No runny nose or sore throat. Has smoker's cough. Appetite is okay. Denies chest pain or shortness of breath. No nausea. No abdominal pain. Normal bowel and bladder movements. Patient says she is in between jobs and she has no insurance currently. She will get insurance in 2 weeks. And most of her medications ran out. And insulin she is taking only half the dose to get through this.. And yesterday she had a big wedding meal and she forgot to take her insulin. Sugars running high in the ER today. Past medical history. As mentioned above. Past surgical history. 4 different knee surgeries for bilateral knees. Colonoscopy. EGD. Endometrial ablation. Insertion of IUD. Ligation of oviducts. Tonsillectomy. Left resection or transplant long tendon of biceps. Left shoulder arthroscopy. Social history. Smokes 0.5 pack a day for last 17 years. Alcohol occasional. No drug use. Family history. Mother has allergies. Mother has prothrombin gene but no h istory of thrombosis. Breast cancer. Son has muscular dystrophy. Paternal grandfather had diabetes. Aunt had lung cancer. Diabetes. Allergies Allergy/AdvReac Type Severity Reaction Status Date / Time baclofen Allergy Intermediate ITCHING, Verified 09/07/22 23:28 NAUSEA/VOMITING cyclobenzaprine Allergy Intermediate itching Verified 09/07/22 23:28 [From Flexeril] amoxicillin AdvReac Intermediate Vomiting Verified 09/07/22 23:28 bupropion AdvReac Intermediate PSYCHOTIC-P Verified 09/07/22 23:28 ARANOID morphine AdvReac Intermediate "GETS Verified 09/07/22 23:28 REALLY SICK" zolpidem [From Ambien] AdvReac Intermediate NIGHTMARES Verified 09/07/22 23:28 meperidine AdvReac Mild ITCHY Verified 09/07/22 23:28 lactose AdvReac Verified 09/08/22 12:57 Home Medications Medication Instructions Recorded Confirmed Type aspirin 81 mg tablet,delayed 81 mg PO DAILY 07/10/24 07/10/24 History release atorvastatin 40 mg tablet (Lipitor) 40 mg PO DAILY 07/10/24 07/10/24 History dulaglutide 3 mg/0.5 mL 3 mg subcut WK 07/10/24 07/10/24 History subcutaneous pen injector (Trulicity) empagliflozin 25 mg tablet 25 mg PO DAILY 07/10/24 07/10/24 History (Jardiance) famotidine 20 mg tablet 20 mg PO BID 07/10/24 07/10/24 History insulin aspart U-100 100 unit/mL 1 sliding scale dose subcut 07/10/24 07/10/24 History (3 mL) subcutaneous pen USEASDIRECTD insulin glargine 100 unit/mL 80 unit subcut DAILY 07/10/24 07/10/24 History subcutaneous solution (Lantus U-100 Insulin) lisinopril 5 mg tablet 5 mg PO DAILY 07/10/24 07/10/24 History metformin 500 mg tablet,extended 500 mg PO QID 07/10/24 07/10/24 History release 24 hr multivitamin 1 tab PO DAILY 07/10/24 07/10/24 History pantoprazole 40 mg tablet,delayed 40 mg PO DAILY 07/10/24 07/10/24 History release (Protonix) sertraline 100 mg tablet (Zoloft) 100 mg PO DAILY 07/10/24 07/10/24 History sulfamethoxazole 800 1 tab PO BID 07/10/24 07/10/24 History mg-trimethoprim 160 mg tablet (Bactrim DS) trazodone 100 mg tablet 100 mg PO HS 07/10/24 07/10/24 History Past Med/Surg History Problem List Finger infection Hyperglycemia (Acute) Pain of right middle finger (Acute) Failure of outpatient treatment (Acute) Felon of finger of right hand (Acute) Tendinitis of right rotator cuff Morbid obesity Osteomyelitis of foot Infection of right foot (Acute) Failure of outpatient treatment (Acute) Encounter for pre-operative examination Diabetic foot ulcer (Acute) Prothrombin gene mutation (Acute) Premenstrual dysphoric disorder (Acute) Obesity (Acute) Menorrhagia (Acute) Hypercholesterolemia (Acute) Diabetes mellitus (Acute) Cervical radiculopathy at C7 (Acute) Carpal tunnel syndrome, bilateral (Acute) Abnormal menses (Acute) Osteoarthritis of knees, bilateral Medical History Smoker Diabetes IDDM Osteoarthritis Depression Degenerative disc disease GERD (gastroesophageal reflux disease) Gastroparesis Prothrombin [id number] mutation History of migraine with aura History of gastric ulcer Surgical History History of tubal ligation History of shoulder surgery Lt History of esophagogastroduodenoscopy (EGD) History of colonoscopy History of tonsillectomy History of tooth extraction History of knee surgery BL Status post hysteroscopic ablation of endometrium History of ankle surgery Rt Family History Mother Diabetes Denies family history of Colon cancer Ovarian cancer Breast cancer Social History Smoking Status: Current every day smoker Tobacco Type: Cigarettes Cigarettes Per Day: 1/2 ppd; Second Hand Exposure: No; Do You Dip or Chew Tobacco: No; Tobacco Cessation Education Requested by Patient: No Hx Alcohol Use: Yes Alcohol type: wine and hard liquor Hx Substance Use: No Preferred Language: Occitan Communication Ability: Effective Hand Fabric Cutter Required: No Beliefs That Will Affect Care: None marital status: Current Living Situation: Family Current Living Situation Comment: fiance Other Information That Helps Us Care for You: No Feels Safe at Home: Yes Safety Concerns: Feels Safe At This Time Assistive Devices: None Review of Systems Review of Systems: All systems reviewed & are unremarkable except as noted in HPI & below Physical Exam Physical Exam: General-Not in distress Head- atraumatic Eyes- PERRL. ENT- oropharynx clear Neck- supple, no JVD. Lungs- clear to auscultation no wheezing or crackles. Heart- regular rate and rhythm; no murmur, no gallop. Abdomen- normal bowel sounds, soft, nontender, no distension Extremities- no pretibial edema, right third finger in dressing. Photos reviewed-right third finger distal part swollen and erythematous Neuro- alert, oriented PERRL,no facial palsy; no dysarthria; moves extremities Results & Data Results & Data Vital Signs (Past 12 Hours) Vital Signs Temp Pulse Pulse Resp BP BP Pulse Ox 07/10/24 02:44 84 L 07/10/24 02:01 68 18 151/75 H 97 07/10/24 01:18 80 07/10/24 00:03 36.7 C 87 16 175/78 H 96 O2 Del Method O2 Flow Rate 07/10/24 02:44 Nasal Cannula 0 07/10/24 02:01 07/10/24 01:18 07/10/24 00:03 Room Air Diagnostic Findings Laboratory Results WBC 8.63 K/ul (4.8-10.8) 07/10/24 01:00 RBC 4.92 M/uL (4.20-5.40) 07/10/24 01:00 Hgb 15.1 g/dl (12.0-16.0) 07/10/24 01:00 Hct 44.5 % (37.0-47.0) 07/10/24 01:00 MCV 90.4 fL (80.0-100.0) 07/10/24 01:00 MCH 30.7 pg (25.0-34.0) 07/10/24 01:00 MCHC 33.9 g/dL (32.0-36.0) 07/10/24 01:00 RDW Std Deviation 41.6 fL (36.4-46.3) 07/10/24 01:00 RDW Coeff of Shira 12.7 % (11.5-14.5) 07/10/24 01:00 Plt Count 248 K/uL (130-400) 07/10/24 01:00 MPV 10.6 fL (9.4-12.4) 07/10/24 01:00 Immature Gran % (Auto) 1.0 % 07/10/24 01:00 Neut % (Auto) 59.4 % 07/10/24 01:00 Lymph % (Auto) 28.0 % 07/10/24 01:00 [place] % (Auto) 7.8 % 07/10/24 01:00 Eos % (Auto) 2.9 % 07/10/24 01:00 Baso % (Auto) 0.9 % 07/10/24 01:00 Neut # (Auto) 5.12 K/uL (1.40-6.50) 07/10/24 01:00 Lymph # (Auto) 2.42 K/uL (1.20-3.40) 07/10/24 01:00 [place] # (Auto) 0.67 K/uL (0.11-0.59) H 07/10/24 01:00 Eos # (Auto) 0.25 K/uL (0.00-0.50) 07/10/24 01:00 Baso # (Auto) 0.08 K/uL (0.00-0.20) 07/10/24 01:00 Immature Gran # (Auto) 0.09 K/uL (0.01-0.20) 07/10/24 01:00 Sodium 130 mmol/L (136-145) L 07/10/24 01:00 Potassium 4.1 mmol/L (3.5-5.1) 07/10/24 01:00 Chloride 95 mmol/L (98-107) L 07/10/24 01:00 Carbon Dioxide 24 mmol/L (21-32) 07/10/24 01:00 Anion Gap 11 (3-11) 07/10/24 01:00 BUN 13 mg/dl (6-23) 07/10/24 01:00 Creatinine 1.12 mg/dl (0.6-1.2) 07/10/24 01:00 Est Cr Clr Drug Dosing 83.0 ml/min 07/10/24 01:00 eGFR 60.66 07/10/24 01:00 BUN/Creatinine Ratio 11.6 (10-20) 07/10/24 01:00 Glucose 518 mg/dl (70-99(Fasting)) H* 07/10/24 01:00 Lactate 3.8 mmol/L (0.4-2.0) H* 07/10/24 01:02 Calcium 9.2 mg/dl (8.6-10.3) 07/10/24 01:00 Total Bilirubin 0.4 mg/dl (0.2-1.0) 07/10/24 01:00 AST 13 U/L (13-39) 07/10/24 01:00 ALT 11 U/L (7-52) 07/10/24 01:00 Alkaline Phosphatase 141 U/L (34-104) H 07/10/24 01:00 Total Protein 6.7 gm/dl (6.0-8.3) 07/10/24 01:00 Albumin 3.8 gm/dl (3.4-5.0) 07/10/24 01:00 Globulin 2.9 gm/dl (2.5-4.0) 07/10/24 01:00 Albumin/Globulin Ratio 1.3 (0.9-2) 07/10/24 01:00 Procalcitonin 0.02 ng/ml (0-0.5) 07/10/24 01:00 Impressions Finger X-Ray 07/10/24 00:57 EXAM: XR finger(s) RT min 2V CLINICAL HISTORY: R 3rd digit felon, infection TECHNIQUE: X-ray images of the 3rd finger were obtained in AP, lateral, and oblique projections. COMPARISON: No prior studies available for comparison. FINDINGS: Bone Structure: Suspected focal osteopenia at the lateral aspect of the distal phalanx tip of the 3rd finger. Cortical irregularity with suspicion of incomplete radiolucent line noted at the distal phalanx. Noted in the lateral view only. Focal cortical thickening/smooth periosteal reaction is noted at the posterior part of the base of the middle phalanx of the third digit. Joint Spaces: Joint spaces are prreserved. No evidence of joint effusion or subluxation. Soft Tissues: Soft tissue thickening of the third digit is most conspicuous at the distal tuft. IMPRESSION: 1. Soft tissue thickening of the third finger, this most conspicuous at the distal part. 2. Suspected focal distal osteopenia, cortical irregularity, and linear lucency. Further evaluation by MRI may be considered. 3. Focal cortical thickening at the posterior mid phalanx of the third digit. Clinical correlation is advised. Disclaimer: A subtle bone abnormality or fracture may not be readily apparent on x-rays, thus clinical correlation and further imaging including follow up CT, MRI, or follow up x-rays are advised as needed. Electronically signed by Unique Mcdowell 07-10-2024 02:15 AM Code Status & VTE Plan VTE Prophylaxis Plan VTE Prophylaxis will be ordered: Yes
[2024-07-10] MEDS: NICOTINE 14 MG/24 HR PATCH TD STA (03:57)
[2024-07-10] MEDS: SODIUM CHLORIDE 0.9% 1,000 ML IV SCH (03:57)
[2024-07-10] MEDS: LANTUS PER UNIT CHARGE SQ STA ×2 (03:57→06:07)
[2024-07-10] MEDS ORDERED: GLUCOSE 40% GEL 15 GM TUBE PO PRN (05:11)
[2024-07-10] MEDS ORDERED: GLUCAGON FOR INJ 1 MG VIAL SQ PRN (05:11)
[2024-07-10] MEDS ORDERED: GLUCOSE 10 TAB/TUBE PO PRN (05:11)
[2024-07-10] MEDS ORDERED: POLYETHYLENE (MIRALAX) 17 GM PACK PO PRN (05:11)
[2024-07-10] MEDS ORDERED: HYDROmorphone INJ 0.5 MG/0.5 ML SYR IV PRN (05:11)
[2024-07-10] MEDS ORDERED: PHARMACY GLYCEMIC MGMT CONSULT PRN (05:11)
[2024-07-10] MEDS ORDERED: DEXTROSE 50% 50 ML SYRINGE IV PRN (05:11)
[2024-07-10] MEDS ORDERED: CARBOHYDRATES FOR HYPOGLYCEMIA PO PRN (05:11)
[2024-07-10] MEDS: HYDROmorphone INJ 0.5 MG/0.5 ML SYR IV PRN (05:34)
[2024-07-10] MEDS: INSULIN ASPART PER UNIT CHARGE SC SCH ×2 (06:08→12:22)
[2024-07-10] MEDS: CEFEPIME 2000MG 2,000 MG/20 ML SYR IV SCH (06:08)
[2024-07-10] MEDS: ACETAMINOPHEN 325 MG TAB PO PRN (06:45)
[2024-07-10 07:28] LABS: Basophils # (auto) 0.07 K/uL (0.00-0.20); Eosinophils % (auto) 2.8 %; Hematocrit (blood only) 39.8 % (37.0-47.0); Hemoglobin 13.7 g/dl (12.0-16.0); Immature Granulocytes # (auto) 0.05 K/uL (0.01-0.20); Immature Granulocytes % (auto) 0.7 %; Lymphocytes # (auto) 2.03 K/uL (1.20-3.40); Lymphocytes % (auto) 28.6 %; Mean Corpuscular Hemoglobin 31.1 pg (25.0-34.0); Mean Corpuscular Hgb Conc 34.4 g/dL (32.0-36.0); Mean Corpuscular Volume 90.5 fL (80.0-100.0); Mean Platelet Volume 10.1 fL (9.4-12.4); Monocytes # (auto) 0.71 K/uL (0.11-0.59); Neutrophils # (auto) 4.05 K/uL (1.40-6.50); Neutrophils % (auto) 56.9 %; Platelet Count 217 K/uL (130-400); RDW Coefficient of Variation 12.5 % (11.5-14.5); RDW Standard Deviation 41.4 fL (36.4-46.3); White Blood Count 7.11 K/ul (4.8-10.8)
[2024-07-10] MEDS: MULTIVITAMIN TAB PO SCH (07:32)
[2024-07-10] MEDS: ATORVASTATIN 40 MG TAB PO SCH (07:32)
[2024-07-10] MEDS: PANTOprazole 40 MG TAB PO SCH (07:32)
[2024-07-10] MEDS: SERTRALINE HCL 100 MG TABLET PO SCH (07:33)
[2024-07-10] MEDS: ASPIRIN 81 MG ECTAB PO SCH (07:33)
[2024-07-10] MEDS: NICOTINE 14 MG/24 HR PATCH TD SCH (07:33)
[2024-07-10] MEDS: lisinopril 5 MG TAB PO SCH (07:33)
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
[2024-07-10] MEDS ORDERED: PROPOFOL IV EMULSION 10 MG/ML 20 ML VIAL IV ONE ×2 (07:42→08:45)
[2024-07-10] MEDS ORDERED: fentaNYL citrate PF 100 MCG/2 ML VIAL ONE ×2 (07:42→08:45)
[2024-07-10] MEDS ORDERED: ONDANSETRON INJ 2 MG/ML 2 ML VIAL ONE (07:42)
[2024-07-10] MEDS ORDERED: MIDAZOLAM HCL 1 MG/ML 2ML VIAL ONE ×2 (07:42→08:45)
[2024-07-10] MEDS ORDERED: LIDOCAINE 2% 2 ML VIAL/AMP(20MG/ML) INFIL ONE (07:42)
[2024-07-10] MEDS ORDERED: CISATRACURIUM BESYLATE IV SOLN 2 MG/ML 10 ML VIAL IV ONE (07:42)
[2024-07-10] MEDS ORDERED: SUCCINYLCHOLINE 100MG/5ML SYR IV ONE (07:42)
[2024-07-10 07:50] LABS: BUN Creatinine Ratio 17.7 (10-20); Magnesium 1.7 mg/dl (1.7-2.4); Potassium 3.6 mmol/L (3.5-5.1)
--- NOTE | 2024-07-10 07:50 | Hospitalist Progress Note ---
Date of Service July 10, 2024 Assessment & Plan (1) Felon of finger of right hand: Plan: Patient admitted on 07/10/24 for right 3rd digit felon that failed outpatient trial with Bactrim and I&D on 07/08/24 at [facility]. No leukocytosis and lactate had normalized during the night. Was initially treated with IVF, cefepime, vancomycin Ortho consult Post op day# 0 S/P I&D by Dr Cristina Surgical wound cultures pending Continue Cefepime and vancomycin for now Wound management per ortho Pain control with Tylenol, oxycodone, Dilaudid prn (2) Uncontrolled type 2 diabetes mellitus with hyperglycemia: Plan: A1c: 15.9 glucose: 248 this morning labs Hold home oral agents Basal bolus insulin. Appreciate glycemic pharmacist managing Per outpatient [facility] ER note pt had reported limited supply of her insulin at home. Will need to further discuss with pt when more awake (3) CKD (chronic kidney disease), stage III: Plan: Cr: 0.6. Baseline Cr: 0.8-0.9 Monitor renal functions (4) HTN (hypertension): Plan: BP soft after morning lisinopril and anesthesia BP 92/55. Was rechecked one hour later and 100/62 reported by nurse Give NSS 500ml bolus Hold home lisinopril and reassess BP tomorrow (5) HLD (hyperlipidemia): Plan: Continue atorvastatin (6) GERD (gastroesophageal reflux disease): (7) Gastroparesis: Plan: Continue PPI (8) Depression: Plan: Continue sertraline DVT Prophylaxis SCDs for now Admitted med surg Disposition. Wound cultures pending. Possible discharge home in next 1-2 days PCP: Dr Dunne Pt was seen and care coordinated with Dr Mtz. See addendum I spent a total of 35 minutes reviewing notes, outpatient records, labs, m edication, coordinating, documenting and providing care for this patient excluding time spent in the performance of separately billed services and excluding time spent by another provider/QHP. Admission and Anticipated Discharge Date Admission Date: July 10, 2024 Supervising Physician Co-Signing Physician Notes Patient seen and examined independently. Discussed with provider. Patient underwent I&D of the abscess; no involvement of the bone Gram stain is showing many gram-positive bacilli Continue on current antibiotics; follow-up on final culture results I have reviewed the advanced practitioner's documentation, and I agree with, and take responsibility for the plan of care I spent a total of15 minutes coordinating, documenting, and providing care for this patient excluding time spent in the performance of separately billed services. All of the aforementioned completed while collaborating with the assigned advanced practitioner for a full treatment plan Subjective Patient admitted overnight for right 3rd digit felon. Per outpatient Jessica chart review pt seen at [facility] on 07/07/24 for right 3rd distal finger edema and pain and digital block performed and I&D attempted without reported discharge. Patient re-prestented to [facility] several hours after first visit on 07/08/2024 and per note POCUS performed showing normal loculations in the finger. Repeat I &D performed with reported expression of purulent drainage. Patient is on Bactrim. Patient had reported a cat scratch several weeks ago, otherwise denies any known injury. Since that time patient had continued worsening edema and pain. This morning was seen by ortho and taken to OR for I&D of right 3rd digit. Patient seen and examined in room 315-1. She has just recently returned to room post-op and is sleeping but arousable. Currently patient states unable to tell if any pain in finger yet. Sipped on some water without reported nausea or vomiting. Denies CP, SOB, abdominal pain. Review of Systems Review of Systems: All systems reviewed & are unremarkable except as noted in HPI & below Physical Exam Physical Exam: General: +currently sleeping, dose arouse to voice and light touch. Currently no distress or pain, obese female Head: normocephalic, atraumatic Eyes: conjunctiva non-injected, anicteric ENT: normal inspection external ears, nose, mucous membranes moist Neck: supple, trachea midline Lungs: clear, no respiratory distress, no wheezing/rhonchi/rales CV: RRR, no murmur, no pretibial edema Abd: normal BS, soft, non-tender Ext: no cyanosis, no calf tenderness; Right hand: +surgical dressing on right 3rd finger is dry and intact, remaining finger and hand is with normal appearance Neuro: +currently sleeping, dose arouse to voice and light touch and is O x 3, no focal deficits noted, normal affect Skin: warm, dry Results & Data Results & Data Vital Signs (Past 12 Hours) Vital Signs Temp Pulse Pulse Pulse Resp BP BP 07/10/24 05:14 36.5 C 71 18 134/85 07/10/24 04:59 07/10/24 04:58 65 16 124/74 07/10/24 04:00 66 16 138/71 07/10/24 03:28 66 16 149/77 H 07/10/24 02:44 07/10/24 02:01 68 18 151/75 H 07/10/24 01:18 80 07/10/24 00:03 36.7 C 87 16 175/78 H Pulse Ox O2 Del Method O2 Flow Rate 07/10/24 05:14 94 Room Air 07/10/24 04:59 Room Air 07/10/24 04:58 91 Nasal Cannula 2 07/10/24 04:00 95 Nasal Cannula 2 07/10/24 03:28 94 Nasal Cannula 2 07/10/24 02:44 84 L Nasal Cannula 0 07/10/24 02:01 97 07/10/24 01:18 07/10/24 00:03 96 Room Air Laboratory Results Short CBC 07/10/24 07/10/24 Range/Units 01:00 07:12 WBC 8.63 7.11 (4.8-10.8) K/ul Hgb 15.1 13.7 (12.0-16.0) g/dl Hct 44.5 39.8 (37.0-47.0) % Plt Count 248 217 (130-400) K/uL BMP 07/10/24 07/10/24 01:00 07:12 Sodium 130 L 135 L Potassium 4.1 3.6 Chloride 95 L 104 Carbon Dioxide 24 27 BUN 13 11 Creatinine 1.12 0.62 D Glucose 518 H* 248 H Calcium 9.2 8.0 L Liver Function 07/10/24 Range/Units 01:00 Total Bilirubin 0.4 (0.2-1.0) mg/dl AST 13 (13-39) U/L ALT 11 (7-52) U/L Alkaline Phosphatase 141 H (34-104) U/L Albumin 3.8 (3.4-5.0) gm/dl Diagnostic Findings Finger X-Ray 07/10/24 00:57 EXAM: XR finger(s) RT min 2V CLINICAL HISTORY: R 3rd digit felon, infection TECHNIQUE: X-ray images of the 3rd finger were obtained in AP, lateral, and oblique projections. COMPARISON: No prior studies available for comparison. FINDINGS: Bone Structure: Suspected focal osteopenia at the lateral aspect of the distal phalanx tip of the 3rd finger. Cortical irregularity with suspicion of incomplete radiolucent line noted at the distal phalanx. Noted in the lateral view only. Focal cortical thickening/smooth periosteal reaction is noted at the posterior part of the base of the middle phalanx of the third digit. Joint Spaces: Joint spaces are prreserved. No evidence of joint effusion or subluxation. Soft Tissues: Soft tissue thickening of the third digit is most conspicuous at the distal tuft. IMPRESSION: 1. Soft tissue thickening of the third finger, this most conspicuous at the distal part. 2. Suspected focal distal osteopenia, cortical irregularity, and linear lucency. Further evaluation by MRI may be considered. 3. Focal cortical thickening at the posterior mid phalanx of the third digit. Clinical correlation is advised. Disclaimer: A subtle bone abnormality or fracture may not be readily apparent on x-rays, thus clinical correlation and further imaging including follow up CT, MRI, or follow up x-rays are advised as needed. Electronically signed by Unique Mcdowell 07-10-2024 02:15 AM
--- NOTE | 2024-07-10 07:52 | Anesthesiology Consultation ---
Date of Service July 10, 2024 Assessment & Plan Chart Review Chart Review: Acceptable Risk for Surgery and Patient NOT seen in Pre Admission Testing Consults Requested none ASA ASA3 Proposed Anesthesia Anesthesia Type: General History Surgery Operation Date: 07/10/24 09:00 Proposed Procedures p Incision and drainage right finger abscess(Right) - Clay Cristina MD Height/Weight Height: 5 ft 10 in Weight: 112.7 kg Allergies Allergy/AdvReac Type Severity Reaction Status Date / Time baclofen Allergy Intermediate ITCHING, Verified 09/07/22 23:28 NAUSEA/VOMITING cyclobenzaprine Allergy Intermediate itching Verified 09/07/22 23:28 [From Flexeril] amoxicillin AdvReac Intermediate Vomiting Verified 09/07/22 23:28 bupropion AdvReac Intermediate PSYCHOTIC-P Verified 09/07/22 23:28 ARANOID morphine AdvReac Intermediate "GETS Verified 09/07/22 23:28 REALLY SICK" zolpidem [From Ambien] AdvReac Intermediate NIGHTMARES Verified 09/07/22 23:28 meperidine AdvReac Mild ITCHY Verified 09/07/22 23:28 lactose AdvReac Verified 09/08/22 12:57 Medications Home Medications Medication Instructions Recorded Confirmed Last Taken aspirin 81 mg tablet,delayed 81 mg PO DAILY 07/10/24 07/10/24 Unknown release atorvastatin 40 mg tablet (Lipitor) 40 mg PO DAILY 07/10/24 07/10/24 Unknown dulaglutide 3 mg/0.5 mL 3 mg subcut WK 07/10/24 07/10/24 Unknown subcutaneous pen injector (Trulicity) empagliflozin 25 mg tablet 25 mg PO DAILY 07/10/24 07/10/24 Unknown (Jardiance) famotidine 20 mg tablet 20 mg PO BID 07/10/24 07/10/24 Unknown insulin aspart U-100 100 unit/mL 1 sliding scale dose subcut 07/10/24 07/10/24 Unknown (3 mL) subcutaneous pen USEASDIRECTD insulin glargine 100 unit/mL 80 unit subcut DAILY 07/10/24 07/10/24 Unknown subcutaneous solution (Lantus U-100 Insulin) lisinopril 5 mg tablet 5 mg PO DAILY 07/10/24 07/10/24 Unknown metformin 500 mg tablet,extended 500 mg PO QID 07/10/24 07/10/24 Unknown release 24 hr multivitamin 1 tab PO DAILY 07/10/24 07/10/24 Unknown pantoprazole 40 mg tablet,delayed 40 mg PO DAILY 07/10/24 07/10/24 Unknown release (Protonix) sertraline 100 mg tablet (Zoloft) 100 mg PO DAILY 07/10/24 07/10/24 Unknown sulfamethoxazole 800 1 tab PO BID 07/10/24 07/10/24 Unknown mg-trimethoprim 160 mg tablet (Bactrim DS) trazodone 100 mg tablet 100 mg PO HS 07/10/24 07/10/24 Unknown Active Medications Generic Name Dose Route Start Last Admin Trade Name Freq PRN Reason Stop Dose Admin Acetaminophen 650 mg 07/10/24 05:11 07/10/24 06:45 Acetaminophen 325 Mg Tab PO 08/09/24 05:10 650 mg Q4H PRN Administration pain/fever Aspirin 81 mg 07/10/24 09:00 07/10/24 07:33 Aspirin 81 Mg Ectab PO 08/09/24 08:59 81 mg DAILY ZACK Administration Atorvastatin Calcium 40 mg 07/10/24 09:00 07/10/24 07:32 Atorvastatin 40 Mg Tab PO 08/09/24 08:59 40 mg DAILY ZACK Administration Hydromorphone HCl 0.5 mg 07/10/24 05:11 07/10/24 05:34 Hydromorphone Inj 0.5 Mg/0.5 Ml Syr IV 07/24/24 05:10 0.5 mg Q4H PRN Administration Severe Pain (Scale 7, 8, 9,10) Sodium Chloride 1,000 mls @ 125 mls/hr 07/10/24 03:30 07/10/24 03:57 Nss IV 07/11/24 03:29 125 mls/hr .Q8H ZACK Administration Cefepime HCl 2,000 mg in 20 mls @ 5 mls/min 07/10/24 06:00 07/10/24 06:08 Maxipime 2000mg IV 07/17/24 05:10 5 mls/min Q8H ZACK Administration Protocol Insulin Aspart 0 units 07/10/24 06:00 07/10/24 06:08 Insulin Aspart Per Unit Charge SC 08/09/24 05:59 7 units Q6 ZACK Administration Lisinopril 5 mg 07/10/24 09:00 07/10/24 07:33 Lisinopril 5 Mg Tab PO 08/09/24 08:59 5 mg DAILY ZACK Administration Miscellaneous 1 each 07/10/24 08:59 07/10/24 07:32 Remove Nicoderm Patch N/A 08/09/24 08:58 1 each DAILY@0859 ZACK Administration Multivitamins 1 tab 07/10/24 09:00 07/10/24 07:32 Multivitamin Tab PO 08/09/24 08:59 1 tab DAILY ZACK Administration Nicotine 1 patch 07/10/24 09:00 07/10/24 07:33 Nicotine 14 Mg/24 Hr Patch TD 08/09/24 08:59 1 patch QAM ZACK Administration Pantoprazole Sodium 40 mg 07/10/24 09:00 07/10/24 07:32 Pantoprazole 40 Mg Tab PO 08/09/24 08:59 40 mg DAILY ZACK Administration Sertraline HCl 100 mg 07/10/24 09:00 07/10/24 07:33 Sertraline Hcl 100 Mg Tablet PO 08/09/24 08:59 100 mg DAILY ZACK Administration Past Medical History Medical History Smoker Diabetes IDDM Osteoarthritis Depression Degenerative disc disease GERD (gastroesophageal reflux disease) Gastroparesis 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 History of migraine with aura History of gastric ulcer morbid obesity hyponatremia HLD HTN CKD3 ANATOLY/nocturnal hypoxemia Bronchitis CHI/concussion cervical radiculopathy Exercise / Class Metabolic Activity III < 4 Walking/Shop/Light housework Past Family History Family History Mother Diabetes Denies family history of Colon cancer Ovarian cancer Breast cancer Past Surgical History Surgical History History of tubal ligation History of shoulder surgery Lt History of esophagogastroduodenoscopy (EGD) History of colonoscopy History of tonsillectomy History of tooth extraction History of knee surgery BL Status post hysteroscopic ablation of endometrium History of ankle surgery Rt Past Anesthesia History No Hx of Anesthesia Complications and No Family Hx of Anesthesia Complications History of PONV No Hx of PONV and No Hx of Motion Sickness Social History Smoking Status: Current every day smoker tobacco type: cigarettes Smoking cigarettes per day: 1/2 ppd Do You Dip or Chew Tobacco: No Hx Alcohol Use: Yes Alcohol type: wine and hard liquor alcohol intake frequency: holidays/special occasions only Hx Substance Use: No substance use type: does not use Physical Exam Vital Signs Last Vital Signs Temp 36.5 C 07/10/24 05:14 Pulse 71 07/10/24 05:14 Resp 18 07/10/24 05:14 BP 134/85 07/10/24 05:14 Pulse Ox 94 07/10/24 05:14 O2 Del Method Room Air 07/10/24 05:14 O2 Flow Rate 2 07/10/24 04:58 Testing Laboratory Results 07/10/24 07:12 07/10/24 07/10/24 05:20 03:50 POC Glucose 270 H 291 H Electrocardiogram Date: 02/02/23 Findings: + NSR @ (@ 93)
[2024-07-10] MEDS ORDERED: ePHEDrine sulfate 50 MG/ML AMP ONE (08:01)
[2024-07-10] MEDS ORDERED: SUCCINYLCHOLINE CHLORIDE 20 MG/ML 10 ML VIAL IV ONE (08:01)
[2024-07-10] MEDS ORDERED: PROMETHAZINE HCL 6.25 MG in SODIUM CHLORIDE 0.9% 50 ML IV PRN (08:21)
[2024-07-10] MEDS ORDERED: ONDANSETRON INJ 2 MG/ML 2 ML VIAL IV PRN (08:21)
[2024-07-10] MEDS ORDERED: NALOXONE HCL 0.4 MG/1 ML VIAL/CARP IV PRN ×2 (08:21→10:11)
[2024-07-10] MEDS ORDERED: fentaNYL citrate PF 100 MCG/2 ML VIAL IV PRN (08:21)
[2024-07-10] MEDS ORDERED: ePHEDrine sulfate 50 MG/ML AMP IV PRN (08:21)
[2024-07-10] MEDS ORDERED: ATROPINE SULFATE 0.1 MG/ML 10ML SYR IV PRN (08:21)
[2024-07-10] MEDS ORDERED: FLUMAZENIL 0.1 MG/1 ML 10 ML VIAL IV PRN (08:21)
[2024-07-10] MEDS: BUPIVACAINE 0.5 % 5 MG/1 ML MPF 30ML VIAL ONE (08:35)
[2024-07-10] MEDS: LIDOCAINE 1% LOCAL 20 ML VIAL ONE (08:35)
--- NOTE | 2024-07-10 09:11 | Operative Report ---
PG Post Operative Report Pre & Post Diagnosis Operation Date: 07/10/24 08:30 Pre-Op Diagnosis: RIGHT THIRD FINGER INFECTION/felon Post-Op Diagnosis: RIGHT THIRD FINGER INFECTION/felon I identified the patient and participated in the time-out.: Yes Procedure Operation Date: 07/10/24 08:30 Actual Procedures p Incision and drainage right middle finger abscess(Right) - Clay Cristina MD Surgeon Clay Cristina MD [employer] Operator Robert Hernandez PA-C Estimated Blood Loss 2 Findings Consistent with Post-Op Diagnosis Specimens Cultures from right long finger felon x 2 Anesthesia Type Local Complications none Disposition Accompanied Patient To Recovery: No Indications Patient is a 49-year-old [id number] long-term poorly controlled diabetic who said a week history of right long finger pain discomfort swelling. She was seen at [facility] ER on 2 separate occasions for attempted irrigation through the ER. She continued to have progressive symptoms and was admitted through the hospital last night. She is obviously developed a felon of the long finger. There is no signs of infected tenosynovitis. No signs of bone destruction. The patient indicated for formal irrigation debridement. There was obvious pus in the pulp. Description of Procedure The patient was taken the op room, identified, placed on the operating table in the supine position. All contact areas were appropriately padded. IV antibiotics have been provided preoperatively through the medicine service. She did not need any additional antibiotics. A right forearm tourniquet was placed. The right hand was cleaned with alcohol. Some IV sedation was provided and a digital block was performed with a 50-50 combination of half percent plain Marcaine and 1% plain lidocaine. The right hand and finger were then prepped and draped in usual sterile fashion. The right hand was elevated and exsanguinated with use of an Esmarch and a turn was placed at 250 mmHg. A curvilinear incision was made over the side of the long finger. We did make this on the thenar side due to the history of the previous incision made in this area. I did extend this proximally to the flexor crease of the DIP joint and distally over the tip of the finger. We incised this directly down to the bone. I opened this up with some scissors and opened up all the septae. There was gross pus and we did cultures of this x 2. There were sent off for stat Gram stain, aerobic, and anaerobic cultures. We then spent some time irrigating this with a bulb syringe. Once it was cleaned I did so a Crystal drain into the wound to keep it open. The tourniquet was let down for turn time 13 minutes. Hemostasis surges electrocautery. I then addressed the finger with Xeroform, 1 inch Charli wrap, and Coban wrap. The patient was then transferred to the recovery room in stable condition. The patient tolerated procedure well and there were no complications. There was no signs of extension of this infection more proximally into the flexor sheath. No signs of bone destruction. Robert Hernandez, my physician orthotics assistant, was present for the entire procedure. His assistance was required for proper patient positioning, prepping and draping, surgical exposure, retraction, perform the technical details of the operation, closure of the incision site and placement of sterile bandage. I attest to the content of the Intraoperative Record and any orders documented therein. Any exceptions are noted below.
[2024-07-10] MEDS: FAMOTIDINE 20 MG TAB PO SCH (09:12)
[2024-07-10 09:32] LABS: Estimated Average Glucose 410 mg/dl; Hemoglobin A1C 15.9 % (4.5-5.6)
--- NOTE | 2024-07-10 09:45 | Anesthesiology Progress Note ---
Date of Service July 10, 2024 Anesthesia Post Procedure Vital Signs Vital Signs: Temp Pulse Pulse Pulse Resp BP BP 07/10/24 09:25 65 13 108/63 07/10/24 09:15 70 15 116/60 07/10/24 09:09 36 C L 71 12 114/62 07/10/24 09:09 07/10/24 08:00 07/10/24 05:14 36.5 C 71 18 134/85 07/10/24 04:59 07/10/24 04:58 65 16 124/74 07/10/24 04:00 66 16 138/71 07/10/24 03:28 66 16 149/77 H 07/10/24 02:44 07/10/24 02:01 68 18 151/75 H 07/10/24 01:18 80 07/10/24 00:03 36.7 C 87 16 175/78 H Pulse Ox O2 Del Method O2 Flow Rate 07/10/24 09:25 95 Oxymask 3 07/10/24 09:15 95 Oxymask 6 07/10/24 09:09 95 Oxymask 6 07/10/24 09:09 Oxymask 6 07/10/24 08:00 Room Air 07/10/24 05:14 94 Room Air 07/10/24 04:59 Room Air 07/10/24 04:58 91 Nasal Cannula 2 07/10/24 04:00 95 Nasal Cannula 2 07/10/24 03:28 94 Nasal Cannula 2 07/10/24 02:44 84 L Nasal Cannula 0 07/10/24 02:01 97 07/10/24 01:18 07/10/24 00:03 96 Room Air Pain Intensity Right 3rd Digit Finger: Pain Intensity: 2 Transfer of Care Handoff Completed per policy Notes Mental Status: alert / awake / arousable Patient Amnestic to Procedure: Yes Nausea / Vomiting: adequately controlled Pain: adequately controlled Airway Patency, RR, SpO2: stable & adequate BP & HR: stable & adequate Hydration State: stable & adequate Anesthetic Complications: no major complications apparent
[2024-07-10] MEDS ORDERED: MAGNESIUM HYDROXIDE SUSP 30 ML UDC PO PRN (10:11)
[2024-07-10] MEDS ORDERED: bisacodyL 10 MG SUPP PR PRN (10:11)
--- NOTE | 2024-07-10 11:59 | Pharmacy Report ---
Pharmacy PK ABX Note - Date of Service July 10, 2024 - Assessment and Plan Assessment 49 year old F receiving vancomycin and cefepime for treatment of finger abscess. Failed outpatient Bactrim. Blood cultures pending. Finger cultures pending. SCr back to baseline today. Day #1 of antimicrobial therapy. Plan Vancomycin * Loading dose: 2250 mg IV x 1 * Maintenance dose: 1500 mg IV every 12 hours * Regimen is predicted to achieve target AUC/LAILA of 400-600 mg/L.hr * Will obtain a level if therapy continued beyond 48h. Pharmacy will continue to follow and will adjust dose/frequency as necessary. Thank you. Pharmacy has transitioned to AUC monitoring for vancomycin. AUC/LAILA is the preferred PK/PD target and is associated with decreased risk of nephrotoxicity compared to traditional trough targets.
[2024-07-10] MEDS: VANCOMYCIN HCL 1,500 MG in SODIUM CHLORIDE 0.9% 500 ML IV SCH (12:56)
[2024-07-10] MEDS: ONDANSETRON INJ 2 MG/ML 2 ML VIAL IV PRN (12:58)
--- NOTE | 2024-07-10 14:19 | Pharmacy Report ---
Pharmacy Glycemic Short Note 2 - Date of Service July 10, 2024 - Glycemic Short BSG Results (Last 24 hours): 07/10/24 07/10/24 07/10/24 01:00 03:50 05:20 Glucose 518 H* POC Glucose 291 H 270 H 07/10/24 07/10/24 07/10/24 07:12 09:15 11:18 Glucose 248 H POC Glucose 162 H 150 H OUTPATIENT ANTIDIABETIC REGIMEN: * trulicity 3 mg SQ weekly, jardiance 25 mg daily, Lantus 80 units daily, novolog SSI, metformin 500 mg bid ASSESSMENT: * 49 year old admitted with finger infection. Pharmacy consulted for glycemic management. Type 2 diabetic - per provider notes, patient running out of medi cations d/t insurance issues. Recently only taking 1/2 of her insulin doses. * BSGs elevated overnight >500 on lab draw, receive IV insulin bolus, Lantus 40 units in addition to novolog SQ insulin - BSGs trending down to 160s * Was NPO this AM, now started on clears diet. Unclear what insulin needs will be, therefore will have scale for some extra Lantus at HS time if BSGs trend back upward PLAN FOR INPATIENT GLYCEMIC CONTROL: * Hold outpatient oral diabetes medications * Basal insulin * Lantus 40 units x 1 this AM * Lantus 0-15 units HS * Bolus insulin * NovoLog per scale ACHS or Q6hrs while NPO * Goal Range: Low 110 mg/dL - High 140 mg/dL * Correction Factor: 15 mg/dL/unit * Nutritional / Prandial insulin per carb ratio of 1 unit per 5 grams CHO consumed
[2024-07-10] MEDS: SODIUM CHLORIDE 0.9% 500 ML IV ONE ×2 (15:16→15:19)
[2024-07-10] MEDS ORDERED: VANCOMYCIN HCL 1,250 MG in SODIUM CHLORIDE 0.9% 250 ML IV SCH (16:00)
[2024-07-10] MEDS: POTASSIUM CHLORIDE CRTAB 20 MEQ TABCR PO ONE (16:08)
[2024-07-10] MEDS: oxyCODONE HCL IR 5 MG TAB (IMMEDIATE RELEASE) PO PRN (17:06)
[2024-07-10] MEDS: METOCLOPRAMIDE HCL INJ 5 MG/ML 2 ML VIAL IV PRN (17:06)
[2024-07-10] MEDS: LANTUS PER UNIT CHARGE SQ SCH (20:45)
[2024-07-10] MEDS: SENNA 8.6 MG TAB PO SCH (20:47)
[2024-07-10] MEDS: traZODone HCL 100 MG TAB PO SCH (20:47)
[2024-07-10] MEDS: DOCUSATE SODIUM 100 MG CAP PO SCH (20:49)
[2024-07-11] MEDS: INSULIN ASPART PER UNIT CHARGE SC SCH
[2024-07-11 06:32] LABS: Hematocrit (blood only) 38.3 % (37.0-47.0); Hemoglobin 12.9 g/dl (12.0-16.0); Mean Corpuscular Hemoglobin 30.6 pg (25.0-34.0); Mean Corpuscular Hgb Conc 33.7 g/dL (32.0-36.0); Mean Corpuscular Volume 90.8 fL (80.0-100.0); Mean Platelet Volume 10.5 fL (9.4-12.4); Platelet Count 208 K/uL (130-400); RDW Coefficient of Variation 12.8 % (11.5-14.5); RDW Standard Deviation 41.8 fL (36.4-46.3); Red Blood Count 4.22 M/uL (4.20-5.40)
[2024-07-11 06:34] LABS: BUN Creatinine Ratio 13.7 (10-20); Calcium 8.3 mg/dl (8.6-10.3); Creatinine Clr Calc Pharmacy 183.5 ml/min; Potassium 3.8 mmol/L (3.5-5.1)
--- NOTE | 2024-07-11 07:37 | Orthopedic Progress Note ---
Date of Service July 11, 2024 Assessment & Plan (1) Finger infection: Plan: 49-year-old female postop day 1 from irrigation debridement of a right long finger felon infection and a poorly controlled diabetic. Seems to be somewhat improved. The cultures are pending but the Gram stain showing many gram- positive bacilli. Plan: The plan today is to remove the dressing and start soaks. Will remove the dressing and soak this for 15 minutes 3 times a day and a one third combination of Betadine, normal saline, hydrogen peroxide. There is a drain in place and we will leave that in for today. Will likely remove that in a day or 2. Drains just to keep the wound open. She is going to need IV antibiotics for a period of time. Would recommend infectious disease consult to make sure she is on the appropriate antibiotics. Otherwise, medical management first move the medicine service. Poorly controlled diabetes which should certainly be under better control. to see how she responds to the IV antibiotics and wound care as far as discharge plans. She is going need to be in the hospital likely for couple days. (2) CKD (chronic kidney disease), stage III: (3) HTN (hypertension): (4) HLD (hyperlipidemia): Admission and Anticipated Discharge Date Admission Date: July 10, 2024 Subjective 49-year-old female with poorly controlled diabetes now postop day 1 from a irrigation debridement of a right long finger felon. She is doing a bit better today. Still sore but seems to be improved. No new complaints. Physical Exam Physical Exam: Physical exam shows a pleasant middle-age female. I had to wake her this morning. Examination of the finger reveals a dressing in place. No significant drainage. Neurovascular exams limited due to the dressing. Results & Data Vital Signs (Past 12 Hours) Vital Signs Temp Pulse Resp BP Pulse Ox O2 Del Method 07/11/24 03:00 36.9 C 68 18 112/66 94 Room Air 07/10/24 23:10 36.8 C 75 16 150/84 H 96 Room Air Laboratory Results Cultures from the OR are pending. The Gram stain on both the specimen suggest significant gram-positive bacilli.
[2024-07-11] MEDS: LANTUS PER UNIT CHARGE SC SCH ×2 (08:19→21:18)
--- NOTE | 2024-07-11 08:58 | Pharmacy Report ---
Pharmacy Glycemic Short Note 2 - Date of Service July 11, 2024 - Glycemic Short BSG Results (Last 24 hours): 07/10/24 07/10/24 07/10/24 09:15 11:18 16:43 Glucose POC Glucose 162 H 150 H 148 H 07/10/24 07/10/24 07/11/24 20:28 23:56 05:46 Glucose 99 POC Glucose 283 H 160 H 07/11/24 07:59 Glucose POC Glucose 131 H OUTPATIENT ANTIDIABETIC REGIMEN: * Trulicity 3 mg SC weekly * Jardiance 25 mg PO daily * Lantus 80 units SC daily * Novolog SSI * Metformin 500 mg PO bid HbA1c: 15.9% (07/10/24) ASSESSMENT: 07/11: * Ynes received 84 units of insulin yesterday, 55 of which were basal. BSGs were: [phone] mg/dL. * Ordered and tolerating a T2DM diet now. Remains on Vancomycin and Cefepime. * Fasting BSG controlled at 131 mg/dL this AM. Will give 40 units of basal in the morning. Going to add an HS basal scale as well pending BSGs. During previous admissions, patient has required up to 100 units of basal per day. * No changes to Novolog regimen at this time. 07/10: * 49 year old admitted with finger infection. Pharmacy consulted for glycemic management. Type 2 diabetic - per provider notes, patient running out of medications d/t insurance issues. Recently only taking 1/2 of her insulin doses. * BSGs elevated overnight >500 on lab draw, receive IV insulin bolus, Lantus 40 units in addition to novolog SQ insulin - BSGs trending down to 160s * Was NPO this AM, now started on clears diet. Unclear what insulin needs will be, therefore will have scale for some extra Lantus at HS time if BSGs trend back upward PLAN FOR INPATIENT GLYCEMIC CONTROL: * Hold outpatient oral diabetes medications * Basal insulin * Lantus 40 units SC AM * Lantus 0-20 units SC HS (see eMAR for more details) * Bolus insulin * NovoLog per scale ACHS or Q6hrs while NPO * Goal Range: Low 110 mg/dL - High 140 mg/dL * Correction Factor: 15 mg/dL/unit * Nutritional / Prandial insulin per carb ratio of 1 unit per 5 grams CHO consumed
--- NOTE | 2024-07-11 09:41 | Hospitalist Progress Note ---
Date of Service July 11, 2024 Assessment & Plan (1) Felon of finger of right hand: Plan: Patient admitted on 07/10/24 for right 3rd digit felon that failed outpatient trial with Bactrim and [place] on 07/08/24 [place] [facility] No leukocytosis and lactate had normalized during the night. Was initially treated with IVF, cefepime, vancomycin Ortho consult Post op day# 1 S/P I&D by Dr Cristina Surgical wound cultures pending but so far growing many gram negative bacilli Continue Cefepime and vancomycin for now Wound management per ortho Pain control with Tylenol, oxycodone, Dilaudid prn await would culture results for definitive antibiotic management (2) Uncontrolled type 2 diabetes mellitus with hyperglycemia: Plan: A1c: 15.9 glucose: 143 this morning labs Hold home oral agents Basal bolus insulin. Appreciate glycemic pharmacist managing Per outpatient [facility] ER note pt had reported limited supply of her insulin at home. Will need to discuss insulin discharge plan to ensure compliance will consult in service educator (3) CKD (chronic kidney disease), stage III: Plan: Cr: 0.6. Baseline Cr: 0.8-0.9 Monitor renal functions (4) HTN (hypertension): Plan: Bp remains on low normal side continue to hold lisinopril and resume as appropriate, BP 122/77 today (5) HLD (hyperlipidemia): Plan: Continue atorvastatin (6) GERD (gastroesophageal reflux disease): (7) Gastroparesis: Plan: Continue PPI (8) Depression: Plan: Continue sertraline DVT Prophylaxis SCDs for now Admitted med surg Disposition. Wound cultures pending. Discharge to be determined by orthopedics PCP: Dr Dunne Pt was seen and care coordinated with Dr Mtz. See addendum I spent a total of 41 minutes reviewing notes, outpatient records, labs, medication, coordinating, documenting and providing care for this patient excluding time spent in the performance of separately billed services and excluding time spent by another provider/QHP. Admission and Anticipated Discharge Date Admission Date: July 10, 2024 Supervising Physician Co-Signing Physician Notes Discussed with above provider. Patient underwent I&D of the abscess; no involvement of the bone Gram stain is showing many gram-positive bacilli; final cx pending Continue on current antibiotics; follow-up on final culture results. ID consulted I have reviewed the advanced practitioner's documentation, and I agree with, and take responsibility for the plan of care Subjective Pt was seen in 315. She is having R 3rd finger pain, 3/10. She states it is feeling better, but is going to take a oxy prior to her soaks. She is hoping to be discharged tomorrow. She denies f/c/s, chest pain, sob, n/v/d. Review of Systems Review of Systems: All systems reviewed & are unremarkable except as noted in HPI & below Physical Exam Physical Exam: Gen: WD/WN, NAD, A&O x3 HEENT: Normocephalic, atraumatic, conjunctivae moist, sclerae anicteric, mucous membranes moist. Lung: Clear to Auscultation bilaterally, no wheezes/rales/rhonchi Heart: Regular rate, regular rhythm, no murmurs, rubs, or gallops Abdomen: Soft, NT, ND +BS x 4 Extremities: No edema, R finger dressing CDI Skin: Warm, no rash, negative turgor. Results & Data Results & Data Vital Signs (Past 12 Hours) Vital Signs Temp Pulse Resp BP Pulse Ox O2 Del Method 07/11/24 07:10 36.8 C 68 16 122/77 96 Room Air 07/11/24 03:00 36.9 C 68 18 112/66 94 Room Air 07/10/24 23:10 36.8 C 75 16 150/84 H 96 Room Air Laboratory Results Short CBC 07/11/24 Range/Units 05:46 WBC 6.40 (4.8-10.8) K/ul Hgb 12.9 (12.0-16.0) g/dl Hct 38.3 (37.0-47.0) % Plt Count 208 (130-400) K/uL BMP 07/11/24 05:46 Sodium 138 Potassium 3.8 Chloride 107 Carbon Dioxide 29 BUN 7 Creatinine 0.51 L Glucose 99 Calcium 8.3 L I have independently reviewed and interpreted patient's cbc, bmp Medications Administered Current Inpatient Medications Acetaminophen (Acetaminophen 325 Mg Tab) 650 mg PO Q4H PRN PRN Reason: pain/fever Stop: 08/09/24 05:10 Last Admin: 07/11/24 05:52 Dose: 650 mg Aspirin (Aspirin 81 Mg Ectab) 81 mg PO DAILY [facility] Stop: 08/09/24 08:59 Last Admin: 07/11/24 07:23 Dose: 81 mg Atorvastatin Calcium (Atorvastatin 40 Mg Tab) 40 mg PO DAILY [facility] Stop: 08/09/24 08:59 Last Admin: 07/11/24 07:22 Dose: 40 mg Bisacodyl (Bisacodyl 10 Mg Supp) 10 mg SD DAILY PRN PRN Reason: Constipation Stop: 08/09/24 10:10 Dextrose (Dextrose 50% 50 Ml Syringe) 25 - 50 ml IV UD PRN; Protocol PRN Reason: Hypoglycemia Protocol Stop: 08/09/24 05:10 Docusate Sodium (Docusate Sodium 100 Mg Cap) 100 mg PO BID [facility] Stop: 08/09/24 20:59 Last Admin: 07/11/24 07:27 Dose: 100 mg Famotidine (Famotidine 20 Mg Tab) 20 mg PO BID [facility] Stop: 08/09/24 08:59 Last Admin: 07/11/24 07:28 Dose: 20 mg Glucagon (Glucagon For Inj 1 Mg Vial) 1 mg SQ UD PRN; Protocol PRN Reason: Hypoglycemia Protocol Stop: 08/09/24 05:10 Glucose (Glucose 40% Gel 15 Gm Tube) 15 - 30 gm PO UD PRN; Protocol PRN Reason: Hypoglycemia Protocol Stop: 08/09/24 05:10 Glucose (Glucose 10 Tab/Tube) 4 - 8 tab PO UD PRN; Protocol PRN Reason: Hypoglycemia Protocol Stop: 08/09/24 05:10 Hydromorphone HCl (Hydromorphone Inj 0.5 Mg/0.5 Ml Syr) 0.5 mg IV Q4H PRN PRN Reason: Severe Pain (Scale 7, 8, 9,10) Stop: 07/24/24 05:10 Last Admin: 07/10/24 19:36 Dose: 0.5 mg Hydromorphone HCl (Hydromorphone Inj 0.5 Mg/0.5 Ml Syr) 0.25 mg IV Q4H PRN PRN Reason: Moderate Pain (Scale 4, 5, 6) Stop: 07/24/24 05:10 Cefepime HCl (Maxipime 2000mg) 2,000 mg in 20 mls @ 5 mls/min IV Q8H [facility]; Protocol Stop: 07/17/24 05:10 Last Admin: 07/11/24 05:24 Dose: 5 mls/min Vancomycin HCl 1,500 mg/ (Sodium Chloride) 530 mls @ 200 mls/hr IV Q12H [facility] Stop: 07/17/24 11:59 Last Infusion: 07/11/24 02:39 Dose: Infused Insulin Aspart (Insulin Aspart Per Unit Charge) 0 units SC ACHS [facility] Stop: 08/09/24 11:29 Last Admin: 07/11/24 08:13 Dose: 3 units Insulin Glargine (Lantus Per Unit Charge) 40 units SC DAILY [facility] Stop: 08/10/24 08:59 Last Admin: 07/11/24 08:19 Dose: 40 units Insulin Glargine (Lantus Per Unit Charge) 0 units SC [facility]; Protocol Stop: 08/10/24 20:59 Lisinopril (Lisinopril 5 Mg Tab) 5 mg PO DAILY [facility] Stop: 08/09/24 08:59 Last Admin: 07/10/24 07:33 Dose: 5 mg Magnesium Hydroxide (Magnesium Hydroxide Susp 30 Ml Udc) 30 ml PO Q6H PRN PRN Reason: Constipation Stop: 08/09/24 10:10 Metoclopramide HCl (Metoclopramide Hcl Inj 5 Mg/Ml 2 Ml Vial) 10 mg IV Q6H PRN PRN Reason: Nausea And Vomiting Stop: 08/09/24 10:10 Last Admin: 07/10/24 17:06 Dose: 10 mg Miscellaneous (Remove Nicoderm Patch) 1 each N/A DAILY@0859 [facility] Stop: 08/09/24 08:58 Last Admin: 07/11/24 07:25 Dose: 1 each Miscellaneous (Carbohydrates For Hypoglycemia ) 15 - 30 gm PO UD PRN PRN Reason: Hypoglycemia Protocol Stop: 08/09/24 05:10 Miscellaneous Information (Vancomycin Consult Active) 1 each N/A UD PRN PRN Reason: Consult Stop: 08/09/24 00:47 Miscellaneous Information (Pharmacy Glycemic Mgmt Consult) 1 each N/A UD PRN PRN Reason: Consult Stop: 08/09/24 05:10 Multivitamins (Multivitamin Tab) 1 tab PO DAILY [facility] Stop: 08/09/24 08:59 Last Admin: 07/11/24 07:22 Dose: 1 tab Naloxone HCl (Naloxone Hcl 0.4 Mg/1 Ml Vial/Carp) 0.1 mg IV Q5M PRN PRN Reason: Oversedation/Resp Depression Stop: 08/09/24 10:10 Nicotine (Nicotine 14 Mg/24 Hr Patch) 1 patch TD QAM [facility] Stop: 08/09/24 08:59 Last Admin: 07/11/24 07:25 Dose: 1 patch Ondansetron HCl (Ondansetron Inj 2 Mg/Ml 2 Ml Vial) 4 mg IV Q6H PRN PRN Reason: Nausea And Vomiting Stop: 08/09/24 10:10 Last Admin: 07/11/24 09:51 Dose: 4 mg Oxycodone HCl (Oxycodone Hcl Ir 5 Mg Tab (Immediate Release)) 5 - 10 mg PO Q4H PRN PRN Reason: Pain Stop: 07/24/24 10:10 Last Admin: 07/11/24 08:45 Dose: 10 mg Pantoprazole Sodium (Pantoprazole 40 Mg Tab) 40 mg PO DAILY [facility] Stop: 08/09/24 08:59 Last Admin: 07/11/24 07:23 Dose: 40 mg Polyethylene Glycol (Polyethylene (Miralax) 17 Gm Pack) 17 gm PO DAILY PRN PRN Reason: Constipation Stop: 08/09/24 05:10 Sennosides (Senna 8.6 Mg Tab) 17.2 mg PO [facility] Stop: 08/09/24 20:59 Last Admin: 07/10/24 20:47 Dose: 17.2 mg Sertraline HCl (Sertraline Hcl 100 Mg Tablet) 100 mg PO DAILY [facility] Stop: 08/09/24 08:59 Last Admin: 07/11/24 07:22 Dose: 100 mg Trazodone HCl (Trazodone Hcl 100 Mg Tab) 100 mg PO HS [facility] Stop: 08/09/24 20:59 Last Admin: 07/10/24 20:47 Dose: 100 mg
[2024-07-11] MEDS: VANCOMYCIN LEVEL ONE (11:13)
--- NOTE | 2024-07-11 11:48 | Pharmacy Report ---
Pharmacy PK ABX Note - Date of Service July 11, 2024 - Assessment and Plan Assessment 07/11: * Day #2 of Vancomycin and Cefepime for treatment of finger infection. POD #1 s/p I&D of finger. No leukocytosis. Remains afebrile. SCr continues to improve, 0.51 mg/dL this AM. * No growth to date in any cultures. * Vancomycin level subtherapeutic today so will increase dose. 3: 49 year old F receiving vancomycin and cefepime for treatment of finger abscess. Failed outpatient Bactrim. Blood cultures pending. Finger cultures pending. SCr back to baseline today. Day #1 of antimicrobial therapy. Plan Vancomycin * Current regimen: 1500 mg IV every 12 hours * Trough level obtained 07/11/24 resulted as 7.3 mcg/mL. This is subtherapeutic. * Increase dose to 1250 mg IV every 8 hours. Predicted AUC at steady state: 496 mg/L.hr * Repeat trough level ordered for: 07/13/24 Cefepime * 2000 mg IV every 8 hours Pharmacy will continue to follow and will adjust dose/frequency as necessary. Thank you. Pharmacy has transitioned to AUC monitoring for vancomycin. AUC/LAILA is the preferred PK/PD target and is associated with decreased risk of nephrotoxicity compared to traditional trough targets.
[2024-07-11] MEDS: VANCOMYCIN HCL 1,250 MG in SODIUM CHLORIDE 0.9% 250 ML IV SCH (20:01)
[2024-07-12 06:23] LABS: Basophils # (auto) 0.06 K/uL (0.00-0.20); Basophils % (auto) 0.8 %; Eosinophils # (auto) 0.27 K/uL (0.00-0.50); Eosinophils % (auto) 3.7 %; Hematocrit (blood only) 37.8 % (37.0-47.0); Hemoglobin 12.5 g/dl (12.0-16.0); Immature Granulocytes # (auto) 0.05 K/uL (0.01-0.20); Immature Granulocytes % (auto) 0.7 %; Lymphocytes # (auto) 2.36 K/uL (1.20-3.40); Lymphocytes % (auto) 32.7 %; Mean Corpuscular Hemoglobin 30.6 pg (25.0-34.0); Mean Corpuscular Hgb Conc 33.1 g/dL (32.0-36.0); Mean Corpuscular Volume 92.6 fL (80.0-100.0); Monocytes # (auto) 0.69 K/uL (0.11-0.59); Monocytes % (auto) 9.6 %; Neutrophils # (auto) 3.79 K/uL (1.40-6.50); Neutrophils % (auto) 52.5 %; Platelet Count 223 K/uL (130-400); RDW Coefficient of Variation 12.7 % (11.5-14.5); RDW Standard Deviation 43.1 fL (36.4-46.3); Red Blood Count 4.08 M/uL (4.20-5.40); White Blood Count 7.22 K/ul (4.8-10.8)
[2024-07-12 06:34] LABS: BUN Creatinine Ratio 16.7 (10-20); Calcium 8.3 mg/dl (8.6-10.3); Creatinine Clr Calc Pharmacy 141.8 ml/min; Potassium 3.9 mmol/L (3.5-5.1)
--- NOTE | 2024-07-12 07:32 | Hospitalist Progress Note ---
Date of Service July 12, 2024 Assessment & Plan (1) Felon of finger of right hand: Plan: Patient admitted on 07/10/24 for right 3rd digit felon that failed outpatient trial with Bactrim and I&D on 07/08/24 at [facility] [place] [facility]. No leukocytosis and lactate had normalized during the night. Was initially treated with IVF, cefepime, vancomycin Ortho consult Post op day# 2 S/P I&D by Dr Cristina Surgical wound cultures pending but so far growing many gram negative bacilli Continue Cefepime and vancomycin for now Wound management per ortho Pain control with Tylenol, oxycodone, Dilaudid prn await would culture results for definitive antibiotic management Infectious disease consulted (2) Uncontrolled type 2 diabetes mellitus with hyperglycemia: Plan: A1c: 15.9 glucose: 143 this morning labs Hold home oral agents Basal bolus insulin. Appreciate glycemic pharmacist managing Pt has limited supply of insulin at home, states unable to afford as it is 3,000$ for month will consult family educator (3) CKD (chronic kidney disease), stage III: Plan: Cr: 0.6. Baseline Cr: 0.8-0.9 Monitor renal functions (4) HTN (hypertension): Plan: Bp remains on low normal side continue to hold lisinopril and resume as appropriate, BP 127/78 today (5) HLD (hyperlipidemia): Plan: Continue atorvastatin (6) GERD (gastroesophageal reflux disease): (7) Gastroparesis: Plan: Continue PPI (8) Depression: Plan: Continue sertraline DVT Prophylaxis SCDs for now Admitted med surg Disposition. Wound cultures pending. Discharge to be determined by orthopedics and ID pending recs PCP: Dr Dunne Pt was seen and care coordinated with Dr Mtz. See addendum I spent a total of 42 minutes reviewing notes, outpatient records, labs, medication, coordinating, documenting and providing care for this patient excluding time spent in the performance of separately billed services and excluding time spent by another provider/QHP. Admission and Anticipated Discharge Date Admission Date: July 10, 2024 Subjective Pt continues to have R 3rd finger pain. So far today she has been managing with oxycodone, but yesterday she needed Dilaudid. She was hopeful to be d/c tonight, but was informed cultures are still pending. We are also waiting formal ID consult. She is moving bowels. She denies f/c/s, chest pain, sob, n/v/d. Review of Systems Review of Systems: All systems reviewed & are unremarkable except as noted in HPI & below Physical Exam Physical Exam: Gen: WD/WN, NAD, A&O x3 HEENT: Normocephalic, atraumatic, conjunctivae moist, sclerae anicteric, mucous membranes moist. Lung: Clear to Auscultation bilaterally, no wheezes/rales/rhonchi Heart: Regular rate, regular rhythm, no murmurs, rubs, or gallops Abdomen: Soft, NT, ND +BS x 4 Extremities: No edema, R finger 3rd finger distal necrotic tissue Skin: Warm, no rash, negative turgor. Results & Data Results & Data Vital Signs (Past 12 Hours) Vital Signs Temp Pulse Resp BP Pulse Ox O2 Del Method 07/11/24 20:02 36.6 C 68 16 121/72 97 Room Air Laboratory Results I have independently reviewed and interpreted patient's cbc, bmp Short CBC 07/12/24 Range/Units 05:55 WBC 7.22 (4.8-10.8) K/ul Hgb 12.5 (12.0-16.0) g/dl Hct 37.8 (37.0-47.0) % Plt Count 223 (130-400) K/uL BMP 07/12/24 05:55 Sodium 138 Potassium 3.9 Chloride 106 Carbon Dioxide 30 BUN 11 Creatinine 0.66 Glucose 205 H Calcium 8.3 L Medications Administered Current Inpatient Medications Acetaminophen (Acetaminophen 325 Mg Tab) 650 mg PO Q4H PRN PRN Reason: pain/fever Stop: 08/09/24 05:10 Last Admin: 07/11/24 14:34 Dose: 650 mg Aspirin (Aspirin 81 Mg Ectab) 81 mg PO DAILY [facility] Stop: 08/09/24 08:59 Last Admin: 07/12/24 08:14 Dose: 81 mg Atorvastatin Calcium (Atorvastatin 40 Mg Tab) 40 mg PO DAILY [facility] Stop: 08/09/24 08:59 Last Admin: 07/12/24 08:14 Dose: 40 mg Bisacodyl (Bisacodyl 10 Mg Supp) 10 mg WI DAILY PRN PRN Reason: Constipation Stop: 08/09/24 10:10 Dextrose (Dextrose 50% 50 Ml Syringe) 25 - 50 ml IV UD PRN; Protocol PRN Reason: Hypoglycemia Protocol Stop: 08/09/24 05:10 Docusate Sodium (Docusate Sodium 100 Mg Cap) 100 mg PO BID [facility] Stop: 08/09/24 20:59 Last Admin: 07/12/24 08:22 Dose: 100 mg Famotidine (Famotidine 20 Mg Tab) 20 mg PO BID [facility] Stop: 08/09/24 08:59 Last Admin: 07/12/24 08:22 Dose: 20 mg Glucagon (Glucagon For Inj 1 Mg Vial) 1 mg SQ UD PRN; Protocol PRN Reason: Hypoglycemia Protocol Stop: 08/09/24 05:10 Glucose (Glucose 40% Gel 15 Gm Tube) 15 - 30 gm PO UD PRN; Protocol PRN Reason: Hypoglycemia Protocol Stop: 08/09/24 05:10 Glucose (Glucose 10 Tab/Tube) 4 - 8 tab PO UD PRN; Protocol PRN Reason: Hypoglycemia Protocol Stop: 08/09/24 05:10 Hydromorphone HCl (Hydromorphone Inj 0.5 Mg/0.5 Ml Syr) 0.5 mg IV Q4H PRN PRN Reason: Severe Pain (Scale 7, 8, 9,10) Stop: 07/24/24 05:10 Last Admin: 07/12/24 09:19 Dose: 0.5 mg Hydromorphone HCl (Hydromorphone Inj 0.5 Mg/0.5 Ml Syr) 0.25 mg IV Q4H PRN PRN Reason: Moderate Pain (Scale 4, 5, 6) Stop: 07/24/24 05:10 Cefepime HCl (Maxipime 2000mg) 2,000 mg in 20 mls @ 5 mls/min IV Q8H [facility]; Protocol Stop: 07/17/24 05:10 Last Admin: 07/12/24 05:25 Dose: 5 mls/min Vancomycin HCl 1,250 mg/ (Sodium Chloride) 275 mls @ 200 mls/hr IV Q8H [facility] Stop: 07/18/24 19:59 Last Infusion: 07/12/24 05:25 Dose: Infused Insulin Aspart (Insulin Aspart Per Unit Charge) 0 units SC ACHS [facility] Stop: 08/09/24 11:29 Last Admin: 07/12/24 08:23 Dose: 6 units Insulin Glargine (Lantus Per Unit Charge) 0 units SC [facility]; Protocol Stop: 08/10/24 20:59 Last Admin: 07/11/24 21:18 Dose: 20 units Insulin Glargine (Lantus Per Unit Charge) 50 units SC DAILY [facility] Stop: 08/10/24 08:59 Last Admin: 07/12/24 08:16 Dose: 50 units Lisinopril (Lisinopril 5 Mg Tab) 5 mg PO DAILY [facility] Stop: 08/09/24 08:59 Last Admin: 07/10/24 07:33 Dose: 5 mg Magnesium Hydroxide (Magnesium Hydroxide Susp 30 Ml Udc) 30 ml PO Q6H PRN PRN Reason: Constipation Stop: 08/09/24 10:10 Metoclopramide HCl (Metoclopramide Hcl Inj 5 Mg/Ml 2 Ml Vial) 10 mg IV Q6H PRN PRN Reason: Nausea And Vomiting Stop: 08/09/24 10:10 Last Admin: 07/10/24 17:06 Dose: 10 mg Miscellaneous (Remove Nicoderm Patch) 1 each N/A DAILY@0859 [facility] Stop: 08/09/24 08:58 Last Admin: 07/12/24 09:19 Dose: 1 each Miscellaneous (Carbohydrates For Hypoglycemia ) 15 - 30 gm PO UD PRN PRN Reason: Hypoglycemia Protocol Stop: 08/09/24 05:10 Miscellaneous Information (Vancomycin Consult Active) 1 each N/A UD PRN PRN Reason: Consult Stop: 08/09/24 00:47 Miscellaneous Information (Pharmacy Glycemic Mgmt Consult) 1 each N/A UD PRN PRN Reason: Consult Stop: 08/09/24 05:10 Multivitamins (Multivitamin Tab) 1 tab PO DAILY [facility] Stop: 08/09/24 08:59 Last Admin: 07/12/24 08:13 Dose: 1 tab Naloxone HCl (Naloxone Hcl 0.4 Mg/1 Ml Vial/Carp) 0.1 mg IV Q5M PRN PRN Reason: Oversedation/Resp Depression Stop: 08/09/24 10:10 Nicotine (Nicotine 14 Mg/24 Hr Patch) 1 patch TD QAM [facility] Stop: 08/09/24 08:59 Last Admin: 07/12/24 08:14 Dose: 1 patch Ondansetron HCl (Ondansetron Inj 2 Mg/Ml 2 Ml Vial) 4 mg IV Q6H PRN PRN Reason: Nausea And Vomiting Stop: 08/09/24 10:10 Last Admin: 07/11/24 09:51 Dose: 4 mg Oxycodone HCl (Oxycodone Hcl Ir 5 Mg Tab (Immediate Release)) 5 - 10 mg PO Q4H PRN PRN Reason: Pain Stop: 07/24/24 10:10 Last Admin: 07/12/24 08:22 Dose: 10 mg Pantoprazole Sodium (Pantoprazole 40 Mg Tab) 40 mg PO DAILY [facility] Stop: 08/09/24 08:59 Last Admin: 07/12/24 08:14 Dose: 40 mg Polyethylene Glycol (Polyethylene (Miralax) 17 Gm Pack) 17 gm PO DAILY PRN PRN Reason: Constipation Stop: 08/09/24 05:10 Sennosides (Senna 8.6 Mg Tab) 17.2 mg PO HS [facility] Stop: 08/09/24 20:59 Last Admin: 07/11/24 21:17 Dose: 17.2 mg Sertraline HCl (Sertraline Hcl 100 Mg Tablet) 100 mg PO DAILY [facility] Stop: 08/09/24 08:59 Last Admin: 07/12/24 08:13 Dose: 100 mg Trazodone HCl (Trazodone Hcl 100 Mg Tab) 100 mg PO HS [facility] Stop: 08/09/24 20:59 Last Admin: 07/11/24 21:17 Dose: 100 mg
[2024-07-12] MEDS: LANTUS PER UNIT CHARGE SC SCH (08:16)
--- NOTE | 2024-07-12 08:40 | Pharmacy Report ---
Pharmacy Glycemic Short Note 2 - Date of Service July 12, 2024 - Glycemic Short BSG Results (Last 24 hours): 07/11/24 07/11/24 07/11/24 11:10 16:50 20:38 Glucose POC Glucose 221 H 90 186 H 07/12/24 07/12/24 05:55 07:34 Glucose 205 H POC Glucose 206 H OUTPATIENT ANTIDIABETIC REGIMEN: * Trulicity 3 mg SC weekly * Jardiance 25 mg PO daily * Lantus 80 units SC daily * Novolog SSI * Metformin 500 mg PO bid HbA1c: 15.9% (07/10/24) ASSESSMENT: 07/12: * Patient received 91 units of insulin yesterday, 60 of which were basal. BSGs were: [phone] mg/dL. * Fasting BSG elevated at 206 mg/dL this AM, could be due to uncovered carbs from last evening. Will increase basal by 10-20% today. * No changes to Novolog at this time. * Remains on Vancomycin and Cefepime. Tolerating T2DM diet. 07/11: * Ynes received 84 units of insulin yesterday, 55 of which were basal. BSGs were: [phone] mg/dL. * Ordered and tolerating a T2DM diet now. Remains on Vancomycin and Cefepime. * Fasting BSG controlled at 131 mg/dL this AM. Will give 40 units of basal in the morning. Going to add an HS basal scale as well pending BSGs. During previous admissions, patient has required up to 100 units of basal per day. * No changes to Novolog regimen at this time. 07/10: * 49 year old admitted with finger infection. Pharmacy consulted for glycemic management. Type 2 diabetic - per provider notes, patient running out of medications d/t insurance issues. Recently only taking 1/2 of her insulin doses. * BSGs elevated overnight >500 on lab draw, receive IV insulin bolus, Lantus 40 units in addition to novolog SQ insulin - BSGs trending down to 160s * Was NPO this AM, now started on clears diet. Unclear what insulin needs will be, therefore will have scale for some extra Lantus at HS time if BSGs trend back upward PLAN FOR INPATIENT GLYCEMIC CONTROL: * Hold outpatient oral diabetes medications * Basal insulin * Lantus 50 units SC AM * Lantus 10-20 units SC HS (see eMAR for more details) * Bolus insulin * NovoLog per scale ACHS or Q6hrs while NPO * Goal Range: Low 110 mg/dL - High 140 mg/dL * Correction Factor: 15 mg/dL/unit * Nutritional / Prandial insulin per carb ratio of 1 unit per 5 grams CHO consumed
--- NOTE | 2024-07-12 11:09 | Orthopedic Progress Note ---
Date of Service July 12, 2024 Assessment & Plan (1) Felon of finger of right hand: Plan: 49-year-old female now postop day 2 from I&D of a fairly necrotic a felon infection. She is doing better. She has developed necrosis of the tip of the finger. It is hard to say whether this will lead to need for amputation or healing. At this point it looks like it is improving and working to follow this along with routine wound care. Plan: At this point just continue wound care and antibiotic management. She will need wound care and dressing changes and soaking 3 times a day for the next 7 to 10 days. Rewrapped with Xeroform followed by gauze. She can be is probably switch to oral antibiotics anytime comfortable. She will need obviously appropriate coverage. Any orthopedic questions can be directly [phone]. Once again, the final status and the viability of the fingertip is an significant question. Only time will tell and no further major interventions can be done to increase the likelihood of preservation. (2) Uncontrolled type 2 diabetes mellitus with hyperglycemia: Admission and Anticipated Discharge Date Admission Date: July 10, 2024 Subjective 49-year-old female long-term diabetic, poorly controlled postop day 2 from I&D of a right long finger felon infection. She is doing okay. There is still a moderately discomfort but improving. She is hoping to get out of the hospital soon as possible. Physical Exam Physical Exam: Physical examination of the right hand reveals the finger pulp to be somewhat necrotic. The swelling is improved significantly. Still some mild discomfort with palpation but markedly improved. Slight flexion extension without major pain. Limited sensation due to the skin necrosis. Results & Data Vital Signs (Past 12 Hours) Vital Signs Temp Pulse Resp BP Pulse Ox O2 Del Method 07/12/24 08:07 36.6 C 64 14 127/78 95 Room Air Laboratory Results Cultures from the right long finger reveal a pinpoint growth. Final species and sensitivities are pending.
--- NOTE | 2024-07-12 17:24 | Infectious Disease Consult ---
Date of Service July 12, 2024 Telehealth Information I performed this visit using a real-time telehealth connection between my location and the patients location ([facility]). After connecting through interactive tele-video, patient was identified by name and date of and/or wristband check.Patient (or authorized healthcare senior customer service representative) was informed that this was a telemedicine visit and it was being conducted confidentially over secure lines. My office door was closed and no one else was present in the room with me.Patient (or authorized healthcare senior customer service representative) provided consent to proceed with the visit, expressed an understanding of privacy and security of the telemedicine visit, and gave permission to have a hospital senior customer service representative in the room in order to assist with the visit and to conduct portions of the visit, as needed. I informed the patient (or authorized healthcare senior customer service representative) that I reviewed their record and presented the opportunity for them to ask any questions regarding the visit today. The patient agreed to participate. Assessment & Plan (1) Felon of finger of right hand: (2) Failure of outpatient treatment: (3) Uncontrolled type 2 diabetes mellitus with hyperglycemia: (4) CKD (chronic kidney disease), stage III: (5) Finger infection: Plan 49-year-old female presenting for right 3rd finger infection, failing outpatient treatment with oral antibiotics and I&D. Although patient has undergone extensive debridement of the felon I am concerned about the x-ray showing cortical lucency as this may indicate early osteomyelitis. Plan: -Please discontinue cefepime - continue vancomycin dosed per pharmacy (AUC 400-600 or trough 15-20) - recommend obtaining MRI of the right 3rd finger to assess for osteomyelitis - please obtain baseline CRP - if there was no evidence of osteomyelitis on MRI imaging then we will recommend a 2 week course of oral antibiotics for soft tissue infection, else patient may require longer duration - ID will continue to follow Case discussed with ID attending Dr. Jin Russell MD Infectious Disease PGY-5 [facility] I have discussed this case with Dr Russell and [facility] and I agree with his assessment and treatment plan History of Present Illness History of Present Illness Past medical history: Type 2 diabetes mellitus, hyperlipidemia, CKD stage 3, IBS, prothrombin gene mutation, Necrobiosis lipoidica diabeticorum (NLD) 49-year-old female presenting due to ongoing right 3rd finger felon infection. Patient recently seen at [facility] ED on 07/08 for this infection and had bedside I and D performed in the ED with the expression of pus, subsequently placed on oral Bactrim therapy and discharged home. Patient took approximately 5 doses and then reported to [facility] due to ongoing significant pain and swelling. On presentation hemodynamically stable, HR 68, RR 18, on room air, WBC 8.63. XR right 3rd finger showing soft tissue thickening mostly at the distal portion and suspected focal distal osteopenia with reported cortical irregularity. Orthopedic Surgery consulted patient taken to the OR on 07/10 having incision and drainage of the right middle finger with discovery of copious purulence, significant irrigation performed and placement temporary Crystal drain. Wound cultures growing lactobacillus jensenii/gasseri, blood cultures negative. Patient has remained hemodynamically stable, afebrile, white count within normal limits. Subsequently removal of the [place] drain, patient is undergoing regular dressing changes. patient states that the pain is well controlled but during dressing changes/soaking there was considerable discomfort which is kp erable with oral analgesics. Allergies Allergy/AdvReac Type Severity Reaction Status Date / Time baclofen Allergy Intermediate ITCHING, Verified 09/07/22 23:28 NAUSEA/VOMITING cyclobenzaprine Allergy Intermediate itching Verified 09/07/22 23:28 [From Flexeril] amoxicillin AdvReac Intermediate Vomiting Verified 09/07/22 23:28 bupropion AdvReac Intermediate PSYCHOTIC-P Verified 09/07/22 23:28 ARANOID morphine AdvReac Intermediate "GETS Verified 09/07/22 23:28 REALLY SICK" zolpidem [From Ambien] AdvReac Intermediate NIGHTMARES Verified 09/07/22 23:28 meperidine AdvReac Mild ITCHY Verified 09/07/22 23:28 lactose AdvReac Verified 09/08/22 12:57 Home Medications Medication Instructions Recorded Confirmed Type aspirin 81 mg tablet,delayed 81 mg PO DAILY 07/10/24 07/10/24 History release atorvastatin 40 mg tablet (Lipitor) 40 mg PO DAILY 07/10/24 07/10/24 History dulaglutide 3 mg/0.5 mL 3 mg subcut WK 07/10/24 07/10/24 History subcutaneous pen injector (Trulicity) empagliflozin 25 mg tablet 25 mg PO DAILY 07/10/24 07/10/24 History (Jardiance) famotidine 20 mg tablet 20 mg PO BID 07/10/24 07/10/24 History insulin aspart U-100 100 unit/mL 1 sliding scale dose subcut 07/10/24 07/10/24 History (3 mL) subcutaneous pen USEASDIRECTD insulin glargine 100 unit/mL 80 unit subcut DAILY 07/10/24 07/10/24 History subcutaneous solution (Lantus U-100 Insulin) lisinopril 5 mg tablet 5 mg PO DAILY 07/10/24 07/10/24 History metformin 500 mg tablet,extended 500 mg PO QID 07/10/24 07/10/24 History release 24 hr multivitamin 1 tab PO DAILY 07/10/24 07/10/24 History pantoprazole 40 mg tablet,delayed 40 mg PO DAILY 07/10/24 07/10/24 History release (Protonix) sertraline 100 mg tablet (Zoloft) 100 mg PO DAILY 07/10/24 07/10/24 History sulfamethoxazole 800 1 tab PO BID 07/10/24 07/10/24 History mg-trimethoprim 160 mg tablet (Bactrim DS) trazodone 100 mg tablet 100 mg PO HS 07/10/24 07/10/24 History Patient History Medical History Smoker Diabetes IDDM Osteoarthritis Depression Degenerative disc disease GERD (gastroesophageal reflux disease) Gastroparesis Prothrombin [id number] mutation History of migraine with aura History of gastric ulcer Surgical History History of tubal ligation History of shoulder surgery Lt History of esophagogastroduodenoscopy (EGD) History of colonoscopy History of tonsillectomy History of tooth extraction History of knee surgery BL Status post hysteroscopic ablation of endometrium History of ankle surgery Rt Family History Mother Diabetes Denies family history of Colon cancer Ovarian cancer Breast cancer Social History Smoking Status: Current every day smoker Tobacco Type: Cigarettes Cigarettes Per Day: 1/2 ppd; Second Hand Exposure: No; Do You Dip or Chew Tobacco: No; Tobacco Cessation Education Requested by Patient: No Hx Alcohol Use: Yes Alcohol type: wine and hard liquor Hx Substance Use: No Preferred Language: Romanian Communication Ability: Effective [employer] Required: No Beliefs That Will Affect Care: None marital status: Current Living Situation: Family Current Living Situation Comment: fiance Other Information That Helps Us Care for You: No Feels Safe at Home: Yes Safety Concerns: Feels Safe At This Time Assistive Devices: None Review of Systems Constitutional: No fever/chills Eyes: No pain, drainage, vision change HENT: No symptoms reported Cardiovascular: No chest pain, palpitations, lower extremity swelling Respiratory: No shortness of breath, wheezing, cough, sputum production Gastrointestinal: No abdominal pain, nausea/vomiting MSK: Right 3rd finger pain and swelling relieved after I/D, pain is well controlled but worse with dressing changes Skin: No rash, lesions Neurological: No dizziness, weakness, confusion, sensory changes Results & Data Vital Signs (Past 12 Hours) Vital Signs Temp Pulse Resp BP Pulse Ox O2 Del Method 07/12/24 15:47 36.9 C 65 14 130/73 97 Room Air 07/12/24 08:07 36.6 C 64 14 127/78 95 Room Air Laboratory Results Laboratory Results WBC 7.22 K/ul (4.8-10.8) 07/12/24 05:55 RBC 4.08 M/uL (4.20-5.40) L 07/12/24 05:55 Hgb 12.5 g/dl (12.0-16.0) 07/12/24 05:55 Hct 37.8 % (37.0-47.0) 07/12/24 05:55 MCV 92.6 fL (80.0-100.0) 07/12/24 05:55 MCH 30.6 pg (25.0-34.0) 07/12/24 05:55 MCHC 33.1 g/dL (32.0-36.0) 07/12/24 05:55 RDW Std Deviation 43.1 fL (36.4-46.3) 07/12/24 05:55 RDW Coeff of Shira 12.7 % (11.5-14.5) 07/12/24 05:55 Plt Count 223 K/uL (130-400) 07/12/24 05:55 MPV 10.0 fL (9.4-12.4) 07/12/24 05:55 Immature Gran % (Auto) 0.7 % 07/12/24 05:55 Neut % (Auto) 52.5 % 07/12/24 05:55 Lymph % (Auto) 32.7 % 07/12/24 05:55 [place] % (Auto) 9.6 % 07/12/24 05:55 Eos % (Auto) 3.7 % 07/12/24 05:55 Baso % (Auto) 0.8 % 07/12/24 05:55 Neut # (Auto) 3.79 K/uL (1.40-6.50) 07/12/24 05:55 Lymph # (Auto) 2.36 K/uL (1.20-3.40) 07/12/24 05:55 [place] # (Auto) 0.69 K/uL (0.11-0.59) H 07/12/24 05:55 Eos # (Auto) 0.27 K/uL (0.00-0.50) 07/12/24 05:55 Baso # (Auto) 0.06 K/uL (0.00-0.20) 07/12/24 05:55 Immature Gran # (Auto) 0.05 K/uL (0.01-0.20) 07/12/24 05:55 Sodium 138 mmol/L (136-145) 07/12/24 05:55 Potassium 3.9 mmol/L (3.5-5.1) 07/12/24 05:55 Chloride 106 mmol/L (98-107) 07/12/24 05:55 Carbon Dioxide 30 mmol/L (21-32) 07/12/24 05:55 Anion Gap 2 (3-11) L 07/12/24 05:55 BUN 11 mg/dl (6-23) 07/12/24 05:55 Creatinine 0.66 mg/dl (0.6-1.2) 07/12/24 05:55 Est Cr Clr Drug Dosing 141.8 ml/min 07/12/24 05:55 eGFR 108.14 07/12/24 05:55 BUN/Creatinine Ratio 16.7 (10-20) 07/12/24 05:55 Glucose 205 mg/dl (70-99(Fasting)) H 07/12/24 05:55 POC Glucose 116 mg/dl (70-99) H 07/12/24 16:41 Estimat Average Glucose 410 mg/dl 07/10/24 07:12 Hemoglobin A1c 15.9 % (4.5-5.6) H 07/10/24 07:12 Lactate 1.2 mmol/L (0.4-2.0) 07/10/24 07:16 Calcium 8.3 mg/dl (8.6-10.3) L 07/12/24 05:55 Magnesium 1.7 mg/dl (1.7-2.4) 07/10/24 07:12 Total Bilirubin 0.4 mg/dl (0.2-1.0) 07/10/24 01:00 AST 13 U/L (13-39) 07/10/24 01:00 ALT 11 U/L (7-52) 07/10/24 01:00 Alkaline Phosphatase 141 U/L (34-104) H 07/10/24 01:00 Total Protein 6.7 gm/dl (6.0-8.3) 07/10/24 01:00 Albumin 3.8 gm/dl (3.4-5.0) 07/10/24 01:00 Globulin 2.9 gm/dl (2.5-4.0) 07/10/24 01:00 Albumin/Globulin Ratio 1.3 (0.9-2) 07/10/24 01:00 Procalcitonin 0.02 ng/ml (0-0.5) 07/10/24 01:00 Random Vancomycin 7.3 mcg/ml (10-20) L 07/11/24 10:58 Impressions Finger X-Ray 07/10/24 00:57 EXAM: XR finger(s) RT min 2V CLINICAL HISTORY: R 3rd digit felon, infection TECHNIQUE: X-ray images of the 3rd finger were obtained in AP, lateral, and oblique projections. COMPARISON: No prior studies available for comparison. FINDINGS: Bone Structure: Suspected focal osteopenia at the lateral aspect of the distal phalanx tip of the 3rd finger. Cortical irregularity with suspicion of incomplete radiolucent line noted at the distal phalanx. Noted in the lateral view only. Focal cortical thickening/smooth periosteal reaction is noted at the posterior part of the base of the middle phalanx of the third digit. Joint Spaces: Joint spaces are prreserved. No evidence of joint effusion or subluxation. Soft Tissues: Soft tissue thickening of the third digit is most conspicuous at the distal tuft. IMPRESSION: 1. Soft tissue thickening of the third finger, this most conspicuous at the distal part. 2. Suspected focal distal osteopenia, cortical irregularity, and linear lucency. Further evaluation by MRI may be considered. 3. Focal cortical thickening at the posterior mid phalanx of the third digit. Clinical correlation is advised. Disclaimer: A subtle bone abnormality or fracture may not be readily apparent on x-rays, thus clinical correlation and further imaging including follow up CT, MRI, or follow up x-rays are advised as needed. Electronically signed by Unique Mcdowell 07-10-2024 02:15 AM Diagnostic Findings Microbiology 07/10/24 08:56 Finger,Right Middle Gram Stain - Final 07/10/24 08:56 Finger,Right Middle Aerobic and Anaerobic Culture - Preliminary Lactobacillus jensenii Lactobacillus gasseri 07/10/24 08:35 Finger,Right Middle Gram Stain - Final 07/10/24 08:35 Finger,Right Middle Aerobic and Anaerobic Culture - Preliminary Lactobacillus jensenii Lactobacillus gasseri 07/10/24 01:02 Blood Aerobic Blood Culture - Preliminary No growth in Aerobic bottle after 48 hours. 07/10/24 01:02 Blood Anaerobic Blood Culture - Preliminary No growth in Anaerobic bottle after 48 hours. 07/10/24 01:00 Blood Aerobic Blood Culture - Preliminary No growth in Aerobic bottle after 48 hours. 07/10/24 01:00 Blood Anaerobic Blood Culture - Preliminary No growth in Anaerobic bottle after 48 hours.
--- NOTE | 2024-07-12 20:32 | Magnetic Resonance Report ---
EXAM: MR finger RT wo con CLINICAL HISTORY: 3rd digit felon, infection r/o osteo. TECHNIQUE: Multiplanar, multi-echo MR of the right finger was performed without contrast. Images were sent through PACs for diagnostic interpretation. COMPARISON: CR dated 07/10/2024 FINDINGS: Bone marrow edema is seen at the distal phalanx of the middle finger, exhibiting bright signals on STIR WI with associating soft tissue edema most appreciated at the palmar(Volar) aspect. Findings are consistent with osteomyelitis and soft tissue cellulitis versus Less likely bone and soft tissue contusion. No drainable collection. Laboratory correlation and strict follow-up are recommended as appropriate. Unremarkable scanned metacarpophalangeal intercarpal, carpometacarpal and interphalangeal articulations. Unremarkable scanned muscle groups and neurovascular structures. Homogeneous marrow signals of the scanned bones. IMPRESSION: Bone marrow edema is seen at the distal phalanx of the middle finger, exhibiting bright signals on STIR WI with associating soft tissue edema most appreciated at the palmar(Volar) aspect. Findings are consistent with osteomyelitis and soft tissue cellulitis versus Less likely bone and soft tissue contusion. No drainable collection. Laboratory correlation and strict follow-up are recommended as appropriate. The comparison matches the radiographic findings. Electronically signed by Unique Mcdowell 07-12-2024 8:31 PM
[2024-07-13 03:06] LABS: Basophils # (auto) 0.08 K/uL (0.00-0.20); Eosinophils # (auto) 0.27 K/uL (0.00-0.50); Eosinophils % (auto) 3.3 %; Hematocrit (blood only) 37.4 % (37.0-47.0); Hemoglobin 12.6 g/dl (12.0-16.0); Immature Granulocytes # (auto) 0.06 K/uL (0.01-0.20); Immature Granulocytes % (auto) 0.7 %; Lymphocytes # (auto) 2.39 K/uL (1.20-3.40); Lymphocytes % (auto) 29.5 %; Mean Corpuscular Hgb Conc 33.7 g/dL (32.0-36.0); Mean Corpuscular Volume 91.9 fL (80.0-100.0); Mean Platelet Volume 9.7 fL (9.4-12.4); Monocytes # (auto) 0.78 K/uL (0.11-0.59); Monocytes % (auto) 9.6 %; Neutrophils # (auto) 4.53 K/uL (1.40-6.50); Neutrophils % (auto) 55.9 %; Platelet Count 217 K/uL (130-400); RDW Coefficient of Variation 12.4 % (11.5-14.5); RDW Standard Deviation 41.6 fL (36.4-46.3); Red Blood Count 4.07 M/uL (4.20-5.40); White Blood Count 8.11 K/ul (4.8-10.8)
[2024-07-13 03:20] LABS: Calcium 8.5 mg/dl (8.6-10.3); Potassium 3.9 mmol/L (3.5-5.1)
[2024-07-13] MEDS: VANCOMYCIN LEVEL ONE (03:51)
[2024-07-13 07:41] LABS: C Reactive Protein 1.04 mg/dl (0-0.5)
[2024-07-13 07:52] VITALS: RESP 18
--- NOTE | 2024-07-13 08:37 | Pharmacy Report ---
Pharmacy PK ABX Note - Date of Service July 13, 2024 - Assessment and Plan Assessment 07/13: * Day #4 of Vancomycin. ID has been consulted and discontinued Cefepime. Finger MRI is consistent with osteomyelitis per radiologist read. Patient will likely require an extended duration of IV abx. * Finger culture from OR growing two separate Lactobacillus species which is likely contaminated. * Remains afebrile, without leukocytosis, and with stable renal fxn. * Vanc level this AM was therapeutic. 07/11: * Day #2 of Vancomycin and Cefepime for treatment of finger infection. POD #1 s/p I&D of finger. No leukocytosis. Remains afebrile. SCr continues to improve, 0.51 mg/dL this AM. * No growth to date in any cultures. * Vancomycin level subtherapeutic today so will increase dose. 3: 49 year old F receiving vancomycin and cefepime for treatment of finger abscess. Failed outpatient Bactrim. Blood cultures pending. Finger cultures pending. SCr back to baseline today. Day #1 of antimicrobial therapy. Plan Vancomycin * Current regimen: 1250 mg IV every 8 hours * Trough level obtained 07/13/24 resulted as 12.6 mcg/mL. This is predicted to achieve target AUC/LAILA of 400-600 mg/L.hr * Predicted AUC at steady state: 482 mg/L.hr * Continue 1250 mg IV every 8 hours * Repeat trough level ordered for: 07/15/24 Pharmacy will continue to follow and will adjust dose/frequency as necessary. Thank you. Pharmacy has transitioned to AUC monitoring for vancomycin. AUC/LAILA is the preferred PK/PD target and is associated with decreased risk of nephrotoxicity compared to traditional trough targets.
[2024-07-13] MEDS: INSULIN ASPART PER UNIT CHARGE SC SCH ×2 (09:03→12:51)
--- NOTE | 2024-07-13 09:33 | Communication Note ---
Date of Service: July 13, 2024 In review of the MRI of the right 3rd finger there appears to be confirmation of third finger distal OM. Culture data showing the two Lactobacillus species. With the possibility of other microbes present and the fact she was briefly on Bactrim prior to this presentation will opt to treat with 6 weeks of Vancomycin for osteomyelitis. Right third finger Felon with distal OM, Lactobacillus sp on culture Plan: -Vancomycin dosed per pharmacy (AUC 400-600) for a total of 6 weeks therapy from 07/13 (vancomycin trough now therapeutic), through 08/24 -Please monitor patient with weekly with CBC/CMP with at least weekly monitoring of Vancomycin therapeutic levels -Please obtain CRP every other week at assist in evaluating resolution of OM -Patient will require a PICC line -Our service is unable to monitor the above labs, please ensure there is proper follow up to surveil her while on therapy -ID will sign off at this time, please feel free to reach out with any further questions or concerns Case discussed with ID Attending Dr. Gladis Russell MD Infectious Disease PGY-5 [facility]
[2024-07-13 11:44] VITALS: BP 120/74; PULSE 61; TEMP 98.6; O2SAT 98
--- NOTE | 2024-07-13 11:53 | Pharmacy Report ---
Pharmacy Glycemic Short Note 2 - Date of Service July 13, 2024 - Glycemic Short BSG Results (Last 24 hours): 07/12/24 07/12/24 07/12/24 15:38 16:41 20:45 Glucose POC Glucose 88 116 H 134 H 07/13/24 07/13/24 07/13/24 02:48 07:54 11:09 Glucose 235 H POC Glucose 207 H 170 H OUTPATIENT ANTIDIABETIC REGIMEN: * Trulicity 3 mg SC weekly * Jardiance 25 mg PO daily * Lantus 80 units SC daily * Novolog SSI * Metformin 500 mg PO bid HbA1c: 15.9% (07/10/24) ASSESSMENT: 07/13: * Ynes received 87 units of insulin yesterday, 65 of which were basal. BSGs were: 247-485-78-134 mg/dL. * Patient did feel that BSG was low with reading of 88 mg/dL yesterday afternoon. Will keep tighter Novolog parameters with breakfast only today and trial looser coverage throughout the rest of the day as postprandials have been trending down for the most part. * Will increase HS scaled basal dose this evening given fasting BSG > 200 mg/dL again this morning. 07/12: * Patient received 91 units of insulin yesterday, 60 of which were basal. BSGs were: 834-340-82-186 mg/dL. * Fasting BSG elevated at 206 mg/dL this AM, could be due to uncovered carbs from last evening. Will increase basal by 10-20% today. * No changes to Novolog at this time. * Remains on Vancomycin and Cefepime. Tolerating T2DM diet. 07/11: * Ynes received 84 units of insulin yesterday, 55 of which were basal. BSGs were: 322-945-031-132-740-801-160 mg/dL. * Ordered and tolerating a T2DM diet now. Remains on Vancomycin and Cefepime. * Fasting BSG controlled at 131 mg/dL this AM. Will give 40 units of basal in the morning. Going to add an HS basal scale as well pending BSGs. During previous admissions, patient has required up to 100 units of basal per day. * No changes to Novolog regimen at this time. 07/10: * 49 year old admitted with finger infection. Pharmacy consulted for glycemic management. Type 2 diabetic - per provider notes, patient running out of medications d/t insurance issues. Recently only taking 1/2 of her insulin doses. * BSGs elevated overnight >500 on lab draw, receive IV insulin bolus, Lantus 40 units in addition to novolog SQ insulin - BSGs trending down to 160s * Was NPO this AM, now started on clears diet. Unclear what insulin needs will be, therefore will have scale for some extra Lantus at HS time if BSGs trend back upward PLAN FOR INPATIENT GLYCEMIC CONTROL: * Hold outpatient oral diabetes medications * Basal insulin * Lantus 50 units SC AM * Lantus 15-25 units SC HS (see eMAR for more details) * Bolus insulin * NovoLog per scale ACHS or Q6hrs while NPO * Goal Range: Low 110 mg/dL - High 140 mg/dL * Breakfast: Correction Factor: 15 mg/dL/unit; Carb ratio of 1 unit per 5 grams CHO consumed * Lunch, Dinner, HS: Correction Factor: 20 mg/dL/unit; Carb ratio of 1 unit per 7 grams CHO consumed
--- NOTE | 2024-07-13 12:30 | XRay Report ---
XR chest 1V portable CLINICAL HISTORY: PICC placement COMPARISON STUDY: 09/07/2022 FINDINGS: Heart size and pulmonary vasculature are normal. Interval left PICC line tip is in the SVC. No consolidation or pleural effusion. No pneumothorax. IMPRESSION: No acute findings. Well-positioned left PICC. ACT 112: Negative or not required by law. Electronically signed by: J Luis Wilkins M.D. 07/13/2024 12:28 PM
--- NOTE | 2024-07-13 12:46 | Orthopedic Progress Note ---
Date of Service July 13, 2024 Assessment & Plan (1) Felon of finger of right hand: Plan: 49-year-old female poorly controlled diabetic with multiple medical comorbidities now 3 days out from I&D of a felon infection. This finger status is still guarded due to the soft tissue envelope. She did have an MRI which shows edema in the distal phalanx which is not too surprising to me. I do not think this is necessarily a sign of osteomyelitis. Plan: At this point we just need to continue routine wound care. Soaking 3 times a day is appropriate. As far as antibiotics I will leave that up to infectious disease but I do not Nestl think she needs IV antibiotics and I think p.o. antibiotics as this heals and stopping at our discretion would be appropriate. As far as the antibiotic management and they exacta medicine will leave that up to the infectious disease doctors. She is got a polymicrobial infection. She is okay for discharge anytime medically appropriate. Once again I would be okay with discharging on p.o. antibiotics as long as it covers the organisms. She needs a follow-up with me in probably 10 to 14 days. Any orthopedic questions can be direct de [phone]. Once again the status of this fingertip is questionable at this point. All is being done that can be done. Admission and Anticipated Discharge Date Admission Date: July 10, 2024 Subjective 49-year-old female diabetic postop day 3 from I&D of a felon infection. She is have a little bit more pain today. She continues soaking 3 times a day. She apparently just got a PICC line placed. Physical Exam Physical Exam: Physical nation is a pleasant middle-age female. She is sitting up in bed and looks comfortable. Examination of the finger reveals a bandage in place. I did not take the bandage off today. Results & Data Vital Signs (Past 12 Hours) Vital Signs Temp Pulse Resp BP Pulse Ox O2 Del Method 07/13/24 11:43 37.0 C 61 18 120/74 98 Room Air 07/13/24 07:51 36.6 C 69 18 148/84 H 95 Room Air Laboratory Results White blood cell count 8.11. Sed rate is 34 C-reactive protein 1.04. MRI reveals some edema in the distal phalanx. No apparent pus pockets.
--- NOTE | 2024-07-13 14:55 | Discharge Summary ---
Discharge Summary Date of Service July 13, 2024 Principal Dx & Hospital Course #1 = Principal Diagnosis (1) Osteomyelitis of finger of right hand: (2) Felon of finger of right hand: Patient admitted on 07/10/24 for right 3rd digit felon that failed outpatient trial with Bactrim and I&D on 07/08/24 at [facility] [place] [facility]. No leukocytosis and lactate had normalized during the night. Was initially treated with IVF, cefepime, vancomycin Ortho consult Post op day# 3 S/P I&D by Dr Cristina Surgical wound cultures growing lactobacillus Discussed with Dr. Russell of ID who recommended obtaining MRI --R 3rd finger MRI: Bone marrow edema is seen at the distal phalanx of the mi ddle finger, exhibiting bright signals on STIR WI with associating soft tissue edema most appreciated at the palmar(Volar) aspect. Findings are consistent with osteomyelitis and soft tissue cellulitis versus Less likely bone and soft tissue contusion. Pt will need IV Vancomycin per ID for 6 weeks through 08/24 Pt was consented for PICC and this was placed. Placement was confirmed via CXR. She was agreeable to PICC placement Pt will come to [facility] for dressing changes and labs She will be followed by Dr. Dunne as an outpatient She will follow up with Dr. Cristina in 10-12 days and continue thrice daily betadine soaks, she will also be prescribed oxycodone for pain (3) Uncontrolled type 2 diabetes mellitus with hyperglycemia: A1c: 15.9 glucose: 143 this morning labs Will resume oral agents at discharge Pt to re establish with [facility] pharmacist. She will resume Lantus 40units BID and Novolog 10-15 units with meals She is encouraged to monitor her BSG AC HS and keep a log of this with plans to return to her CGM Goal A1C < 7.0. She will follow up with PCP on 07/15 for close diabetic management (4) CKD (chronic kidney disease), stage III: Cr: 0.6. Baseline Cr: 0.8-0.9 Monitor renal functions (5) HTN (hypertension): BP stable, resume lisinopril at discharge (6) HLD (hyperlipidemia): Continue atorvastatin (7) GERD (gastroesophageal reflux disease): (8) Gastroparesis: Continue PPI (9) Depression: Continue sertraline Dispo: D/C To home with IV Vancomycin for 6 weeks PCP: Dr Dunne Pt was seen and care coordinated with Dr Montemayor. See addendum I spent a total of 60 minutes reviewing notes, outpatient records, labs, medication, coordinating, documenting and providing care for this patient excluding time spent in the performance of separately billed services and excluding time spent by another provider/QHP. Notes For Next Care Provider Pt will need close diabetic monitoring. She is working to apply for MA to help with cost of insulin as this has been the reason she has been unable to take insulin. She will likely need adjustment to diabetic regimen upon discharge. She will be on IV antibiotics for 6 weeks through 08/24. Weekly CBC, BMP, CRP, Vanco trough Medication Changes From Visit New Medications: * IV Vancomycin 1,250mg every 8 hours through 08/24. * Oxycodone 10mg every 6 hours as needed for severe pain. It is recommended that you take extra strength Tylenol (500mg) 2 tablets every 8 hours routinely to help with break through pain. You may also utilize 400mg of ibuprofen every 6 hrs as needed for break through pain. Change how you take your Insulin: * Lantus - Take 40 units SQ every 12 hours. * Novolog - Take 10-15 units with meals. * Check your blood sugar before every meal and at bedtime, keep a log of this to take with you to your follow up appointments. Resume all other home medications as prescribed. Admission HPI Per Admitting Provider 49-year-old female with past medical history significant for type 2 diabetes, hyperlipidemia, chronic kidney disease stage III, nocturnal hypoxemia, hypertension, reflux esophagitis, irritable bowel syndrome, urinary incontinence, nocturnal enuresis, history of necrobiosis lipoidica diabeticorum, degenerative disk disease, history of plantar warts, chronic bilateral low back pain, osteoarthritis, migraine, cervicalgia, prothrombin gene mutation - heterozygote, depression with anxiety, history of osteomyelitis and infections of the lower extremities comes because of right third finger infection. She was in the ER in [place] on 07/07/2024 for right third finger infection and after digital nerve block drainage was attempted and was discharged on Bactrim. But went back to [place] ER because of severe pain after the nerve block weaned off and repeat incision and drainage was performed and some pus was expressed and was discharged on oxycodone. But her infection is not getting better. The finger is more swollen and erythematous. Feeling hot. So she came back here today. Hemodynamics are okay. Denies any headache. No runny nose or sore throat. Has smoker's cough. Appetite is okay. Denies chest pain or shortness of breath. No nausea. No abdominal pain. Normal bowel and bladder movements. Patient says she is in between jobs and she has no insurance currently. She will get insurance in 2 weeks. And most of her medications ran out. And insulin she is taking only half the dose to get through this.. And yesterday she had a big wedding meal and she forgot to take her insulin. Sugars running high in the ER today. Past medical history. As mentioned above. Past surgical history. 4 different knee surgeries for bilateral knees. Colonoscopy. EGD. Endometrial ablation. Insertion of IUD. Ligation of oviducts. Tonsillectomy. Left resection or transplant long tendon of biceps. Left shoulder arthroscopy. Social history. Smokes 0.5 pack a day for last 17 years. Alcohol occasional. No drug use. Family history. Mother has allergies. Mother has prothrombin gene but no history of thrombosis. Breast cancer. Son has muscular dystrophy. Paternal grandfather had diabetes. Aunt had lung cancer. Diabetes. Admission Exam Per Admitting Provider General-Not in distress Head- atraumatic Eyes- PERRL. ENT- oropharynx clear Neck- supple, no JVD. Lungs- clear to auscultation no wheezing or crackles. Heart- regular rate and rhythm; no murmur, no gallop. Abdomen- normal bowel sounds, soft, nontender, no distension Extremities- no pretibial edema, right third finger in dressing. Photos reviewed-right third finger distal part swollen and erythematous Neuro- alert, oriented PERRL,no facial palsy; no dysarthria; moves extremities Discharge Exam Gen: WD/WN, NAD, A&O x3 HEENT: Normocephalic, atraumatic, conjunctivae moist, sclerae anicteric, mucous membranes moist. Lung: Clear to Auscultation bilaterally, no wheezes/rales/rhonchi Heart: Regular rate, regular rhythm, no murmurs, rubs, or gallops Abdomen: Soft, NT, ND +BS x 4 Extremities: No edema, R finger 3rd finger distal necrotic tissue Skin: Warm, no rash, negative turgor. Updated Medication List Medication Instructions Recorded Confirmed Type aspirin 81 mg tablet,delayed 81 mg PO DAILY 07/10/24 07/10/24 History release atorvastatin 40 mg tablet (Lipitor) 40 mg PO DAILY 07/10/24 07/10/24 History dulaglutide 3 mg/0.5 mL 3 mg subcut WK 07/10/24 07/10/24 History subcutaneous pen injector (Trulicity) empagliflozin 25 mg tablet 25 mg PO DAILY 07/10/24 07/10/24 History (Jardiance) famotidine 20 mg tablet 20 mg PO BID 07/10/24 07/10/24 History insulin aspart U-100 100 unit/mL 1 sliding scale dose subcut 07/10/24 07/10/24 History (3 mL) subcutaneous pen USEASDIRECTD lisinopril 5 mg tablet 5 mg PO DAILY 07/10/24 07/10/24 History multivitamin 1 tab PO DAILY 07/10/24 07/10/24 History pantoprazole 40 mg tablet,delayed 40 mg PO DAILY 07/10/24 07/10/24 History release (Protonix) sertraline 100 mg tablet (Zoloft) 100 mg PO DAILY 07/10/24 07/10/24 History trazodone 100 mg tablet 100 mg PO HS 07/10/24 07/10/24 History insulin glargine 100 unit/mL 40 unit (0.4 mL) subcut Q12H #0 mL 07/13/24 07/10/24 Rx subcutaneous solution (Lantus U-100 Insulin) metformin 500 mg tablet,extended 500 mg PO QID 30 days #120 tabs 07/13/24 Rx release 24 hr oxycodone 5 mg tablet 10 mg (2 x 5 mg) PO Q6H PRN pain 3 07/13/24 Rx days #16 tabs vancomycin 1.25 gram/250 mL in 0.9 1.25 g (250 mL) IV Q8H 07/13/24 Rx % sodium chloride intravenous Hospital Stay Data Consultations 07/10/24 01:21 ED Decision to Admit Stat 07/10/24 06:40 Consult Orthopedic Surgery Routine 07/11/24 15:40 Consult Infectious Diseases Routine Procedures Performed Operation Date: 07/10/24 08:30 Actual Procedures p Incision and drainage right middle finger abscess(Right) - Clay Cristina MD Diagnostic Imagining Performed Finger X-Ray 07/10/24 00:57 EXAM: XR finger(s) RT min 2V CLINICAL HISTORY: R 3rd digit felon, infection TECHNIQUE: X-ray images of the 3rd finger were obtained in AP, lateral, and oblique projections. COMPARISON: No prior studies available for comparison. FINDINGS: Bone Structure: Suspected focal osteopenia at the lateral aspect of the distal phalanx tip of the 3rd finger. Cortical irregularity with suspicion of incomplete radiolucent line noted at the distal phalanx. Noted in the lateral view only. Focal cortical thickening/smooth periosteal reaction is noted at the posterior part of the base of the middle phalanx of the third digit. Joint Spaces: Joint spaces are prreserved. No evidence of joint effusion or subluxation. Soft Tissues: Soft tissue thickening of the third digit is most conspicuous at the distal tuft. IMPRESSION: 1. Soft tissue thickening of the third finger, this most conspicuous at the distal part. 2. Suspected focal distal osteopenia, cortical irregularity, and linear lucency. Further evaluation by MRI may be considered. 3. Focal cortical thickening at the posterior mid phalanx of the third digit. Clinical correlation is advised. Disclaimer: A subtle bone abnormality or fracture may not be readily apparent on x-rays, thus clinical correlation and further imaging including follow up CT, MRI, or follow up x-rays are advised as needed. Electronically signed by Unique Mcdowell 07-10-2024 02:15 AM Finger MRI 07/12/24 17:52 EXAM: MR finger RT wo con CLINICAL HISTORY: 3rd digit felon, infection r/o osteo. TECHNIQUE: Multiplanar, multi-echo MR of the right finger was performed without contrast. Images were sent through PACs for diagnostic interpretation. COMPARISON: CR dated 07/10/2024 FINDINGS: Bone marrow edema is seen at the distal phalanx of the middle finger, exhibiting bright signals on STIR WI with associating soft tissue edema most appreciated at the palmar(Volar) aspect. Findings are consistent with osteomyelitis and soft tissue cellulitis versus Less likely bone and soft tissue contusion. No drainable collection. Laboratory correlation and strict follow-up are recommended as appropriate. Unremarkable scanned metacarpophalangeal intercarpal, carpometacarpal and interphalangeal articulations. Unremarkable scanned muscle groups and neurovascular structures. Homogeneous marrow signals of the scanned bones. IMPRESSION: Bone marrow edema is seen at the distal phalanx of the middle finger, exhibiting bright signals on STIR WI with associating soft tissue edema most appreciated at the palmar(Volar) aspect. Findings are consistent with osteomyelitis and soft tissue cellulitis versus Less likely bone and soft tissue contusion. No drainable collection. Laboratory correlation and strict follow-up are recommended as appropriate. The comparison matches the radiographic findings. Electronically signed by Unique Mcdowell 07-12-2024 8:31 PM Chest X-Ray 07/13/24 12:05 XR chest 1V portable CLINICAL HISTORY: PICC placement COMPARISON STUDY: 09/07/2022 FINDINGS: Heart size and pulmonary vasculature are normal. Interval left PICC line tip is in the SVC. No consolidation or pleural effusion. No pneumothorax. IMPRESSION: No acute findings. Well-positioned left PICC. ACT 112: Negative or not required by law. Electronically signed by: J Luis Wilkins M.D. 07/13/2024 12:28 PM Pending Results Patient Have Any Pending Studies at Discharge: No Discharge Instructions Given to Patient (Per Discharging Provider) MEDICATION CHANGES: New Medications: * IV Vancomycin 1,250mg every 8 hours through 08/24. * Oxycodone 10mg every 6 hours as needed for severe pain. It is recommended that you take extra strength Tylenol (500mg) 2 tablets every 8 hours routinely to help with break through pain. You may also utilize 400mg of ibuprofen every 6 hrs as needed for break through pain. Change how you take your Insulin: * Lantus - Take 40 units SQ every 12 hours. * Novolog - Take 10-15 units with meals. * Check your blood sugar before every meal and at bedtime, keep a log of this to take with you to your follow up appointments. Resume all other home medications as prescribed. SUMMARY OF TEST RESULTS: You were admitted to the hospital due to an infection involving your right third finger. You were seen and evaluated by orthopedics and underwent I and D to that finger. An MRI was obtained of the finger and there is concern for osteomyelitis to the tip of the finger. Due to this your are being discharged home on 6 weeks of IV antibiotics. PENDING TEST RESULTS: None RECOMMENDATIONS FOR FOLLOW-UP: Please follow up with your primary care provider as scheduled. At your primary care appointment it is very important to discuss diabetes management and I would recommend re establishing with the [facility] diabetes clinic through [facility]. A Goal A1C for you is < 7.0. Please keep a log of your blood sugar and take this with you to your next appointment. Please follow up with Dr. Cristina in 10-12 days. Please continue soaking your finger 3x per day for 10 minutes with the betadine solution. Please complete antibiotics. You will need weekly lab work including a CBC, BMP, ESR, CRP and Vanco trough level. OTHER INSTRUCTIONS: Seek medical attention if you have: * temperature above 101 * chest pain or trouble breathing * abdominal pain, nausea, vomiting * diarrhea, dark stools or bloody stools * any unanswered questions or concerns Call 911 if symptoms are severe. Please take good care of yourself. It has been a pleasure taking care of you. Please take care of yourself. If you have any questions regarding your recent hospitalization please contact [facility] and request Jessica Joeist @ [phone]. Total Time Total Time Spent Total Time Spent (In Minutes): 60 minutes Supervising Physician Co-Signing Physician Notes Patient is seen and examined on day of discharge. States having right middle finger pain today. Otherwise no other complaints. Denies any chest pain, dyspnea, nausea, vomiting, abdominal pain. Physical Exam: Vitals signs as noted above General Appearance:Obese, no apparent distress Head: normocephalic, Atraumatic Eyes: normal inspection, EOMI Neck: supple, Trachea midline Respiratory/Chest: Normal breath sounds, CTA, No accessory muscle use Cardiovascular: S1, S2, No murmur Abdomen/GI:Soft, Non tender, Bowel sounds present Extremities/Musculoskeletal:normal inspection, no edema , Right middle finger in dressing Neurologic/Psych:AAOX3, grossly no focal neurological deficits Skin: normal color, warm Felon of finger of right hand Osteomyelitis of right finger--POA --S/P I&D by Dr. Cristina Blood cultures negative to date Wound culture growing lactobacillus Appreciate infectious disease input Continue IV vancomycin through August 24 Advised to follow-up with wound clinic, Dr. Cristina as outpatient Pain control Needs weekly labs while on IV antibiotics I personally interviewed and examined the patient at bedside. I have reviewed the advanced practitioner's documentation on the date of service referred in note and agree with plan. Patient's care is coordinated with Bárbara White. Please refer to the documentation above for details of patient's presentation and for discussion of other issues. I spent a total [id number] coordinating, documenting, and providing care for this patient excluding time spent in the performance of separately billed services or time spent by another provider/QHP.
[2024-07-15] MEDS ORDERED: VANCOMYCIN LEVEL ONE (03:00)
== END 2024-07-13 15:12 | disposition home health service (06) | DRG 540 ==
LOC: ED → 3E 03:20 → SUATTDRO 03:20 → 3E 04:59

== ENCOUNTER 2025-01-04 18:44 | Inpatient (IN) ==
[2025-01-04 19:49] LABS: Hematocrit (blood only) 49.0 % (37.0-47.0); Hemoglobin 18.0 g/dl (12.0-16.0); Immature Granulocytes # (auto) 0.04 K/uL (0.01-0.20); Immature Granulocytes % (auto) 0.3 %; Mean Corpuscular Hemoglobin 32.1 pg (25.0-34.0); Mean Corpuscular Volume 87.3 fL (80.0-100.0); Platelet Count 266 K/uL (130-400); RDW Standard Deviation 39.0 fL (36.4-46.3); Red Blood Count 5.61 M/uL (4.20-5.40); White Blood Count 11.43 K/ul (4.8-10.8)
[2025-01-04 20:06] LABS: Alanine Aminotransferase 14.0 U/L (7-52); Albumin Globulin Ratio 1.1 (0.9-2); Alkaline Phosphatase 84.0 U/L (34-104); Anion Gap 11.0 (3-11); Bilirubin,Total 1.3 mg/dl (0.2-1.0); Blood Urea Nitrogen 15.0 mg/dl (6-23); Calcium 9.8 mg/dl (8.6-10.3); Carbon Dioxide 24.0 mmol/L (21-32); Chloride 102.0 mmol/L (98-107); Creatinine Clr Calc Pharmacy 128.1 ml/min; Globulin 3.7 gm/dl (2.5-4.0); Glucose 176.0 mg/dl (70-99(Fasting)); Lipase 228.0 U/L (11-82); Potassium 4.0 mmol/L (3.5-5.1); Sodium 137.0 mmol/L (136-145); Total Protein 7.9 gm/dl (6.0-8.3)
[2025-01-04 20:14] LABS: Pregnancy Test, Serum Negative (Negative)
[2025-01-04 20:26] LABS: Appearance Urine Clear (Clear); Bacteria Urine Automated None Seen (None Seen); Cast Urine Automated 0-2 /lpf (0-2); Epithelial Cell Urine Auto 0-2 /hpf (0-2); Glucose Urine UA 3+ (Negative); RBC Urine Automated 0-2 /hpf (0-2); WBC Urine Automated 0-5 /hpf (0-5)
--- NOTE | 2025-01-04 20:28 | Emergency Department Note ---
Impression & Plan Acute upper abdominal pain, Acute pancreatitis ED Provider Note HISTORY OF PRESENT ILLNESS: Patient is a 49-year-old female presenting with epigastric and right upper quadrant abdominal pain. Patient reports that symptoms started 14 days ago on 12/22/2024. She states that she thought it was another pancreatitis flare, but states that symptoms significantly worsened yesterday. She denies take any Tylenol and ibuprofen because "the treatment is for me to just stop eating or drinking anything." She reports that she had started eating just a bland diet 2 weeks ago, but given her worsening severe abdominal pain symptoms, decided to present to the emergency department. She denies any fevers but does report feeling chilled at times. She reports her only abdominal surgical history was significant for a tubal ligation. She denies any dysuria or hematuria. She reports vomiting and nausea but denies any diarrhea. Currently rates her pain a 9 out of 10. Locates the pain to the epigastric region. Patient denies any excessive alcohol use. ROS: as above PHYSICAL EXAM: Constitutional: Patient appears in no acute distress. HENT: Head: Normocephalic and atraumatic. Eyes: EOMI, PERRL Mouth/Throat: Mucous membranes moist. Neck: Trachea midline. Neck supple. Cardiovascular: RRR, No murmurs, rubs or gallops. Intact distal pulses. Pulmonary/Chest: No respiratory distress. Breath sounds clear and equal bilaterally. No wheezes or rales. Abdominal: Abdomen soft, no rebound or guarding. Epigastric TTP Musculoskeletal: No edema, tenderness or deformity noted. Skin: Warm and dry. No rash, erythema, pallor or cyanosis Psychiatric: Appropriate mood and affect for situation. Neurological: Alert and keenly responsive. CN II-XII grossly intact, moving all extremities equally and fully. MDM: - Vitals signs showed tachycardia - History obtained via patient. History as above. - Chronic conditions affecting care: HLD; DM-2; HTN; CKD; morbid obesity - Differential diagnoses include, but are not limited to: Cholecystitis; choledocholithiasis; pancreatitis; ACS; dehydration; bowel obstruction - Order placed for continuous cardiac monitoring. At this time, monitor showed rate of 86 bpm with normal sinus rhythm, per my interpretation. - External medical records reviewed. - Laboratory workup interpreted by myself showed slight leukocytosis (WBC 11.43); stable electrolytes; elevated total bilirubin (1.3); normal AST/ALT; negative hCG; elevated lipase (228) - UA negative for infection, but did have ketonuria and glucosuria. - Patient given 2L NS and 50 mcg IV fentanyl on arrival. - On reassessment, still complaining of significant pain. - CT abdomen/pelvis with IV contrast showed concern for possible subtle acute pancreatitis. - Discussion was had with dependency case manager about patient's case and need for admission - Hospitalist consulted for admission - [facility] for further evaluation and management. ASSESSMENT AND PLAN: Diagnosis: acute upper abdominal pain; acute pancreatitis Plan: admit Past Med/Surg History Problem List (Updated 01/04/25 @ 23:00 by Zoie Zapata MD) Acute pancreatitis (Acute) Acute upper abdominal pain (Acute) Superficial venous thrombosis of left arm (Acute) Osteomyelitis of finger of right hand Felon of finger of right hand (Acute) Finger infection Hyperglycemia (Acute) Tendinitis of right rotator cuff Osteomyelitis of foot Infection of right foot (Acute) Encounter for pre-operative examination Diabetic foot ulcer (Acute) Premenstrual dysphoric disorder (Acute) Obesity (Acute) Menorrhagia (Acute) Hypercholesterolemia (Acute) Diabetes mellitus (Acute) Cervical radiculopathy at C7 (Acute) Carpal tunnel syndrome, bilateral (Acute) Abnormal menses (Acute) Osteoarthritis of knees, bilateral Medical History HLD (hyperlipidemia) HTN (hypertension) CKD (chronic kidney disease), stage III Uncontrolled type 2 diabetes mellitus with hyperglycemia Morbid obesity Prothrombin gene mutation Diabetes Osteoarthritis Depression Degenerative disc disease GERD (gastroesophageal reflux disease) Gastroparesis Prothrombin [id number] mutation History of migraine with aura History of gastric ulcer Surgical History History of tubal ligation History of shoulder surgery History of esophagogastroduodenoscopy (EGD) History of colonoscopy History of tonsillectomy History of tooth extraction History of knee surgery Status post hysteroscopic ablation of endometrium History of ankle surgery Family History Mother Diabetes Denies family history of Colon cancer Ovarian cancer Breast cancer Social History Smoking Status: Current every day smoker Tobacco Type: Cigarettes Cigarettes Per Day: 1/2 ppd; Second Hand Exposure: No; Do You Dip or Chew Tobacco: No; Hx Alcohol Use: Yes Alcohol type: wine and hard liquor Hx Substance Use: No Preferred Language: Thai Communication Ability: Effective 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 Required: No Beliefs That Will Affect Care: None marital status: Current Living Situation: Family Current Living Situation Comment: fiance Feels Safe at Home: Yes Assistive Devices: None Allergies Allergies Allergy/AdvReac Type Severity Reaction Status Date / Time baclofen Allergy Intermediate ITCHING, Verified 01/04/25 20:42 NAUSEA/VOMITING cyclobenzaprine Allergy Intermediate itching Verified 01/04/25 20:42 [From Flexeril] meperidine Allergy Mild ITCHY Verified 01/04/25 20:42 amoxicillin AdvReac Intermediate Vomiting Verified 01/04/25 20:42 bupropion AdvReac Intermediate PSYCHOTIC-P Verified 01/04/25 20:42 ARANOID lactose AdvReac Intermediate Gastrointestinal Verified 01/04/25 20:42 Upset morphine AdvReac Intermediate "GETS Verified 01/04/25 20:42 REALLY SICK" zolpidem [From Ambien] AdvReac Intermediate NIGHTMARES Verified 01/04/25 20:42 Home Meds Home Medications Medication Instructions Recorded Confirmed aspirin 81 mg tablet,delayed 81 mg PO DAILY 07/10/24 01/04/25 release atorvastatin 40 mg tablet (Lipitor) 40 mg PO DAILY 07/10/24 01/04/25 empagliflozin 25 mg tablet 25 mg PO DAILY 07/10/24 01/04/25 (Jardiance) famotidine 20 mg tablet 20 mg PO HS 07/10/24 01/04/25 insulin aspart U-100 100 unit/mL 1 sliding scale dose subcut 07/10/24 01/04/25 (3 mL) subcutaneous pen USEASDIRECTD pantoprazole 40 mg tablet,delayed 40 mg PO DAILY 07/10/24 01/04/25 release (Protonix) sertraline 100 mg tablet (Zoloft) 100 mg PO DAILY 07/10/24 01/04/25 trazodone 100 mg tablet 100 mg PO HS 07/10/24 01/04/25 insulin glargine 100 unit/mL 44 unit subcut AMPM 08/10/24 01/04/25 subcutaneous solution (Lantus U-100 Insulin) lisinopril 10 mg tablet 10 mg PO QAM 01/04/25 01/04/25 metformin 500 mg tablet,extended 1,000 mg PO BID 01/04/25 01/04/25 release 24 hr Results & Data (ED) Vital Signs Vital Signs - 24 hr 01/04/25 18:52 01/04/25 20:05 01/04/25 20:49 Temperature 36.8 C Temperature Source Skin Pulse Rate 105 H 85 Pulse Rate [Apical] 75 Respiratory Rate 16 16 Respiratory Effort / Characteristics Non-Labored Spontaneous Non-Labored Spontaneous Respiratory Depth Normal Normal Respiratory Pattern Regular Regular Blood Pressure 116/68 Blood Pressure [Left Arm] 132/63 Blood Pressure Mean 84 Blood Pressure Mean [Left Arm] 86 Blood Pressure Position [Left Arm] Pulse Oximetry 96 96 Oxygen Delivery Method Room Air Room Air Sepsis Recent Fever Within 48 Hours No Sepsis New/Unexplained Change in Mental Status N/A Sepsis Action Taken by Nursing No Action Required 01/04/25 22:06 Temperature Temperature Source Pulse Rate Pulse Rate [Apical] 66 Respiratory Rate 17 Respiratory Effort / Characteristics Non-Labored Spontaneous Respiratory Depth Normal Respiratory Pattern Regular Blood Pressure Blood Pressure [Left Arm] 142/70 H Blood Pressure Mean Blood Pressure Mean [Left Arm] 94 Blood Pressure Position [Left Arm] Left Lateral Pulse Oximetry 96 Oxygen Delivery Method Room Air Sepsis Recent Fever Within 48 Hours Sepsis New/Unexplained Change in Mental Status Sepsis Action Taken by Nursing Laboratory Data 01/04/25 19:30 01/04/25 19:30 Lab Results 01/04/25 01/04/25 Range/Units 19:30 20:11 WBC 11.43 H (4.8-10.8) K/ul RBC 5.61 H (4.20-5.40) M/uL Hgb 18.0 H (12.0-16.0) g/dl Hct 49.0 H (37.0-47.0) % MCV 87.3 (80.0-100.0) fL MCH 32.1 (25.0-34.0) pg MCHC 36.7 H (32.0-36.0) g/dL RDW Std Deviation 39.0 (36.4-46.3) fL RDW Coeff of Shira 12.1 (11.5-14.5) % Plt Count 266 (130-400) K/uL MPV 9.5 (9.4-12.4) fL Immature Gran % (Auto) 0.3 % Neut % (Auto) 70.5 % Lymph % (Auto) 22.5 % [place] % (Auto) 5.8 % Eos % (Auto) 0.3 % Baso % (Auto) 0.6 % Neut # (Auto) 8.05 H (1.40-6.50) K/uL Lymph # (Auto) 2.57 (1.20-3.40) K/uL [place] # (Auto) 0.66 H (0.11-0.59) K/uL Eos # (Auto) 0.04 (0.00-0.50) K/uL Baso # (Auto) 0.07 (0.00-0.20) K/uL Immature Gran # (Auto) 0.04 (0.01-0.20) K/uL Sodium 137 (136-145) mmol/L Potassium 4.0 (3.5-5.1) mmol/L Chloride 102 (98-107) mmol/L Carbon Dioxide 24 (21-32) mmol/L Anion Gap 11 (3-11) BUN 15 (6-23) mg/dl Creatinine 0.70 (0.6-1.2) mg/dl Est Cr Clr Drug Dosing 128.1 ml/min eGFR 106.62 BUN/Creatinine Ratio 21.4 H (10-20) Glucose 176 H (70-99(Fasting)) mg/dl Calcium 9.8 (8.6-10.3) mg/dl Total Bilirubin 1.3 H (0.2-1.0) mg/dl AST 10 L (13-39) U/L ALT 14 (7-52) U/L Alkaline Phosphatase 84 (34-104) U/L Total Protein 7.9 (6.0-8.3) gm/dl Albumin 4.2 (3.4-5.0) gm/dl Globulin 3.7 (2.5-4.0) gm/dl Albumin/Globulin Ratio 1.1 (0.9-2) Lipase 228 H (11-82) U/L HCG, Qual Negative (Negative) Urine Color Yellow Urine Appearance Clear (Clear) Urine pH 5.0 (4.5-7.5) Ur Specific [place] 1.040 H (1.000-1.030) Urine Protein Trace H (Negative) Urine Glucose (UA) 3+ H (Negative) Urine Ketones 3+ H (Negative) Urine Blood Negative (Negative) Urine Nitrite Negative (Negative) Urine Bilirubin Negative (Negative) Urine Urobilinogen Negative (Negative) Ur Leukocyte Esterase Negative (Negative) Urine WBC (Auto) 0-5 (0-5) /hpf Urine RBC (Auto) 0-2 (0-2) /hpf U Hyaline Cast (Auto) 0-2 (0-2) /lpf U Epithel Cells (Auto) 0-2 (0-2) /hpf Urine Bacteria (Auto) None Seen (None Seen) Urine Comment Administered Medications Discontinued Medications Fentanyl Citrate (Fentanyl Citrate Pf 100 Mcg/2 Ml Vial) 50 mcg IV NOW STA Stop: 01/04/25 20:14 Last Admin: 01/04/25 20:44 Dose: 50 mcg Documented By: OMID Sodium Chloride (Nss) 2,000 mls @ 999 mls/hr IV .Q2H1M ONE Stop: 01/04/25 22:13 Last Admin: 01/04/25 20:43 Dose: 999 mls/hr Documented By: OMID Ioversol (Optiray 320 100ml) 90 ml IV ONCE ONE Stop: 01/04/25 20:54 Last Admin: 01/04/25 20:53 Dose: 90 ml Documented By: LOUIE Ondansetron HCl (Ondansetron Inj 2 Mg/Ml 2 Ml Vial) 4 mg IV NOW STA Stop: 01/04/25 20:14 Last Admin: 01/04/25 20:43 Dose: 4 mg Documented By: OMID Imaging Data Radiologist's Impression: Abdomen/Pelvis CT 01/04/25 19:17 Exam(s): CT ABDOMEN + PELVIS With Contrast IV Amt: 90 ml optiray 320 EXAM: CT Abdomen and Pelvis With Intravenous Contrast CLINICAL HISTORY: Mild stool burden. No diverticulitis. Impression. No free intraperitoneal fluid or pneumoperitoneum. The kidneys demonstrate normal enhancement without pyelonephritis or hydronephrosis. There is excreted contrast in the renal collecting systems and intermittently in the ureters. The bladder is mildly distended. Trace excreted contrast noted in the posterior aspect of the bladder. TECHNIQUE: Axial computed tomography images of the abdomen and pelvis with intravenous contrast. CTDI is 27.83 mGy and DLP is 1441.37 mGy-cm. Automated exposure control was utilized for the study. A dose lowering technique was utilized adhering to the principles of ALARA. CONTRAST: Patient received 90 ml optiray 320 of IV contrast COMPARISON: CT abdomen and pelvis with contrast dated 02/02/2023 FINDINGS: Lung bases: Unremarkable. No mass. No consolidation. ABDOMEN: Liver: Unremarkable. No mass. Gallbladder and bile ducts: Unremarkable. No calcified stones. No ductal dilation. Pancreas: Questionable subtle peripancreatic fat stranding, not present on the previous examination. The pancreas is otherwise normal in appearance. No ductal dilation. Spleen: Unremarkable. No splenomegaly. Adrenals: Unremarkable. No mass. Kidneys and ureters: Unremarkable. No solid mass. No hydronephrosis. Stomach and bowel: No evidence for focal high-grade bowel obstruction. No definite asymmetric bowel mucosal abnormality. Moderate stool burden. No diverticulitis. PELVIS: Appendix: No findings to suggest acute appendicitis. Bladder: Unremarkable. No mass. Reproductive: Unremarkable as visualized. ABDOMEN and PELVIS: Intraperitoneal space: Unremarkable. No free air. No significant fluid collection. Bones/joints: No acute fracture. No dislocation. Soft tissues: Unremarkable. Vasculature: Unremarkable. No abdominal aortic aneurysm. Lymph nodes: Unremarkable. No enlarged lymph nodes. IMPRESSION: 1. Questionable subtle peripancreatic fat stranding, not present on the previous examination. The pancreas is otherwise normal in appearance. No ductal dilation. Questionable subtle pancreatitis. Please correlate with laboratory findings. 2. No evidence for focal high-grade bowel obstruction. No definite asymmetric bowel mucosal abnormality. Moderate stool burden. No diverticulitis. No free intraperitoneal fluid or pneumoperitoneum. A normal caliber appendix is noted in the right lower quadrant. Electronically signed by: Joel Josue MD 01/04/25 22:28 PM Discharge Plan Visit Data Chief Complaint: Abdominal Pain Stated Complaint: SEVERE ABD PAIN ED Provider: Zoie Zapata Discharge Problem: Acute upper abdominal pain, Acute pancreatitis Condition: Fair Forms Stand Alone Forms: [facility] Prescriptions Prescriptions: No Action atorvastatin [Lipitor] 40 mg Tablet 40 mg PO DAILY sertraline [Zoloft] 100 mg Tablet 100 mg PO DAILY aspirin 81 mg Tablet,Delayed Release (Dr/Ec) 81 mg PO DAILY famotidine 20 mg Tablet 20 mg PO HS trazodone 100 mg Tablet 100 mg PO HS pantoprazole [Protonix] 40 mg Tablet,Delayed Release (Dr/Ec) 40 mg PO DAILY insulin aspart U-100 100 unit/mL (3 mL) Insulin Pen 1 sliding scale dose SUBCUT USEASDIRECTD Rx Instructions: 55-60 units with meals Jardiance 25 mg Tablet 25 mg PO DAILY insulin glargine [Lantus U-100 Insulin] 100 unit/mL solution 44 unit SUBCUT AMPM Rx Instructions: Morning/Bedtime lisinopril 10 mg tablet 10 mg PO QAM metformin 500 mg tablet extended release 24 hr 1,000 mg PO BID Referrals Referrals: Brandi Dunne DO [Primary Care Provider] -
[2025-01-04] MEDS: ONDANSETRON INJ 2 MG/ML 2 ML VIAL IV STA (20:43)
[2025-01-04] MEDS: SODIUM CHLORIDE 0.9% 2,000 ML IV ONE (20:43)
[2025-01-04] MEDS: OPTIRAY 320 100ml IV ONE (20:53)
--- NOTE | 2025-01-04 22:30 | CT Scan Report ---
Exam(s): CT ABDOMEN + PELVIS With Contrast IV Amt: 90 ml optiray 320 EXAM: CT Abdomen and Pelvis With Intravenous Contrast CLINICAL HISTORY: Mild stool burden. No diverticulitis. Impression. No free intraperitoneal fluid or pneumoperitoneum. The kidneys demonstrate normal enhancement without pyelonephritis or hydronephrosis. There is excreted contrast in the renal collecting systems and intermittently in the ureters. The bladder is mildly distended. Trace excreted contrast noted in the posterior aspect of the bladder. TECHNIQUE: Axial computed tomography images of the abdomen and pelvis with intravenous contrast. CTDI is 27.83 mGy and DLP is 1441.37 mGy-cm. Automated exposure control was utilized for the study. A dose lowering technique was utilized adhering to the principles of ALARA. CONTRAST: Patient received 90 ml optiray 320 of IV contrast COMPARISON: CT abdomen and pelvis with contrast dated 02/02/2023 FINDINGS: Lung bases: Unremarkable. No mass. No consolidation. ABDOMEN: Liver: Unremarkable. No mass. Gallbladder and bile ducts: Unremarkable. No calcified stones. No ductal dilation. Pancreas: Questionable subtle peripancreatic fat stranding, not present on the previous examination. The pancreas is otherwise normal in appearance. No ductal dilation. Spleen: Unremarkable. No splenomegaly. Adrenals: Unremarkable. No mass. Kidneys and ureters: Unremarkable. No solid mass. No hydronephrosis. Stomach and bowel: No evidence for focal high-grade bowel obstruction. No definite asymmetric bowel mucosal abnormality. Moderate stool burden. No diverticulitis. PELVIS: Appendix: No findings to suggest acute appendicitis. Bladder: Unremarkable. No mass. Reproductive: Unremarkable as visualized. ABDOMEN and PELVIS: Intraperitoneal space: Unremarkable. No free air. No significant fluid collection. Bones/joints: No acute fracture. No dislocation. Soft tissues: Unremarkable. Vasculature: Unremarkable. No abdominal aortic aneurysm. Lymph nodes: Unremarkable. No enlarged lymph nodes. IMPRESSION: 1. Questionable subtle peripancreatic fat stranding, not present on the previous examination. The pancreas is otherwise normal in appearance. No ductal dilation. Questionable subtle pancreatitis. Please correlate with laboratory findings. 2. No evidence for focal high-grade bowel obstruction. No definite asymmetric bowel mucosal abnormality. Moderate stool burden. No diverticulitis. No free intraperitoneal fluid or pneumoperitoneum. A normal caliber appendix is noted in the right lower quadrant. Electronically signed by: Joel Jouse MD 01/04/25 22:28 PM
--- NOTE | 2025-01-04 23:49 | History & Physical Report ---
Date of Service January 04, 2025 Assessment & Plan (1) Acute pancreatitis: Plan: 49-year-old female with past medical history significant for type 2 diabetes, dyslipidemia, CKD stage III, nocturnal hypoxemia, hypertension, GERD, irritable bowel syndrome, gastroparesis, obesity, necrobiosis lipoidica diabeticorum, osteomyelitis, chronic back pain, osteoarthritis, migraine, cervicalgia, prothrombin gene mutation heterozygote, depression with anxiety, insomnia p resents with abdominal pain. Patient says abdominal pain going on since December 23. Is constant pain and on and off exacerbated by sharp pains. Pain mostly in the epigastric and right upper quadrant region. Associated with nausea and a couple of episodes of vomiting. Denies any diarrhea or constipation. Micturating okay. Denies any fevers. Denies chest pain. No shortness of breath. No headache. No runny nose or sore throat. No cough. Patient says she has history of pancreatitis 5 times in the past. Recently Trulicity was stopped for possible cause of her pancreatitis. Since symptoms are not getting better she is worried about pancreatitis and came to the ER today. Currently resting comfortably and hemodynamically stable. Acute pancreatitis History of pancreatitis Recently trulicity was stopped N.p.o. IV fluids IV Dilaudid as needed GI consult in a.m. for further recommendation GERD Continue home Protonix Change Pepcid to IV Diabetes Hold metformin and Jardiance Cut back on Lantus to 20 units twice daily as currently npo Sliding scale Close monitor Hypertension On lisinopril Depression and anxiety On Zoloft and trazodone Hyperlipidemia On statin CKD stage III Presented with creatinine 0.7 Will follow labs DVT prophylaxis Lovenox Disposition Medical floor Full code. History of Present Illness Chief Complaint: Abdominal pain Primary Care Provider: Brandi Dunne DO 49-year-old female with past medical history significant for type 2 diabetes, dyslipidemia, CKD stage III, nocturnal hypoxemia, hypertension, GERD, irritable bowel syndrome, gastroparesis, obesity, necrobiosis lipoidica diabeticorum, osteomyelitis, chronic back pain, osteoarthritis, migraine, cervicalgia, prothrombin gene mutation heterozygote, depression with anxiety, insomnia presents with abdominal pain. Patient says abdominal pain going on since December 23. Is constant pain and on and off exacerbated by sharp pains. Pain mostly in the epigastric and right upper quadrant region. Associated with nausea and a couple of episodes of vomiting. Denies any diarrhea or constipation. Micturating okay. Denies any fevers. Denies chest pain. No shortness of breath. No headache. No runny nose or sore throat. No cough. Patient says she has history of pancreatitis 5 times in the past. Recently Trulicity was stopped for possible cause of her pancreatitis. Since symptoms are not getting better she is worried about pancreatitis and came to the ER today. Currently resting comfortably and hemodynamically stable. Past medical history. As mentioned above. Past surgical history. 4 different knee surgeries bilateral knees. Colonoscopy. EGD. Endometrial thermal ablation. Insertion of intrauterine device. Ligation of oviducts. Tonsillectomy. Shoulder arthroscopy left side. Social history. Smokes 1 pack a day for the last 17 years. Alcohol occasionally. No drug use. Family history. Mother had prothrombin gene. Breast cancer. Aunt had lung cancer. Aunt had diabetes. Daughter has muscular dystrophy. Son has muscular dystrophy. Allergies Allergy/AdvReac Type Severity Reaction Status Date / Time baclofen Allergy Intermediate ITCHING, Verified 01/04/25 20:42 NAUSEA/VOMITING cyclobenzaprine Allergy Intermediate itching Verified 01/04/25 20:42 [From Flexeril] meperidine Allergy Mild ITCHY Verified 01/04/25 20:42 amoxicillin AdvReac Intermediate Vomiting Verified 01/04/25 20:42 bupropion AdvReac Intermediate PSYCHOTIC-P Verified 01/04/25 20:42 ARANOID lactose AdvReac Intermediate Gastrointestinal Verified 01/04/25 20:42 Upset morphine AdvReac Intermediate "GETS Verified 01/04/25 20:42 REALLY SICK" zolpidem [From Ambien] AdvReac Intermediate NIGHTMARES Verified 01/04/25 20:42 Home Medications Medication Instructions Recorded Confirmed Type aspirin 81 mg tablet,delayed 81 mg PO DAILY 07/10/24 01/04/25 History release atorvastatin 40 mg tablet (Lipitor) 40 mg PO DAILY 07/10/24 01/04/25 History empagliflozin 25 mg tablet 25 mg PO DAILY 07/10/24 01/04/25 History (Jardiance) famotidine 20 mg tablet 20 mg PO HS 07/10/24 01/04/25 History insulin aspart U-100 100 unit/mL 1 sliding scale dose subcut 07/10/24 01/04/25 History (3 mL) subcutaneous pen USEASDIRECTD pantoprazole 40 mg tablet,delayed 40 mg PO DAILY 07/10/24 01/04/25 History release (Protonix) sertraline 100 mg tablet (Zoloft) 100 mg PO DAILY 07/10/24 01/04/25 History trazodone 100 mg tablet 100 mg PO HS 07/10/24 01/04/25 History insulin glargine 100 unit/mL 44 unit subcut AMPM 08/10/24 01/04/25 History subcutaneous solution (Lantus U-100 Insulin) lisinopril 10 mg tablet 10 mg PO QAM 01/04/25 01/04/25 History metformin 500 mg tablet,extended 1,000 mg PO BID 01/04/25 01/04/25 History release 24 hr Past Med/Surg History Problem List (Updated 01/04/25 @ 23:00 by Zoie Zapata MD) Acute pancreatitis (Acute) Acute upper abdominal pain (Acute) Superficial venous thrombosis of left arm (Acute) Osteomyelitis of finger of right hand Felon of finger of right hand (Acute) Finger infection Hyperglycemia (Acute) Tendinitis of right rotator cuff Osteomyelitis of foot Infection of right foot (Acute) Encounter for pre-operative examination Diabetic foot ulcer (Acute) Premenstrual dysphoric disorder (Acute) Obesity (Acute) Menorrhagia (Acute) Hypercholesterolemia (Acute) Diabetes mellitus (Acute) Cervical radiculopathy at C7 (Acute) Carpal tunnel syndrome, bilateral (Acute) Abnormal menses (Acute) Osteoarthritis of knees, bilateral Medical History HLD (hyperlipidemia) HTN (hypertension) CKD (chronic kidney disease), stage III Uncontrolled type 2 diabetes mellitus with hyperglycemia Morbid obesity Prothrombin gene mutation Diabetes Osteoarthritis Depression Degenerative disc disease GERD (gastroesophageal reflux disease) Gastroparesis Prothrombin [id number] mutation History of migraine with aura History of gastric ulcer Surgical History History of tubal ligation History of shoulder surgery History of esophagogastroduodenoscopy (EGD) History of colonoscopy History of tonsillectomy History of tooth extraction History of knee surgery Status post hysteroscopic ablation of endometrium History of ankle surgery Family History Mother Diabetes Denies family history of Colon cancer Ovarian cancer Breast cancer Social History Smoking Status: Current every day smoker Tobacco Type: Cigarettes Cigarettes Per Day: 1/2 ppd; Second Hand Exposure: No; Do You Dip or Chew Tobacco: No; Hx Alcohol Use: Yes Alcohol type: wine and hard liquor Hx Substance Use: No Preferred Language: [place] Communication Ability: Effective Survey Associate Required: No Beliefs That Will Affect Care: None marital status: Current Living Situation: Significant Other Current Living Situation Comment: fiance Other Information That Helps Us Care for You: No Feels Safe at Home: Yes Safety Concerns: Feels Safe At This Time Assistive Devices: None Review of Systems Review of Systems: All systems reviewed & are unremarkable except as noted in HPI & below Physical Exam Physical Exam: General- Not in distress Head- atraumatic Eyes- PERRL. ENT- oropharynx clear Neck- supple, no JVD. Lungs- clear to auscultation no wheezing or crackles. Heart- regular rate and rhythm; no murmur, no gallop. Abdomen- normal bowel sounds, soft, tender in epigastric and RUQ region, no d istension Extremities- no pretibial edema, no erythema seen Neuro- alert, oriented PERRL, no facial palsy; no dysarthria; moves exytremities Results & Data Results & Data Vital Signs (Past 12 Hours) Vital Signs Temp Pulse Pulse Resp BP BP Pulse Ox 01/04/25 22:06 66 17 142/70 H 96 01/04/25 20:49 75 16 132/63 96 01/04/25 20:05 85 01/04/25 18:52 36.8 C 105 H 16 116/68 96 O2 Del Method 01/04/25 22:06 Room Air 01/04/25 20:49 Room Air 01/04/25 20:05 01/04/25 18:52 Room Air Diagnostic Findings Laboratory Results WBC 11.43 K/ul (4.8-10.8) H 01/04/25 19:30 RBC 5.61 M/uL (4.20-5.40) H 01/04/25 19:30 Hgb 18.0 g/dl (12.0-16.0) H 01/04/25 19:30 Hct 49.0 % (37.0-47.0) H 01/04/25 19: MCV 87.3 fL (80.0-100.0) 01/04/25 19: MCH 32.1 pg (25.0-34.0) 01/04/25 19: MCHC 36.7 g/dL (32.0-36.0) H 01/04/25 19: RDW Std Deviation 39.0 fL (36.4-46.3) 01/04/25 19: RDW Coeff of Shira 12.1 % (11.5-14.5) 01/04/25: Plt Count 266 K/uL (130-400) 01/04/25: MPV 9.5 fL (9.4-12.4) 01/04/25 19: Immature Gran % (Auto) 0.3 % 01/04/25 19: Neut % (Auto) 70.5 % 01/04/25 19: Lymph % (Auto) 22.5 % 01/04/25 19: [place] % (Auto) 5.8 % 01/04/25 19: Eos % (Auto) 0.3 % 01/04/25 19: Baso % (Auto) 0.6 % 01/04/25: Neut # (Auto) 8.05 K/uL (1.40-6.50) H 01/04/25 19:30 Lymph # (Auto) 2.57 K/uL (1.20-3.40) 01/04/25 19: [place] # (Auto) 0.66 K/uL (0.11-0.59) H 01/04/25 19: Eos # (Auto) 0.04 K/uL (0.00-0.50) 01/04/25: Baso # (Auto) 0.07 K/uL (0.00-0.20) 01/04/25: Immature Gran # (Auto) 0.04 K/uL (0.01-0.20) 01/04/25 19:30 Sodium 137 mmol/L (136-145) 01/04/25 19: Potassium 4.0 mmol/L (3.5-5.1) 01/04/25 19:30 Chloride 102 mmol/L (98-107) 01/04/25 19:30 Carbon Dioxide 24 mmol/L (21-32) 01/04/25 19:30 Anion Gap 11 (3-11) 01/04/25 19:30 BUN 15 mg/dl (6-23) 01/04/25 19:30 Creatinine 0.70 mg/dl (0.6-1.2) 01/04/25 19:30 Est Cr Clr Drug Dosing 128.1 ml/min 01/04/25 19:30 eGFR 106.62 01/04/25 19:30 BUN/Creatinine Ratio 21.4 (10-20) H 01/04/25 19:30 Glucose 176 mg/dl (70-99(Fasting)) H 01/04/25 19:30 Calcium 9.8 mg/dl (8.6-10.3) 01/04/25 19:30 Total Bilirubin 1.3 mg/dl (0.2-1.0) H 01/04/25 19:30 AST 10 U/L (13-39) L 01/04/25 19:30 ALT 14 U/L (7-52) 01/04/25 19:30 Alkaline Phosphatase 84 U/L (34-104) 01/04/25 19:30 Total Protein 7.9 gm/dl (6.0-8.3) 01/04/25 19:30 Albumin 4.2 gm/dl (3.4-5.0) 01/04/25 19:30 Globulin 3.7 gm/dl (2.5-4.0) 01/04/25 19:30 Albumin/Globulin Ratio 1.1 (0.9-2) 01/04/25 19:30 Lipase 228 U/L (11-82) H 01/04/25 19:30 HCG, Qual Negative (Negative) 01/04/25 19:30 Urine Color Yellow 01/04/25 20:11 Urine Appearance Clear (Clear) 01/04/25 20:11 Urine pH 5.0 (4.5-7.5) 01/04/25 20:11 Ur Specific [place] 1.040 (1.000-1.030) H 01/04/25 20:11 Urine Protein Trace (Negative) H 01/04/25 20:11 Urine Glucose (UA) 3+ (Negative) H 01/04/25 20:11 Urine Ketones 3+ (Negative) H 01/04/25 20:11 Urine Blood Negative (Negative) 01/04/25 20:11 Urine Nitrite Negative (Negative) 01/04/25 20:11 Urine Bilirubin Negative (Negative) 01/04/25 20:11 Urine Urobilinogen Negative (Negative) 01/04/25 20:11 Ur Leukocyte Esterase Negative (Negative) 01/04/25 20:11 Urine WBC (Auto) 0-5 /hpf (0-5) 01/04/25 20:11 Urine RBC (Auto) 0-2 /hpf (0-2) 01/04/25 20:11 U Hyaline Cast (Auto) 0-2 /lpf (0-2) 01/04/25 20:11 U Epithel Cells (Auto) 0-2 /hpf (0-2) 01/04/25 20:11 Urine Bacteria (Auto) None Seen (None Seen) 01/04/25 20:11 Urine Comment 01/04/25 20:11 Impressions Abdomen/Pelvis CT 01/04/25 19:17 Exam(s): CT ABDOMEN + PELVIS With Contrast IV Amt: 90 ml optiray 320 EXAM: CT Abdomen and Pelvis With Intravenous Contrast CLINICAL HISTORY: Mild stool burden. No diverticulitis. Impression. No free intraperitoneal fluid or pneumoperitoneum. The kidneys demonstrate normal enhancement without pyelonephritis or hydronephrosis. There is excreted contrast in the renal collecting systems and intermittently in the ureters. The bladder is mildly distended. Trace excreted contrast noted in the posterior aspect of the bladder. TECHNIQUE: Axial computed tomography images of the abdomen and pelvis with intravenous contrast. CTDI is 27.83 mGy and DLP is 1441.37 mGy-cm. Automated exposure control was utilized for the study. A dose lowering technique was utilized adhering to the principles of ALARA. CONTRAST: Patient received 90 ml optiray 320 of IV contrast COMPARISON: CT abdomen and pelvis with contrast dated 02/02/2023 FINDINGS: Lung bases: Unremarkable. No mass. No consolidation. ABDOMEN: Liver: Unremarkable. No mass. Gallbladder and bile ducts: Unremarkable. No calcified stones. No ductal dilation. Pancreas: Questionable subtle peripancreatic fat stranding, not present on the previous examination. The pancreas is otherwise normal in appearance. No ductal dilation. Spleen: Unremarkable. No splenomegaly. Adrenals: Unremarkable. No mass. Kidneys and ureters: Unremarkable. No solid mass. No hydronephrosis. Stomach and bowel: No evidence for focal high-grade bowel obstruction. No definite asymmetric bowel mucosal abnormality. Moderate stool burden. No diverticulitis. PELVIS: Appendix: No findings to suggest acute appendicitis. Bladder: Unremarkable. No mass. Reproductive: Unremarkable as visualized. ABDOMEN and PELVIS: Intraperitoneal space: Unremarkable. No free air. No significant fluid collection. Bones/joints: No acute fracture. No dislocation. Soft tissues: Unremarkable. Vasculature: Unremarkable. No abdominal aortic aneurysm. Lymph nodes: Unremarkable. No enlarged lymph nodes. IMPRESSION: 1. Questionable subtle peripancreatic fat stranding, not present on the previous examination. The pancreas is otherwise normal in appearance. No ductal dilation. Questionable subtle pancreatitis. Please correlate with laboratory findings. 2. No evidence for focal high-grade bowel obstruction. No definite asymmetric bowel mucosal abnormality. Moderate stool burden. No diverticulitis. No free intraperitoneal fluid or pneumoperitoneum. A normal caliber appendix is noted in the right lower quadrant. Electronically signed by: Joel Josue MD 01/04/25 22:28 PM Code Status & VTE Plan VTE Prophylaxis Plan VTE Prophylaxis will be ordered: Yes
[2025-01-05] MEDS: NICOTINE 21 MG/24 HR TDSY TD SCH (00:32)
[2025-01-05] MEDS ORDERED: GLUCOSE 40% GEL 15 GM TUBE PO PRN (00:42)
[2025-01-05] MEDS ORDERED: CARBOHYDRATES FOR HYPOGLYCEMIA PO PRN (00:42)
[2025-01-05] MEDS ORDERED: ONDANSETRON INJ 2 MG/ML 2 ML VIAL IV PRN (00:42)
[2025-01-05] MEDS ORDERED: GLUCAGON FOR INJ 1 MG VIAL SQ PRN (00:42)
[2025-01-05] MEDS ORDERED: HYDROmorphone INJ 0.5 MG/0.5 ML SYR IV PRN ×2 (00:42→08:33)
[2025-01-05] MEDS ORDERED: GLUCOSE 10 TAB/TUBE PO PRN (00:42)
[2025-01-05] MEDS ORDERED: DEXTROSE 50% 50 ML SYRINGE IV PRN (00:42)
[2025-01-05] MEDS: HYDROmorphone INJ 0.5 MG/0.5 ML SYR IV STA (00:49)
[2025-01-05] MEDS: LACTATED RINGER'S 1,000 ML IV SCH (01:00)
[2025-01-05] MEDS: INSULIN ASPART PER UNIT CHARGE SC SCH ×2 (01:06→18:01)
[2025-01-05] MEDS: ACETAMINOPHEN 325 MG TAB PO PRN (03:36)
[2025-01-05] MEDS: HYDROmorphone INJ 0.5 MG/0.5 ML SYR IV PRN (04:27)
[2025-01-05 05:53] LABS: Hematocrit (blood only) 42.9 % (37.0-47.0); Hemoglobin 14.8 g/dl (12.0-16.0); Immature Granulocytes # (auto) 0.03 K/uL (0.01-0.20); Immature Granulocytes % (auto) 0.4 %; Mean Corpuscular Hemoglobin 30.8 pg (25.0-34.0); Mean Corpuscular Volume 89.4 fL (80.0-100.0); Platelet Count 227 K/uL (130-400); RDW Standard Deviation 41.1 fL (36.4-46.3); Red Blood Count 4.80 M/uL (4.20-5.40); White Blood Count 8.16 K/ul (4.8-10.8)
[2025-01-05 06:07] LABS: Anion Gap 7.0 (3-11); Blood Urea Nitrogen 13.0 mg/dl (6-23); Calcium 8.7 mg/dl (8.6-10.3); Carbon Dioxide 25.0 mmol/L (21-32); Chloride 106.0 mmol/L (98-107); Creatinine Clr Calc Pharmacy 129.8 ml/min; Glucose 67.0 mg/dl (70-99(Fasting)); Magnesium 2.0 mg/dl (1.7-2.4); Potassium 3.8 mmol/L (3.5-5.1); Sodium 138.0 mmol/L (136-145)
[2025-01-05 07:14] LABS: Hemoglobin A1C 9.8 % (4.5-5.6)
[2025-01-05] MEDS: LANTUS PER UNIT CHARGE SQ SCH (08:30)
[2025-01-05] MEDS: REMOVE NICODERM PATCH SCH (08:33)
[2025-01-05] MEDS: ASPIRIN 81 MG ECTAB PO SCH (08:35)
[2025-01-05] MEDS: FAMOTIDINE 20MG IV PUSH 20 MG/5 ML SYR IV SCH (08:36)
[2025-01-05] MEDS: ATORVASTATIN 40 MG TAB PO SCH (08:36)
[2025-01-05] MEDS: ENOXAPARIN INJ 40 MG/0.4 ML SYR SQ SCH (08:36)
[2025-01-05] MEDS: SERTRALINE HCL 100 MG TABLET PO SCH (08:37)
[2025-01-05] MEDS: KETOROLAC TROMETHAMINE 15 MG/ML VIAL IV PRN (09:07)
--- NOTE | 2025-01-05 10:33 | Gastrointestinal Consultation ---
Date of Consultation January 05, 2025 Assessment & Plan (1) Acute pancreatitis: Patient seen in coverage for [facility] where she follows for her IBS & gastroparesis. Patient with subtle changes of possible pancreatitis on CT, mildly elevated lipase, and abdominal pain concerning for pancreatitis. It's hard to know whether the imaging and lipase would have been more significantly abnormal had the patient presented at the onset of symptoms 2 weeks ago. At present she is tolerating a liquid diet. -Would recommend obtaining an abdominal US to rule out gallstones -Obtain lipid panel -Follow LFTs--bilirubin was bumped on labs this AM -Continue supportive treatment for pancreatitis as already in motion by primary team Supervising Physician Co-Signing Physician Notes The patient was seen and evaluated. Hospital labs, data, records and imaging reviewed at length. The case was discussed with the GI AARON and I agree with her assessment and plan as outlined above. The patient presents with a low-grade pancreatitis with a history of similar. The etiology is somewhat unclear and that she does not have alcohol use, is not on any particular offending pharmacologic agents. Autoimmune pancreatitis would be highly unlikely given the appearance of the pancreatic parenchyma in the absence of biliary stricture seen on imaging. Microlithiasis is high on the differential diagnosis. I do believe it would be prudent for the patient have an endoscopic ultrasound to evaluate the pancreatic parenchyma, rule out any microlithiasis. She is encouraged to follow-up with her regular GI team for this as this service is not available at our institution. If she is able to tolerate a low-fat diet without nausea or significant abdominal pain the patient is stable for hospital discharge. She is encouraged to remain on a low-fat diet. Testing for exocrine pancreatic insufficiency should be considered on an outpatient basis to determine whether she may benefit from pancreatic enzyme replacement therapy. History of Present Illness Reason for Consultation: Pancreatitis Attending Physician: Andrea Rendon MD History of Present Illness Patient is a 49 yo female with PMH of DM2, HLD, CKD3, HTN, nocturnal hypoxemia, HTN, GERD, IBS, gastroparesis, obesity, osteomyelitis, OA, migraines, prothrombin gene mutation heterozygote, depression with anxiety, and insomnia who notes that she began experiencing abdominal pain on 12/22/24. She has had pancreatitis several times in the past. In the past it was blamed on Trulicity and this was recently stopped due to the possibility of it causing her symptoms. The patient notes that her pain continued for 2 weeks and when it was not resolving, she decided to seek ED evaluation. In the ED, her lipase was noted to be 228. T bili 1.3, AST 10, ALT 14. She still has a gallbladder. No significant alcohol use (rare). No [facility] profile in [facility]. No recent viral illnesses. No abdominal trauma. An abdominal CT in the ED showed: IMPRESSION: 1. Questionable subtle peripancreatic fat stranding, not present on the previous examination. The pancreas is otherwise normal in appearance. No ductal dilation. Questionable subtle pancreatitis. Please correlate with laboratory findings. 2. No evidence for focal high-grade bowel obstruction. No definite asymmetric bowel mucosal abnormality. Moderate stool burden. No diverticulitis. No free intraperitoneal fluid or pneumoperitoneum. A normal caliber appendix is noted in the right lower quadrant. She sees [facility] for IBS & gastroparesis. Allergies Allergy/AdvReac Type Severity Reaction Status Date / Time baclofen Allergy Intermediate ITCHING, Verified 01/04/25 20:42 NAUSEA/VOMITING cyclobenzaprine Allergy Intermediate itching Verified 01/04/25 20:42 [From Flexeril] meperidine Allergy Mild ITCHY Verified 01/04/25 20:42 amoxicillin AdvReac Intermediate Vomiting Verified 01/04/25 20:42 bupropion AdvReac Intermediate PSYCHOTIC-P Verified 01/04/25 20:42 ARANOID lactose AdvReac Intermediate Gastrointestinal Verified 01/04/25 20:42 Upset morphine AdvReac Intermediate "GETS Verified 01/04/25 20:42 REALLY SICK" zolpidem [From Ambien] AdvReac Intermediate NIGHTMARES Verified 01/04/25 20:42 Home Medications Medication Instructions Recorded Confirmed Type aspirin 81 mg tablet,delayed 81 mg PO DAILY 07/10/24 01/04/25 History release atorvastatin 40 mg tablet (Lipitor) 40 mg PO DAILY 07/10/24 01/04/25 History empagliflozin 25 mg tablet 25 mg PO DAILY 07/10/24 01/04/25 History (Jardiance) famotidine 20 mg tablet 20 mg PO HS 07/10/24 01/04/25 History insulin aspart U-100 100 unit/mL 1 sliding scale dose subcut 07/10/24 01/04/25 History (3 mL) subcutaneous pen USEASDIRECTD pantoprazole 40 mg tablet,delayed 40 mg PO DAILY 07/10/24 01/04/25 History release (Protonix) sertraline 100 mg tablet (Zoloft) 100 mg PO DAILY 07/10/24 01/04/25 History trazodone 100 mg tablet 100 mg PO HS 07/10/24 01/04/25 History insulin glargine 100 unit/mL 44 unit subcut AMPM 08/10/24 01/04/25 History subcutaneous solution (Lantus U-100 Insulin) lisinopril 10 mg tablet 10 mg PO QAM 01/04/25 01/04/25 History metformin 500 mg tablet,extended 1,000 mg PO BID 01/04/25 01/04/25 History release 24 hr Patient History Medical History HLD (hyperlipidemia) HTN (hypertension) CKD (chronic kidney disease), stage III Uncontrolled type 2 diabetes mellitus with hyperglycemia Morbid obesity Prothrombin gene mutation Diabetes IDDM Osteoarthritis Depression Degenerative disc disease GERD (gastroesophageal reflux disease) Gastroparesis Prothrombin [id number] mutation History of migraine with aura History of gastric ulcer Surgical History History of tubal ligation History of shoulder surgery Lt History of esophagogastroduodenoscopy (EGD) History of colonoscopy History of tonsillectomy History of tooth extraction History of knee surgery BL Status post hysteroscopic ablation of endometrium History of ankle surgery Rt Family History Mother Diabetes Denies family history of Colon cancer Ovarian cancer Breast cancer Social History Smoking Status: Current every day smoker Tobacco Type: Cigarettes Cigarettes Per Day: 1/2 ppd; Second Hand Exposure: No; Do You Dip or Chew Tobacco: No; Hx Alcohol Use: Yes Alcohol type: wine and hard liquor Hx Substance Use: No Preferred Language: Yakut Communication Ability: Effective Building Serviceman Required: No Beliefs That Will Affect Care: None marital status: Current Living Situation: Significant Other Current Living Situation Comment: fiance Feels Safe at Home: Yes Assistive Devices: None Review of Systems Constitutional: no fever and no chills Gastrointestinal: + abdominal pain; no blood in stools no n/v at present Integumentary: no jaundice Physical Exam Constitutional: well developed Respiratory: normal respiratory effort Gastrointestinal (Abdomen): normal bowel sounds, soft, nontender, no hep atosplenomegaly Psychiatric: Orientation: alert and oriented x 3 Results & Data Vital Signs (Past 12 Hours) Vital Signs Temp Pulse Pulse Resp BP BP Pulse Ox 01/05/25 10:06 107/49 L 01/05/25 10:03 51 L 12 107/79 93 01/05/25 07:21 55 L 01/05/25 06:17 88 L 01/05/25 05:00 55 L 91 01/05/25 04:36 55 L 92 01/05/25 04:25 118/66 01/05/25 04:25 118/66 01/05/25 04:18 57 L 16 92 01/05/25 03:00 36.8 C 56 L 18 140/85 91 01/05/25 03:00 62 13 140/85 91 01/05/25 02:00 58 L 13 116/58 L 91 01/05/25 01:30 58 L 12 119/50 L 92 01/05/25 01:03 57 L 14 92 01/05/25 00:45 59 L 14 129/69 95 01/05/25 00:39 57 L 14 129/69 96 01/05/25 00:18 56 L 18 97 01/05/25 00:12 54 L 18 121/72 92 01/05/25 00:11 121/72 95 01/04/25 22:57 58 L 15 120/75 95 O2 Del Method 01/05/25 10:06 01/05/25 10:03 Room Air 01/05/25 07:21 01/05/25 06:17 Room Air 01/05/25 05:00 Room Air 01/05/25 04:36 Room Air 01/05/25 04:25 01/05/25 04:25 01/05/25 04:18 Room Air 01/05/25 03:00 Room Air 01/05/25 03:00 Room Air 01/05/25 02:00 Room Air 01/05/25 01:30 Room Air 01/05/25 01:03 Room Air 01/05/25 00:45 Room Air 01/05/25 00:39 Room Air 01/05/25 00:18 Room Air 01/05/25 00:12 Room Air 01/05/25 00:11 Room Air 01/04/25 22:57 Room Air PG Care Time/CCT Total # of Minutes Spent Total Time Spent with Patient: Total time spent is greater than 50% in coordination of care (as documented) at patient's floor/unit and/or counseling patient: Coding Level of Care Code 08758 IN/OBS CONSULT LVL 4,60M Diagnoses Acute pancreatitis K85.90
--- NOTE | 2025-01-05 11:01 | Ultrasound Report ---
ABDOMINAL ULTRASOUND, RIGHT UPPER QUADRANT HISTORY: Acute right upper quadrant abdominal pain reassess for stones. COMPARISON: CT 01/04/2025 FINDINGS: Pancreas: Is mostly obscured by bowel gas. Liver: Unremarkable measuring 18 cm in length. Gallbladder: No gallbladder wall thickening. No gallstones. CBD: 5 mm Right kidney: No hydronephrosis. IMPRESSION: Unremarkable exam. ACT 112: Negative or not required by law. Electronically signed by: Jacek Linder M.D. 01/05/2025 10:59 AM
[2025-01-05 12:35] VITALS: BP 154/87; PULSE 49; RESP 16; TEMP 97.9; O2SAT 96
[2025-01-05] MEDS: ACETAMINOPHEN 500 MG TAB PO SCH (13:54)
--- NOTE | 2025-01-05 18:09 | Hospitalist Progress Note ---
Date of Service January 05, 2025 Assessment & Plan (1) Acute pancreatitis: Plan: 49-year-old female with past medical history significant for type 2 diabetes, dyslipidemia, CKD stage III, nocturnal hypoxemia, hypertension, GERD, irritable bowel syndrome, gastroparesis, obesity, necrobiosis lipoidica diabeticorum, osteomyelitis, chronic back pain, osteoarthritis, migraine, cervicalgia, prothrombin gene mutation heterozygote, depression with anxiety, insomnia p resents with abdominal pain. Patient says abdominal pain going on since December 23. Is constant pain and on and off exacerbated by sharp pains. Pain mostly in the epigastric and right upper quadrant region. Associated with nausea and a couple of episodes of vomiting. Denies any diarrhea or constipation. Micturating okay. Denies any fevers. Denies chest pain. No shortness of breath. No headache. No runny nose or sore throat. No cough. Patient says she has history of pancreatitis 5 times in the past. Recently Trulicity was stopped for possible cause of her pancreatitis. Since symptoms are not getting better she is worried about pancreatitis and came to the ER today. Currently resting comfortably and hemodynamically stable. Acute pancreatitis History of pancreatitis Recently trulicity was stopped N.p.o. IV fluids IV Dilaudid as needed GI consult in a.m. for further recommendation GERD Continue home Protonix Change Pepcid to IV Diabetes Hold metformin and Jardiance Cut back on Lantus to 20 units twice daily as currently npo Sliding scale Close monitor Hypertension On lisinopril Depression and anxiety On Zoloft and trazodone Hyperlipidemia On statin CKD stage III Presented with creatinine 0.7 Will follow labs DVT prophylaxis Lovenox Disposition Medical floor Full code. Admission and Anticipated Discharge Date Admission Date: January 04, 2025 Subjective Patient doing ok today, tolerating liquid diet. Pain improved. Review of Systems Review of Systems: CONSTITUTIONAL: Patient denies fevers, chills, sweats and weight changes. EYES: Patient denies any visual symptoms. EARS, NOSE, AND THROAT: No difficulties with hearing. No symptoms of rhinitis or sore throat. CARDIOVASCULAR: Patient denies chest pains, palpitations, orthopnea and paroxysmal nocturnal dyspnea. RESPIRATORY: No dyspnea on exertion, no wheezing or cough. GI: No nausea, vomiting, diarrhea, constipation, abdominal pain, hematochezia or melena. : No urinary hesitancy or dribbling. No nocturia or urinary frequency. No abnormal urethral discharge. MUSCULOSKELETAL: No myalgias or arthralgias. NEUROLOGIC: No chronic headaches, no seizures. Patient denies numbness, tingling or weakness. PSYCHIATRIC: Patient denies problems with mood disturbance. No problems with anxiety. ENDOCRINE: No excessive urination or excessive thirst. DERMATOLOGIC: Patient denies any rashes or skin changes. Physical Exam Physical Exam: Gen: A&O 3 NAD HEENT: NCAT, EOMI, not icteric. External ears normal. No rhinorrhea. Moist mucous membranes. Neck: Supple, full range of motion, no observable masses, No meningeal sign. Lungs: No Respiratory distress. CV: RRR, no edema. Abdomen: tenderness to palpation in epigastric region MSK: No joint swelling, no redness. Skin: No rashes, petechiae, lesions. Normal color per patient. Neuro: Normal Gait, Grossly intact. Psych: Appropriate for situation. Results & Data Results & Data Vital Signs (Past 12 Hours) Vital Signs Temp Pulse Pulse Pulse Resp BP BP 01/05/25 12:30 01/05/25 12:30 36.6 C 49 L 16 01/05/25 12:11 54 L 18 131/72 01/05/25 10:06 107/49 L 01/05/25 10:03 51 L 12 107/79 01/05/25 07:21 55 L 01/05/25 06:17 BP Pulse Ox O2 Del Method 01/05/25 12:30 Room Air 01/05/25 12:30 154/87 H 96 Room Air 01/05/25 12:11 95 Room Air 01/05/25 10:06 01/05/25 10:03 93 Room Air 01/05/25 07:21 01/05/25 06:17 88 L Room Air Laboratory Results -personally reviewed, elevated lipase, no leukocytosis, mildly elevated total bilirubin, creatinne
--- NOTE | 2025-01-05 18:21 | Discharge Summary ---
Discharge Summary Date of Service January 05, 2025 Principal Dx & Hospital Course #1 = Principal Diagnosis (1) Acute pancreatitis: Notes For Next Care Provider 49-year-old female with past medical history significant for type 2 diabetes, dyslipidemia, CKD stage III, nocturnal hypoxemia, hypertension, GERD, irritable bowel syndrome, gastroparesis, obesity, necrobiosis lipoidica diabeticorum, osteomyelitis, chronic back pain, osteoarthritis, migraine, cervicalgia, prothrombin gene mutation heterozygote, depression with anxiety, insomnia presents with abdominal pain. Found to have acute pancreatitis, admitted to medicine. GI consulted given recurrent pancreatitis, recommended supportive care. Patient tolerated solid food well. On 01/05/2025 patient medically ready for discharge, requesting to leave. To do: [ ] f/u with GI Medication Changes From Visit -short course oxy for pain Admission HPI Per Admitting Provider 49-year-old female with past medical history significant for type 2 diabetes, dyslipidemia, CKD stage III, nocturnal hypoxemia, hypertension, GERD, irritable bowel syndrome, gastroparesis, obesity, necrobiosis lipoidica diabeticorum, osteomyelitis, chronic back pain, osteoarthritis, migraine, cervicalgia, prothrombin gene mutation heterozygote, depression with anxiety, insomnia presents with abdominal pain. Patient says abdominal pain going on since December 23. Is constant pain and on and off exacerbated by sharp pains. Pain mostly in the epigastric and right upper quadrant region. Associated with nausea and a couple of episodes of vomiting. Denies any diarrhea or constipation. Micturating okay. Denies any fevers. Denies chest pain. No shortness of breath. No headache. No runny nose or sore throat. No cough. Patient says she has history of pancreatitis 5 times in the past. Recently Trulicity was stopped for possible cause of her pancreatitis. Since symptoms are not getting better she is worried about pancreatitis and came to the ER today. Currently resting comfortably and hemodynamically stable. Past medical history. As mentioned above. Past surgical history. 4 different knee surgeries bilateral knees. Colonoscopy. EGD. Endometrial thermal ablation. Insertion of intrauterine device. Ligation of oviducts. Tonsillectomy. Shoulder arthroscopy left side. Social history. Smokes 1 pack a day for the last 17 years. Alcohol occasionally. No drug use. Family history. Mother had prothrombin gene. Breast cancer. Aunt had lung can cer. Aunt had diabetes. Daughter has muscular dystrophy. Son has muscular dystrophy. Discharge Exam Gen: A&O 3 NAD HEENT: NCAT, EOMI, not icteric. External ears normal. No rhinorrhea. Moist mucous membranes. Neck: Supple, full range of motion, no observable masses, No meningeal sign. Lungs: No Respiratory distress. CV: RRR, no edema. Abdomen: Soft, nondistended, No rebound tenderness. MSK: No joint swelling, no redness. Skin: No rashes, petechiae, lesions. Normal color per patient. Neuro: Normal Gait, Grossly intact. Psych: Appropriate for situation. Updated Medication List Medication Instructions Recorded Confirmed Type aspirin 81 mg tablet,delayed 81 mg PO DAILY 07/10/24 01/04/25 History release atorvastatin 40 mg tablet (Lipitor) 40 mg PO DAILY 07/10/24 01/04/25 History empagliflozin 25 mg tablet 25 mg PO DAILY 07/10/24 01/04/25 History (Jardiance) famotidine 20 mg tablet 20 mg PO HS 07/10/24 01/04/25 History insulin aspart U-100 100 unit/mL 1 sliding scale dose subcut 07/10/24 01/04/25 History (3 mL) subcutaneous pen USEASDIRECTD pantoprazole 40 mg tablet,delayed 40 mg PO DAILY 07/10/24 01/04/25 History release (Protonix) sertraline 100 mg tablet (Zoloft) 100 mg PO DAILY 07/10/24 01/04/25 History trazodone 100 mg tablet 100 mg PO HS 07/10/24 01/04/25 History insulin glargine 100 unit/mL 44 unit subcut AMPM 08/10/24 01/04/25 History subcutaneous solution (Lantus U-100 Insulin) lisinopril 10 mg tablet 10 mg PO QAM 01/04/25 01/04/25 History metformin 500 mg tablet,extended 1,000 mg PO BID 01/04/25 01/04/25 History release 24 hr oxycodone 5 mg tablet 5 mg PO Q8H PRN pain #14 tabs 01/05/25 Rx Hospital Stay Data Consultations 01/04/25 22:36 ED Decision to Admit Stat 01/05/25 08:00 Consult Gastroenterology Routine Diagnostic Imagining Performed 01/04/25 19:17 CT Abd and Pelvis [CT abd pelvis IV con only] Stat 01/05/25 09:19 gallbladder Routine Pending Results Patient Have Any Pending Studies at Discharge: No Discharge Instructions Given to Patient (Per Discharging Provider) Diagnosis: acute pancreatitis Follow Ups: with PCP, GI Incidentals: none 1. Follow up with PCP and GI. 2. Stay hydrated! Please eat soft foods for next few days. Total Time Total Time Spent Total Time Spent (In Minutes): I spent a total of 35 minutes in direct patient care, including [id number] time with the patient and/or family, reviewing medical records, ordering and reviewing diagnostic tests, and coordinating care with other healthcare providers. This time includes: history taking, physical examination, medical decision making, counseling, ECG interpretation, imaging interpretation, lab interpretation, orders, and education, excluding time spent in the performance of separately billed services.
== END 2025-01-05 18:48 | disposition home or self-care (01) | DRG 440 ==
LOC: ED 18:44 → EDINP 23:33 → 3N 01-05 00:42

== ENCOUNTER 2025-01-15 00:35 | Inpatient (IN) ==
--- NOTE | 2025-01-15 00:50 | Emergency Department Note ---
History of Present Illness General Chief complaint: Abdominal Pain Stated complaint: ABD PAIN Time Seen by Provider: 01/15/25 00:45 History of Present Illness Maximum Pain Intensity: [age]-year-old female with past medical history significant for type 2 diabetes, dyslipidemia, CKD stage III, nocturnal hypoxemia, hypertension, GERD, irritable bowel syndrome, gastroparesis, obesity, necrobiosis lipoidica diabeticorum, osteomyelitis, chronic back pain, osteoarthritis, migraine, cervicalgia, prothrombin gene mutation heterozygote, depression with anxiety, insomnia presents with abdominal pain. Patient states this feels worse than her recent admission for pancreatitis. She also some urinary symptoms. Patient denies chest pain, dyspnea, cough, congestion, diarrhea. She complains of subjective fever and chills. No documented temperature. Home Medications Medication Instructions Recorded Confirmed Type aspirin 81 mg tablet,delayed 81 mg PO DAILY 07/10/24 01/04/25 History release atorvastatin 40 mg tablet (Lipitor) 40 mg PO DAILY 07/10/24 01/04/25 History empagliflozin 25 mg tablet 25 mg PO DAILY 07/10/24 01/04/25 History (Jardiance) famotidine 20 mg tablet 20 mg PO HS 07/10/24 01/04/25 History insulin aspart U-100 100 unit/mL 1 sliding scale dose subcut 07/10/24 01/04/25 History (3 mL) subcutaneous pen USEASDIRECTD pantoprazole 40 mg tablet,delayed 40 mg PO DAILY 07/10/24 01/04/25 History release (Protonix) sertraline 100 mg tablet (Zoloft) 100 mg PO DAILY 07/10/24 01/04/25 History trazodone 100 mg tablet 100 mg PO HS 07/10/24 01/04/25 History insulin glargine 100 unit/mL 44 unit subcut AMPM 08/10/24 01/04/25 History subcutaneous solution (Lantus U-100 Insulin) lisinopril 10 mg tablet 10 mg PO QAM 01/04/25 01/04/25 History metformin 500 mg tablet,extended 1,000 mg PO BID 01/04/25 01/04/25 History release 24 hr oxycodone 5 mg tablet 5 mg PO Q8H PRN pain #14 tabs 01/05/25 Rx Allergies Allergy/AdvReac Type Severity Reaction Status Date / Time baclofen Allergy Intermediate ITCHING, Verified 01/04/25 20:42 NAUSEA/VOMITING cyclobenzaprine Allergy Intermediate itching Verified 01/04/25 20:42 [From Flexeril] meperidine Allergy Mild ITCHY Verified 01/04/25 20:42 amoxicillin AdvReac Intermediate Vomiting Verified 01/04/25 20:42 bupropion AdvReac Intermediate PSYCHOTIC-P Verified 01/04/25 20:42 ARANOID lactose AdvReac Intermediate Gastrointestinal Verified 01/04/25 20:42 Upset morphine AdvReac Intermediate "GETS Verified 01/04/25 20:42 REALLY SICK" zolpidem [From Ambien] AdvReac Intermediate NIGHTMARES Verified 01/04/25 20:42 Past Med/Surg History Problem List (Updated 01/15/25 @ 01:54 by Charito Kaminski PA-C) Acute pancreatitis (Acute) Acute upper abdominal pain (Acute) Superficial venous thrombosis of left arm (Acute) Osteomyelitis of finger of right hand Felon of finger of right hand (Acute) Finger infection Hyperglycemia (Acute) Tendinitis of right rotator cuff Osteomyelitis of foot Infection of right foot (Acute) Encounter for pre-operative examination Diabetic foot ulcer (Acute) Premenstrual dysphoric disorder (Acute) Obesity (Acute) Menorrhagia (Acute) Hypercholesterolemia (Acute) Diabetes mellitus (Acute) Cervical radiculopathy at C7 (Acute) Carpal tunnel syndrome, bilateral (Acute) Abnormal menses (Acute) Osteoarthritis of knees, bilateral Medical History HLD (hyperlipidemia) HTN (hypertension) CKD (chronic kidney disease), stage III Uncontrolled type 2 diabetes mellitus with hyperglycemia Morbid obesity Prothrombin gene mutation Diabetes IDDM Osteoarthritis Depression Degenerative disc disease GERD (gastroesophageal reflux disease) Gastroparesis Prothrombin [id number] mutation History of migraine with aura History of gastric ulcer Surgical History History of tubal ligation History of shoulder surgery Lt History of esophagogastroduodenoscopy (EGD) History of colonoscopy History of tonsillectomy History of tooth extraction History of knee surgery BL Status post hysteroscopic ablation of endometrium History of ankle surgery Rt Family History Mother Diabetes Denies family history of Colon cancer Ovarian cancer Breast cancer Social History Smoking Status: Current every day smoker Tobacco Type: Cigarettes Cigarettes Per Day: 1/2 ppd; Second Hand Exposure: No; Do You Dip or Chew Tobacco: No; Hx Alcohol Use: Yes Alcohol type: wine and hard liquor Hx Substance Use: No Preferred Language: Jordanian Communication Ability: Effective Radio News Anchor Required: No Beliefs That Will Affect Care: None marital status: Current Living Situation: Significant Other Current Living Situation Comment: mathieu Feels Safe at Home: Yes Assistive Devices: None Review of Systems A total of 10 systems reviewed and were otherwise negative Physical Exam Vital Signs Vital Signs - 24 hr 01/15/25 00:36 01/15/25 01:39 Temperature 36.4 C L Temperature Source Temporal Artery Scan Pulse Rate 80 Respiratory Rate 20 Respiratory Effort / Characteristics Non-Labored Spontaneous Respiratory Depth Normal Blood Pressure 141/80 H Blood Pressure Mean 100 Pulse Oximetry 97 97 Oxygen Delivery Method Room Air Room Air Sepsis Recent Fever Within 48 Hours No Sepsis New/Unexplained Change in Mental Status N/A Sepsis Action Taken by Nursing No Action Required VITALS: Vitals are noted on the nurse's note and reviewed by myself. Vital signs stable. GENERAL: White female ambulating without difficulties, in no acute distress, nondiaphoretic, well-developed well-nourished. SKIN: Capillary reflex less than 2 seconds. HEENT: Normocephalic. PERRLA. EOMI. Nares patent. Mucous membranes moist. Neck is supple without nuchal rigidity. HEART: Regular rate and rhythm LUNGS: Clear to auscultation bilaterally without wheezes, rales or rhonchi. No retractions or accessory muscle use. ABDOMEN: Positive bowel sounds x 4. Normal tympanic percussion. Soft, diffusely tender to palpation, without masses or organomegaly. Sofia sign negative. No guarding or rebound tenderness. no CVA tenderness MUSCULOSKELETAL: No gross musculoskeletal defects. NEURO: Patient was alert and oriented to person place and time. No focal neurological deficits. Course Administered Medications Discontinued Medications Droperidol (Droperidol 5 Mg/2 Ml Vial) 1.25 mg IV ONE STA Stop: 01/15/25 00:49 Last Admin: 01/15/25 01:35 Dose: 1.25 mg Documented By: SHILOH Sodium Chloride (Nss) 1,000 mls @ 999 mls/hr IV .Q1H1M STA Stop: 01/15/25 01:48 Last Admin: 01/15/25 01:35 Dose: 999 mls/hr Documented By: SHILOH Famotidine (Pepcid 20mg Iv Push) 20 mg in 5 mls @ 2.5 mls/min IV NOW STA Stop: 01/15/25 00:49 Last Admin: 01/15/25 01:35 Dose: 2.5 mls/min Documented By: SHILOH Ioversol (Optiray 320 100ml) 94 ml IV ONCE ONE Stop: 01/15/25 01:22 Last Admin: 01/15/25 01:21 Dose: 94 ml Documented By: LADARIUS Medical Decision Making Medical Records Attestation: I reviewed the patient's medical records. Home Medications Current Medication List: was personally reviewed by me Laboratory Data Attestation: I reviewed the patient's lab results. 01/15/25 01:00 01/15/25 01:00 Lab Results 01/15/25 01/15/25 01/15/25 Range/Units 01:00 01:05 01:08 WBC 11.58 H (4.8-10.8) K/ul RBC 5.04 (4.20-5.40) M/uL Hgb 15.2 (12.0-16.0) g/dl POC Hgb 15.3 (12.0-16.0) g/dl Hct 44.1 (37.0-47.0) % POC Hct 45 (37-47) % MCV 87.5 (80.0-100.0) fL MCH 30.2 (25.0-34.0) pg MCHC 34.5 (32.0-36.0) g/dL RDW Std Deviation 39.8 (36.4-46.3) fL RDW Coeff of Shira 12.5 (11.5-14.5) % Plt Count 287 (130-400) K/uL MPV 9.6 (9.4-12.4) fL Immature Gran % (Auto) 0.3 % Neut % (Auto) 62.0 % Lymph % (Auto) 28.6 % [place] % (Auto) 7.2 % Eos % (Auto) 1.4 % Baso % (Auto) 0.5 % Neut # (Auto) 7.19 H (1.40-6.50) K/uL Lymph # (Auto) 3.31 (1.20-3.40) K/uL [place] # (Auto) 0.83 H (0.11-0.59) K/uL Eos # (Auto) 0.16 (0.00-0.50) K/uL Baso # (Auto) 0.06 (0.00-0.20) K/uL Immature Gran # (Auto) 0.03 (0.01-0.20) K/uL POC Sodium 138 (135-144) mmol/L Sodium 137 (136-145) mmol/L POC Potassium 3.5 (3.3-5.0) mmol/L Potassium 3.5 (3.5-5.1) mmol/L POC Chloride 102 (101-112) mmol/L Chloride 103 (98-107) mmol/L Carbon Dioxide 25 (21-32) mmol/L POC Total CO2 22 L (24-31) mmol/L Anion Gap 9 (3-11) POC Anion Gap 18.0 (16-25) mmol/L POC BUN 16 (7-18) mg/dl BUN 17 (6-23) mg/dl Creatinine 0.74 (0.6-1.2) mg/dl POC Creatinine 0.7 (0.6-1.3) mg/dl Est Cr Clr Drug Dosing 122.7 ml/min eGFR 99.74 BUN/Creatinine Ratio 23.0 H (10-20) Glucose 236 H (70-99(Fasting)) mg/dl POC Glucose (other) 239 H (70-99) mg/dl Calcium 9.3 (8.6-10.3) mg/dl POC Ioniz Calcium Davin 1.15 (1.12-1.32) mmol/l Total Bilirubin 0.7 (0.2-1.0) mg/dl AST 10 L (13-39) U/L ALT 11 (7-52) U/L Alkaline Phosphatase 82 (34-104) U/L Troponin I High Sens 6.1 (0-14) pg/ml Total Protein 7.3 (6.0-8.3) gm/dl Albumin 3.9 (3.4-5.0) gm/dl Globulin 3.4 (2.5-4.0) gm/dl Albumin/Globulin Ratio 1.1 (0.9-2) Lipase 162 H (11-82) U/L HCG, Qual Negative (Negative) Urine Color Yellow Urine Appearance Clear (Clear) Urine pH 5.0 (4.5-7.5) Ur Specific [place] > 1.045 H (1.000-1.030) Urine Protein Trace H (Negative) Urine Glucose (UA) 3+ H (Negative) Urine Ketones Negative (Negative) Urine Blood Negative (Negative) Urine Nitrite Negative (Negative) Urine Bilirubin Negative (Negative) Urine Urobilinogen Negative (Negative) Ur Leukocyte Esterase Negative (Negative) Urine WBC (Auto) 0-5 (0-5) /hpf Urine RBC (Auto) 6-10 H (0-2) /hpf U Hyaline Cast (Auto) 0-2 (0-2) /lpf U Epithel Cells (Auto) 11-20 H (0-2) /hpf Urine Bacteria (Auto) 2+ H (None Seen) Urine Yeast Present A (None Prsent) Urine Comment Imaging Data Attestation: I personally reviewed and interpreted this imaging study as follows: Radiologist's Impression: Abdomen/Pelvis CT 01/15/25 00:49 EXAM: CT abd pelvis IV con only CLINICAL HISTORY: severe mid abd pain, hx pancreatitis TECHNIQUE: Contiguous axial images were obtained from the level of the diaphragm to the pubic symphysis with intravenous contrast. Coronal and sagittal reconstructions were likewise performed and indicated to increase the sensitivity for detecting clinically relevant pathology. If IV contrast material had not been administered, the likelihood of detecting abnormalities relevant to the patient's condition would have been substantially decreased. CT scan was performed according to ALARA (as low as reasonably achievable). COMPARISON: December 20:11:45 [facility]OSPITAL INTER[facility]IP FINDINGS: The visualized lung bases are clear. The liver is normal in size and attenuation. No focal liver lesions are seen. There is no intra or extrahepatic biliary ductal dilatation. Hepatic vasculature is patent. The gallbladder is present. The spleen, and adrenal glands are unremarkable. Pancreas appears mildly bulky and shows subtle peripancreatic fat stranding - suggestive of mild pancreatitis. No obvious necrosis. No obvious peripancreatic collection. The kidneys are normal in size and attenuation. There is no hydronephrosis or perinephric fat stranding. No renal calculi or renal masses are identified. The ureters are normal in caliber and no ureteral calculi are seen. The bladder is normal in contour. Pelvic viscera are unremarkable. No focal or diffuse bowel wall thickening or evidence of bowel obstruction is identified. No imaging evidence of appendicitis. Abdominal and pelvic vasculature is patent. No adenopathy or fluid collections are seen. No aggressive appearing osseous lesions are identified. IMPRESSION: Pancreas appears mildly bulky and shows subtle peripancreatic fat stranding - suggestive of mild pancreatitis.- modified CT severity index is 2/10 - mild.-stable. No obvious necrosis. No obvious peripancreatic collection. No obvious vascular complication. No other new interval abnormality since prior study. Electronically signed by Davi Dickens 01-15-2025 01:52 AM MDM Narrative Prior records/ancillary studies reviewed. Triage Nursing notes reviewed. Additional history obtained from family. The patient's history was concerning for abdominal pain. Differential diagnosis: Etiologies such as appendicitis, diverticulitis, PUD, biliary pathology, UTI, pancreatitis, obstruction, mesenteric ischemia, aortic pathology, infections, inflammatory bowel disease, renal colic, as well as others were entertained. Physical examination findings: As above. ER treatment provided: An order was placed for continuous cardiac monitoring. The monitor shows a rate of 60-100 with a sinus rhythm per my Independent interpretation. Droperidol, Pepcid and IV fluids were ordered On reassessment the patient felt better. Diagnostics interpreted by me: ECG: Upper abdominal pain EKG: Normal sinus, normal intervals, no acute ST-T wave changes. Impression normal sinus rhythm independently interpreted by myself I think arrhythmia is unlikely. EKG shows normal sinus rhythm with no interval abnormalities such as QT prolongation or WPW. There are no findings to suggest Brugada syndrome. Cardiac monitoring in the emergency department reveals no tachycardic or bradycardic dysrhythmia. Hypertrophic cardiomyopathy was considered but there are no clear historical elements pointing toward this. EKG is not suggestive. The QRS voltage is not extremely large and there are no suggestive Q waves. The labs Independently Interpreted by myself revealed mild leukocytosis, mild hyperglycemia without DKA Slightly elevated lipase. Negative hCG. Negative troponin Imaging studies: Imaging was reviewed and read by radiology Consultation: A consultation was placed with the hospitalist. the case was discussed and diagnostics were reviewed. The patient was evaluated in the ER for further treatment. Exam and history seem consistent with recurrent pancreatitis. Medicine was consulted case discussed. Patient will be evaluated for admission. Lipase slightly lower than prior admission. CAT scan is concerning for mild pancreatitis. Normal LFTs. Mild hyperglycemia without DKA. By the evaluation outlined above emergent etiologies such as appendicitis, diverticulitis, PUD, biliary pathology, UTI, obstruction, mesenteric ischemia, aortic pathology, infections, inflammatory bowel disease, renal colic, as well as others were deemed relatively unlikely. The pt informed about the findings as listed above. All questions were answered and pleased with the treatment. The chart was completed utilizing [employer] voice recognition software. Grammatical errors, random word insertions, pronoun errors, and incomplete sentences are an occassional consequence of this system due to software limitations, ambient noise, and hardware issues. Any formal questions or concerns about the content, text, or information contained within the body of this dictation should be directly addressed to the physician middle school assistant principal for clarification. Impression & Plan Acute pancreatitis, Acute upper abdominal pain Discharge Plan Visit Data Chief Complaint: Abdominal Pain Stated Complaint: ABD PAIN ED Provider: Clint Nelson ED Midlevel Provider: Charito Kaminski Discharge Problem: Acute pancreatitis, Acute upper abdominal pain Patient Disposition: Admitted As Inpatient Condition: Good Forms Stand Alone Forms: My [employer]io[employer] Prescriptions Prescriptions: No Action atorvastatin [Lipitor] 40 mg Tablet 40 mg PO DAILY sertraline [Zoloft] 100 mg Tablet 100 mg PO DAILY aspirin 81 mg Tablet,Delayed Release (Dr/Ec) 81 mg PO DAILY famotidine 20 mg Tablet 20 mg PO HS trazodone 100 mg Tablet 100 mg PO HS pantoprazole [Protonix] 40 mg Tablet,Delayed Release (Dr/Ec) 40 mg PO DAILY insulin aspart U-100 100 unit/mL (3 mL) Insulin Pen 1 sliding scale dose SUBCUT USEASDIRECTD Rx Instructions: 55-60 units with meals Jardiance 25 mg Tablet 25 mg PO DAILY insulin glargine [Lantus U-100 Insulin] 100 unit/mL solution 44 unit SUBCUT AMPM Rx Instructions: Morning/Bedtime lisinopril 10 mg tablet 10 mg PO QAM metformin 500 mg tablet extended release 24 hr 1,000 mg PO BID Hold Instructions: Resume on 01/07/25. oxycodone 5 mg tablet 5 mg PO Q8H PRN (Reason: pain) Qty: 14 0RF Referrals Referrals: Brandi Dunne, [Primary Care Provider] -
[2025-01-15] MEDS: OPTIRAY 320 100ml IV ONE (01:21)
[2025-01-15 01:24] LABS: Hematocrit (blood only) 44.1 % (37.0-47.0); Hemoglobin 15.2 g/dl (12.0-16.0); Immature Granulocytes # (auto) 0.03 K/uL (0.01-0.20); Immature Granulocytes % (auto) 0.3 %; Mean Corpuscular Hemoglobin 30.2 pg (25.0-34.0); Mean Corpuscular Volume 87.5 fL (80.0-100.0); Platelet Count 287 K/uL (130-400); RDW Standard Deviation 39.8 fL (36.4-46.3); Red Blood Count 5.04 M/uL (4.20-5.40); White Blood Count 11.58 K/ul (4.8-10.8)
[2025-01-15] MEDS: FAMOTIDINE 20MG IV PUSH 20 MG/5 ML SYR IV STA (01:35)
[2025-01-15] MEDS: DROPERIDOL 5 MG/2 ML VIAL IV STA (01:35)
[2025-01-15] MEDS: SODIUM CHLORIDE 0.9% 1,000 ML IV STA (01:35)
[2025-01-15 01:41] LABS: Alanine Aminotransferase 11.0 U/L (7-52); Albumin Globulin Ratio 1.1 (0.9-2); Alkaline Phosphatase 82.0 U/L (34-104); Anion Gap 9.0 (3-11); Bilirubin,Total 0.7 mg/dl (0.2-1.0); Blood Urea Nitrogen 17.0 mg/dl (6-23); Calcium 9.3 mg/dl (8.6-10.3); Carbon Dioxide 25.0 mmol/L (21-32); Chloride 103.0 mmol/L (98-107); Creatinine Clr Calc Pharmacy 122.7 ml/min; Globulin 3.4 gm/dl (2.5-4.0); Glucose 236.0 mg/dl (70-99(Fasting)); Lipase 162.0 U/L (11-82); Potassium 3.5 mmol/L (3.5-5.1); Sodium 137.0 mmol/L (136-145); Total Protein 7.3 gm/dl (6.0-8.3)
[2025-01-15 01:45] LABS: Pregnancy Test, Serum Negative (Negative)
[2025-01-15 01:51] LABS: Appearance Urine Clear (Clear); Bacteria Urine Automated 2+ (None Seen); Cast Urine Automated 0-2 /lpf (0-2); Glucose Urine UA 3+ (Negative); WBC Urine Automated 0-5 /hpf (0-5)
--- NOTE | 2025-01-15 01:52 | CT Scan Report ---
EXAM: CT abd pelvis IV con only CLINICAL HISTORY: severe mid abd pain, hx pancreatitis TECHNIQUE: Contiguous axial images were obtained from the level of the diaphragm to the pubic symphysis with intravenous contrast. Coronal and sagittal reconstructions were likewise performed and indicated to increase the sensitivity for detecting clinically relevant pathology. If IV contrast material had not been administered, the likelihood of detecting abnormalities relevant to the patient's condition would have been substantially decreased. CT scan was performed according to ALARA (as low as reasonably achievable). COMPARISON: December 20:11:45 EXPERIMENTAL PSYCHOLOGIST FINDINGS: The visualized lung bases are clear. The liver is normal in size and attenuation. No focal liver lesions are seen. There is no intra or extrahepatic biliary ductal dilatation. Hepatic vasculature is patent. The gallbladder is present. The spleen, and adrenal glands are unremarkable. Pancreas appears mildly bulky and shows subtle peripancreatic fat stranding - suggestive of mild pancreatitis. No obvious necrosis. No obvious peripancreatic collection. The kidneys are normal in size and attenuation. There is no hydronephrosis or perinephric fat stranding. No renal calculi or renal masses are identified. The ureters are normal in caliber and no ureteral calculi are seen. The bladder is normal in contour. Pelvic viscera are unremarkable. No focal or diffuse bowel wall thickening or evidence of bowel obstruction is identified. No imaging evidence of appendicitis. Abdominal and pelvic vasculature is patent. No adenopathy or fluid collections are seen. No aggressive appearing osseous lesions are identified. IMPRESSION: Pancreas appears mildly bulky and shows subtle peripancreatic fat stranding - suggestive of mild pancreatitis.- modified CT severity index is 2/10 - mild.-stable. No obvious necrosis. No obvious peripancreatic collection. No obvious vascular complication. No other new interval abnormality since prior study. Electronically signed by Davi Dickens 01-15-2025 01:52 AM
--- NOTE | 2025-01-15 02:09 | History & Physical Report ---
Date of Service January 15, 2025 Assessment & Plan (1) Acute pancreatitis: Plan: Assessment and plan below following discussion of case with ED provider and reviewing patient history/pertinent normal/abnormal diagnostic test results. Recurrent pancreatitis hypertension, stable hyperlipidemia, on statin Rx bronchial asthma, not in acute exacerbation heterozygous prothrombin gene mutation DM2 insulin requiring, suboptimal control as of recent hemoglobin A1c of 9.8 last month GERD on PPI ongoing tobacco abuse Admit to MedSurg Analgesia, bowel rest, IVF Check triglyceride level GI consult re: recurrent pancreatitis Basal bolus insulin adjusted for n.p.o. status, ISS BG goal 110-140 Nicotine patch DVT prophylaxis. Lovenox subcu Full code Text document was generated using [email or web address] voice recognition software. It may contain grammatical or spelling errors. Kindly contact undersigned for clarification of any documentation item in question. History of Present Illness Chief Complaint: Pancreatitis Primary Care Provider: Brandi Dunne DO History obtained from patient and records. Medical history significant for hypertension, hyperlipidemia, bronchial asthma, nocturnal hypoxemia as per records, heterozygous prothrombin gene mutation, DM2 insulin requiring, GERD, gastroparesis, recurrent pancreatitis, IBS, foot osteomyelitis as per records, anxiety/mood disorder, ongoing tobacco abuse. Recent overnight confinement 2 weeks ago for recurrent pancreatitis. Pancreatitis etiology somewhat unclear but possibly from microlithiasis as per GI service. Patient instructed to follow-up with [facility] specialist for possible endoscopic ultrasound. Patient had achy right sided abdominal discomfort reminiscent of pancreatitis attack 1 day after discharge from the hospital. Associated nausea and bilious emesis. Denies fatty food or EtOH intake. Fever or chills at home. Denies chest pain, SOB. Patient unable to go back to hospital right away because she had to attend to a few things. 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 Allergies Allergy/AdvReac Type Severity Reaction Status Date / Time baclofen Allergy Intermediate ITCHING, Verified 01/04/25 20:42 NAUSEA/VOMITING cyclobenzaprine Allergy Intermediate itching Verified 01/04/25 20:42 [From Flexeril] meperidine Allergy Mild ITCHY Verified 01/04/25 20:42 amoxicillin AdvReac Intermediate Vomiting Verified 01/04/25 20:42 bupropion AdvReac Intermediate PSYCHOTIC-P Verified 01/04/25 20:42 ARANOID lactose AdvReac Intermediate Gastrointestinal Verified 01/04/25 20:42 Upset morphine AdvReac Intermediate "GETS Verified 01/04/25 20:42 REALLY SICK" zolpidem [From Ambien] AdvReac Intermediate NIGHTMARES Verified 01/04/25 20:42 Home Medications Medication Instructions Recorded Confirmed Type aspirin 81 mg tablet,delayed 81 mg PO DAILY 07/10/24 01/15/25 History release atorvastatin 40 mg tablet (Lipitor) 40 mg PO DAILY 07/10/24 01/15/25 History empagliflozin 25 mg tablet 25 mg PO DAILY 07/10/24 01/15/25 History (Jardiance) famotidine 20 mg tablet 20 mg PO HS 07/10/24 01/15/25 History insulin aspart U-100 100 unit/mL 1 sliding scale dose subcut 07/10/24 01/15/25 History (3 mL) subcutaneous pen USEASDIRECTD pantoprazole 40 mg tablet,delayed 40 mg PO DAILY 07/10/24 01/15/25 History release (Protonix) sertraline 100 mg tablet (Zoloft) 100 mg PO DAILY 07/10/24 01/15/25 History trazodone 100 mg tablet 100 mg PO HS 07/10/24 01/15/25 History insulin glargine 100 unit/mL 44 unit subcut AMPM 08/10/24 01/15/25 History subcutaneous solution (Lantus U-100 Insulin) lisinopril 10 mg tablet 10 mg PO QAM 01/04/25 01/15/25 History metformin 500 mg tablet,extended 1,000 mg PO BID 01/04/25 01/15/25 History release 24 hr Past Med/Surg History Problem List (Updated 01/15/25 @ 01:54 by Charito Kaminski PA-C) Acute pancreatitis (Acute) Acute upper abdominal pain (Acute) Superficial venous thrombosis of left arm (Acute) Osteomyelitis of finger of right hand Felon of finger of right hand (Acute) Finger infection Hyperglycemia (Acute) Tendinitis of right rotator cuff Osteomyelitis of foot Infection of right foot (Acute) Encounter for pre-operative examination Diabetic foot ulcer (Acute) Premenstrual dysphoric disorder (Acute) Obesity (Acute) Menorrhagia (Acute) Hypercholesterolemia (Acute) Diabetes mellitus (Acute) Cervical radiculopathy at C7 (Acute) Carpal tunnel syndrome, bilateral (Acute) Abnormal menses (Acute) Osteoarthritis of knees, bilateral Medical History HLD (hyperlipidemia) HTN (hypertension) CKD (chronic kidney disease), stage III Uncontrolled type 2 diabetes mellitus with hyperglycemia Morbid obesity Prothrombin gene mutation Diabetes IDDM Osteoarthritis Depression Degenerative disc disease GERD (gastroesophageal reflux disease) Gastroparesis Prothrombin [id number] mutation History of migraine with aura History of gastric ulcer Surgical History History of tubal ligation History of shoulder surgery Lt History of esophagogastroduodenoscopy (EGD) History of colonoscopy History of tonsillectomy History of tooth extraction History of knee surgery BL Status post hysteroscopic ablation of endometrium History of ankle surgery Rt Family History Mother Diabetes Denies family history of Colon cancer Ovarian cancer Breast cancer Social History Smoking Status: Current every day smoker Tobacco Type: Cigarettes Cigarettes Per Day: 1/2 ppd; Second Hand Exposure: No; Do You Dip or Chew Tobacco: No; Hx Alcohol Use: Yes Alcohol type: wine and hard liquor Hx Substance Use: No Preferred Language: Frisian Communication Ability: Effective Creative Designer Required: No Beliefs That Will Affect Care: None marital status: Current Living Situation: Significant Other Current Living Situation Comment: fiance Feels Safe at Home: Yes Assistive Devices: None Review of Systems Review of Systems: As per HPI, all other systems reviewed and negative Physical Exam Physical Exam: GENERAL: Comfortable, pleasant, obese, no respiratory distress SKIN: Normal color, warm HEENT: [place] palpebral conjunctivae, no ptosis, dry buccal mucosa NECK : Supple, short neck, no tenderness CHEST : CTA, no tenderness HEART : RRR, no obvious murmurs ABDOMEN: Some distention, central abdominal tenderness EXTREMITIES : Minimal LE swelling, no LE tenderness, palpable pulses, no other conspicuous deformities noted NEUROLOGIC : Coherent, no facial asymmetry, no other gross focality Results & Data Results & Data Vital Signs (Past 12 Hours) Vital Signs Temp Pulse Resp BP Pulse Ox O2 Del Method 01/15/25 01:39 97 Room Air 01/15/25 00:36 36.4 C L 80 20 141/80 H 97 Room Air Laboratory Results Laboratory Results WBC 11.58 K/ul (4.8-10.8) H 01/15/25 01:00 RBC 5.04 M/uL (4.20-5.40) 01/15/25 01:00 Hgb 15.2 g/dl (12.0-16.0) 01/15/25 01:00 POC Hgb 15.3 g/dl (12.0-16.0) 01/15/25 01:08 Hct 44.1 % (37.0-47.0) 01/15/25 01:00 POC Hct 45 % (37-47) 01/15/25 01:08 MCV 87.5 fL (80.0-100.0) 01/15/25 01:00 MCH 30.2 pg (25.0-34.0) 01/15/25 01:00 MCHC 34.5 g/dL (32.0-36.0) 01/15/25 01:00 RDW Std Deviation 39.8 fL (36.4-46.3) 01/15/25 01:00 RDW Coeff of Shira 12.5 % (11.5-14.5) 01/15/25 01:00 Plt Count 287 K/uL (130-400) 01/15/25 01:00 MPV 9.6 fL (9.4-12.4) 01/15/25 01:00 Immature Gran % (Auto) 0.3 % 01/15/25 01:00 Neut % (Auto) 62.0 % 01/15/25 01:00 Lymph % (Auto) 28.6 % 01/15/25 01:00 [place] % (Auto) 7.2 % 01/15/25 01:00 Eos % (Auto) 1.4 % 01/15/25 01:00 Baso % (Auto) 0.5 % 01/15/25 01:00 Neut # (Auto) 7.19 K/uL (1.40-6.50) H 01/15/25 01:00 Lymph # (Auto) 3.31 K/uL (1.20-3.40) 01/15/25 01:00 [place] # (Auto) 0.83 K/uL (0.11-0.59) H 01/15/25 01:00 Eos # (Auto) 0.16 K/uL (0.00-0.50) 01/15/25 01:00 Baso # (Auto) 0.06 K/uL (0.00-0.20) 01/15/25 01:00 Immature Gran # (Auto) 0.03 K/uL (0.01-0.20) 01/15/25 01:00 POC Sodium 138 mmol/L (135-144) 01/15/25 01:08 Sodium 137 mmol/L (136-145) 01/15/25 01:00 POC Potassium 3.5 mmol/L (3.3-5.0) 01/15/25 01:08 Potassium 3.5 mmol/L (3.5-5.1) 01/15/25 01:00 POC Chloride 102 mmol/L (101-112) 01/15/25 01:08 Chloride 103 mmol/L (98-107) 01/15/25 01:00 Carbon Dioxide 25 mmol/L (21-32) 01/15/25 01:00 POC Total CO2 22 mmol/L (24-31) L 01/15/25 01:08 Anion Gap 9 (3-11) 01/15/25 01:00 POC Anion Gap 18.0 mmol/L (16-25) 01/15/25 01:08 POC BUN 16 mg/dl (7-18) 01/15/25 01:08 BUN 17 mg/dl (6-23) 01/15/25 01:00 Creatinine 0.74 mg/dl (0.6-1.2) 01/15/25 01:00 POC Creatinine 0.7 mg/dl (0.6-1.3) 01/15/25 01:08 Est Cr Clr Drug Dosing 122.7 ml/min 01/15/25 01:00 eGFR 99.74 01/15/25 01:00 BUN/Creatinine Ratio 23.0 (10-20) H 01/15/25 01:00 Glucose 236 mg/dl (70-99(Fasting)) H 01/15/25 01:00 POC Glucose (other) 239 mg/dl (70-99) H 01/15/25 01:08 Calcium 9.3 mg/dl (8.6-10.3) 01/15/25 01:00 POC Ioniz Calcium Davin 1.15 mmol/l (1.12-1.32) 01/15/25 01:08 Total Bilirubin 0.7 mg/dl (0.2-1.0) 01/15/25 01:00 AST 10 U/L (13-39) L 01/15/25 01:00 ALT 11 U/L (7-52) 01/15/25 01:00 Alkaline Phosphatase 82 U/L (34-104) 01/15/25 01:00 Troponin I High Sens 6.1 pg/ml (0-14) 01/15/25 01:00 Total Protein 7.3 gm/dl (6.0-8.3) 01/15/25 01:00 Albumin 3.9 gm/dl (3.4-5.0) 01/15/25 01:00 Globulin 3.4 gm/dl (2.5-4.0) 01/15/25 01:00 Albumin/Globulin Ratio 1.1 (0.9-2) 01/15/25 01:00 Lipase 162 U/L (11-82) H 01/15/25 01:00 HCG, Qual Negative (Negative) 01/15/25 01:00 Urine Color Yellow 01/15/25 01:05 Urine Appearance Clear (Clear) 01/15/25 01:05 Urine pH 5.0 (4.5-7.5) 01/15/25 01:05 Ur Specific [place] > 1.045 (1.000-1.030) H 01/15/25 01:05 Urine Protein Trace (Negative) H 01/15/25 01:05 Urine Glucose (UA) 3+ (Negative) H 01/15/25 01:05 Urine Ketones Negative (Negative) 01/15/25 01:05 Urine Blood Negative (Negative) 01/15/25 01:05 Urine Nitrite Negative (Negative) 01/15/25 01:05 Urine Bilirubin Negative (Negative) 01/15/25 01:05 Urine Urobilinogen Negative (Negative) 01/15/25 01:05 Ur Leukocyte Esterase Negative (Negative) 01/15/25 01:05 Urine WBC (Auto) 0-5 /hpf (0-5) 01/15/25 01:05 Urine RBC (Auto) 6-10 /hpf (0-2) H 01/15/25 01:05 U Hyaline Cast (Auto) 0-2 /lpf (0-2) 01/15/25 01:05 U Epithel Cells (Auto) 11-20 /hpf (0-2) H 01/15/25 01:05 Urine Bacteria (Auto) 2+ (None Seen) H 01/15/25 01:05 Urine Yeast Present (None Prsent) A 01/15/25 01:05 Urine Comment 01/15/25 01:05 Impressions Abdomen/Pelvis CT 01/15/25 00:49 EXAM: CT abd pelvis IV con only CLINICAL HISTORY: severe mid abd pain, hx pancreatitis TECHNIQUE: Contiguous axial images were obtained from the level of the diaphragm to the pubic symphysis with intravenous contrast. Coronal and sagittal reconstructions were likewise performed and indicated to increase the sensitivity for detecting clinically relevant pathology. If IV contrast material had not been administered, the likelihood of detecting abnormalities relevant to the patient's condition would have been substantially decreased. CT scan was performed according to ALARA (as low as reasonably achievable). COMPARISON: December 20:11:45 DITCHER FINDINGS: The visualized lung bases are clear. The liver is normal in size and attenuation. No focal liver lesions are seen. There is no intra or extrahepatic biliary ductal dilatation. Hepatic vasculature is patent. The gallbladder is present. The spleen, and adrenal glands are unremarkable. Pancreas appears mildly bulky and shows subtle peripancreatic fat stranding - suggestive of mild pancreatitis. No obvious necrosis. No obvious peripancreatic collection. The kidneys are normal in size and attenuation. There is no hydronephrosis or perinephric fat stranding. No renal calculi or renal masses are identified. The ureters are normal in caliber and no ureteral calculi are seen. The bladder is normal in contour. Pelvic viscera are unremarkable. No focal or diffuse bowel wall thickening or evidence of bowel obstruction is identified. No imaging evidence of appendicitis. Abdominal and pelvic vasculature is patent. No adenopathy or fluid collections are seen. No aggressive appearing osseous lesions are identified. IMPRESSION: Pancreas appears mildly bulky and shows subtle peripancreatic fat stranding - suggestive of mild pancreatitis.- modified CT severity index is 2/10 - mild.-stable. No obvious necrosis. No obvious peripancreatic collection. No obvious vascular complication. No other new interval abnormality since prior study. Electronically signed by Davi Dickens 01-15-2025 01:52 AM Diagnostic Findings EKG as per my interpretation :Rate 70, NSR, LAD, LAFB, no ischemia
[2025-01-15] MEDS ORDERED: LORazepam 0.5 MG TAB PO PRN (02:13)
[2025-01-15] MEDS ORDERED: ACETAMINOPHEN 325 MG TAB PO PRN (02:13)
[2025-01-15] MEDS ORDERED: MoRPHine SULFATE 4 MG/ML 1 ML CARP\\VIAL IV PRN (02:13)
[2025-01-15 02:37] LABS: Triglycerides 301.0 mg/dl (0-150)
[2025-01-15] MEDS: LACTATED RINGER'S 1,000 ML IV ONE (03:26)
[2025-01-15] MEDS: NICOTINE 21 MG/24 HR TDSY TD SCH (03:48)
[2025-01-15] MEDS ORDERED: GLUCOSE 40% GEL 15 GM TUBE PO PRN (03:53)
[2025-01-15] MEDS ORDERED: GLUCOSE 10 TAB/TUBE PO PRN (03:53)
[2025-01-15] MEDS ORDERED: GLUCAGON FOR INJ 1 MG VIAL SQ PRN (03:53)
[2025-01-15] MEDS: LANTUS PER UNIT CHARGE SQ STA (03:53)
[2025-01-15] MEDS: DEXTROSE 50% 50 ML SYRINGE IV PRN (04:11)
[2025-01-15] MEDS: INSULIN ASPART PER UNIT CHARGE SC SCH ×2 (04:16→13:42)
[2025-01-15] MEDS: LACTATED RINGER'S 1,000 ML IV SCH (04:39)
[2025-01-15] MEDS: POTASSIUM CHLORIDE 20 MEQ in D5W AND LACTATED RINGERS 1,000 ML IV SCH (07:51)
[2025-01-15] MEDS: SERTRALINE HCL 100 MG TABLET PO SCH (08:37)
[2025-01-15] MEDS: ENOXAPARIN INJ 40 MG/0.4 ML SYR SQ SCH (08:38)
[2025-01-15] MEDS: REMOVE NICODERM PATCH SCH (08:38)
[2025-01-15] MEDS: ASPIRIN 81 MG ECTAB PO SCH (08:38)
[2025-01-15] MEDS ORDERED: LANTUS PER UNIT CHARGE SQ SCH ×3 (09:00→21:00)
--- NOTE | 2025-01-15 10:52 | Electrocardiogram Report ---
Test Reason : Blood Pressure : */* mmHG Vent. Rate : 69 BPM Atrial Rate : 69 BPM P-R Int : 134 ms QRS Dur : 76 ms QT Int : 402 ms P-R-T Axes : 27 -14 43 degrees QTcB Int : 430 ms Normal sinus rhythm Normal ECG When compared with ECG of 10-Oct-2024 15:37, No significant change was found Confirmed by Andi Livingston ([id number]) on 01/15/2025 10:52:09 AM Referred By: REFERRED SELF Confirmed By: Andi Livingston
--- NOTE | 2025-01-15 11:04 | Gastrointestinal Consultation ---
Date of Consultation January 15, 2025 Assessment & Plan (1) Acute pancreatitis: She has abdominal pain and carries the diagnosis of "pancreatitis". CT hints at changes of mild pancreatitis. Lipase at 162 doesn't mean anything. TG's are over 300 I wonder if they have been higher at the time this issue started and perhaps they were the cause of the initial onset. She has had pancreatitis in the past and it was felt to possibly be due to trulicity. She is currently on jardiance and metformin both of which can cause abdominal issues. It might be that EGD is needed on this admission to evaluate for other causes of abdominal pain/pancreatitis. History of Present Illness Reason for Consultation: recurrent pancreatitis Attending Physician: Anoop Montemayor MD History of Present Illness 49 year old female who has battled abdominal pain for about a month. Two weeks ago she was in the hospital with "pancreatitis" and she went home when she could tolerate food. She says her pain never went away when she was discharged and it has stayed with her since it started. She admits some days are better than others. She does have nausea but no vomiting. She says when she eats her pain gets worse. She carries the diagnosis of gastroparesis and follows with [facility] for this. She feels it has been two years or so since her last EGD. She does not drink alcohol to speak of. She is on both jariance and metformin for diabetes. She denies family history of chronic abdominal issues or pancreatitis. Allergies Allergy/AdvReac Type Severity Reaction Status Date / Time baclofen Allergy Intermediate ITCHING, Verified 01/04/25 20:42 NAUSEA/VOMITING cyclobenzaprine Allergy Intermediate itching Verified 01/04/25 20:42 [From Flexeril] meperidine Allergy Mild ITCHY Verified 01/04/25 20:42 amoxicillin AdvReac Intermediate Vomiting Verified 01/04/25 20:42 bupropion AdvReac Intermediate PSYCHOTIC-P Verified 01/04/25 20:42 ARANOID lactose AdvReac Intermediate Gastrointestinal Verified 01/04/25 20:42 Upset morphine AdvReac Intermediate "GETS Verified 01/04/25 20:42 REALLY SICK" zolpidem [From Ambien] AdvReac Intermediate NIGHTMARES Verified 01/04/25 20:42 Home Medications Medication Instructions Recorded Confirmed Type aspirin 81 mg tablet,delayed 81 mg PO DAILY 07/10/24 01/15/25 History release atorvastatin 40 mg tablet (Lipitor) 40 mg PO DAILY 07/10/24 01/15/25 History empagliflozin 25 mg tablet 25 mg PO DAILY 07/10/24 01/15/25 History (Jardiance) famotidine 20 mg tablet 20 mg PO HS 07/10/24 01/15/25 History insulin aspart U-100 100 unit/mL 1 sliding scale dose subcut 07/10/24 01/15/25 History (3 mL) subcutaneous pen USEASDIRECTD pantoprazole 40 mg tablet,delayed 40 mg PO DAILY 07/10/24 01/15/25 History release (Protonix) sertraline 100 mg tablet (Zoloft) 100 mg PO DAILY 07/10/24 01/15/25 History trazodone 100 mg tablet 100 mg PO HS 07/10/24 01/15/25 History insulin glargine 100 unit/mL 44 unit subcut AMPM 08/10/24 01/15/25 History subcutaneous solution (Lantus U-100 Insulin) lisinopril 10 mg tablet 10 mg PO QAM 01/04/25 01/15/25 History metformin 500 mg tablet,extended 1,000 mg PO BID 01/04/25 01/15/25 History release 24 hr Patient History Medical History HLD (hyperlipidemia) HTN (hypertension) CKD (chronic kidney disease), stage III Uncontrolled type 2 diabetes mellitus with hyperglycemia Morbid obesity Prothrombin gene mutation Diabetes IDDM Osteoarthritis Depression Degenerative disc disease GERD (gastroesophageal reflux disease) Gastroparesis 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 History of migraine with aura History of gastric ulcer Surgical History History of tubal ligation History of shoulder surgery Lt History of esophagogastroduodenoscopy (EGD) History of colonoscopy History of tonsillectomy History of tooth extraction History of knee surgery BL Status post hysteroscopic ablation of endometrium History of ankle surgery Rt Family History Mother Diabetes Denies family history of Colon cancer Ovarian cancer Breast cancer Social History Smoking Status: Current every day smoker Tobacco Type: Cigarettes Cigarettes Per Day: 1/2 ppd; Second Hand Exposure: No; Do You Dip or Chew Tobacco: No; Hx Alcohol Use: Yes Alcohol type: wine and hard liquor Hx Substance Use: No Preferred Language: Tuvaluan Communication Ability: Effective Community Health Planning Director Required: No Beliefs That Will Affect Care: None marital status: Current Living Situation: Significant Other Current Living Situation Comment: fiance Other Information That Helps Us Care for You: No Feels Safe at Home: Yes Safety Concerns: Feels Safe At This Time Assistive Devices: None Review of Systems Review of Systems: All systems reviewed & are unremarkable except as noted in HPI & below Physical Exam Physical Exam: Pleasant female, cooperative and communicative, in no distress Constitutional: WD/WN, vitals as above Neck: trachea midline, no thyromegaly Respiratory: normal respiratory effort, lungs clear to auscultation Cardiovascular: RRR, no murmur, no edema Gastrointestinal (Abdomen): Inspection/Auscultation: abdomen normal to inspection and + abdomen distended Percussion/Palpation: + abdomen tender (diffusely) and abdomen soft Results & Data Vital Signs (Past 12 Hours) Vital Signs Temp Pulse Pulse Resp BP BP Pulse Ox 01/15/25 08:46 64 01/15/25 07:01 58 L 16 99/58 L 96 01/15/25 04:46 36.5 C 59 L 16 99/53 L 95 01/15/25 03:30 63 125/71 97 01/15/25 03:25 65 16 122/70 95 01/15/25 03:15 66 16 102/68 01/15/25 02:56 67 16 106/64 95 01/15/25 02:20 70 16 120/71 97 01/15/25 01:56 72 16 120/75 97 01/15/25 01:50 72 18 125/77 95 01/15/25 01:39 97 01/15/25 01:07 71 01/15/25 00:36 36.4 C L 80 20 141/80 H 97 O2 Del Method 01/15/25 08:46 01/15/25 07:01 Room Air 01/15/25 04:46 Room Air 01/15/25 03:30 Room Air 09/07/25 03:25 Room Air 01/15/25 03:15 Room Air 01/15/25 02:56 Room Air 01/15/25 02:20 Room Air 01/15/25 01:56 Room Air 01/15/25 01:50 Room Air 01/15/25 01:39 Room Air 01/15/25 01:07 01/15/25 00:36 Room Air Laboratory Results 01/15/25 01/15/25 01/15/25 Range/Units 10:53 06:59 06:29 WBC (4.8-10.8) K/ul RBC (4.20-5.40) M/uL Hgb (12.0-16.0) g/dl POC Hgb (12.0-16.0) g/dl Hct (37.0-47.0) % POC Hct (37-47) % MCV (80.0-100.0) fL MCH (25.0-34.0) pg MCHC (32.0-36.0) g/dL RDW Std Deviation (36.4-46.3) fL RDW Coeff of Shira (11.5-14.5) % Plt Count (130-400) K/uL MPV (9.4-12.4) fL Immature Gran % (Auto) % Neut % (Auto) % Lymph % (Auto) % [place] % (Auto) % Eos % (Auto) % Baso % (Auto) % Neut # (Auto) (1.40-6.50) K/uL Lymph # (Auto) (1.20-3.40) K/uL [place] # (Auto) (0.11-0.59) K/uL Eos # (Auto) (0.00-0.50) K/uL Baso # (Auto) (0.00-0.20) K/uL Immature Gran # (Auto) (0.01-0.20) K/uL POC Sodium (135-144) mmol/L Sodium (136-145) mmol/L POC Potassium (3.3-5.0) mmol/L Potassium (3.5-5.1) mmol/L POC Chloride (101-112) mmol/L Chloride (98-107) mmol/L Carbon Dioxide (21-32) mmol/L POC Total CO2 (24-31) mmol/L Anion Gap (3-11) POC Anion Gap (16-25) mmol/L POC BUN (7-18) mg/dl BUN (6-23) mg/dl Creatinine (0.6-1.2) mg/dl POC Creatinine (0.6-1.3) mg/dl Est Cr Clr Drug Dosing ml/min eGFR BUN/Creatinine Ratio (10-20) Glucose (70-99(Fasting)) mg/dl POC Glucose 79 115 H 46 L* (70-99) mg/dl POC Glucose (other) (70-99) mg/dl Calcium (8.6-10.3) mg/dl POC Ioniz Calcium Davin (1.12-1.32) mmol/l Total Bilirubin (0.2-1.0) mg/dl AST (13-39) U/L ALT (7-52) U/L Alkaline Phosphatase (34-104) U/L Troponin I High Sens (0-14) pg/ml Total Protein (6.0-8.3) gm/dl Albumin (3.4-5.0) gm/dl Globulin (2.5-4.0) gm/dl Albumin/Globulin Ratio (0.9-2) Triglycerides (0-150) mg/dl Lipase (11-82) U/L HCG, Qual (Negative) Urine Color Urine Appearance (Clear) Urine pH (4.5-7.5) Ur Specific [place] (1.000-1.030) Urine Protein (Negative) Urine Glucose (UA) (Negative) Urine Ketones (Negative) Urine Blood (Negative) Urine Nitrite (Negative) Urine Bilirubin (Negative) Urine Urobilinogen (Negative) Ur Leukocyte Esterase (Negative) Urine WBC (Auto) (0-5) /hpf Urine RBC (Auto) (0-2) /hpf U Hyaline Cast (Auto) (0-2) /lpf U Epithel Cells (Auto) (0-2) /hpf Urine Bacteria (Auto) (None Seen) Urine Yeast (None Prsent) Urine Comment 01/15/25 01/15/25 01/15/25 Range/Units 04:32 04:07 01:08 WBC (4.8-10.8) K/ul RBC (4.20-5.40) M/uL Hgb (12.0-16.0) g/dl POC Hgb 15.3 (12.0-16.0) g/dl Hct (37.0-47.0) % POC Hct 45 (37-47) % MCV (80.0-100.0) fL MCH (25.0-34.0) pg MCHC (32.0-36.0) g/dL RDW Std Deviation (36.4-46.3) fL RDW Coeff of Shira (11.5-14.5) % Plt Count (130-400) K/uL MPV (9.4-12.4) fL Immature Gran % (Auto) % Neut % (Auto) % Lymph % (Auto) % [place] % (Auto) % Eos % (Auto) % Baso % (Auto) % Neut # (Auto) (1.40-6.50) K/uL Lymph # (Auto) (1.20-3.40) K/uL [place] # (Auto) (0.11-0.59) K/uL Eos # (Auto) (0.00-0.50) K/uL Baso # (Auto) (0.00-0.20) K/uL Immature Gran # (Auto) (0.01-0.20) K/uL POC Sodium 138 (135-144) mmol/L Sodium (136-145) mmol/L POC Potassium 3.5 (3.3-5.0) mmol/L Potassium (3.5-5.1) mmol/L POC Chloride 102 (101-112) mmol/L Chloride (98-107) mmol/L Carbon Dioxide (21-32) mmol/L POC Total CO2 22 L (24-31) mmol/L Anion Gap (3-11) POC Anion Gap 18.0 (16-25) mmol/L POC BUN 16 (7-18) mg/dl BUN (6-23) mg/dl Creatinine (0.6-1.2) mg/dl POC Creatinine 0.7 (0.6-1.3) mg/dl Est Cr Clr Drug Dosing ml/min eGFR BUN/Creatinine Ratio (10-20) Glucose (70-99(Fasting)) mg/dl POC Glucose 110 H 38 L* (70-99) mg/dl POC Glucose (other) 239 H (70-99) mg/dl Calcium (8.6-10.3) mg/dl POC Ioniz Calcium Davin 1.15 (1.12-1.32) mmol/l Total Bilirubin (0.2-1.0) mg/dl AST (13-39) U/L ALT (7-52) U/L Alkaline Phosphatase (34-104) U/L Troponin I High Sens (0-14) pg/ml Total Protein (6.0-8.3) gm/dl Albumin (3.4-5.0) gm/dl Globulin (2.5-4.0) gm/dl Albumin/Globulin Ratio (0.9-2) Triglycerides (0-150) mg/dl Lipase (11-82) U/L HCG, Qual (Negative) Urine Color Urine Appearance (Clear) Urine pH (4.5-7.5) Ur Specific [place] (1.000-1.030) Urine Protein (Negative) Urine Glucose (UA) (Negative) Urine Ketones (Negative) Urine Blood (Negative) Urine Nitrite (Negative) Urine Bilirubin (Negative) Urine Urobilinogen (Negative) Ur Leukocyte Esterase (Negative) Urine WBC (Auto) (0-5) /hpf Urine RBC (Auto) (0-2) /hpf U Hyaline Cast (Auto) (0-2) /lpf U Epithel Cells (Auto) (0-2) /hpf Urine Bacteria (Auto) (None Seen) Urine Yeast (None Prsent) Urine Comment 01/15/25 01/15/25 Range/Units 01:05 01:00 WBC 11.58 H (4.8-10.8) K/ul RBC 5.04 (4.20-5.40) M/uL Hgb 15.2 (12.0-16.0) g/dl POC Hgb (12.0-16.0) g/dl Hct 44.1 (37.0-47.0) % POC Hct (37-47) % MCV 87.5 (80.0-100.0) fL MCH 30.2 (25.0-34.0) pg MCHC 34.5 (32.0-36.0) g/dL RDW Std Deviation 39.8 (36.4-46.3) fL RDW Coeff of Shira 12.5 (11.5-14.5) % Plt Count 287 (130-400) K/uL MPV 9.6 (9.4-12.4) fL Immature Gran % (Auto) 0.3 % Neut % (Auto) 62.0 % Lymph % (Auto) 28.6 % [place] % (Auto) 7.2 % Eos % (Auto) 1.4 % Baso % (Auto) 0.5 % Neut # (Auto) 7.19 H (1.40-6.50) K/uL Lymph # (Auto) 3.31 (1.20-3.40) K/uL [place] # (Auto) 0.83 H (0.11-0.59) K/uL Eos # (Auto) 0.16 (0.00-0.50) K/uL Baso # (Auto) 0.06 (0.00-0.20) K/uL Immature Gran # (Auto) 0.03 (0.01-0.20) K/uL POC Sodium (135-144) mmol/L Sodium 137 (136-145) mmol/L POC Potassium (3.3-5.0) mmol/L Potassium 3.5 (3.5-5.1) mmol/L POC Chloride (101-112) mmol/L Chloride 103 (98-107) mmol/L Carbon Dioxide 25 (21-32) mmol/L POC Total CO2 (24-31) mmol/L Anion Gap 9 (3-11) POC Anion Gap (16-25) mmol/L POC BUN (7-18) mg/dl BUN 17 (6-23) mg/dl Creatinine 0.74 (0.6-1.2) mg/dl POC Creatinine (0.6-1.3) mg/dl Est Cr Clr Drug Dosing 122.7 ml/min eGFR 99.74 BUN/Creatinine Ratio 23.0 H (10-20) Glucose 236 H (70-99(Fasting)) mg/dl POC Glucose (70-99) mg/dl POC Glucose (other) (70-99) mg/dl Calcium 9.3 (8.6-10.3) mg/dl POC Ioniz Calcium Davin (1.12-1.32) mmol/l Total Bilirubin 0.7 (0.2-1.0) mg/dl AST 10 L (13-39) U/L ALT 11 (7-52) U/L Alkaline Phosphatase 82 (34-104) U/L Troponin I High Sens 6.1 (0-14) pg/ml Total Protein 7.3 (6.0-8.3) gm/dl Albumin 3.9 (3.4-5.0) gm/dl Globulin 3.4 (2.5-4.0) gm/dl Albumin/Globulin Ratio 1.1 (0.9-2) Triglycerides 301 H (0-150) mg/dl Lipase 162 H (11-82) U/L HCG, Qual Negative (Negative) Urine Color Yellow Urine Appearance Clear (Clear) Urine pH 5.0 (4.5-7.5) Ur Specific [place] > 1.045 H (1.000-1.030) Urine Protein Trace H (Negative) Urine Glucose (UA) 3+ H (Negative) Urine Ketones Negative (Negative) Urine Blood Negative (Negative) Urine Nitrite Negative (Negative) Urine Bilirubin Negative (Negative) Urine Urobilinogen Negative (Negative) Ur Leukocyte Esterase Negative (Negative) Urine WBC (Auto) 0-5 (0-5) /hpf Urine RBC (Auto) 6-10 H (0-2) /hpf U Hyaline Cast (Auto) 0-2 (0-2) /lpf U Epithel Cells (Auto) 11-20 H (0-2) /hpf Urine Bacteria (Auto) 2+ H (None Seen) Urine Yeast Present A (None Prsent) Urine Comment Diagnostic Findings Abdomen/Pelvis CT 01/15/25 00:49 EXAM: CT abd pelvis IV con only CLINICAL HISTORY: severe mid abd pain, hx pancreatitis TECHNIQUE: Contiguous axial images were obtained from the level of the diaphragm to the pubic symphysis with intravenous contrast. Coronal and sagittal reconstructions were likewise performed and indicated to increase the sensitivity for detecting clinically relevant pathology. If IV contrast material had not been administered, the likelihood of detecting abnormalities relevant to the patient's condition would have been substantially decreased. CT scan was performed according to ALARA (as low as reasonably achievable). 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 The liver is normal in size and attenuation. No focal liver lesions are seen. There is no intra or extrahepatic biliary ductal dilatation. Hepatic vasculature is patent. The gallbladder is present. The spleen, and adrenal glands are unremarkable. Pancreas appears mildly bulky and shows subtle peripancreatic fat stranding - suggestive of mild pancreatitis. No obvious necrosis. No obvious peripancreatic collection. The kidneys are normal in size and attenuation. There is no hydronephrosis or perinephric fat stranding. No renal calculi or renal masses are identified. The ureters are normal in caliber and no ureteral calculi are seen. The bladder is normal in contour. Pelvic viscera are unremarkable. No focal or diffuse bowel wall thickening or evidence of bowel obstruction is identified. No imaging evidence of appendicitis. Abdominal and pelvic vasculature is patent. No adenopathy or fluid collections are seen. No aggressive appearing osseous lesions are identified. IMPRESSION: Pancreas appears mildly bulky and shows subtle peripancreatic fat stranding - suggestive of mild pancreatitis.- modified CT severity index is 2/10 - mild.-stable. No obvious necrosis. No obvious peripancreatic collection. No obvious vascular complication. No other new interval abnormality since prior study. Electronically signed by Davi Dickens 01-15-2025 01:52 AM
[2025-01-15] MEDS: cefTRIAXone SODIUM 2,000 MG/50 ML BAG IV SCH (11:58)
[2025-01-15] MEDS: HYDROmorphone INJ 0.5 MG/0.5 ML SYR IV PRN (13:25)
--- NOTE | 2025-01-15 13:37 | Hospitalist Progress Note ---
Date of Service January 15, 2025 Assessment & Plan (1) Acute pancreatitis: Plan: Recurrent pancreatitis Previously thought to be secondary to Trulicity DD: Microlithiasis --CT ABD:Pancreas appears mildly bulky and shows subtle peripancreatic fat st randing - suggestive of mild pancreatitis.- modified CT severity index is 2/10 - mild.-stable. No obvious necrosis. No obvious peripancreatic collection. No obvious vascular complication. No other new interval abnormality since prior study. -- Lipase 162 Patient denies any recent alcohol use Continue bowel rest, IV fluids Pain control as needed Appreciate GI input Likely will need endoscopic ultrasound for further evaluation Diabetes mellitus type 2 Intermittent hypoglycemia Last HbA1c 9.8 Will hold basal insulin Monitor blood glucose levels closely On sliding scale for now Hypoglycemia protocol Abnormal urinalysis Likely asymptomatic bacteriuria Hypertension Blood pressure low Hold lisinopril for now Monitor blood pressure Hyperlipidemia Resume statin as able Bronchial asthma No signs of exacerbation Monitor for now Heterozygous prothrombin gene mutation Per record GERD Continue PPI Ongoing tobacco abuse 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 Nicotine patch Mood disorder Continue home medications DVT Px: Lovenox SQ CODE STATUS Full code Admission and Anticipated Discharge Date Admission Date: January 15, 2025 Subjective Patient is seen and examined at bedside Complaints still have abdominal pain Denies any nausea, vomiting, chest pain, dyspnea, dysuria Discussed with GI today Review of Systems Review of Systems: All systems reviewed & are unremarkable except as noted in Subjective Physical Exam Physical Exam: Physical Exam: Vitals signs as noted above General Appearance: Obese, no apparent distress Head: normocephalic, Atraumatic Eyes: normal inspection, EOMI Neck: supple, Trachea midline Respiratory/Chest: Normal breath sounds, CTA, No accessory muscle use Cardiovascular: S1, S2, No murmur Abdomen/GI:Soft, mild diffuse tender, Bowel sounds present Extremities/Musculoskeletal:normal inspection, no edema Neurologic/Psych:AAOX3, grossly no focal neurological deficits Skin: normal color, warm Results & Data Results & Data Vital Signs (Past 12 Hours) Vital Signs Temp Pulse Pulse Resp BP BP Pulse Ox 01/15/25 08:46 64 01/15/25 07:01 58 L 16 99/58 L 96 01/15/25 04:46 36.5 C 59 L 16 99/53 L 95 01/15/25 03:30 63 125/71 97 01/15/25 03:25 65 16 122/70 95 01/15/25 03:15 66 16 102/68 95 01/15/25 02:56 67 16 106/64 95 01/15/25 02:20 70 16 120/71 97 01/15/25 01:56 72 16 120/75 97 01/15/25 01:50 72 18 125/77 95 01/15/25 01:39 97 O2 Del Method 01/15/25 08:46 01/15/25 07:01 Room Air 01/15/25 04:46 Room Air 01/15/25 03:30 Room Air 01/15/25 03:25 Room Air 01/15/25 03:15 Room Air 01/15/25 02:56 Room Air 01/15/25 02:20 Room Air 01/15/25 01:56 Room Air 01/15/25 01:50 Room Air 01/15/25 01:39 Room Air Laboratory Results Short CBC 01/15/25 Range/Units 01:00 WBC 11.58 H (4.8-10.8) K/ul Hgb 15.2 (12.0-16.0) g/dl Hct 44.1 (37.0-47.0) % Plt Count 287 (130-400) K/uL BMP 01/15/25 01:00 Sodium 137 Potassium 3.5 Chloride 103 Carbon Dioxide 25 BUN 17 Creatinine 0.74 Glucose 236 H Calcium 9.3 Liver Function 01/15/25 Range/Units 01:00 Total Bilirubin 0.7 (0.2-1.0) mg/dl AST 10 L (13-39) U/L ALT 11 (7-52) U/L Alkaline Phosphatase 82 (34-104) U/L Albumin 3.9 (3.4-5.0) gm/dl Urine 01/15/25 Range/Units 01:05 Urine Color Yellow Urine Appearance Clear (Clear) Urine pH 5.0 (4.5-7.5) Ur Specific [place] > 1.045 H (1.000-1.030) Urine Protein Trace H (Negative) Urine Glucose (UA) 3+ H (Negative)
[2025-01-15] MEDS: FAMOTIDINE 20 MG TAB PO SCH (20:45)
[2025-01-15] MEDS: ACETAMINOPHEN 1,000 MG/100 ML VIAL IV STA (22:06)
[2025-01-16 07:21] LABS: Hematocrit (blood only) 38.2 % (37.0-47.0); Hemoglobin 13.0 g/dl (12.0-16.0); Immature Granulocytes # (auto) 0.03 K/uL (0.01-0.20); Immature Granulocytes % (auto) 0.4 %; Mean Corpuscular Hemoglobin 30.7 pg (25.0-34.0); Mean Corpuscular Volume 90.3 fL (80.0-100.0); Platelet Count 213 K/uL (130-400); RDW Standard Deviation 41.0 fL (36.4-46.3); Red Blood Count 4.23 M/uL (4.20-5.40); White Blood Count 7.37 K/ul (4.8-10.8)
[2025-01-16 08:14] LABS: Alanine Aminotransferase 12.0 U/L (7-52); Albumin Globulin Ratio 1.3 (0.9-2); Alkaline Phosphatase 49.0 U/L (34-104); Anion Gap 3.0 (3-11); Bilirubin,Total 0.6 mg/dl (0.2-1.0); Blood Urea Nitrogen 9.0 mg/dl (6-23); Calcium 8.1 mg/dl (8.6-10.3); Carbon Dioxide 29.0 mmol/L (21-32); Chloride 108.0 mmol/L (98-107); Creatinine Clr Calc Pharmacy 151.8 ml/min; Globulin 2.3 gm/dl (2.5-4.0); Glucose 116.0 mg/dl (70-99(Fasting)); Magnesium 1.7 mg/dl (1.7-2.4); Potassium 4.2 mmol/L (3.5-5.1); Sodium 140.0 mmol/L (136-145); Thyroid Stimulating Hormone 1.794 uIu/ml (0.300-4.500); Total Protein 5.3 gm/dl (6.0-8.3)
[2025-01-16] MEDS: PANTOprazole 40 MG/10 ML SYR IV SCH (08:38)
[2025-01-16 09:12] LABS: Hemoglobin A1C 9.8 % (4.5-5.6)
--- NOTE | 2025-01-16 10:17 | Gastroenterology Progress Note ---
Date of Service January 16, 2025 Assessment & Plan (1) Acute upper abdominal pain: Plan 49 year old female with history of HTN, hyperlipidemia, bronchial asthma, nocturnal hypoxemia as per records, heterozygous prothrombin gene mutation, T2DM, GERD, gastroparesis, recurrent pancreatitis, IBS, foot osteomyelitis as per records, anxiety/mood disorder, ongoing tobacco abuse admitted w/ abd pain. CTAP w/ bulky appearing pancreas w/ subtle peripancreatic fat stranding, similar to CTAP from 01/04/25. LFTs are unremarkable, lipase 162. She reportedly has history of recurrent pancreatitis in the past thought related to Trulicity which was held, elevated triglycerides at 301. She was NPO for EGD evaluation to rule out other etiology of pain. She should have an OP EUS with her established GI team at [facility] in 4-6 weeks. Thank you for allowing us to participate in the care of this patient. Please call with any acute changes, questions or concerns. Please see addendum below with additional recommendation from my supervising physician. Admission and Anticipated Discharge Date Admission Date: January 15, 2025 Supervising Physician Co-Signing Physician Notes CT with findings of possible mild pancreatitis, she has pain. Her lipase is not overly elevated. Will proceed with EGD today to rule out other sources of pain. In the meantime she will need an outpatient EUS as she has never had this before to rule out chronic pancreatitis versus panc divisum Subjective Pt was seen and evaluated, chart reviewed. Notes ongoing abd discomfort. Reports a more mild, chronic abd pain. This can be associated with GERD. She also reports intermittent more severe, stabbing epigastric pain. She has had nausea. No vomiting today. No change in bowel habits. No fever, chills, CP, SOB. Tb 0.6 AST 17 ALT 12 ALKP 49 Lipase 228 --> 162 CTAP 2024: Pancreas appears mildly bulky and shows subtle peripancreatic fat stranding - suggestive of mild pancreatitis.- modified CT severity index is 2/10 - mild.-stable. No obvious necrosis. No obvious peripancreatic collection. No obvious vascular complication. No other new interval abnormality since prior study. ABD US 2024: Unremarkable exam. CTAP 2024: Questionable subtle peripancreatic fat stranding, not present on the previous examination. The pancreas is otherwise normal in appearance. No ductal dilation. Questionable subtle pancreatitis. Please correlate with laboratory findings. Review of Systems Review of Systems: All other findings negative except as noted in HPI. Physical Exam Constitutional: WD/WN, vitals as above Respiratory: normal respiratory effort, lungs clear to auscultation Cardiovascular: RRR, no murmur, no edema Gastrointestinal (Abdomen): normal bowel sounds, soft, nontender, no hepatosplenomegaly Skin: no rashes, warm and dry Results & Data Results & Data Vital Signs (Past 12 Hours) Vital Signs Temp Pulse Resp BP Pulse Ox O2 Del Method 01/16/25 07:26 97.5 F L 61 18 103/67 98 Room Air 01/15/25 23:19 97.7 F 58 L 14 101/65 94 Room Air Laboratory Results 01/16/25 01/16/25 01/15/25 Range/Units 06:55 05:59 23:57 WBC 7.37 (4.8-10.8) K/ul RBC 4.23 (4.20-5.40) M/uL Hgb 13.0 (12.0-16.0) g/dl Hct 38.2 (37.0-47.0) % MCV 90.3 (80.0-100.0) fL MCH 30.7 (25.0-34.0) pg MCHC 34.0 (32.0-36.0) g/dL RDW Std Deviation 41.0 (36.4-46.3) fL RDW Coeff of Shira 12.5 (11.5-14.5) % Plt Count 213 (130-400) K/uL MPV 9.5 (9.4-12.4) fL Immature Gran % (Auto) 0.4 % Neut % (Auto) 46.7 % Lymph % (Auto) 41.7 % Pike % (Auto) 8.3 % Eos % (Auto) 2.2 % Baso % (Auto) 0.7 % Neut # (Auto) 3.45 (1.40-6.50) K/uL Lymph # (Auto) 3.07 (1.20-3.40) K/uL Pike # (Auto) 0.61 H (0.11-0.59) K/uL Eos # (Auto) 0.16 (0.00-0.50) K/uL Baso # (Auto) 0.05 (0.00-0.20) K/uL Immature Gran # (Auto) 0.03 (0.01-0.20) K/uL Sodium 140 (136-145) mmol/L Potassium 4.2 (3.5-5.1) mmol/L Chloride 108 H (98-107) mmol/L Carbon Dioxide 29 (21-32) mmol/L Anion Gap 3 (3-11) BUN 9 (6-23) mg/dl Creatinine 0.58 L (0.6-1.2) mg/dl Est Cr Clr Drug Dosing 151.8 ml/min eGFR 111.56 BUN/Creatinine Ratio 15.5 (10-20) Glucose 116 H (70-99(Fasting)) mg/dl POC Glucose 105 H 125 H (70-99) mg/dl Estimat Average Glucose 235 mg/dl Hemoglobin A1c 9.8 H (4.5-5.6) % Calcium 8.1 L (8.6-10.3) mg/dl Magnesium 1.7 (1.7-2.4) mg/dl Total Bilirubin 0.6 (0.2-1.0) mg/dl AST 17 (13-39) U/L ALT 12 (7-52) U/L Alkaline Phosphatase 49 (34-104) U/L Total Protein 5.3 L D (6.0-8.3) gm/dl Albumin 3.0 L (3.4-5.0) gm/dl Globulin 2.3 L (2.5-4.0) gm/dl Albumin/Globulin Ratio 1.3 (0.9-2) TSH 1.794 (0.300-4.500) uIu/ml 01/15/25 01/15/25 01/15/25 Range/Units 23:23 21:35 18:02 WBC (4.8-10.8) K/ul RBC (4.20-5.40) M/uL Hgb (12.0-16.0) g/dl Hct (37.0-47.0) % MCV (80.0-100.0) fL MCH (25.0-34.0) pg MCHC (32.0-36.0) g/dL RDW Std Deviation (36.4-46.3) fL RDW Coeff of Shira (11.5-14.5) % Plt Count (130-400) K/uL MPV (9.4-12.4) fL Immature Gran % (Auto) % Neut % (Auto) % Lymph % (Auto) % Pike % (Auto) % Eos % (Auto) % Baso % (Auto) % Neut # (Auto) (1.40-6.50) K/uL Lymph # (Auto) (1.20-3.40) K/uL Pike # (Auto) (0.11-0.59) K/uL Eos # (Auto) (0.00-0.50) K/uL Baso # (Auto) (0.00-0.20) K/uL Immature Gran # (Auto) (0.01-0.20) K/uL Sodium (136-145) mmol/L Potassium (3.5-5.1) mmol/L Chloride (98-107) mmol/L Carbon Dioxide (21-32) mmol/L Anion Gap (3-11) BUN (6-23) mg/dl Creatinine (0.6-1.2) mg/dl Est Cr Clr Drug Dosing ml/min eGFR BUN/Creatinine Ratio (10-20) Glucose (70-99(Fasting)) mg/dl POC Glucose 49 L* 129 H 115 H (70-99) mg/dl Estimat Average Glucose mg/dl Hemoglobin A1c (4.5-5.6) % Calcium (8.6-10.3) mg/dl Magnesium (1.7-2.4) mg/dl Total Bilirubin (0.2-1.0) mg/dl AST (13-39) U/L ALT (7-52) U/L Alkaline Phosphatase (34-104) U/L Total Protein (6.0-8.3) gm/dl Albumin (3.4-5.0) gm/dl Globulin (2.5-4.0) gm/dl Albumin/Globulin Ratio (0.9-2) TSH (0.300-4.500) uIu/ml 01/15/25 01/15/25 01/15/25 Range/Units 16:22 15:52 10:53 WBC (4.8-10.8) K/ul RBC (4.20-5.40) M/uL Hgb (12.0-16.0) g/dl Hct (37.0-47.0) % MCV (80.0-100.0) fL MCH (25.0-34.0) pg MCHC (32.0-36.0) g/dL RDW Std Deviation (36.4-46.3) fL RDW Coeff of Shira (11.5-14.5) % Plt Count (130-400) K/uL MPV (9.4-12.4) fL Immature Gran % (Auto) % Neut % (Auto) % Lymph % (Auto) % Pike % (Auto) % Eos % (Auto) % Baso % (Auto) % Neut # (Auto) (1.40-6.50) K/uL Lymph # (Auto) (1.20-3.40) K/uL Pike # (Auto) (0.11-0.59) K/uL Eos # (Auto) (0.00-0.50) K/uL Baso # (Auto) (0.00-0.20) K/uL Immature Gran # (Auto) (0.01-0.20) K/uL Sodium (136-145) mmol/L Potassium (3.5-5.1) mmol/L Chloride (98-107) mmol/L Carbon Dioxide (21-32) mmol/L Anion Gap (3-11) BUN (6-23) mg/dl Creatinine (0.6-1.2) mg/dl Est Cr Clr Drug Dosing ml/min eGFR BUN/Creatinine Ratio (10-20) Glucose (70-99(Fasting)) mg/dl POC Glucose 86 67 L* 79 (70-99) mg/dl Estimat Average Glucose mg/dl Hemoglobin A1c (4.5-5.6) % Calcium (8.6-10.3) mg/dl Magnesium (1.7-2.4) mg/dl Total Bilirubin (0.2-1.0) mg/dl AST (13-39) U/L ALT (7-52) U/L Alkaline Phosphatase (34-104) U/L Total Protein (6.0-8.3) gm/dl Albumin (3.4-5.0) gm/dl Globulin (2.5-4.0) gm/dl Albumin/Globulin Ratio (0.9-2) TSH (0.300-4.500) uIu/ml PG Care Time/CCT Total # of Minutes Spent Total Time Spent with Patient: Total time spent is greater than 50% in coordination of care (as documented) at patient's floor/unit and/or counseling patient: Coding Level of Care Code None Diagnoses Acute upper abdominal pain R10.10
[2025-01-16] MEDS: HYDROmorphone INJ 0.5 MG/0.5 ML SYR IV PRN (11:08)
--- NOTE | 2025-01-16 11:20 | Anesthesiology Consultation ---
Date of Service January 16, 2025 Assessment & Plan (1) Encounter for pre-operative examination: Chart Review Chart Review: Acceptable Risk for Surgery History Surgery Operation Date: 01/16/25 18:00 Proposed Procedures p Esophagogastroduodenoscopy Marco Antonio - Vito Bernard MD Height/Weight Height: 5 ft 10 in Weight: 99.9 kg Allergies Allergy/AdvReac Type Severity Reaction Status Date / Time baclofen Allergy Intermediate ITCHING, Verified 01/04/25 20:42 NAUSEA/VOMITING cyclobenzaprine Allergy Intermediate itching Verified 01/04/25 20:42 [From Flexeril] meperidine Allergy Mild ITCHY Verified 01/04/25 20:42 amoxicillin AdvReac Intermediate Vomiting Verified 01/04/25 20:42 bupropion AdvReac Intermediate PSYCHOTIC-P Verified 01/04/25 20:42 ARANOID lactose AdvReac Intermediate Gastrointestinal Verified 01/04/25 20:42 Upset morphine AdvReac Intermediate "GETS Verified 01/04/25 20:42 REALLY SICK" zolpidem [From Ambien] AdvReac Intermediate NIGHTMARES Verified 01/04/25 20:42 Medications Home Medications Medication Instructions Recorded Confirmed Last Taken aspirin 81 mg tablet,delayed 81 mg PO DAILY 07/10/24 01/15/25 01/04/25 release atorvastatin 40 mg tablet (Lipitor) 40 mg PO DAILY 07/10/24 01/15/25 01/04/25 empagliflozin 25 mg tablet 25 mg PO DAILY 07/10/24 01/15/25 01/04/25 (Jardiance) famotidine 20 mg tablet 20 mg PO HS 07/10/24 01/15/25 01/03/25 insulin aspart U-100 100 unit/mL 1 sliding scale dose subcut 07/10/24 01/15/25 08/10/24 (3 mL) subcutaneous pen USEASDIRECTD pantoprazole 40 mg tablet,delayed 40 mg PO DAILY 07/10/24 01/15/25 01/04/25 release (Protonix) sertraline 100 mg tablet (Zoloft) 100 mg PO DAILY 07/10/24 01/15/25 01/04/25 trazodone 100 mg tablet 100 mg PO HS 07/10/24 01/15/25 01/03/25 insulin glargine 100 unit/mL 44 unit subcut AMPM 08/10/24 01/15/25 01/04/25 08:00 subcutaneous solution (Lantus U-100 Insulin) lisinopril 10 mg tablet 10 mg PO QAM 01/04/25 01/15/25 01/04/25 metformin 500 mg tablet,extended 1,000 mg PO BID 01/04/25 01/15/25 01/04/25 08:00 release 24 hr Active Medications Generic Name Dose Route Start Last Admin Trade Name Dawn PRN Reason Stop Dose Admin Aspirin 81 mg 01/15/25 09:00 01/16/25 08:37 Aspirin 81 Mg Ectab PO 02/14/25 08:59 81 mg DAILY ZACK Administration Dextrose 25 - 50 ml 01/15/25 03:53 01/15/25 23:30 Dextrose 50% 50 Ml Syringe IV 02/14/25 03:52 50 ml UD PRN Administration Hypoglycemia Protocol Protocol Enoxaparin Sodium 40 mg 01/15/25 09:00 01/16/25 08:38 Enoxaparin Inj 40 Mg/0.4 Ml Syr SQ 02/14/25 08:59 Not Given QAM ZACK Famotidine 20 mg 01/15/25 21:00 01/15/25 20:45 Famotidine 20 Mg Tab PO 02/14/25 20:59 20 mg HS ZACK Administration Hydromorphone HCl 0.5 mg 01/15/25 21:42 01/16/25 11:08 Hydromorphone Inj 0.5 Mg/0.5 Ml Syr IV 01/29/25 13:13 0.5 mg Q4H PRN Administration Mod-Sev Pain (Scale 4-10) Potassium Chloride 20 meq/ 1,010 mls @ 200 mls/hr 01/15/25 07:15 01/16/25 10:39 Dextrose/Lactated Ringer's IV 01/18/25 07:14 0 mls/hr .Q5H3M ZACK Infusion Ceftriaxone Sodium 2,000 mg in 50 mls @ 100 mls/hr 01/15/25 11:30 01/16/25 11:15 Rocephin IV 01/17/25 11:59 0 mls/hr Q24H ZACK Infusion Pantoprazole Sodium 40 mg in 10 mls @ 5 mls/min 01/16/25 09:00 01/16/25 08:38 Protonix IV 02/15/25 08:59 5 mls/min DAILY ZACK Administration Insulin Aspart 0 units 01/15/25 12:30 01/16/25 07:21 Insulin Aspart Per Unit Charge SC 02/14/25 12:29 Not Given Q6 ZACK Miscellaneous 1 each 01/15/25 08:59 01/16/25 08:37 Remove Nicoderm Patch N/A 02/14/25 08:58 1 each DAILY@0859 ZACK Administration Nicotine 1 patch 01/15/25 02:40 01/16/25 08:37 Nicotine 21 Mg/24 Hr Tdsy TD 02/14/25 02:39 1 patch QAM ZACK Administration Oxycodone HCl 5 - 10 mg 01/15/25 02:13 01/15/25 18:09 Oxycodone Hcl Ir 5 Mg Tab (Immediate Release) PO 01/29/25 02:12 10 mg QID PRN Administration Pain Pantoprazole Sodium 40 mg 01/15/25 09:00 01/15/25 08:38 Pantoprazole 40 Mg Tab PO 02/14/25 08:59 40 mg DAILY ZACK Administration Sertraline HCl 100 mg 01/15/25 09:00 01/16/25 08:37 Sertraline Hcl 100 Mg Tablet PO 02/14/25 08:59 100 mg DAILY ZACK Administration Trazodone HCl 100 mg 01/15/25 21:00 01/15/25 20:45 Trazodone Hcl 100 Mg Tab PO 02/14/25 20:59 100 mg HS ZACK Administration Past Medical History Medical History HLD (hyperlipidemia) HTN (hypertension) CKD (chronic kidney disease), stage III Uncontrolled type 2 diabetes mellitus with hyperglycemia Morbid obesity Prothrombin gene mutation Diabetes IDDM Osteoarthritis Depression Degenerative disc disease GERD (gastroesophageal reflux disease) Gastroparesis Prothrombin [id number] mutation History of migraine with aura History of gastric ulcer Past Family History Family History Mother Diabetes Denies family history of Colon cancer Ovarian cancer Breast cancer Past Surgical History Surgical History History of tubal ligation History of shoulder surgery Lt History of esophagogastroduodenoscopy (EGD) History of colonoscopy History of tonsillectomy History of tooth extraction History of knee surgery BL Status post hysteroscopic ablation of endometrium History of ankle surgery Rt Social History Smoking Status: Current every day smoker tobacco type: cigarettes Smoking cigarettes per day: 1/2 ppd Do You Dip or Chew Tobacco: No Hx Alcohol Use: Yes Alcohol type: wine and hard liquor alcohol intake frequency: holidays/special occasions only Hx Substance Use: No substance use type: does not use Physical Exam Vital Signs Last Vital Signs Temp 36.4 C L 01/16/25 07:26 Pulse 61 01/16/25 07:26 Resp 18 01/16/25 07:26 BP 103/67 01/16/25 07:26 Pulse Ox 98 01/16/25 07:26 O2 Del Method Room Air 01/16/25 07:26 Testing Laboratory Results 01/16/25 06:55 01/16/25 06:55 Hemoglobin A1c 9.8 % (4.5-5.6) H 01/16/25 06:55 Urine Color Yellow 01/15/25 01:05 Urine Appearance Clear (Clear) 01/15/25 01:05 Urine pH 5.0 (4.5-7.5) 01/15/25 01:05 Ur Specific [place] > 1.045 (1.000-1.030) H 01/15/25 01:05 Urine Protein Trace (Negative) H 01/15/25 01:05 Urine Glucose (UA) 3+ (Negative) H 01/15/25 01:05 Urine Ketones Negative (Negative) 01/15/25 01:05 Urine Nitrite Negative (Negative) 01/15/25 01:05 Ur Leukocyte Esterase Negative (Negative) 01/15/25 01:05 Urine WBC (Auto) 0-5 /hpf (0-5) 01/15/25 01:05 Urine RBC (Auto) 6-10 /hpf (0-2) H 01/15/25 01:05 U Hyaline Cast (Auto) 0-2 /lpf (0-2) 01/15/25 01:05 U Epithel Cells (Auto) 11-20 /hpf (0-2) H 01/15/25 01:05 Urine Bacteria (Auto) 2+ (None Seen) H 01/15/25 01:05 01/16/25 01/15/25 01/15/25 05:59 23:57 23:23 POC Glucose 105 H 125 H 49 L*
--- NOTE | 2025-01-16 12:02 | Communication Note ---
Date of Service: January 16, 2025 EGD: Moderate gastritis and esophagitis. Ulceration at ge junction. Small hiatal hernia ppi bid. could help explain some degree of pain? would proceed with diet. Marco Antonio
--- NOTE | 2025-01-16 12:13 | GI REPORT ---
[facility] Patient: DASHAWN MACK : 1975 Sex at : Female Age: 49 Years Procedure: Upper GI endoscopy Date: 01/16/2025 Attending Physician: Vito Bernard MD Referring MD: Brandi Dunne Indications: - Esophageal reflux - Epigastric abdominal pain Medications: - Monitored Anesthesia Care Complications: - No immediate complications. Estimated Blood Loss: - Estimated blood loss: None. - Estimated blood loss was minimal. Procedure: - Prior to the procedure, a History and Physical was performed, and patient medications and allergies were reviewed. The patient's tolerance of previous anesthesia was also reviewed. The risks and benefits of the procedure and the sedation options and risks were discussed with the patient. All questions were answered, and informed consent was obtained. Prior Anticoagulants: The patient has taken no anticoagulant or antiplatelet agents. ASA Grade Assessment: III - A patient with severe systemic disease. After reviewing the risks and benefits, the patient was deemed in satisfactory condition to undergo the procedure. - The egd scope was introduced through the mouth and advanced to the third part of the duodenum. - The upper GI endoscopy was accomplished without difficulty. - The patient tolerated the procedure well. Findings: - A small hiatal hernia was present. - LA Grade C (one or more mucosal breaks continuous between tops of 2 or more mucosal folds, less than 75% circumference) esophagitis with no bleeding was found at the gastroesophageal junction (on retroflexion). Biopsies were taken with a cold forceps for histology. Estimated blood loss was minimal. - Diffuse moderate inflammation characterized by erythema was found in the gastric antrum and in the gastric body. Biopsies were taken with a cold forceps for Helicobacter pylori testing. Estimated blood loss was minimal. - The examined duodenum was normal. Impression: - Small hiatal hernia. - LA Grade C reflux esophagitis with no bleeding. Rule out Light's esophagus. Biopsied. - Acute gastritis, characterized by erythema. Biopsied. - Normal examined duodenum. Recommendation: - Discharge patient to home (ambulatory). - Resume previous diet. - Continue present medications. - Await pathology results. - Return to primary care physician as previously scheduled. - Patient has a contact number available for emergencies. The signs and symptoms of potential delayed complications were discussed with the patient. Return to normal activities tomorrow. Written discharge instructions were provided to the patient. - ppi twice daily. start full liquids. Procedure Code(s): - 97713, Esophagogastroduodenoscopy, flexible, transoral; with biopsy, single or multiple Diagnosis Code(s): - R10.13, Epigastric pain - K44.9, Diaphragmatic hernia without obstruction or gangrene - K21.00, Gastro-esophageal reflux disease with esophagitis, without bleeding - K29.00, Acute gastritis without bleeding CPT(R) - 2023 copyright [employer]. All Rights Reserved. The CPT codes, CCI edits and ICD codes generated are intended as suggestions and were generated based on input data. These codes are preliminary and upon tile designer review may be revised to meet current compliance and payer requirements. The provider is responsible for the final determination of appropriate codes, and modifiers. Vito Bernard MD This document has been electronically signed. Note Initiated:01/16/2025 Note Completed:01/16/2025 12:12 PM [id number]
--- NOTE | 2025-01-16 12:51 | Anesthesiology Progress Note ---
Date of Service January 16, 2025 Anesthesia Post Procedure Vital Signs Vital Signs: Temp Pulse Resp BP Pulse Ox O2 Del Method O2 Flow Rate 01/16/25 12:39 56 L 16 118/73 95 Room Air 01/16/25 12:24 57 L 16 107/61 95 Room Air 01/16/25 12:09 36.3 C L 53 L 16 89/54 L 96 Oxymask 6 01/16/25 11:38 36.3 C L 56 L 16 104/71 99 Room Air 01/16/25 07:26 36.4 C L 61 18 103/67 98 Room Air 01/15/25 23:19 36.5 C 58 L 14 101/65 94 Room Air 01/15/25 14:00 36.7 C 65 16 110/73 97 Room Air Pain Intensity Abdomen: Pain Intensity: 4 Transfer of Care Handoff Completed per policy Notes Mental Status: alert / awake / arousable Patient Amnestic to Procedure: Yes Nausea / Vomiting: adequately controlled Pain: adequately controlled Airway Patency, RR, SpO2: stable & adequate BP & HR: stable & adequate Hydration State: stable & adequate Anesthetic Complications: no major complications apparent
[2025-01-16] MEDS: MIDAZOLAM HCL 1 MG/ML 2ML VIAL ONE (13:14)
[2025-01-16] MEDS: LIDOCAINE 2% 2 ML VIAL/AMP(20MG/ML) INFIL ONE (13:14)
[2025-01-16] MEDS: PROPOFOL IV EMULSION 10 MG/ML 20 ML VIAL IV ONE (13:14)
[2025-01-16] MEDS: ONDANSETRON INJ 2 MG/ML 2 ML VIAL ONE (13:14)
[2025-01-16] MEDS ORDERED: POLYETHYLENE (MIRALAX) 17 GM PACK PO PRN (13:22)
[2025-01-16] MEDS ORDERED: Nursing to Pharmacy Communication SCH (13:30)
[2025-01-16] MEDS: DOCUSATE SODIUM 100 MG CAP PO SCH (13:59)
[2025-01-16] MEDS ORDERED: PHARMACY GLYCEMIC MGMT CONSULT PRN (14:09)
--- NOTE | 2025-01-16 15:02 | Pharmacy Report ---
Pharmacy Glycemic Short Note 2 - Date of Service January 16, 2025 - Glycemic Short BSG Results (Last 24 hours): 01/15/25 01/15/25 01/15/25 15:52 16:22 18:02 Glucose POC Glucose 67 L* 86 115 H 01/15/25 01/15/25 01/15/25 21:35 23:23 23:57 Glucose POC Glucose 129 H 49 L* 125 H 01/16/25 01/16/25 01/16/25 05:59 06:55 13:34 Glucose 116 H POC Glucose 105 H 137 H OUTPATIENT ANTIDIABETIC REGIMEN: * Lantus 44 units SQ BID * Novolog ACHS (BSG <250: 10 units, BSG 250-300: 15 units, BSG >300: 20 units + CF 1:15 >150) * Jardiance 25mg PO daily * metformin 1gm PO BID HbA1C: 9.8% (01/16/25) ASSESSMENT: * Pt is a 49 YOF admitted with acute/recurrent pancreatitis. History of uncontrolled DM2 on insulin and PO medications at home. Pharmacy consulted to assist with inpatient glycemic management. * BSGs low the last 24h: 16-69-18-76-467-20-105-137mg/dL. Received 20 units of basal insulin yesterday and no bolus. * Diet advanced to full liquid. Continues on IV antibiotics. * Continue with Novolog ACHS loose parameters (mild-moderate scale). Carb ratio further loosened while diet is advanced. BSG target increased. Hold basal until consistent PO intake. PLAN FOR INPATIENT GLYCEMIC CONTROL: * Hold outpatient oral diabetes medications * Basal insulin * hold * Bolus insulin * NovoLog per scale ACHS or Q6hrs while NPO * Goal Range: Low 120 mg/dL - High 160 mg/dL * Correction Factor: 35 mg/dL/unit * Nutritional / Prandial insulin per carb ratio of 1 unit per 20 grams CHO consumed
[2025-01-16] MEDS: INSULIN ASPART PER UNIT CHARGE SC ONE (15:05)
[2025-01-16] MEDS: CARBOHYDRATES FOR HYPOGLYCEMIA PO PRN (15:32)
--- NOTE | 2025-01-16 16:39 | Hospitalist Progress Note ---
Date of Service January 16, 2025 Assessment & Plan (1) Acute pancreatitis: Plan: Recurrent pancreatitis Previously thought to be secondary to Trulicity DD: Microlithiasis --CT ABD:Pancreas appears mildly bulky and shows subtle peripancreatic fat st randing - suggestive of mild pancreatitis.- modified CT severity index is 2/10 - mild.-stable. No obvious necrosis. No obvious peripancreatic collection. No obvious vascular complication. No other new interval abnormality since prior study. -- Lipase 162 Patient denies any recent alcohol use Received IV fluid Pain control as needed Appreciate GI input Full liquid diet today Esophagitis Acute gastritis Small hiatal hernia Ulceration at the GE junction --S/P EGD: Showed moderate gastritis and esophagitis. Ulceration at GE junction. Small hiatal hernia --Pathology pending Full liquid diet today Appreciate GI input Increase Protonix to 40 mg twice a day Advised to avoid alcohol and other triggering factors Diabetes mellitus type 2 Intermittent hypoglycemia Last HbA1c 9.8 Will hold basal insulin On sliding scale for now Hypoglycemia protocol Glycemic pharmacist consulted Abnormal urinalysis Likely asymptomatic bacteriuria Hypertension BP low on presentation Resume lisinopril as able Monitor blood pressure Hyperlipidemia Resume statin Bronchial asthma No signs of exacerbation Monitor for now Heterozygous prothrombin gene mutation Per record GERD Continue PPI Ongoing tobacco abuse 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 Nicotine patch Mood disorder Continue home medications DVT Px: Lovenox SQ CODE STATUS Full code Admission and Anticipated Discharge Date Admission Date: January 15, 2025 Subjective Patient is seen and examined at bedside Patient had EGD earlier today Reports transient nausea this morning Also has some abdominal discomfort No other complaints today Review of Systems Review of Systems: All systems reviewed & are unremarkable except as noted in Subjective Physical Exam Physical Exam: Physical Exam: Vitals signs as noted above General Appearance: Obese, no apparent distress Head: normocephalic, Atraumatic Eyes: normal inspection, EOMI Neck: supple, Trachea midline Respiratory/Chest: Normal breath sounds, CTA, No accessory muscle use Cardiovascular: S1, S2, No murmur Abdomen/GI:Soft, non tender, Bowel sounds present Extremities/Musculoskeletal:normal inspection, no edema Neurologic/Psych:AAOX3, grossly no focal neurological deficits Skin: normal color, warm Results & Data Results & Data Vital Signs (Past 12 Hours) Vital Signs Temp Pulse Resp BP Pulse Ox O2 Del Method O2 Flow Rate 01/16/25 13:17 36.4 C L 53 L 16 131/78 98 Room Air 01/16/25 12:39 56 L 16 118/73 95 Room Air 01/16/25 12:24 57 L 16 107/61 95 Room Air 01/16/25 12:09 36.3 C L 53 L 16 89/54 L 96 Oxymask 6 01/16/25 11:38 36.3 C L 56 L 16 104/71 99 Room Air 01/16/25 07:26 36.4 C L 61 18 103/67 98 Room Air Laboratory Results Short CBC 01/16/25 Range/Units 06:55 WBC 7.37 (4.8-10.8) K/ul Hgb 13.0 (12.0-16.0) g/dl Hct 38.2 (37.0-47.0) % Plt Count 213 (130-400) K/uL BMP 01/16/25 06:55 Sodium 140 Potassium 4.2 Chloride 108 H Carbon Dioxide 29 BUN 9 Creatinine 0.58 L Glucose 116 H Calcium 8.1 L Liver Function 01/16/25 Range/Units 06:55 Total Bilirubin 0.6 (0.2-1.0) mg/dl AST 17 (13-39) U/L ALT 12 (7-52) U/L Alkaline Phosphatase 49 (34-104) U/L Albumin 3.0 L (3.4-5.0) gm/dl
[2025-01-16] MEDS: INSULIN ASPART PER UNIT CHARGE SC SCH (16:41)
[2025-01-16] MEDS: SENNA 8.6 MG TAB PO SCH (20:28)
[2025-01-16] MEDS: PROMETHAZINE 12.5 MG/50.5 ML BAG IV PRN (20:28)
[2025-01-16 22:58] VITALS: RESP 18
[2025-01-17 04:03] VITALS: BP 133/79; PULSE 56; TEMP 98.1; O2SAT 94
[2025-01-17 07:48] LABS: Hematocrit (blood only) 40.1 % (37.0-47.0); Hemoglobin 13.3 g/dl (12.0-16.0); Mean Corpuscular Hemoglobin 29.6 pg (25.0-34.0); Mean Corpuscular Volume 89.3 fL (80.0-100.0); Platelet Count 239 K/uL (130-400); RDW Standard Deviation 40.5 fL (36.4-46.3); Red Blood Count 4.49 M/uL (4.20-5.40); White Blood Count 7.14 K/ul (4.8-10.8)
[2025-01-17 08:09] LABS: Anion Gap 4.0 (3-11); Blood Urea Nitrogen 11.0 mg/dl (6-23); Calcium 8.5 mg/dl (8.6-10.3); Carbon Dioxide 27.0 mmol/L (21-32); Chloride 107.0 mmol/L (98-107); Creatinine Clr Calc Pharmacy 137.6 ml/min; Glucose 219.0 mg/dl (70-99(Fasting)); Magnesium 1.9 mg/dl (1.7-2.4); Potassium 4.3 mmol/L (3.5-5.1); Sodium 138.0 mmol/L (136-145)
--- NOTE | 2025-01-17 09:14 | Hospitalist Progress Note ---
Date of Service January 17, 2025 Assessment & Plan (1) Acute pancreatitis: Plan: Recurrent pancreatitis Previously thought to be secondary to Trulicity DD: Microlithiasis --CT ABD:Pancreas appears mildly bulky and shows subtle peripancreatic fat st randing - suggestive of mild pancreatitis.- modified CT severity index is 2/10 - mild.-stable. No obvious necrosis. No obvious peripancreatic collection. No obvious vascular complication. No other new interval abnormality since prior study. -- Lipase 162 Patient denies any recent alcohol use Received IV fluid Pain control as needed Appreciate GI input Tolerated regular diet Advised to follow-up with GI as outpatient on discharge Esophagitis Acute gastritis Small hiatal hernia Ulceration at the GE junction --S/P EGD: Showed moderate gastritis and esophagitis. Ulceration at GE junction. Small hiatal hernia --Pathology pending Appreciate GI input Increase Protonix to 40 mg twice a day Advised to avoid alcohol and other triggering factors Diabetes mellitus type 2 Intermittent hypoglycemia Last HbA1c 9.8 Will hold basal insulin on discharge as well On sliding scale for now Hypoglycemia protocol Glycemic pharmacist consulted Abnormal urinalysis Likely asymptomatic bacteriuria Empirically received antibiotics per patient's preference Hypertension Resume lisinopril Monitor blood pressure Hyperlipidemia Resume statin Bronchial asthma No signs of exacerbation Monitor Heterozygous prothrombin gene mutation Per record GERD Continue PPI Ongoing tobacco abuse 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 Nicotine patch Mood disorder Continue home medications DVT Px: Lovenox SQ CODE STATUS Full code Disposition Home Admission and Anticipated Discharge Date Admission Date: January 15, 2025 Subjective Patient is seen and examined at bedside Abdominal pain much improved Tolerated regular diet No new complaints today Plan to be discharged home today Review of Systems Review of Systems: All systems reviewed & are unremarkable except as noted in Subjective Physical Exam Physical Exam: Physical Exam: Vitals signs as noted above General Appearance: Obese, no apparent distress Head: normocephalic, Atraumatic Eyes: normal inspection, EOMI Neck: supple, Trachea midline Respiratory/Chest: Normal breath sounds, CTA, No accessory muscle use Cardiovascular: S1, S2, No murmur Abdomen/GI:Soft, non tender, Bowel sounds present Extremities/Musculoskeletal:normal inspection, no edema Neurologic/Psych:AAOX3, grossly no focal neurological deficits Skin: normal color, warm Results & Data Results & Data Vital Signs (Past 12 Hours) Vital Signs Temp Pulse Resp BP Pulse Ox O2 Del Method 01/17/25 03:57 36.7 C 56 L 18 133/79 94 Room Air 01/16/25 22:21 36.8 C 57 L 18 95/53 L 92 Room Air Laboratory Results Short CBC 01/17/25 Range/Units 06:48 WBC 7.14 (4.8-10.8) K/ul Hgb 13.3 (12.0-16.0) g/dl Hct 40.1 (37.0-47.0) % Plt Count 239 (130-400) K/uL BMP 01/17/25 06:48 Sodium 138 Potassium 4.3 Chloride 107 Carbon Dioxide 27 BUN 11 Creatinine 0.64 Glucose 219 H Calcium 8.5 L
--- NOTE | 2025-01-17 12:26 | Pharmacy Report ---
Pharmacy Glycemic Short Note 2 - Date of Service January 17, 2025 - Glycemic Short BSG Results (Last 24 hours): 01/16/25 01/16/25 01/16/25 13:34 15:31 15:32 Glucose POC Glucose 137 H 67 L* 65 L* 01/16/25 01/16/25 01/16/25 15:51 16:10 16:35 Glucose POC Glucose 58 L* 66 L* 91 01/16/25 01/17/25 01/17/25 20:03 06:48 08:29 Glucose 219 H POC Glucose 72 206 H 01/17/25 01/17/25 10:58 11:35 Glucose POC Glucose 54 L* 111 H OUTPATIENT ANTIDIABETIC REGIMEN: * Lantus 44 units SQ BID * Novolog ACHS (BSG <250: 10 units, BSG 250-300: 15 units, BSG >300: 20 units + CF 1:15 >150) * Jardiance 25mg PO daily * metformin 1gm PO BID HbA1C: 9.8% (01/16/25) ASSESSMENT: 01/17 * Patient received no insulin yesterday, blood sugars still trending down into 50-60s and treated per hypoglycemia protocol * Removed CR this AM, will wait until blood sugars stable before adding back in * Adjusted goal range 140-180 to allow blood sugars to trend upward 01/16 * Pt is a 49 YOF admitted with acute/recurrent pancreatitis. History of uncontrolled DM2 on insulin and PO medications at home. Pharmacy consulted to assist with inpatient glycemic management. * BSGs low the last 24h: 10-05-80-24-270-80-105-137mg/dL. Received 20 units of basal insulin yesterday and no bolus. * Diet advanced to full liquid. Continues on IV antibiotics. * Continue with Novolog ACHS loose parameters (mild-moderate scale). Carb ratio further loosened while diet is advanced. BSG target increased. Hold basal until consistent PO intake. PLAN FOR INPATIENT GLYCEMIC CONTROL: * Hold outpatient oral diabetes medications * Basal insulin * hold * Bolus insulin * NovoLog per scale ACHS or Q6hrs while NPO * Goal Range: Low 120 mg/dL - High 160 mg/dL * Correction Factor: 35 mg/dL/unit * Nutritional / Prandial insulin per carb ratio of 1 unit per -- grams CHO consumed
--- NOTE | 2025-01-17 12:54 | Discharge Summary ---
Date of Service January 17, 2025 Admission HPI Per Admitting Provider History obtained from patient and records. Medical history significant for hypertension, hyperlipidemia, bronchial asthma, nocturnal hypoxemia as per records, heterozygous prothrombin gene mutation, DM2 insulin requiring, GERD, gastroparesis, recurrent pancreatitis, IBS, foot osteomyelitis as per records, anxiety/mood disorder, ongoing tobacco abuse. Recent overnight confinement 2 weeks ago for recurrent pancreatitis. Pancreatitis etiology somewhat unclear but possibly from microlithiasis as per GI service. Patient instructed to follow-up with [facility] specialist for possible endoscopic ultrasound. Patient had achy right sided abdominal discomfort reminiscent of pancreatitis attack 1 day after discharge from the hospital. Associated nausea and bilious emesis. Denies fatty food or EtOH intake. Fever or chills at home. Denies chest pain, SOB. Patient unable to go back to hospital right away because she had to attend to a few things. 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 [employer] Admission Exam Per Admitting Provider GENERAL: Comfortable, pleasant, obese, no respiratory distress SKIN: Normal color, warm HEENT: [place] palpebral conjunctivae, no ptosis, dry buccal mucosa NECK : Supple, short neck, no tenderness CHEST : CTA, no tenderness HEART : RRR, no obvious murmurs ABDOMEN: Some distention, central abdominal tenderness EXTREMITIES : Minimal LE swelling, no LE tenderness, palpable pulses, no other conspicuous deformities noted NEUROLOGIC : Coherent, no facial asymmetry, no other gross focality Principal Diagnosis Esophagitis Acute gastritis Small hiatal hernia Ulceration at the GE junction Pancreatitis Discharge Data Allergies Allergy/AdvReac Type Severity Reaction Status Date / Time baclofen Allergy Intermediate ITCHING, Verified 01/04/25 20:42 NAUSEA/VOMITING cyclobenzaprine Allergy Intermediate itching Verified 01/04/25 20:42 [From Flexeril] meperidine Allergy Mild ITCHY Verified 01/04/25 20:42 amoxicillin AdvReac Intermediate Vomiting Verified 01/04/25 20:42 bupropion AdvReac Intermediate PSYCHOTIC-P Verified 01/04/25 20:42 ARANOID lactose AdvReac Intermediate Gastrointestinal Verified 01/04/25 20:42 Upset morphine AdvReac Intermediate "GETS Verified 01/04/25 20:42 REALLY SICK" zolpidem [From Ambien] AdvReac Intermediate NIGHTMARES Verified 01/04/25 20:42 Consultations 01/15/25 01:54 ED Decision to Admit Stat 01/15/25 03:53 Consult Gastroenterology Routine Procedures Performed Operation Date: 01/16/25 18:00 Actual Procedures p EGD Biopsy Cytology - Vito Bernard MD Ordered Studies Laboratory Results WBC 7.14 K/ul (4.8-10.8) 01/17/25 06:48 RBC 4.49 M/uL (4.20-5.40) 01/17/25 06:48 Hgb 13.3 g/dl (12.0-16.0) 01/17/25 06:48 POC Hgb 15.3 g/dl (12.0-16.0) 01/15/25 01:08 Hct 40.1 % (37.0-47.0) 01/17/25 06:48 POC Hct 45 % (37-47) 01/15/25 01:08 MCV 89.3 fL (80.0-100.0) 01/17/25 06:48 MCH 29.6 pg (25.0-34.0) 01/17/25 06:48 MCHC 33.2 g/dL (32.0-36.0) 01/17/25 06:48 RDW Std Deviation 40.5 fL (36.4-46.3) 01/17/25 06:48 RDW Coeff of Shira 12.4 % (11.5-14.5) 01/17/25 06:48 Plt Count 239 K/uL (130-400) 01/17/25 06:48 MPV 10.0 fL (9.4-12.4) 01/17/25 06:48 Immature Gran % (Auto) 0.4 % 01/16/25 06:55 Neut % (Auto) 46.7 % 01/16/25 06:55 Lymph % (Auto) 41.7 % 01/16/25 06:55 [place] % (Auto) 8.3 % 01/16/25 06:55 Eos % (Auto) 2.2 % 01/16/25 06:55 Baso % (Auto) 0.7 % 01/16/25 06:55 Neut # (Auto) 3.45 K/uL (1.40-6.50) 01/16/25 06:55 Lymph # (Auto) 3.07 K/uL (1.20-3.40) 01/16/25 06:55 [place] # (Auto) 0.61 K/uL (0.11-0.59) H 01/16/25 06:55 Eos # (Auto) 0.16 K/uL (0.00-0.50) 01/16/25 06:55 Baso # (Auto) 0.05 K/uL (0.00-0.20) 01/16/25 06:55 Immature Gran # (Auto) 0.03 K/uL (0.01-0.20) 01/16/25 06:55 POC Sodium 138 mmol/L (135-144) 01/15/25 01:08 Sodium 138 mmol/L (136-145) 01/17/25 06:48 POC Potassium 3.5 mmol/L (3.3-5.0) 01/15/25 01:08 Potassium 4.3 mmol/L (3.5-5.1) 01/17/25 06:48 POC Chloride 102 mmol/L (101-112) 01/15/25 01:08 Chloride 107 mmol/L (98-107) 01/17/25 06:48 Carbon Dioxide 27 mmol/L (21-32) 01/17/25 06:48 POC Total CO2 22 mmol/L (24-31) L 01/15/25 01:08 Anion Gap 4 (3-11) 01/17/25 06:48 POC Anion Gap 18.0 mmol/L (16-25) 01/15/25 01:08 POC BUN 16 mg/dl (7-18) 01/15/25 01:08 BUN 11 mg/dl (6-23) 01/17/25 06:48 Creatinine 0.64 mg/dl (0.6-1.2) 01/17/25 06:48 POC Creatinine 0.7 mg/dl (0.6-1.3) 01/15/25 01:08 Est Cr Clr Drug Dosing 137.6 ml/min 01/17/25 06:48 eGFR 108.94 01/17/25 06:48 BUN/Creatinine Ratio 17.2 (10-20) 01/17/25 06:48 Glucose 219 mg/dl (70-99(Fasting)) H 01/17/25 06:48 POC Glucose 111 mg/dl (70-99) H 01/17/25 11:35 POC Glucose (other) 239 mg/dl (70-99) H 01/15/25 01:08 Estimat Average Glucose 235 mg/dl 01/16/25 06:55 Hemoglobin A1c 9.8 % (4.5-5.6) H 01/16/25 06:55 Calcium 8.5 mg/dl (8.6-10.3) L 01/17/25 06:48 POC Ioniz Calcium Davin 1.15 mmol/l (1.12-1.32) 01/15/25 01:08 Magnesium 1.9 mg/dl (1.7-2.4) 01/17/25 06:48 Total Bilirubin 0.6 mg/dl (0.2-1.0) 01/16/25 06:55 AST 17 U/L (13-39) 01/16/25 06:55 ALT 12 U/L (7-52) 01/16/25 06:55 Alkaline Phosphatase 49 U/L (34-104) 01/16/25 06:55 Troponin I High Sens 6.1 pg/ml (0-14) 01/15/25 01:00 Total Protein 5.3 gm/dl (6.0-8.3) L D 01/16/25 06:55 Albumin 3.0 gm/dl (3.4-5.0) L 01/16/25 06:55 Globulin 2.3 gm/dl (2.5-4.0) L 01/16/25 06:55 Albumin/Globulin Ratio 1.3 (0.9-2) 01/16/25 06:55 Triglycerides 301 mg/dl (0-150) H 01/15/25 01:00 Lipase 162 U/L (11-82) H 01/15/25 01:00 TSH 1.794 uIu/ml (0.300-4.500) 01/16/25 06:55 HCG, Qual Negative (Negative) 01/15/25 01:00 Urine Color Yellow 01/15/25 01:05 Urine Appearance Clear (Clear) 01/15/25 01:05 Urine pH 5.0 (4.5-7.5) 01/15/25 01:05 Ur Specific [place] > 1.045 (1.000-1.030) H 01/15/25 01:05 Urine Protein Trace (Negative) H 01/15/25 01:05 Urine Glucose (UA) 3+ (Negative) H 01/15/25 01:05 Urine Ketones Negative (Negative) 01/15/25 01:05 Urine Blood Negative (Negative) 01/15/25 01:05 Urine Nitrite Negative (Negative) 01/15/25 01:05 Urine Bilirubin Negative (Negative) 01/15/25 01:05 Urine Urobilinogen Negative (Negative) 01/15/25 01:05 Ur Leukocyte Esterase Negative (Negative) 01/15/25 01:05 Urine WBC (Auto) 0-5 /hpf (0-5) 01/15/25 01:05 Urine RBC (Auto) 6-10 /hpf (0-2) H 01/15/25 01:05 U Hyaline Cast (Auto) 0-2 /lpf (0-2) 01/15/25 01:05 U Epithel Cells (Auto) 11-20 /hpf (0-2) H 01/15/25 01:05 Urine Bacteria (Auto) 2+ (None Seen) H 01/15/25 01:05 Urine Yeast Present (None Prsent) A 01/15/25 01:05 Urine Comment 01/15/25 01:05 Impressions Abdomen/Pelvis CT 01/15/25 00:49 EXAM: CT abd pelvis IV con only CLINICAL HISTORY: severe mid abd pain, hx pancreatitis TECHNIQUE: Contiguous axial images were obtained from the level of the diaphragm to the pubic symphysis with intravenous contrast. Coronal and sagittal reconstructions were likewise performed and indicated to increase the sensitivity for detecting clinically relevant pathology. If IV contrast material had not been administered, the likelihood of detecting abnormalities relevant to the patient's condition would have been substantially decreased. CT scan was performed according to ALARA (as low as reasonably achievable). COMPARISON: December 20:11:45 AGILE QA TESTER FINDINGS: The visualized lung bases are clear. The liver is normal in size and attenuation. No focal liver lesions are seen. There is no intra or extrahepatic biliary ductal dilatation. Hepatic vasculature is patent. The gallbladder is present. The spleen, and adrenal glands are unremarkable. Pancreas appears mildly bulky and shows subtle peripancreatic fat stranding - suggestive of mild pancreatitis. No obvious necrosis. No obvious peripancreatic collection. The kidneys are normal in size and attenuation. There is no hydronephrosis or perinephric fat stranding. No renal calculi or renal masses are identified. The ureters are normal in caliber and no ureteral calculi are seen. The bladder is normal in contour. Pelvic viscera are unremarkable. No focal or diffuse bowel wall thickening or evidence of bowel obstruction is identified. No imaging evidence of appendicitis. Abdominal and pelvic vasculature is patent. No adenopathy or fluid collections are seen. No aggressive appearing osseous lesions are identified. IMPRESSION: Pancreas appears mildly bulky and shows subtle peripancreatic fat stranding - suggestive of mild pancreatitis.- modified CT severity index is 2/10 - mild.-stable. No obvious necrosis. No obvious peripancreatic collection. No obvious vascular complication. No other new interval abnormality since prior study. Electronically signed by Davi Dickens 01-15-2025 01:52 AM Hospital Course (1) Acute pancreatitis: Recurrent pancreatitis Previously thought to be secondary to Trulicity DD: Microlithiasis --CT ABD:Pancreas appears mildly bulky and shows subtle peripancreatic fat stranding - suggestive of mild pancreatitis.- modified CT severity index is 2/10 - mild.-stable. No obvious necrosis. No obvious peripancreatic collection. No obvious vascular complication. No other new interval abnormality since prior study. -- Lipase 162 Patient denies any recent alcohol use Received IV fluid Pain control as needed Appreciate GI input Tolerated regular diet Advised to follow-up with GI as outpatient on discharge Esophagitis Acute gastritis Small hiatal hernia Ulceration at the GE junction --S/P EGD: Showed moderate gastritis and esophagitis. Ulceration at GE junction. Small hiatal hernia --Pathology pending Appreciate GI input Increase Protonix to 40 mg twice a day Advised to avoid alcohol and other triggering factors Diabetes mellitus type 2 Intermittent hypoglycemia Last HbA1c 9.8 Will hold basal insulin on discharge as well On sliding scale for now Hypoglycemia protocol Glycemic pharmacist consulted Abnormal urinalysis Likely asymptomatic bacteriuria Empirically received antibiotics per patient's preference Hypertension Resume lisinopril Monitor blood pressure Hyperlipidemia Resume statin Bronchial asthma No signs of exacerbation Monitor Heterozygous prothrombin gene mutation Per record GERD Continue PPI Ongoing tobacco abuse Plate Conditioner to quit smoking Nicotine patch Mood disorder Continue home medications DVT Px: Lovenox SQ CODE STATUS Full code Disposition Home Total Time Total Time Spent Total Time Spent (In Minutes): 49 minutes Discharge Plan Discharge Items Patient Disposition: Home - Self-Care Reason For Visit: PANCREATITIS Discharge Diagnosis: Esophagitis Acute gastritis Small hiatal hernia Ulceration at the GE junction Pancreatitis Condition on Discharge: Good Activity: Resume your previous activity Exercise/Sports: Gradually increase as tolerated Non-emergency contact: Primary Care Provider and Dental Assistant Call non-emergency contact if: you have any medication questions, your symptoms worsen, your pain is concerning for you and you have a fever Follow-up/Referrals: Brandi Dunne DO [Primary Care Provider] - (Date & Time 01/24/2025 11:00 AM Provider: Brandi Dunne DO [facility] ) Diet: Carb Consistent or DM2 Addtl Attending Provider Instructions: -- Follow-up with your primary care physician on 01/24/2025 11:00 AM -- Follow-up with your lap checker Dr. Vito Bernard as recommended -- You have been noted to have low glucose levels while you are hospitalized. Discuss with your primary care physician for adjustment of insulin as recommended. -- Start taking Protonix 40 mg twice a day as recommended by your lap checker. --Your biopsy results are pending at the time of discharge. Follow-up with your primary care physician/lap checker for results and further recommendations. Seek immediate medical attention if your symptoms reoccur or worsen Please review medication list provided on discharge for any medication changes as instructed. Please call if you have any questions or problems. You can reach a [facility] hospitalist on duty at [facility] 24 hours a day by calling [phone] Pending Studies at Discharge: Yes Studies:: Pathology Stand-Alone Forms: [facility], Smoking Cessation Medications and DC Order Prescriptions: New cefuroxime axetil 250 mg tablet 250 mg PO BID Qty: 4 0RF Continued atorvastatin [Lipitor] 40 mg Tablet 40 mg PO DAILY sertraline [Zoloft] 100 mg Tablet 100 mg PO DAILY aspirin 81 mg Tablet,Delayed Release (Dr/Ec) 81 mg PO DAILY famotidine 20 mg Tablet 20 mg PO HS trazodone 100 mg Tablet 100 mg PO HS insulin aspart U-100 100 unit/mL (3 mL) Insulin Pen 1 sliding scale dose SUBCUT USEASDIRECTD Rx Instructions: 55-60 units with meals Jardiance 25 mg Tablet 25 mg PO DAILY lisinopril 10 mg tablet 10 mg PO QAM metformin 500 mg tablet extended release 24 hr 1,000 mg PO BID Hold Instructions: Resume on 01/07/25. pantoprazole [Protonix] 40 mg Tablet,Delayed Release (Dr/Ec) 40 mg PO DAILY Qty: 60 2RF Held insulin glargine [Lantus U-100 Insulin] 100 unit/mL solution 44 unit SUBCUT AMPM Hold Instructions: Until further recommendations from your primary care physician Rx Instructions: Morning/Bedtime Discharge Orders: Discharge Order (Routine); Ordered 01/17/25 Ordered By: Anoop Montemayor Admission Data Admit Date/Time: 01/15/25 02:10 Attending Provider: Anoop Montemayor Admit Provider: Deandre William Primary Care Provider: Brandi Dunne Other Providers: Alexandre Bryant; Edilberto Del Real; Lauryn Tejeda; Anali Carlson; Alyssa Bain; Bibiana Monteiro; Ruy Maya; Roz Bhandari; Edmund Mcmahon; Darryl Hill S; Fatuma Noyola; Katerina Smith; Vivienne Lynn; Ivett Cooper; Venu Pillai; Meng Carballo; Lalit Canales; Christen Ojeda; Argenis Pickens Jr; Jed Krishnan; Alex Alexander; Vito Bernard; Freddy Pinon; Vandana Alejo; Braulio Lentz I; Claire Paz; Bruno Kevin; Bon Gaitan; Angus Rodriguez; Eric Salas; Deandre William
== END 2025-01-17 13:41 | disposition home or self-care (01) | DRG 439 ==
LOC: ED 00:35 → EDINP 02:10 → 3N 14:14